=== PATIENT | female | born 1945 | race Caucasian/White ===

== ENCOUNTER 2020-06-15 13:20 | Inpatient (IN) | payer MEDICARE ==
[~2020-06-15] VITALS: Ht 170.2 cm; Wt 89.5 kg
[2020-06-15 16:15] VITALS: BP 122/72
[2020-06-15] MEDS ORDERED: TRAZ-120 PO (17:20)
[2020-06-15] MEDS ORDERED: MELA5TAB20 PO (17:20)
[2020-06-15] MEDS ORDERED: ACET325T21 PO (17:20)
[2020-06-15] MEDS ORDERED: AMLO-187 PO (17:20)
[2020-06-15] MEDS ORDERED: TRAZ-125 PO (17:20)
[2020-06-15] MEDS ORDERED: ASPI-630 PO (17:20)
[2020-06-15] MEDS ORDERED: ATOR40TA59 PO (17:20)
[2020-06-15] MEDS ORDERED: POLY17PO5 PO (17:20)
[2020-06-15] MEDS ORDERED: MULT-246 PO (17:20)
--- NOTE | 2020-06-15 17:23 | NUR ---
NSG NOTE; ADMISSION DIRECT ADMIT TO ROOM 125 AT 1600 FROM [facility] VIA CART ACCOMP BY EMS PERSONNEL PT ADMITTED FOR COVID 19 SCREEN BEFORE ADMISSION TO [facility]
--- NOTE | 2020-06-15 19:15 | HP ---
ADMIT DATE: 06/15/2020 HISTORY OF PRESENT ILLNESS: The patient is a 74-year-old -E[place] female patient who apparently was admitted to [facility] with hallucination that a man who was her , has been for more than 20 years per daughter, was standing in her yard. She had fear that the man was there to hurt her. She called the crisis intervention line and EMT and the police came to the scene where she ____ believe that one of the retail maintenance technician was her . She has had the few other illusions similar to this since last week, each time this happens, she reports feeling a sensation of fullness and pain in her abdomen that radiates to her midline spine. The patient was basically seen in the Emergency Room and all her workup was unremarkable and therefore the patient made a statement that she would go jump off a bridge because if she is not alive, then there is no point being here. It is unclear if this was an actual suicidal threat, as she denies any suicidal or homicidal ideation when asked about whether she specifically meant she could jump off of a bridge. Therefore, the patient was transferred to 48-hour unit of [facility] prior to her admission to [facility]. When I spoke with her this afternoon, she initially denied any hallucination, but apparently she still have this belief and she continues to know exactly what has happened. PAST MEDICAL HISTORY: Significant for allergy, arthritis, cataracts, history of viral hepatitis type A, and hypertension. She is a Jehovah Witness. FAMILY HISTORY: Positive for heart disease in her mother. SOCIAL HISTORY: She is . She never smoked and drinks alcohol 2-3 times a year. She never used smokeless tobacco. Never used any drugs. ALLERGIES: SHE IS ALLERGIC TO SULFA DRUGS WELL SHELLFISH CONTAINING PRODUCTS. MEDICATIONS: She is currently on following medications: She is on atorvastatin calcium 40 mg at bedtime, amlodipine besylate 10 mg daily, aspirin 81 mg once a day, acetaminophen 650 mg every 8 hours, trazodone 100 mg at bedtime and trazodone 12.5 mg twice a day, polyethylene glycol 17 g daily, multivitamin 1 tablet once a day, melatonin 5 mg at bedtime. REVIEW OF SYSTEMS: As per history of present illness. PHYSICAL EXAMINATION: GENERAL: On examining her, she was sitting on the edge of the bed comfortably, in no apparent distress. No pallor, jaundice, cyanosis or thyromegaly. No jugular venous distention. No lower limb edema. VITAL SIGNS: Her heart rate was 59, blood pressure was 122/72, temperature was 98.5, respiratory rate was 18 and oxygen saturation was 96% on room air. HEAD, EYES, EARS, NOSE AND THROAT: Showed normocephalic and atraumatic. NECK: Supple. HEART: Showed normal first and second sounds. No gallop or murmur. CHEST: Clear to auscultation. No crepitation or rhonchi. ABDOMEN: Distended, soft, nontender. NEUROLOGIC: She is awake, alert, responding appropriately. All cranial nerves intact. EXTREMITIES: She moves extremities without difficulty. She ambulates without assistance or assistive devices. She apparently has right hip replacement. LABORATORY DATA: Her lab work is still pending at the time of this dictation. ASSESSMENT AND PLAN: In summary, this is a 74-year-old -E[place]ian female patient who was admitted to [facility] with altered mental status with significant delusions. She has had a CT scan, chest x-ray, TSH, CBC, CMP, and UA are all unremarkable. She also has B12, syphilis. CT abdomen showed abdominal pain that radiates to the back and she is known to have hyperlipidemia, hypertension, and vitamin D deficiency. I will review all her labs tomorrow. We will consult Dr. Collins to see her and eventually she will be transferred to [facility] for inpatient psychiatric stabilization. ALAN KEN MD DR: RAIN/jenni JOB#: [id number] / [id number]
[2020-06-15] MEDS ORDERED: ACETAMINOPHEN 325 MG TABLET PO PRN (19:30)
[2020-06-15] MEDS: diphenhydrAMINE HCL 25 MG CAPSULE PO PRN (20:04)
[2020-06-15] MEDS: traZODone 50 MG TABLET. PO SCH (20:04)
[2020-06-15 20:45] VITALS: BP 119/69
[2020-06-15] MEDS ORDERED: MELATONIN 3 MG TABLET PO SCH (21:00)
--- NOTE | 2020-06-15 22:03 | PDOC ---
Exam Note: Carlos A Note: Please also refer to the separate dictated note~for this date of service dictated separately. Discussed the patient with Nursing staff reviewed the chart.~Reviewed interim history and current functioning. Reviewed vital signs,~Labs/ Radiology~and current medications noted below. Continue current treatment with the changes noted in the dictated addendum note Assessment: Vital Signs/I&O: Vital Signs Date Time Temp Pulse Resp B/P (MAP) Pulse Ox O2 Delivery O2 Flow Rate FiO2 06/15/20 20:45 98.7 76 20 119/69 (86) 95 Room Air Current Medications: Meds: Current Medications Medications (Trade) Dose Ordered Sig/Tory Route PRN Reason Start Time Stop Time Status Last Admin Dose Admin Diphenhydramine HCl (Benadryl) 25 mg PRN Q6HRS PRN PO ITCHING 06/15/20 19:30 06/15/20 20:04 Trazodone HCl (Desyrel) 12.5 mg BIDBFRMEAL PO 06/15/20 20:00 06/15/20 20:04 Melatonin (Melatonin) 3 mg QHS PO 06/15/20 21:00 06/15/20 20:04 I have reviewed the current psychotropics carefully including drug interactions. Risk benefit ratio favors no change other than as noted in my dictated progress note. Diagnosis: Problems: (1) Person under investigation for COVID-19 DYANA DEVINE MD Jun 15, 2020 22:03
[2020-06-15 23:26] VITALS: BP 163/51
[2020-06-16] MEDS: diphenhydrAMINE HCL 25 MG CAPSULE PO PRN (01:44)
[2020-06-16 06:12] VITALS: BP 119/69
[2020-06-16] MEDS: traZODone 50 MG TABLET. PO SCH ×2 (08:24→16:33)
[2020-06-16] MEDS: POLYETHYLENE GLYCOL 3350 17 GM PACKET. PO SCH ×2 (08:25→08:28)
[2020-06-16] MEDS ORDERED: MULTIVITAMIN with MINERAL TABLET. PO SCH (09:00)
[2020-06-16] MEDS ORDERED: ASPIRIN CHEWABLE 81 MG TABLET. PO SCH (09:00)
[2020-06-16] MEDS ORDERED: ATORVASTATIN CALCIUM 20 MG TABLET PO SCH (09:00)
[2020-06-16] MEDS ORDERED: amLODIPine BESYLATE 10 MG TABLET PO SCH (09:00)
[2020-06-16 10:12] VITALS: BP 123/69
--- NOTE | 2020-06-16 15:08 | DS ---
DATE OF DISCHARGE: HOSPITAL COURSE: The patient is a 74-year-old -Prydein[place] female patient who was admitted to 48 hours Unit in [address] [place] [address] for COVID-19 testing. Her coronavirus by PCR was not detected and therefore, a decision was made to discharge her to [facility]. PHYSICAL EXAMINATION: GENERAL: When I examined her this afternoon, she looked well and was clearly in no apparent respiratory distress. No pallor, jaundice, cyanosis, or thyromegaly. No jugular venous distention or limb edema. VITAL SIGNS: Her heart rate was 74, blood pressure was 123/69, temperature was 98.2, respiratory rate was 18 and oxygen saturation was 98% on room air. HEAD, EYES, EARS, NOSE AND THROAT: Showed normocephalic, atraumatic. NECK: Supple. HEART: Showed normal first and second heart sounds. No gallop, rub or murmur. CHEST: Clear to auscultation. No crepitation or rhonchi. ABDOMEN: Distended, soft, nontender. No guarding or rigidity. No organomegaly. All hernial orifices intact. Bowel sounds normal. NEUROLOGIC: She was awake, alert, responding appropriately. All cranial nerves intact. EXTREMITIES: She moves extremities without difficulty. She ambulates without assistance or assistive devices. Her lab works done at [facility] were stable. DISCHARGE MEDICATIONS: She was transferred to [facility] to continue on acetaminophen 650 mg every 8 hours as needed, amlodipine 10 mg once a day, aspirin 81 mg once a day, atorvastatin 40 mg at bedtime, melatonin 5 mg at bedtime, multivitamin 1 tablet once a day, polyethylene glycol 17 grams daily p.r.n. for constipation, trazodone 100 mg at bedtime and trazodone 12.5 mg twice a day. FINAL DISCHARGE DIAGNOSES: Significant hallucination with paranoid delusion, admitted to [facility] for inpatient psychiatric stabilization. OTHER MEDICAL PROBLEMS: Include: A. Hypertension. B. Hyperlipidemia. C. Vitamin D deficiency. ALAN KEN MD DR: RAIN/jenni JOB#: [id number] / [id number]
[2020-06-16 15:27] VITALS: BP 158/100
--- NOTE | 2020-06-16 17:58 | NUR ---
NSG NOTE; DISCHARGE TO [facility] COVID 19 TEST NEGATIVE REPORT CALLED TO CONNIE MACARIO AT 1755 DISCHARGED FOR ADMISSION TO [facility] ALL PERSONAL BELONGINGS SENT WITH PT
== END 2020-06-16 18:00 | DRG 92 ==
LOC: 1 SOUTH 13:20
PROVIDERS: ADMIT Internal Medicine; ATTEND Internal Medicine
DX: G92 Toxic encephalopathy (principal); F03.91 Unspecified dementia, unspecified severity, with behavioral disturbance; F22 Delusional disorders; A53.9 Syphilis, unspecified; E55.9 Vitamin D deficiency, unspecified; E78.5 Hyperlipidemia, unspecified; I10 Essential (primary) hypertension; M19.90 Unspecified osteoarthritis, unspecified site; Z20.828 Contact with and (suspected) exposure to other viral communicable diseases; Z82.49 Family history of ischemic heart disease and other diseases of the circulatory system; Z88.2 Allergy status to sulfonamides; Z88.8 Allergy status to other drugs, medicaments and biological substances; Z91.013 Allergy to seafood; F28 Other psychotic disorder not due to a substance or known physiological condition
CPT/HCPCS: Q0163; U0003

== ENCOUNTER 2020-06-16 18:24 | Inpatient (IN) | payer MEDICARE ==
[~2020-06-16] VITALS: Ht 170.2 cm; Wt 96.0 kg
[2020-06-16 18:05] VITALS: BP 134/80
[~2020-06-16 18:24] MED LIST: ACET325T21 PO; AMLO-187 PO; ASPI-630 PO; ATOR40TA59 PO; MELA5TAB20 PO; MULT-246 PO; POLY17PO5 PO; TRAZ-120 PO; TRAZ-125 PO
[2020-06-16] MEDS ORDERED: diphenhydrAMINE HCL 25 MG CAPSULE PO PRN (20:00)
[2020-06-16] MEDS ORDERED: ACETAMINOPHEN 325 MG TABLET PO PRN (20:00)
[2020-06-16] MEDS: ATORVASTATIN CALCIUM 10 MG TABLET. PO SCH (21:06)
[2020-06-16] MEDS: MELATONIN 3 MG TABLET PO SCH (21:06)
--- NOTE | 2020-06-16 22:07 | PDOC ---
Exam Note: Carlos A Note: Please also refer to the separate dictated note~for this date of service dictated separately.~Patient seen individually. Discussed the patient with Nursing staff reviewed the chart.~Reviewed interim history and current functioning. Reviewed vital signs,~Labs/ Radiology~and current medications noted below. Continue current treatment with the changes noted in the dictated addendum note Assessment: Vital Signs/I&O: Vital Signs Date Time Temp Pulse Resp B/P (MAP) Pulse Ox O2 Delivery O2 Flow Rate FiO2 06/16/20 18:05 98.4 80 20 134/80 (98) 97 Room Air Current Medications: Meds: Current Medications Medications (Trade) Dose Ordered Sig/Tory Route PRN Reason Start Time Stop Time Status Last Admin Dose Admin Atorvastatin Calcium (Lipitor) 40 mg QHS PO 06/16/20 21:00 06/16/20 21:06 Melatonin (Melatonin) 3 mg QHS PO 06/16/20 21:00 06/16/20 21:06 I have reviewed the current psychotropics carefully including drug interactions. Risk benefit ratio favors no change other than as noted in my dictated progress note. Diagnosis: Problems: (1) Hallucination (2) Paranoid delusion DYANA DEVINE MD Jun 16, 2020 22:07
--- NOTE | 2020-06-16 23:15 | HP ---
ADMIT DATE: 06/16/2020 PSYCHIATRIC ADMISSION HISTORY AND EVALUATION This note covers elements not covered in my initial note of 06/16/2020. IDENTIFYING DATA: The patient is a 74-year-old female who is transferred to us from [facility] after she was deemed to be COVID negative. She was initially referred to us from [facility] where she was admitted from home on account of marked hallucinations, disorganization, agitation, worsening at night. Reportedly, the patient had been standing in the front yard fearful that her "man would hurt her." She called 911. She was transferred to the [facility] medically stabilized, behaviors persisted including progressive memory deficits and she was referred to us for inpatient psychiatric stabilization. The patient is a 74-year-old female who is and lives at home alone in [place], [place]. CHIEF COMPLAINT: "I was seeing people standing outside my window. ___ going to hurt my family and I called 911". HISTORY OF PRESENT ILLNESS: The patient has a history of worsening hallucinations psychotic symptoms, agitation with some short-term memory deficits. She was taken to [facility] for medical stabilization since she lives alone at home by herself. She has had some sleep and appetite changes. No clear suicidal or homicidal ideation. No clear history of bipolar disorder. PAST PSYCHIATRIC HISTORY: As above. MEDICAL HISTORY: Positive for metabolic encephalopathy, status post right hip replacement, hypertension, hyperlipidemia. DIET: Heart healthy. CODE STATUS: Full code. ALLERGIES: SULFA, SHELLFISH, IODINE. Ambulates up ad yoshi. CURRENT PSYCHOTROPICS: Melatonin 3 mg at bedtime, Benadryl 25 mg q. 6 hours p.r.n., trazodone 12.5 mg b.i.d. after meals. FAMILY HISTORY: Noncontributory. SOCIAL HISTORY: No history of alcohol, drug abuse, physical, sexual or elder abuse. She is not known to be a perpetrator. She is and lives by herself and her daughters live in the area. No alcohol or drug abuse history. REVIEW OF SYSTEMS: No CV, , pulmonary, eye, ENT system symptoms on review. MENTAL STATUS EXAMINATION: The patient is reasonably oriented. Speech is coherent, has some latency. Abstraction fair, computation impaired, language function intact. Mood and affect somewhat withdrawn. She is less paranoid, suspicious. LABORATORY DATA: Reviewed. IMPRESSION: Psychotic disorder, unspecified versus major depressive disorder with psychotic features, mild cognitive impairment versus major neurocognitive disorder, early Alzheimer, vascular with delusion, depression; anxiety disorder, unspecified; impulse control disorder, unspecified. Rest as above. PLAN: Admit to Geropsychiatry Unit at [facility]. I will see the patient daily individually from a psychiatric standpoint. Medical followup per Dr. Monteiro/Dr. Ron. Continue current psychotropics. Obtain results of CT head done at [facility]. Observe baseline. Make further adjustments as clinically indicated. Estimated length of stay 10-12 days. DISPOSITION PLANS: Possibly back home with outpatient psychiatric followup. MAN Flor DEVINE MD DR: SUJATHA/jenni JOB#: [id number] / [id number]
[2020-06-17] MEDS ORDERED: MAGNESIUM HYDROXIDE 2,400 MG/30 ML ORAL.SUSP. PO PRN (01:15)
[2020-06-17] MEDS ORDERED: METHYL SALICYLATE/MENTHOL TOPICAL OINTMENT 57GM TUBE. TP PRN (01:15)
[2020-06-17] MEDS ORDERED: MAG HYDROX/AL HYDROX/SIMETH 30 ML ORAL.SUSP PO PRN (01:15)
[2020-06-17 02:55] LABS: BACTERIA,URINE FEW /HPF (0-FEW); BILIRUBIN,URINE NEG (NEG); CLARITY,URINE CLEAR; COLOR,URINE YELLOW; GLUCOSE,URINE NEG (NEG); NITRITE,URINE NEG (NEG); RBC,URINE 0 /HPF (0-2); SQUAMOUS EPITHELIAL CELL,UR FEW /LPF; UROBILINOGEN,URINE 0.2 mg/dL (0.2 mg/dL)
[2020-06-17 06:00] VITALS: BP 145/83
[2020-06-17 08:53] LABS: BASO % 0 % (0-3); EOS # 0.2 x10^3/uL (0.0-0.7); EOS % 5 % (0-3); HEMATOCRIT 37.8 % (36.0-47.0); HEMOGLOBIN 12.5 g/dL (12.0-15.5); LYMPH # 1.6 x10^3/uL (1.0-4.8); LYMPH % 37 % (24-48); MEAN CORPUSCULAR HEMOGLOBIN 31 pg (25-35); MEAN CORPUSCULAR HGB CONC 33 g/dL (31-37); MEAN CORPUSCULAR VOLUME 95 fL (79-100); MONO # 0.4 x10^3/uL (0.0-1.1); MONO % 9 % (0-9); NEUT # 2.1 x10^3uL (1.8-7.7); NEUT % 49 % (31-73); PLATELET COUNT 284 x10^3/uL (140-400); RED CELL DISTRIBUTION WIDTH 14.4 % (11.5-14.5); WHITE BLOOD COUNT 4.3 x10^3/uL (4.0-11.0)
[2020-06-17] MEDS ORDERED: amLODIPine BESYLATE 10 MG TABLET PO SCH (09:00)
[2020-06-17 09:07] LABS: ALBUMIN 3.3 g/dL (3.4-5.0); ALBUMIN/GLOBULIN RATIO 0.8 (1.0-1.7); CALCIUM 9.2 mg/dL (8.5-10.1); CREATININE 0.7 mg/dL (0.6-1.0); GFR 81.4; MAGNESIUM 2.2 mg/dL (1.8-2.4); POTASSIUM 3.4 mmol/L (3.5-5.1); TOTAL BILIRUBIN 0.4 mg/dL (0.2-1.0); TOTAL PROTEIN 7.5 g/dL (6.4-8.2)
[2020-06-17] MEDS: traZODone 50 MG TABLET. PO SCH ×2 (09:33→17:21)
[2020-06-17] MEDS: MULTIVITAMIN with MINERAL TABLET. PO SCH (09:33)
[2020-06-17] MEDS: POLYETHYLENE GLYCOL 3350 17 GM PACKET. PO SCH (09:33)
[2020-06-17] MEDS: ASPIRIN CHEWABLE 81 MG TABLET. PO SCH (09:33)
[2020-06-17 14:02] LABS: THYROID STIM HORMONE (TSH) 2.094 uIU/mL (0.358-3.740)
[2020-06-17 15:51] VITALS: BP 120/66
[2020-06-17] MEDS: SERTRALINE 25 MG TABLET. PO SCH (18:30)
--- NOTE | 2020-06-17 20:36 | CONS ---
DATE OF CONSULTATION: 06/17/2020 REASON FOR CONSULTATION: Medical management. HISTORY OF PRESENT ILLNESS: The patient is a 74-year-old -Iranian female patient who was referred from [facility]. She was initially in [facility] surgical floor until she was deemed COVID negative and she was admitted to this facility on account of marked hallucination, disorganization, and agitation worsening at night. Reportedly, the patient has been standing from the yard fearful that a man would hurt her. She called 911. She was transferred to the [facility]. Medically stabilized; however, her behavior persisted including progressive memory deficit and therefore she was admitted for inpatient psychiatric stabilization. PAST MEDICAL HISTORY: Significant for hypertension, hyperlipidemia, did have metabolic encephalopathy. PAST SURGICAL HISTORY: Significant for right hip replacement. ALLERGIES: SHE IS ALLERGIC TO SULFA, SHELLFISH AND IODINE. FAMILY HISTORY: Noncontributory. SOCIAL HISTORY: She lives alone. She does not smoke, drink alcohol or use any recreational drugs. MEDICATIONS: She is currently on metoprolol. She apparently was on amlodipine; however, AMLODIPINE was listed as one of her allergies. We will switch her to metoprolol 25 mg twice a day, MiraLax 17 g daily, multivitamin 1 tablet once a day, aspirin 81 mg once a day, trazodone 12.5 mg twice a day, magnesium hydroxide for milk of magnesia 30 mL p.o. daily p.r.n. for constipation, melatonin 3 mg at bedtime, atorvastatin calcium 40 mg at bedtime, diphenhydramine 25 mg every 6 hours, and acetaminophen 650 mg every 4 hours. PHYSICAL EXAMINATION: GENERAL: On examining her, she looked well and was clearly in no apparent respiratory distress. No pallor, jaundice, cyanosis or thyromegaly. No jugular venous distention. No limb edema. VITAL SIGNS: Her heart rate was 72, blood pressure 120/66, temperature was 98.2, respiratory rate 20, and oxygen saturation was 98%. The rest of the clinical exam is stable. She is ambulatory without any assistance or assistive devices. LABORATORY DATA: Showed hemoglobin of 12.5, hematocrit 37 with normal white cell count and platelets. Her chemistry showed a BUN of 10, creatinine 0.7. Her serum potassium is 3.4. Her serum iron, TIBC and iron saturation are normal. Her TSH was 2.099 and her lipid profile is also within therapeutic range. The patient is overall medically stable. I will obviously follow all her labs that are still pending at the time of this dictation, but otherwise I did change her amlodipine to metoprolol given that AMLODIPINE was listed on her list of allergies. Thank you, Dr. Collins for allowing me to participate in the care of this patient. ALAN KEN MD DR: RAIN/jenni JOB#: [id number] / [id number]
[2020-06-17] MEDS: METOPROLOL TART IMMED RELEASE 25 MG TABLET. PO SCH (20:39)
[2020-06-17] MEDS: MELATONIN 3 MG TABLET PO SCH (20:39)
[2020-06-17] MEDS: ATORVASTATIN CALCIUM 10 MG TABLET. PO SCH (20:39)
--- NOTE | 2020-06-17 21:46 | PDOC ---
Exam Note: Carlos A Note: Please also refer to the separate dictated note~for this date of service dictated separately.~Patient seen individually. Discussed the patient with Nursing staff reviewed the chart.~Reviewed interim history and current functioning. Reviewed vital signs,~Labs/ Radiology~and current medications noted below. Continue current treatment with the changes noted in the dictated addendum note Assessment: Vital Signs/I&O: Vital Signs Date Time Temp Pulse Resp B/P (MAP) Pulse Ox O2 Delivery O2 Flow Rate FiO2 06/17/20 20:39 72 120/66 06/17/20 15:51 98.2 20 98 Room Air I & O 06/16/20 06/16/20 06/17/20 15:00 23:00 07:00 Intake Total 120 ml Balance 120 ml Labs: Laboratory Tests Test 06/17/20 02:30 06/17/20 08:10 Urine Collection Type Unknown Urine Color Yellow Urine Clarity Clear Urine pH 7.0 Urine Specific [place] 1.025 Urine Protein Neg (NEG-TRACE) Urine Glucose (UA) Neg mg/dL (NEG) Urine Ketones (Stick) Neg mg/dL (NEG) Urine Blood Neg (NEG) Urine Nitrite Neg (NEG) Urine Bilirubin Neg (NEG) Urine Urobilinogen Dipstick 0.2 mg/dL (0.2 mg/dL) Urine Leukocyte Esterase Small (NEG) Urine RBC 0 /HPF (0-2) Urine WBC 5-10 /HPF (0-4) Urine Squamous Epithelial Cells Few /LPF Urine Bacteria Few /HPF (0-FEW) White Blood Count 4.3 x10^3/uL (4.0-11.0) Red Blood Count 4.00 x10^6/uL (3.50-5.40) Hemoglobin 12.5 g/dL (12.0-15.5) Hematocrit 37.8 % (36.0-47.0) Mean Corpuscular Volume 95 fL (79-100) Mean Corpuscular Hemoglobin 31 pg (25-35) Mean Corpuscular Hemoglobin Concent 33 g/dL (31-37) Red Cell Distribution Width 14.4 % (11.5-14.5) Platelet Count 284 x10^3/uL (140-400) Neutrophils (%) (Auto) 49 % (31-73) Lymphocytes (%) (Auto) 37 % (24-48) Monocytes (%) (Auto) 9 % (0-9) Eosinophils (%) (Auto) 5 % (0-3) H Basophils (%) (Auto) 0 % (0-3) Neutrophils # (Auto) 2.1 x10^3uL (1.8-7.7) Lymphocytes # (Auto) 1.6 x10^3/uL (1.0-4.8) Monocytes # (Auto) 0.4 x10^3/uL (0.0-1.1) Eosinophils # (Auto) 0.2 x10^3/uL (0.0-0.7) Basophils # (Auto) 0.0 x10^3/uL (0.0-0.2) D-Dimer (Iris) 0.45 mg/L (0.00-0.50) Sodium Level 142 mmol/L (136-145) Potassium Level 3.4 mmol/L (3.5-5.1) L Chloride Level 106 mmol/L (98-107) Carbon Dioxide Level 28 mmol/L (21-32) Anion Gap 8 (6-14) Blood Urea Nitrogen 10 mg/dL (7-20) Creatinine 0.7 mg/dL (0.6-1.0) Estimated GFR (Cockcroft-Gault) 81.4 BUN/Creatinine Ratio 14 (6-20) Glucose Level 98 mg/dL (70-99) Calcium Level 9.2 mg/dL (8.5-10.1) Magnesium Level 2.2 mg/dL (1.8-2.4) Iron Level 83 ug/dL (50-170) Total Iron Binding Capacity 247 ug/dL (250-450) L Iron Saturation 34 % (15-34) Total Bilirubin 0.4 mg/dL (0.2-1.0) Aspartate Amino Transferase (AST) 22 U/L (15-37) Alanine Aminotransferase (ALT) 35 U/L (14-59) Alkaline Phosphatase 81 U/L (46-116) Total Protein 7.5 g/dL (6.4-8.2) Albumin 3.3 g/dL (3.4-5.0) L Albumin/Globulin Ratio 0.8 (1.0-1.7) L Triglycerides Level 47 mg/dL (0-150) Cholesterol Level 129 mg/dL (0-200) LDL Cholesterol, Calculated 59 mg/dL (0-100) VLDL Cholesterol, Calculated 9 mg/dL (0-40) Non-HDL Cholesterol Calculated 68 mg/dL (0-129) HDL Cholesterol 61 mg/dL (40-60) H Cholesterol/HDL Ratio 2.0 Thyroid Stimulating Hormone (TSH) 2.094 uIU/mL (0.358-3.740) Current Medications: Meds: Current Medications Medications (Trade) Dose Ordered Sig/Tory Route PRN Reason Start Time Stop Time Status Last Admin Dose Admin Aspirin (Aspirin Chewable) 81 mg DAILY PO 06/17/20 09:00 06/17/20 09:33 Multivitamins/ Calcium (Thera-M Plus) 1 tab DAILY PO 06/17/20 09:00 06/17/20 09:33 Trazodone HCl (Desyrel) 12.5 mg BIDBFRMEAL PO 06/17/20 07:30 06/17/20 17:21 Metoprolol Tartrate (Lopressor) 25 mg BID PO 06/17/20 21:00 06/17/20 20:39 Sertraline HCl (Zoloft) 25 mg DAILYWSUP PO 06/17/20 18:30 06/17/20 18:30 I have reviewed the current psychotropics carefully including drug interactions. Risk benefit ratio favors no change other than as noted in my dictated progress note. 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
[2020-06-18 06:19] VITALS: BP 131/79
[2020-06-18] MEDS: traZODone 50 MG TABLET. PO SCH ×2 (09:49→17:37)
[2020-06-18] MEDS: METOPROLOL TART IMMED RELEASE 25 MG TABLET. PO SCH ×2 (09:49→21:03)
[2020-06-18] MEDS: ASPIRIN CHEWABLE 81 MG TABLET. PO SCH (09:49)
[2020-06-18] MEDS: POLYETHYLENE GLYCOL 3350 17 GM PACKET. PO SCH (09:50)
[2020-06-18] MEDS: MULTIVITAMIN with MINERAL TABLET. PO SCH (09:50)
[2020-06-18] MEDS: SERTRALINE 25 MG TABLET. PO SCH (17:37)
[2020-06-18] MEDS: AMOXICILLIN 250 MG CAPSULE PO SCH ×2 (17:37→17:38)
[2020-06-18] MEDS: MELATONIN 3 MG TABLET PO SCH (21:02)
[2020-06-18] MEDS: LACTOBACILLUS RHAMNOSUS GG 1 CAPSULE. PO SCH (21:02)
[2020-06-18] MEDS: ATORVASTATIN CALCIUM 10 MG TABLET. PO SCH (21:03)
--- NOTE | 2020-06-18 22:11 | PDOC ---
Exam Note: Carlos A Note: Please also refer to the separate dictated note~for this date of service dictated separately.~Patient seen individually. Discussed the patient with Nursing staff reviewed the chart.~Reviewed interim history and current functioning. Reviewed vital signs,~Labs/ Radiology~and current medications noted below. Continue current treatment with the changes noted in the dictated addendum note Assessment: Vital Signs/I&O: Vital Signs Date Time Temp Pulse Resp B/P (MAP) Pulse Ox O2 Delivery O2 Flow Rate FiO2 06/18/20 21:03 62 131/79 06/18/20 06:19 98.1 16 97 06/17/20 15:51 Room Air I & O 06/17/20 06/17/20 06/18/20 15:00 23:00 07:00 Intake Total 600 ml 860 ml Balance 600 ml 860 ml Current Medications: Meds: Current Medications Medications (Trade) Dose Ordered Sig/Tory Route PRN Reason Start Time Stop Time Status Last Admin Dose Admin Amoxicillin (Amoxil) 250 mg [id number] PO 06/18/20 17:30 06/24/20 17:29 06/18/20 17:37 Lactobacillus Rhamnosus (Culturelle) 1 cap BID PO 06/18/20 21:00 06/18/20 21:02 I have reviewed the current psychotropics carefully including drug interactions. Risk benefit ratio favors no change other than as noted in my dictated progress note. 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
[2020-06-19 06:00] VITALS: BP 115/62
--- NOTE | 2020-06-19 06:45 | PDOC ---
Exam Note: Carlos A Note: This note is a late entry for 06/17/2020 covers elements not covered in my initial note. Subjective: The patient was seen face to face in the evening of 06/17/2020 with Raul MACARIO. Discussed with nursing staff, reviewed the chart. The patient slept 4-3/4 hours previous night. Overall the patient has done reasonably well per nursing report initially but later nursing staff informed me that nursing aids had observed her talking to herself after supper. The patient denied active hallucinations. We are obtaining CT head results that was done at [facility] We reviewed her history and hallucinations at home. She states she was drinking 2 or 3 cups of coffee and 2 or 3 Coca-Jer[employer]o, her other caffeinated drinks but never the energy booster drinks. She was also using some excessive amount of cough medications at the time and wonders if some of this could have contributed to the hallucinations which prompted her admission to [facility]. Review of Systems: Ambulation impaired. No CV, , pulmonary, ENT system symptoms on review though vision is poor. Reliability poor. Mental Status Exam: Reasonably oriented. I met with her at length in her room. Speech coherent. Abstraction is fair. Computation is somewhat impaired. Language function is intact. Attention span is fair. Mood and affect remains somewhat anxious, but otherwise appropriate. No suicidal or homicidal ideation. Laboratory Data: Reviewed. Impression: Major depressive disorder with psychotic features. Psychotic disorder unspecified. Mild cognitive impairment. Plan: We will repeat CT head but obtain the last one done at [facility]. We will go ahead and start Zoloft 25 mg a day for mood and anxiety symptoms. We may add an atypical antipsychotic later as clinically indicated. Assessment: Vital Signs/I&O: Vital Signs Date Time Temp Pulse Resp B/P (MAP) Pulse Ox O2 Delivery O2 Flow Rate FiO2 06/19/20 06:00 97.8 53 18 115/62 (79) 95 Room Air I & O 06/18/20 06/18/20 06/19/20 15:00 23:00 07:00 Intake Total 600 ml 300 ml Balance 600 ml 300 ml Current Medications: Meds: Current Medications Medications (Trade) Dose Ordered Sig/Tory Route PRN Reason Start Time Stop Time Status Last Admin Dose Admin Amoxicillin (Amoxil) 250 mg [id number] PO 06/18/20 17:30 06/24/20 17:29 06/18/20 17:37 Lactobacillus Rhamnosus (Culturelle) 1 cap BID PO 06/18/20 21:00 06/18/20 21:02 I have reviewed the current psychotropics carefully including drug interactions. Risk benefit ratio favors no change other than as noted in my dictated progress note. 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
[2020-06-19] MEDS: traZODone 50 MG TABLET. PO SCH ×2 (08:01→16:25)
[2020-06-19] MEDS: LACTOBACILLUS RHAMNOSUS GG 1 CAPSULE. PO SCH ×2 (08:02→20:21)
[2020-06-19] MEDS: MULTIVITAMIN with MINERAL TABLET. PO SCH (08:02)
[2020-06-19] MEDS: AMOXICILLIN 250 MG CAPSULE PO SCH ×3 (08:03→20:21)
[2020-06-19] MEDS: ASPIRIN CHEWABLE 81 MG TABLET. PO SCH (08:04)
[2020-06-19] MEDS: METOPROLOL TART IMMED RELEASE 25 MG TABLET. PO SCH ×2 (08:04→20:22)
[2020-06-19] MEDS: POLYETHYLENE GLYCOL 3350 17 GM PACKET. PO SCH (08:05)
[2020-06-19 16:07] VITALS: BP 148/80
[2020-06-19] MEDS: SERTRALINE 25 MG TABLET. PO SCH (16:25)
[2020-06-19] MEDS: MELATONIN 3 MG TABLET PO SCH (20:19)
[2020-06-19] MEDS: ATORVASTATIN CALCIUM 10 MG TABLET. PO SCH (20:19)
--- NOTE | 2020-06-19 22:12 | PDOC ---
Exam Note: Carlos A Note: Please also refer to the separate dictated note~for this date of service dictated separately.~Patient seen individually. Discussed the patient with Nursing staff reviewed the chart.~Reviewed interim history and current functioning. Reviewed vital signs,~Labs/ Radiology~and current medications noted below. Continue current treatment with the changes noted in the dictated addendum note Assessment: Vital Signs/I&O: Vital Signs Date Time Temp Pulse Resp B/P (MAP) Pulse Ox O2 Delivery O2 Flow Rate FiO2 06/19/20 20:22 59 148/80 06/19/20 16:07 98.0 20 99 06/19/20 06:00 Room Air I & O 06/18/20 06/18/20 06/19/20 15:00 23:00 07:00 Intake Total 600 ml 300 ml Balance 600 ml 300 ml Current Medications: I have reviewed the current psychotropics carefully including drug interactions. Risk benefit ratio favors no change other than as noted in my dictated progress note. 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
[2020-06-20 06:10] VITALS: BP 130/78
--- NOTE | 2020-06-20 06:48 | PDOC ---
Exam Note: Carlos A Note: This note is a late entry for 06/18/2020 covers elements not covered in my initial note. Subjective: The patient was seen face to face in the evening of 06/18/2020 with Heather MACARIO. Discussed with nursing staff, reviewed the chart. The patient slept 4-3/4 hours previous night. The patient has been telling nursing staff that at night the windows open and someone was lying in bed with her and then coming through the window. Her UA is reflex to culture. She started on Amoxil 250 mg t.i.d. She was able to remember 2 or 3 objects at the end of 3 minutes per assessment per nursing staff on the clock drawing she made the 6.50 as 6.55 but otherwise was accurate. Review of Systems: Ambulation impaired. No CV, , pulmonary, ENT system symptoms on review. Mental Status Exam: Reasonably oriented. The patient denies any overt psychotic symptoms, suicidal or homicidal ideation. Speech coherent. Abstraction is fair. Computation is somewhat impaired. Language function is intact. Attention span is fair. Mood and affect remains somewhat anxious, but otherwise appropriate. No suicidal or homicidal ideation. Laboratory Data: Reviewed. Impression: Major depressive disorder with psychotic features. Psychotic disorder unspecified. Mild cognitive impairment. Plan: No change from initial note. Assessment: Vital Signs/I&O: Vital Signs Date Time Temp Pulse Resp B/P (MAP) Pulse Ox O2 Delivery O2 Flow Rate FiO2 06/20/20 06:10 98.2 51 18 130/78 (95) 97 06/19/20 06:00 Room Air I & O 06/19/20 06/19/20 06/20/20 15:00 23:00 07:00 Intake Total 840 ml 240 ml 60 ml Balance 840 ml 240 ml 60 ml Current Medications: I have reviewed the current psychotropics carefully including drug interactions. Risk benefit ratio favors no change other than as noted in my dictated progress note. Diagnosis: Problems: (1) Dementia in Alzheimer's disease with depression (2) Mild cognitive impairment (3) Psychotic disorder (4) Dementia, vascular, with depression (5) Dementia, vascular, with delusions (6) Dementia in Alzheimer's disease with delusions (7) Major neurocognitive disorder (8) Dementia in Alzheimer's disease with early onset with behavioral disturbance (9) Major depressive disorder with psychotic features DYANA DEVINE MD Jun 20, 2020 06:48
[2020-06-20 07:00] LABS: ALBUMIN 3.1 g/dL (3.4-5.0); ALBUMIN/GLOBULIN RATIO 0.8 (1.0-1.7); CALCIUM 8.7 mg/dL (8.5-10.1); CREATININE 0.8 mg/dL (0.6-1.0); GFR 69.7; POTASSIUM 3.8 mmol/L (3.5-5.1); TOTAL BILIRUBIN 0.4 mg/dL (0.2-1.0); TOTAL PROTEIN 7.1 g/dL (6.4-8.2)
--- NOTE | 2020-06-20 07:17 | PDOC ---
Exam Note: Carlos A Note: This note is a late entry for 06/19/2020 covers elements not covered in my initial note. Subjective: The patient was seen face to face in the morning of 06/19/2020 for a treatment team meeting with Constanza Morrissey Nikki (psychosocial rehabilitation counselor), and Nuvia MACARIO. Discussed with nursing staff, reviewed the chart. The patient slept 7-1/4 hours previous night. She was seen individually in the evening. No overt hallucinations noted. I met with her at length in her room. Review of Systems: Ambulation impaired. No CV, , pulmonary, system symptoms on review. Mental Status Exam: Reasonably oriented. She was very pleasant, verbal, interactive, smiling as I met with her. Speech coherent. Abstraction is fair. Computation is somewhat impaired. Language function is intact. Attention span is fair. Mood and affect remains somewhat anxious, but otherwise appropriate. No suicidal or homicidal ideation. Laboratory Data: Reviewed. Impression: Major depressive disorder with psychotic features. Psychotic disorder unspecified. Mild cognitive impairment. Plan: No change from initial note. Assessment: Vital Signs/I&O: Vital Signs Date Time Temp Pulse Resp B/P (MAP) Pulse Ox O2 Delivery O2 Flow Rate FiO2 06/20/20 06:10 98.2 51 18 130/78 (95) 97 06/19/20 06:00 Room Air I & O 06/19/20 06/19/20 06/20/20 15:00 23:00 07:00 Intake Total 840 ml 240 ml 60 ml Balance 840 ml 240 ml 60 ml Labs: Laboratory Tests Test 06/20/20 06:16 Sodium Level 141 mmol/L (136-145) Potassium Level 3.8 mmol/L (3.5-5.1) Chloride Level 105 mmol/L (98-107) Carbon Dioxide Level 28 mmol/L (21-32) Anion Gap 8 (6-14) Blood Urea Nitrogen 14 mg/dL (7-20) Creatinine 0.8 mg/dL (0.6-1.0) Estimated GFR (Cockcroft-Gault) 69.7 BUN/Creatinine Ratio 18 (6-20) Glucose Level 100 mg/dL (70-99) H Calcium Level 8.7 mg/dL (8.5-10.1) Total Bilirubin 0.4 mg/dL (0.2-1.0) Aspartate Amino Transferase (AST) 14 U/L (15-37) L Alanine Aminotransferase (ALT) 23 U/L (14-59) Alkaline Phosphatase 78 U/L (46-116) Total Protein 7.1 g/dL (6.4-8.2) Albumin 3.1 g/dL (3.4-5.0) L Albumin/Globulin Ratio 0.8 (1.0-1.7) L Current Medications: I have reviewed the current psychotropics carefully including drug interactions. Risk benefit ratio favors no change other than as noted in my dictated progress note. Diagnosis: Problems: (1) Mild cognitive impairment (2) Psychotic disorder (3) Dementia, vascular, with delusions (4) Dementia in Alzheimer's disease with delusions (5) Major neurocognitive disorder (6) Dementia in Alzheimer's disease with early onset with behavioral disturbance (7) Major depressive disorder with psychotic features (8) Dementia, vascular, with depression (9) Dementia in Alzheimer's disease with depression DYANA DEVINE MD Jun 20, 2020 07:17
[2020-06-20] MEDS: POLYETHYLENE GLYCOL 3350 17 GM PACKET. PO SCH (08:54)
[2020-06-20] MEDS: AMOXICILLIN 250 MG CAPSULE PO SCH ×3 (08:54→19:35)
[2020-06-20] MEDS: traZODone 50 MG TABLET. PO SCH ×2 (08:54→16:35)
[2020-06-20] MEDS: ASPIRIN CHEWABLE 81 MG TABLET. PO SCH (08:54)
[2020-06-20] MEDS: LACTOBACILLUS RHAMNOSUS GG 1 CAPSULE. PO SCH ×2 (08:55→19:35)
[2020-06-20] MEDS: MULTIVITAMIN with MINERAL TABLET. PO SCH (08:55)
[2020-06-20] MEDS: METOPROLOL TART IMMED RELEASE 25 MG TABLET. PO SCH ×2 (08:55→19:36)
--- NOTE | 2020-06-20 13:55 | EKG ---
[address] [address] Test Date: 2020-06-17 Test Time: 22:18:55 Pat Name: BESSY WALLACE Department: Room: [address] [place] [address] Gender: F [employer]: : 1945 Requested By: DYANA DEVINE Order Number: [id number] Reading MD: Raheem Churchill Measurements Intervals [place] Rate: 57 P: LA: QRS: -12 QRSD: 102 T: 41 QT: 450 QTc: 441 Interpretive Statements SINUS BRADYCARDIA LEFTWARD AXIS Electronically Signed On 06-27-2020 12:33:47 [employer] by Raheem Churchill
[2020-06-20 16:13] VITALS: BP 130/62
[2020-06-20] MEDS: SERTRALINE 25 MG TABLET. PO SCH (16:34)
[2020-06-20] MEDS: MELATONIN 3 MG TABLET PO SCH (19:35)
[2020-06-20] MEDS: ATORVASTATIN CALCIUM 10 MG TABLET. PO SCH (19:36)
--- NOTE | 2020-06-20 22:01 | PDOC ---
Exam Note: Carlos A Note: Please also refer to the separate dictated note~for this date of service dictated separately.~Patient seen individually. Discussed the patient with Nursing staff reviewed the chart.~Reviewed interim history and current functioning. Reviewed vital signs,~Labs/ Radiology~and current medications noted below. Continue current treatment with the changes noted in the dictated addendum note Assessment: Vital Signs/I&O: Vital Signs Date Time Temp Pulse Resp B/P (MAP) Pulse Ox O2 Delivery O2 Flow Rate FiO2 06/20/20 19:36 53 130/62 06/20/20 16:13 97.3 18 97 Room Air I & O 06/19/20 06/19/20 06/20/20 15:00 23:00 07:00 Intake Total 840 ml 240 ml 60 ml Balance 840 ml 240 ml 60 ml Labs: Laboratory Tests Test 06/20/20 06:16 Sodium Level 141 mmol/L (136-145) Potassium Level 3.8 mmol/L (3.5-5.1) Chloride Level 105 mmol/L (98-107) Carbon Dioxide Level 28 mmol/L (21-32) Anion Gap 8 (6-14) Blood Urea Nitrogen 14 mg/dL (7-20) Creatinine 0.8 mg/dL (0.6-1.0) Estimated GFR (Cockcroft-Gault) 69.7 BUN/Creatinine Ratio 18 (6-20) Glucose Level 100 mg/dL (70-99) H Calcium Level 8.7 mg/dL (8.5-10.1) Total Bilirubin 0.4 mg/dL (0.2-1.0) Aspartate Amino Transferase (AST) 14 U/L (15-37) L Alanine Aminotransferase (ALT) 23 U/L (14-59) Alkaline Phosphatase 78 U/L (46-116) Total Protein 7.1 g/dL (6.4-8.2) Albumin 3.1 g/dL (3.4-5.0) L Albumin/Globulin Ratio 0.8 (1.0-1.7) L Current Medications: I have reviewed the current psychotropics carefully including drug interactions. Risk benefit ratio favors no change other than as noted in my dictated progress note. Diagnosis: Problems: (1) Psychotic disorder (2) Mild cognitive impairment (3) Dementia, vascular, with depression (4) Dementia, vascular, with delusions (5) Dementia in Alzheimer's disease with delusions (6) Dementia in Alzheimer's disease with depression (7) Major depressive disorder with psychotic features (8) Dementia in Alzheimer's disease with early onset with behavioral disturbance (9) Major neurocognitive disorder DYANA DEVINE MD Jun 20, 2020 22:01
[2020-06-21 05:35] VITALS: BP 137/88
[2020-06-21] MEDS: POLYETHYLENE GLYCOL 3350 17 GM PACKET. PO SCH (08:10)
[2020-06-21] MEDS: METOPROLOL TART IMMED RELEASE 25 MG TABLET. PO SCH ×2 (08:11→20:17)
[2020-06-21] MEDS: AMOXICILLIN 250 MG CAPSULE PO SCH ×3 (08:11→20:16)
[2020-06-21] MEDS: ASPIRIN CHEWABLE 81 MG TABLET. PO SCH (08:11)
[2020-06-21] MEDS: traZODone 50 MG TABLET. PO SCH ×2 (08:11→16:49)
[2020-06-21] MEDS: MULTIVITAMIN with MINERAL TABLET. PO SCH (08:11)
[2020-06-21] MEDS: LACTOBACILLUS RHAMNOSUS GG 1 CAPSULE. PO SCH ×2 (08:11→20:16)
[2020-06-21 16:26] VITALS: BP 148/76
[2020-06-21] MEDS: SERTRALINE 25 MG TABLET. PO SCH (17:19)
[2020-06-21] MEDS: MELATONIN 3 MG TABLET PO SCH (20:16)
[2020-06-21] MEDS: ATORVASTATIN CALCIUM 10 MG TABLET. PO SCH (20:17)
--- NOTE | 2020-06-21 22:13 | PDOC ---
Exam Note: Carlos A Note: Please also refer to the separate dictated note~for this date of service dictated separately.~Patient seen individually. Discussed the patient with Nursing staff reviewed the chart.~Reviewed interim history and current functioning. Reviewed vital signs,~Labs/ Radiology~and current medications noted below. Continue current treatment with the changes noted in the dictated addendum note Assessment: Vital Signs/I&O: Vital Signs Date Time Temp Pulse Resp B/P (MAP) Pulse Ox O2 Delivery O2 Flow Rate FiO2 06/21/20 20:17 64 148/76 06/21/20 16:26 97.6 19 95 06/20/20 16:13 Room Air I & O 06/20/20 06/20/20 06/21/20 15:00 23:00 07:00 Intake Total 720 ml 480 ml Balance 720 ml 480 ml Current Medications: I have reviewed the current psychotropics carefully including drug interactions. Risk benefit ratio favors no change other than as noted in my dictated progress note. Diagnosis: Problems: (1) Mild cognitive impairment (2) Dementia, vascular, with depression (3) Dementia, vascular, with delusions (4) Dementia in Alzheimer's disease with delusions (5) Major depressive disorder with psychotic features (6) Dementia in Alzheimer's disease with early onset with behavioral disturbance (7) Major neurocognitive disorder (8) Dementia in Alzheimer's disease with depression DYANA DEVINE MD Jun 21, 2020 22:13
[2020-06-22 05:35] VITALS: BP 161/71
--- NOTE | 2020-06-22 06:26 | PDOC ---
Exam Note: Carlos A Note: This note is a late entry for 06/20/2020 covers elements not covered in my initial note. Subjective: The patient was seen face to face in the evening of 06/20/2020 with Sera MACARIO. Discussed with nursing staff, reviewed the chart. The patient slept 6 hours previous night. She does have UTI started on Amoxil. Potassium is back to normal at 3.8. I met with her in her room. Review of Systems: Ambulation impaired. No CV, , pulmonary, system symptoms on review. Mental Status Exam: Reasonably oriented. Speech is coherent. Abstraction is fair. Computation is somewhat impaired. Language function is intact. Attention span is fair. Mood and affect is improved. Laboratory Data: Reviewed. Impression: Major depressive disorder with psychotic features. Psychotic disorder unspecified. Mild cognitive impairment. Plan: No change from initial note. Treat the UTI. Currently on Amoxil. Continue rest of the psychotropics. Make further adjustments as clinically indicated. Assessment: Vital Signs/I&O: Vital Signs Date Time Temp Pulse Resp B/P (MAP) Pulse Ox O2 Delivery O2 Flow Rate FiO2 06/22/20 05:35 98.0 65 18 161/71 (101) 98 Room Air I & O 06/21/20 06/21/20 06/22/20 15:00 23:00 07:00 Intake Total 720 ml 360 ml Balance 720 ml 360 ml Current Medications: I have reviewed the current psychotropics carefully including drug interactions. Risk benefit ratio favors no change other than as noted in my dictated progress note. Diagnosis: Problems: (1) Psychotic disorder (2) Mild cognitive impairment (3) Dementia, vascular, with depression (4) Dementia, vascular, with delusions (5) Dementia in Alzheimer's disease with depression (6) Dementia in Alzheimer's disease with delusions (7) Major neurocognitive disorder (8) Dementia in Alzheimer's disease with early onset with behavioral disturbance (9) Major depressive disorder with psychotic features DYANA DEVINE MD Jun 22, 2020 06:26
--- NOTE | 2020-06-22 06:54 | PDOC ---
Exam Note: Carlos A Note: This note is a late entry for 06/21/2020 covers elements not covered in my initial note. Subjective: The patient was seen face to face in the evening of 06/21/2020 with Kamila MACARIO. Discussed with nursing staff, reviewed the chart. The patient slept 6-3/4 hours previous night. The patient has done reasonably well. Review of Systems: Ambulation impaired. No CV, , pulmonary, system symptoms on review. Mental Status Exam: Reasonably oriented to herself and situation. I met with her in her room. Speech is coherent. Abstraction is fair. Computation is impaired. Language function is intact. Attention span is short. Mood and affect remains is improved. She is quite verbal, interactive as I met with her. Laboratory Data: Reviewed. Impression: Major depressive disorder with psychotic features. Psychotic disorder unspecified. Mild cognitive impairment. Plan: No change from initial note. Assessment: Vital Signs/I&O: Vital Signs Date Time Temp Pulse Resp B/P (MAP) Pulse Ox O2 Delivery O2 Flow Rate FiO2 06/22/20 05:35 98.0 65 18 161/71 (101) 98 Room Air I & O 06/21/20 06/21/20 06/22/20 15:00 23:00 07:00 Intake Total 720 ml 360 ml Balance 720 ml 360 ml Current Medications: I have reviewed the current psychotropics carefully including drug interactions. Risk benefit ratio favors no change other than as noted in my dictated progress note. Diagnosis: Problems: (1) Dementia, vascular, with depression (2) Mild cognitive impairment (3) Dementia, vascular, with delusions (4) Dementia in Alzheimer's disease with depression (5) Major neurocognitive disorder (6) Dementia in Alzheimer's disease with early onset with behavioral disturbance (7) Major depressive disorder with psychotic features (8) Dementia in Alzheimer's disease with delusions DYANA DEVINE MD Jun 22, 2020 06:54
[2020-06-22] MEDS: POLYETHYLENE GLYCOL 3350 17 GM PACKET. PO SCH (08:58)
[2020-06-22] MEDS: traZODone 50 MG TABLET. PO SCH ×2 (08:59→17:50)
[2020-06-22] MEDS: ASPIRIN CHEWABLE 81 MG TABLET. PO SCH (08:59)
[2020-06-22] MEDS: METOPROLOL TART IMMED RELEASE 25 MG TABLET. PO SCH ×2 (09:00→20:38)
[2020-06-22] MEDS: LACTOBACILLUS RHAMNOSUS GG 1 CAPSULE. PO SCH ×2 (09:00→20:38)
[2020-06-22] MEDS: MULTIVITAMIN with MINERAL TABLET. PO SCH (09:00)
[2020-06-22] MEDS: AMOXICILLIN 250 MG CAPSULE PO SCH ×3 (09:00→20:38)
[2020-06-22 15:58] VITALS: BP 167/89
[2020-06-22] MEDS: SERTRALINE 25 MG TABLET. PO SCH (17:50)
[2020-06-22] MEDS: ATORVASTATIN CALCIUM 10 MG TABLET. PO SCH (20:38)
[2020-06-22] MEDS: MELATONIN 3 MG TABLET PO SCH (20:38)
--- NOTE | 2020-06-22 21:59 | PDOC ---
Exam Note: Carlos A Note: Please also refer to the separate dictated note~for this date of service dictated separately.~Patient seen individually. Discussed the patient with Nursing staff reviewed the chart.~Reviewed interim history and current functioning. Reviewed vital signs,~Labs/ Radiology~and current medications noted below. Continue current treatment with the changes noted in the dictated addendum note Assessment: Vital Signs/I&O: Vital Signs Date Time Temp Pulse Resp B/P (MAP) Pulse Ox O2 Delivery O2 Flow Rate FiO2 06/22/20 20:38 71 167/89 06/22/20 15:58 97.9 16 97 06/22/20 05:35 Room Air I & O 06/21/20 06/21/20 06/22/20 15:00 23:00 07:00 Intake Total 720 ml 360 ml Balance 720 ml 360 ml Current Medications: I have reviewed the current psychotropics carefully including drug interactions. Risk benefit ratio favors no change other than as noted in my dictated progress note. Diagnosis: Problems: (1) Mild cognitive impairment (2) Dementia, vascular, with depression (3) Dementia, vascular, with delusions (4) Dementia in Alzheimer's disease with depression (5) Dementia in Alzheimer's disease with delusions (6) Major neurocognitive disorder (7) Dementia in Alzheimer's disease with early onset with behavioral disturbance (8) Major depressive disorder with psychotic features (9) Psychotic disorder DYANA DEVINE MD Jun 22, 2020 21:59
[2020-06-23 06:39] VITALS: BP 130/70
[2020-06-23] MEDS: MULTIVITAMIN with MINERAL TABLET. PO SCH (08:14)
[2020-06-23] MEDS: ASPIRIN CHEWABLE 81 MG TABLET. PO SCH (08:14)
[2020-06-23] MEDS: AMOXICILLIN 250 MG CAPSULE PO SCH ×3 (08:14→20:38)
[2020-06-23] MEDS: LACTOBACILLUS RHAMNOSUS GG 1 CAPSULE. PO SCH ×2 (08:14→20:38)
[2020-06-23] MEDS: traZODone 50 MG TABLET. PO SCH ×2 (08:14→16:51)
[2020-06-23] MEDS: POLYETHYLENE GLYCOL 3350 17 GM PACKET. PO SCH (08:15)
[2020-06-23] MEDS: METOPROLOL TART IMMED RELEASE 25 MG TABLET. PO SCH ×2 (08:15→20:38)
[2020-06-23 15:24] VITALS: BP 119/65
[2020-06-23] MEDS: SERTRALINE 25 MG TABLET. PO SCH (16:50)
[2020-06-23 20:15] VITALS: BP 148/71
[2020-06-23] MEDS: ATORVASTATIN CALCIUM 10 MG TABLET. PO SCH (20:38)
[2020-06-23] MEDS: MELATONIN 3 MG TABLET PO SCH (20:38)
--- NOTE | 2020-06-23 22:04 | PDOC ---
Exam Note: Carlos A Note: Please also refer to the separate dictated note~for this date of service dictated separately.~Patient seen individually. Discussed the patient with Nursing staff reviewed the chart.~Reviewed interim history and current functioning. Reviewed vital signs,~Labs/ Radiology~and current medications noted below. Continue current treatment with the changes noted in the dictated addendum note Assessment: Vital Signs/I&O: Vital Signs Date Time Temp Pulse Resp B/P (MAP) Pulse Ox O2 Delivery O2 Flow Rate FiO2 06/23/20 20:38 63 148/71 06/23/20 20:15 95 Room Air 06/23/20 15:24 98.4 20 I & O 06/22/20 06/22/20 06/23/20 15:00 23:00 07:00 Intake Total 565 ml 885 ml Balance 565 ml 885 ml Current Medications: I have reviewed the current psychotropics carefully including drug interactions. Risk benefit ratio favors no change other than as noted in my dictated progress note. Diagnosis: Problems: (1) Dementia, vascular, with delusions (2) Dementia, vascular, with depression (3) Mild cognitive impairment (4) Dementia in Alzheimer's disease with depression (5) Dementia in Alzheimer's disease with delusions (6) Major neurocognitive disorder (7) Major depressive disorder with psychotic features (8) Dementia in Alzheimer's disease with early onset with behavioral disturbance (9) Psychotic disorder DYANA DEVINE MD Jun 23, 2020 22:04
[2020-06-24 06:32] VITALS: BP 114/53
[2020-06-24] MEDS: ASPIRIN CHEWABLE 81 MG TABLET. PO SCH (09:01)
[2020-06-24] MEDS: AMOXICILLIN 250 MG CAPSULE PO SCH ×2 (09:01→12:26)
[2020-06-24] MEDS: POLYETHYLENE GLYCOL 3350 17 GM PACKET. PO SCH (09:01)
[2020-06-24] MEDS: MULTIVITAMIN with MINERAL TABLET. PO SCH (09:01)
[2020-06-24] MEDS: traZODone 50 MG TABLET. PO SCH ×2 (09:01→17:06)
[2020-06-24] MEDS: LACTOBACILLUS RHAMNOSUS GG 1 CAPSULE. PO SCH ×2 (09:01→20:47)
[2020-06-24] MEDS: METOPROLOL TART IMMED RELEASE 25 MG TABLET. PO SCH ×2 (09:01→20:47)
[2020-06-24 16:01] VITALS: BP 148/67
[2020-06-24] MEDS: SERTRALINE 25 MG TABLET. PO SCH (17:06)
[2020-06-24] MEDS: MELATONIN 3 MG TABLET PO SCH (20:47)
[2020-06-24] MEDS: ATORVASTATIN CALCIUM 10 MG TABLET. PO SCH (20:48)
--- NOTE | 2020-06-24 21:54 | PDOC ---
Exam Note: Carlos A Note: Please also refer to the separate dictated note~for this date of service dictated separately.~Patient seen individually. Discussed the patient with Nursing staff reviewed the chart.~Reviewed interim history and current functioning. Reviewed vital signs,~Labs/ Radiology~and current medications noted below. Continue current treatment with the changes noted in the dictated addendum note Assessment: Vital Signs/I&O: Vital Signs Date Time Temp Pulse Resp B/P (MAP) Pulse Ox O2 Delivery O2 Flow Rate FiO2 06/24/20 20:47 58 148/67 06/24/20 16:01 97.7 18 98 Room Air I & O 06/23/20 06/23/20 06/24/20 15:00 23:00 07:00 Intake Total 550 ml 445 ml Balance 550 ml 445 ml Current Medications: I have reviewed the current psychotropics carefully including drug interactions. Risk benefit ratio favors no change other than as noted in my dictated progress note. Diagnosis: Problems: (1) Dementia, vascular, with depression (2) Dementia in Alzheimer's disease with depression (3) Dementia in Alzheimer's disease with delusions (4) Major neurocognitive disorder (5) Major depressive disorder with psychotic features (6) Dementia in Alzheimer's disease with early onset with behavioral disturbance (7) Dementia, vascular, with delusions (8) Mild cognitive impairment DYANA DEVINE MD Jun 24, 2020 21:54
[2020-06-25 06:01] VITALS: BP 154/88
--- NOTE | 2020-06-25 07:23 | PDOC ---
Exam Note: Carlos A Note: This note is a late entry for 06/22/2020 covers elements not covered in my initial note. Subjective: The patient was seen face to face in the evening of 06/22/2020 with Sera MACARIO. Discussed with nursing staff, reviewed the chart. The patient slept 8-3/4 hours previous night. Reportedly the patient denies any active hallucinations but apparently her family has called the nursing staff to state that the patient tells them she still has some intermittent auditory hallucinations. I addressed this with the patient in the evening and she denies having it. Review of Systems: Ambulation impaired. No CV, , pulmonary, system symptoms on review. Mental Status Exam: Reasonably oriented to herself and situation. She was pleasant, verbal, interactive. Denied overt hallucinations as I met with her in the room. Speech is coherent. Abstraction is fair. Computation is impaired. Language function is intact. Attention span is short. Mood and affect remains is improved. Laboratory Data: Reviewed. Impression: Major depressive disorder with psychotic features. Psychotic disorder unspecified. Mild cognitive impairment. Plan: No change from initial note. Assessment: Vital Signs/I&O: Vital Signs Date Time Temp Pulse Resp B/P (MAP) Pulse Ox O2 Delivery O2 Flow Rate FiO2 06/25/20 06:01 98.6 68 20 154/88 (110) 95 06/24/20 16:01 Room Air I & O 06/24/20 06/24/20 06/25/20 15:00 23:00 07:00 Intake Total 480 ml 360 ml 0 ml Balance 480 ml 360 ml 0 ml Current Medications: I have reviewed the current psychotropics carefully including drug interactions. Risk benefit ratio favors no change other than as noted in my dictated progress note. Diagnosis: Problems: (1) Mild cognitive impairment (2) Dementia, vascular, with depression (3) Dementia, vascular, with delusions (4) Dementia in Alzheimer's disease with delusions (5) Major neurocognitive disorder (6) Dementia in Alzheimer's disease with early onset with behavioral disturbance (7) Major depressive disorder with psychotic features DYANA DEVINE MD Jun 25, 2020 07:23
--- NOTE | 2020-06-25 07:46 | PDOC ---
Exam Note: Carlos A Note: This note is a late entry for 06/23/2020 covers elements not covered in my initial note. Subjective: The patient was seen face to face in the evening of 06/23/2020 with Kamila MACARIO. Discussed with nursing staff, reviewed the chart. The patient slept 8-3/4 hours previous night. She is somewhat isolative, met with her in her room. Review of Systems: Ambulation impaired. No CV, , pulmonary, system symptoms on review. Mental Status Exam: Reasonably oriented to herself and situation. She was pleasant, verbal, interactive. Speech is coherent. Abstraction is fair. Computation is impaired. Language function is intact. Attention span is short. Mood and affect remains is improved. Laboratory Data: Reviewed. Impression: Major depressive disorder with psychotic features. Psychotic disorder unspecified. Mild cognitive impairment. Plan: No change from initial note. Assessment: Vital Signs/I&O: Vital Signs Date Time Temp Pulse Resp B/P (MAP) Pulse Ox O2 Delivery O2 Flow Rate FiO2 06/25/20 06:01 98.6 68 20 154/88 (110) 95 06/24/20 16:01 Room Air I & O 06/24/20 06/24/20 06/25/20 15:00 23:00 07:00 Intake Total 480 ml 360 ml 0 ml Balance 480 ml 360 ml 0 ml Current Medications: I have reviewed the current psychotropics carefully including drug interactions. Risk benefit ratio favors no change other than as noted in my dictated progress note. Diagnosis: Problems: (1) Mild cognitive impairment (2) Dementia, vascular, with depression (3) Dementia, vascular, with delusions (4) Dementia in Alzheimer's disease with delusions (5) Major neurocognitive disorder (6) Dementia in Alzheimer's disease with early onset with behavioral disturbance (7) Major depressive disorder with psychotic features DYANA DEVINE MD Jun 25, 2020 07:46
--- NOTE | 2020-06-25 08:05 | PDOC ---
Exam Note: Carlos A Note: This note is a late entry for 06/24/2020 covers elements not covered in my initial note. Subjective: The patient was seen face to face in the evening of 06/24/2020 with Raul MACARIO. Discussed with nursing staff, reviewed the chart. The patient slept 7-1/4 hours previous night. No delusions noted. Review of Systems: Ambulation impaired. No CV, , pulmonary, system symptoms on review. Mental Status Exam: Reasonably oriented to herself and situation. She was pleasant, verbal, interactive. Speech is coherent. Abstraction is fair. Computation is impaired. Language function is intact. Attention span is short. Mood and affect remains is improved. Laboratory Data: Reviewed. Impression: Major depressive disorder with psychotic features. Psychotic disorder unspecified. Mild cognitive impairment. Plan: No change from initial note. Assessment: Vital Signs/I&O: Vital Signs Date Time Temp Pulse Resp B/P (MAP) Pulse Ox O2 Delivery O2 Flow Rate FiO2 06/25/20 06:01 98.6 68 20 154/88 (110) 95 06/24/20 16:01 Room Air I & O 06/24/20 06/24/20 06/25/20 15:00 23:00 07:00 Intake Total 480 ml 360 ml 0 ml Balance 480 ml 360 ml 0 ml Current Medications: I have reviewed the current psychotropics carefully including drug interactions. Risk benefit ratio favors no change other than as noted in my dictated progress note. Diagnosis: Problems: (1) Mild cognitive impairment (2) Dementia, vascular, with depression (3) Dementia, vascular, with delusions (4) Dementia in Alzheimer's disease with depression (5) Major neurocognitive disorder (6) Dementia in Alzheimer's disease with early onset with behavioral disturbance (7) Major depressive disorder with psychotic features DYANA DEVINE MD Jun 25, 2020 08:05
[2020-06-25] MEDS: LACTOBACILLUS RHAMNOSUS GG 1 CAPSULE. PO SCH ×2 (08:26→20:24)
[2020-06-25] MEDS: ASPIRIN CHEWABLE 81 MG TABLET. PO SCH (08:26)
[2020-06-25] MEDS: METOPROLOL TART IMMED RELEASE 25 MG TABLET. PO SCH ×2 (08:27→20:25)
[2020-06-25] MEDS: MULTIVITAMIN with MINERAL TABLET. PO SCH (08:27)
[2020-06-25] MEDS: traZODone 50 MG TABLET. PO SCH ×2 (08:27→16:33)
[2020-06-25] MEDS: POLYETHYLENE GLYCOL 3350 17 GM PACKET. PO SCH (08:27)
[2020-06-25 16:07] VITALS: BP 135/73
[2020-06-25] MEDS: SERTRALINE 25 MG TABLET. PO SCH (16:33)
[2020-06-25] MEDS: MELATONIN 3 MG TABLET PO SCH (20:24)
[2020-06-25] MEDS: ATORVASTATIN CALCIUM 10 MG TABLET. PO SCH (20:25)
--- NOTE | 2020-06-25 20:56 | PDOC ---
Exam Note: Carlos A Note: Please also refer to the separate dictated note~for this date of service dictated separately.~Patient seen individually. Discussed the patient with Nursing staff reviewed the chart.~Reviewed interim history and current functioning. Reviewed vital signs,~Labs/ Radiology~and current medications noted below. Continue current treatment with the changes noted in the dictated addendum note Assessment: Vital Signs/I&O: Vital Signs Date Time Temp Pulse Resp B/P (MAP) Pulse Ox O2 Delivery O2 Flow Rate FiO2 06/25/20 20:25 56 135/73 06/25/20 16:07 98.6 20 97 Room Air I & O 06/24/20 06/24/20 06/25/20 15:00 23:00 07:00 Intake Total 480 ml 360 ml 0 ml Balance 480 ml 360 ml 0 ml Current Medications: I have reviewed the current psychotropics carefully including drug interactions. Risk benefit ratio favors no change other than as noted in my dictated progress note. Diagnosis: Problems: (1) Dementia, vascular, with depression (2) Mild cognitive impairment (3) Dementia, vascular, with delusions (4) Dementia in Alzheimer's disease with depression (5) Dementia in Alzheimer's disease with delusions (6) Major neurocognitive disorder (7) Dementia in Alzheimer's disease with early onset with behavioral disturbance (8) Major depressive disorder with psychotic features DYANA DEVINE MD Jun 25, 2020 20:56
[2020-06-26 06:10] VITALS: BP 134/61
[2020-06-26 07:38] LABS: BASO % 0 % (0-3); EOS # 0.3 x10^3/uL (0.0-0.7); EOS % 4 % (0-3); HEMATOCRIT 34.6 % (36.0-47.0); HEMOGLOBIN 11.5 g/dL (12.0-15.5); LYMPH # 1.7 x10^3/uL (1.0-4.8); LYMPH % 29 % (24-48); MEAN CORPUSCULAR HEMOGLOBIN 31 pg (25-35); MEAN CORPUSCULAR HGB CONC 33 g/dL (31-37); MEAN CORPUSCULAR VOLUME 95 fL (79-100); MONO # 0.5 x10^3/uL (0.0-1.1); MONO % 10 % (0-9); NEUT # 3.3 x10^3uL (1.8-7.7); NEUT % 57 % (31-73); PLATELET COUNT 299 x10^3/uL (140-400); RED BLOOD COUNT 3.66 x10^6/uL (3.50-5.40); RED CELL DISTRIBUTION WIDTH 14.6 % (11.5-14.5); WHITE BLOOD COUNT 5.8 x10^3/uL (4.0-11.0)
[2020-06-26 07:51] LABS: ALBUMIN 2.7 g/dL (3.4-5.0); ALBUMIN/GLOBULIN RATIO 0.7 (1.0-1.7); CALCIUM 8.6 mg/dL (8.5-10.1); CREATININE 0.7 mg/dL (0.6-1.0); GFR 81.4; POTASSIUM 3.6 mmol/L (3.5-5.1); TOTAL BILIRUBIN 0.3 mg/dL (0.2-1.0); TOTAL PROTEIN 6.6 g/dL (6.4-8.2)
[2020-06-26] MEDS: MULTIVITAMIN with MINERAL TABLET. PO SCH (08:04)
[2020-06-26] MEDS: traZODone 50 MG TABLET. PO SCH ×2 (08:05→16:56)
[2020-06-26] MEDS: METOPROLOL TART IMMED RELEASE 25 MG TABLET. PO SCH ×2 (08:05→20:35)
[2020-06-26] MEDS: POLYETHYLENE GLYCOL 3350 17 GM PACKET. PO SCH (08:05)
[2020-06-26] MEDS: LACTOBACILLUS RHAMNOSUS GG 1 CAPSULE. PO SCH ×2 (08:05→20:35)
[2020-06-26] MEDS: ASPIRIN CHEWABLE 81 MG TABLET. PO SCH (09:00)
--- NOTE | 2020-06-26 14:24 | RAD ---
EXAM: Head CT without contrast. HISTORY: Alzheimer's disease. Delusions. TECHNIQUE: Computed tomographic images of the head were obtained without contrast. *One or more of the following individualized dose reduction techniques were utilized for this examination: 1. Automated exposure control. 2. Adjustment of the mA and/or kV according to patient size. 3. Use of iterative reconstruction technique. COMPARISON: None. FINDINGS: There is no acute or subacute extra-axial or intraparenchymal hemorrhage. There is no mass effect or midline shift. There is no hydrocephalus. There are areas of decreased attenuation within the cerebral white matter, nonspecific and likely related to chronic small vessel disease. There is age-appropriate cerebral volume loss. The visualized portions of the orbits, paranasal sinuses and mastoid air cells are unremarkable. No suspicious calvarial lesion is seen. IMPRESSION: 1. Bilateral cerebral white matter changes, likely due to chronic small vessel disease. 2. Mild age-appropriate cerebral volume loss. 3. Not is made that MRI is more sensitive for acute infarction. Electronically signed by: Margret Ashley MD (06/26/2020 2:21 PM) [id number]
[2020-06-26 16:04] VITALS: BP 137/78
[2020-06-26] MEDS: SERTRALINE 25 MG TABLET. PO SCH (16:56)
--- NOTE | 2020-06-26 17:16 | TX PLAN ---
Interdisciplinary Tx Plan Admission Information Jun 16, 2020 at 18:24 Legal Status (on Admission): Voluntary DPOA/Guardian Name: Patito Sunshine Contact Other Contact Name: Priyanka Worthy Other Contact Verified Code Status: Full Code Allergies: Coded Allergies: amlodipine (Verified Allergy, Severe, Itching, 06/17/20) Patient is alert and oriented. Patient reported allergy. Sulfa (Sulfonamide Antibiotics) (Verified Allergy, Intermediate, 06/15/20) iodine (Verified Allergy, Intermediate, 06/15/20) shellfish derived (Verified Allergy, Intermediate, 06/15/20) Diagnoses Primary Diagnosis: Major Neurocognitive D/O, Vascular Alzheimers Reasons for Admission: Hallucinations, Suspicious/paranoid Problem in Patient's Words: N/A Additional Admission Comments: According to the intake, pt was saw a man on her lawn and called 911, paranoid behaviors Problems Active Problems: Withdrawn Confusion Inactive Problems: Medication compliance Pt Strengths/Limitations Ability for [place]: Fair Cognitive Functioning/Ability: Fair Communication Skills/Ability: Fair Financial Resources: Fair Insight/Judgement: Fair Intellectual Ability: Fair Physical Health: Fair Social Skills: Fair Stability in Family: Excellent Stability in School/Work: Fair Verbal Skills: Fair Discharge Criteria Discharge Criteria: Able meet basic life need, Able to meet health needs, Adequate arrangements @DC, Improved behavior, Improved mood/thought Preliminary Discharge Plan Preliminary DC Plan: Home Other Arrangements: Living with children for a few weeks for observation purposes Special Precautions Fall Risk: Low Initial D/C Plan Pt will discharge home with family Identified Discharge Needs: Psychiatric services Neuropsych appt Currently Utilized Resources Currently Utilized Resources/P: Primary Care physician Referrals Community Resources: Neuropsychologist Identified Problems/Hx/Goals Objectives/Short-Term Goals Short Term Goals: Dec. Hallucination/Delus, Promote Coping Skill Interventions/Frequency Staff Interventions/Frequency&: Psychiatrist to assess pt at least 3x per week for medication management. Social Work to assess pt at least 2x per wek for discharge planning and assessment of barriers. Nursing to assess medication effects, behavior management and complete 15 minute checks daily. Encourage participation in group activites (if applicable) or 1:1 engagement based off activity dept assessment Community Follow-up Primary Care Physician Treatment Plan Explained Patient/Lead Nitrate Processor had this treatment plan explained to him/her as indicated by the signature below and has been given the opportunity to ask questions and make suggestions: Date: Patient/Lead Nitrate Processor Signature: Patient/Lead Nitrate Processor Decline: No Status Update Update Pt is eating 100% of meals and sleeping on average 9 nights a night. Pt is A/O X4 and is able to report that she is "imagining things" and has does not feel that she has hallucinations currently like when she came in. Pt is mainly withdrawn to her room; however, staff was able to get pt to come out of her room from groups 2x this week. Pt did not have a CT completed prior and will receive one today. Pt family is requesting to have pt live with them and the team agrees that will be in pt best interest for the first few weeks. SW will help the family get services set up and look into other options to ensure that pt is doing okay in the home. GLADIS GUERRA Jun 26, 2020 17:16
[2020-06-26] MEDS: ATORVASTATIN CALCIUM 10 MG TABLET. PO SCH (20:34)
[2020-06-26] MEDS: MELATONIN 3 MG TABLET PO SCH (20:35)
--- NOTE | 2020-06-26 21:16 | PDOC ---
Exam Note: Carlos A Note: Please also refer to the separate dictated note~for this date of service dictated separately.~Patient seen individually. Discussed the patient with Nursing staff reviewed the chart.~Reviewed interim history and current functioning. Reviewed vital signs,~Labs/ Radiology~and current medications noted below. Continue current treatment with the changes noted in the dictated addendum note Assessment: Vital Signs/I&O: Vital Signs Date Time Temp Pulse Resp B/P (MAP) Pulse Ox O2 Delivery O2 Flow Rate FiO2 06/26/20 20:35 54 137/78 06/26/20 16:04 98.6 18 97 06/25/20 16:07 Room Air I & O 06/25/20 06/25/20 06/26/20 14:59 22:59 06:59 Intake Total 600 ml 360 ml Balance 600 ml 360 ml Labs: Laboratory Tests Test 06/26/20 06:54 White Blood Count 5.8 x10^3/uL (4.0-11.0) Red Blood Count 3.66 x10^6/uL (3.50-5.40) Hemoglobin 11.5 g/dL (12.0-15.5) L Hematocrit 34.6 % (36.0-47.0) L Mean Corpuscular Volume 95 fL (79-100) Mean Corpuscular Hemoglobin 31 pg (25-35) Mean Corpuscular Hemoglobin Concent 33 g/dL (31-37) Red Cell Distribution Width 14.6 % (11.5-14.5) H Platelet Count 299 x10^3/uL (140-400) Neutrophils (%) (Auto) 57 % (31-73) Lymphocytes (%) (Auto) 29 % (24-48) Monocytes (%) (Auto) 10 % (0-9) H Eosinophils (%) (Auto) 4 % (0-3) H Basophils (%) (Auto) 0 % (0-3) Neutrophils # (Auto) 3.3 x10^3uL (1.8-7.7) Lymphocytes # (Auto) 1.7 x10^3/uL (1.0-4.8) Monocytes # (Auto) 0.5 x10^3/uL (0.0-1.1) Eosinophils # (Auto) 0.3 x10^3/uL (0.0-0.7) Basophils # (Auto) 0.0 x10^3/uL (0.0-0.2) Sodium Level 141 mmol/L (136-145) Potassium Level 3.6 mmol/L (3.5-5.1) Chloride Level 106 mmol/L (98-107) Carbon Dioxide Level 28 mmol/L (21-32) Anion Gap 7 (6-14) Blood Urea Nitrogen 12 mg/dL (7-20) Creatinine 0.7 mg/dL (0.6-1.0) Estimated GFR (Cockcroft-Gault) 81.4 BUN/Creatinine Ratio 17 (6-20) Glucose Level 93 mg/dL (70-99) Calcium Level 8.6 mg/dL (8.5-10.1) Total Bilirubin 0.3 mg/dL (0.2-1.0) Aspartate Amino Transferase (AST) 14 U/L (15-37) L Alanine Aminotransferase (ALT) 18 U/L (14-59) Alkaline Phosphatase 79 U/L (46-116) Total Protein 6.6 g/dL (6.4-8.2) Albumin 2.7 g/dL (3.4-5.0) L Albumin/Globulin Ratio 0.7 (1.0-1.7) L Current Medications: I have reviewed the current psychotropics carefully including drug interactions. Risk benefit ratio favors no change other than as noted in my dictated progress note. Diagnosis: Problems: (1) Dementia, vascular, with depression (2) Mild cognitive impairment (3) Dementia, vascular, with delusions (4) Dementia in Alzheimer's disease with depression (5) Major neurocognitive disorder (6) Dementia in Alzheimer's disease with early onset with behavioral disturbance (7) Major depressive disorder with psychotic features (8) Dementia in Alzheimer's disease with delusions DYANA DEVINE MD Jun 26, 2020 21:16
[2020-06-27 03:10] LABS: HEMOGLOBIN A1C 5.7 % (4.8-5.6)
[2020-06-27 05:57] VITALS: BP 161/89
--- NOTE | 2020-06-27 08:03 | PDOC ---
Exam Note: Carlos A Note: This note is a late entry for 06/25/2020 covers elements not covered in my initial note. Subjective: The patient was reviewed on telehealth rounds in the evening of 06/25/2020 with Raul MACARIO. Discussed with nursing staff, reviewed the chart. The patient slept 7-1/4 hours previous night. The patient has been pleasant, cooperative. Denies any psychotic symptoms. Review of Systems: Ambulation impaired. No CV, , pulmonary, system symptoms on review. Mental Status Exam: Reasonably oriented to herself and situation. She was pleasant, cooperative. Speech is coherent. Abstraction is fair. Computation is impaired. Language function is intact. Attention span is short. Mood and affe ct remains is improved. Laboratory Data: Reviewed. Impression: Major depressive disorder with psychotic features. Psychotic disorder unspecified. Mild cognitive impairment. Plan: No change from initial note. Assessment: Vital Signs/I&O: Vital Signs Date Time Temp Pulse Resp B/P (MAP) Pulse Ox O2 Delivery O2 Flow Rate FiO2 06/27/20 05:57 97.9 55 16 161/89 (113) 95 06/25/20 16:07 Room Air I & O 06/26/20 06/26/20 06/27/20 14:59 22:59 06:59 Intake Total 720 ml 360 ml Balance 720 ml 360 ml Current Medications: I have reviewed the current psychotropics carefully including drug interactions. Risk benefit ratio favors no change other than as noted in my dictated progress note. Diagnosis: Problems: (1) Mild cognitive impairment (2) Dementia, vascular, with delusions (3) Dementia, vascular, with depression (4) Dementia in Alzheimer's disease with depression (5) Dementia in Alzheimer's disease with delusions (6) Major neurocognitive disorder (7) Major depressive disorder with psychotic features (8) Dementia in Alzheimer's disease with early onset with behavioral disturbance DYANA DEVINE MD Jun 27, 2020 08:03
--- NOTE | 2020-06-27 08:19 | PDOC ---
Exam Note: Carlos A Note: This note is a late entry for 06/26/2020 covers elements not covered in my initial note. Subjective: The patient was seen face to face in the morning of 06/26/2020 for treatment team meeting with Constanza Morrissey, and Diann (social service staff), Morelia (activity therapy), and Kamila MACARIO. She is sometimes talking to herself but denies hallucinations. Appetite is fair. COVID screen will be repeated in 2 days. She frequently declines to attend groups. Review of Systems: Ambulation impaired. No CV, , pulmonary, system symptoms on review. Mental Status Exam: Reasonably oriented to herself and situation. I met with her in her room. Speech is coherent. Abstraction is fair. Computation is impaired. Language function is intact. Attention span is short. Mood and affect remains is improved. Laboratory Data: Reviewed. Impression: Major depressive disorder with psychotic features. Psychotic disorder unspecified. Mild cognitive impairment. Plan: She is on trazodone 12.5 mg twice a day. We will go ahead and stop this. Maintain Zoloft and if we do not observe any overt hallucinations we will avoid atypical antipsychotics. Rest unchanged for now. Assessment: Vital Signs/I&O: Vital Signs Date Time Temp Pulse Resp B/P (MAP) Pulse Ox O2 Delivery O2 Flow Rate FiO2 06/27/20 05:57 97.9 55 16 161/89 (113) 95 06/25/20 16:07 Room Air I & O 06/26/20 06/26/20 06/27/20 15:00 23:00 07:00 Intake Total 720 ml 360 ml Balance 720 ml 360 ml Current Medications: I have reviewed the current psychotropics carefully including drug interactions. Risk benefit ratio favors no change other than as noted in my dictated progress note. Diagnosis: Problems: (1) Dementia, vascular, with delusions (2) Dementia in Alzheimer's disease with depression (3) Major depressive disorder with psychotic features (4) Dementia in Alzheimer's disease with early onset with behavioral disturbance (5) Dementia in Alzheimer's disease with delusions (6) Dementia, vascular, with depression (7) Mild cognitive impairment (8) Major neurocognitive disorder DYANA DEVINE MD Jun 27, 2020 08:19
[2020-06-27] MEDS: METOPROLOL TART IMMED RELEASE 25 MG TABLET. PO SCH ×2 (09:00→21:27)
[2020-06-27] MEDS: POLYETHYLENE GLYCOL 3350 17 GM PACKET. PO SCH (09:00)
[2020-06-27] MEDS: LACTOBACILLUS RHAMNOSUS GG 1 CAPSULE. PO SCH ×2 (09:19→21:27)
[2020-06-27] MEDS: ASPIRIN CHEWABLE 81 MG TABLET. PO SCH (09:19)
[2020-06-27] MEDS: MULTIVITAMIN with MINERAL TABLET. PO SCH (09:19)
[2020-06-27 16:07] VITALS: BP 164/81
[2020-06-27] MEDS: SERTRALINE 25 MG TABLET. PO SCH (17:26)
--- NOTE | 2020-06-27 20:44 | PDOC ---
Exam Note: Carlos A Note: Please also refer to the separate dictated note~for this date of service dictated separately.~Patient seen individually. Discussed the patient with Nursing staff reviewed the chart.~Reviewed interim history and current functioning. Reviewed vital signs,~Labs/ Radiology~and current medications noted below. Continue current treatment with the changes noted in the dictated addendum note Assessment: Vital Signs/I&O: Vital Signs Date Time Temp Pulse Resp B/P (MAP) Pulse Ox O2 Delivery O2 Flow Rate FiO2 06/27/20 16:07 98.3 53 18 164/81 (108) 96 06/25/20 16:07 Room Air I & O 06/26/20 06/26/20 06/27/20 15:00 23:00 07:00 Intake Total 720 ml 360 ml Balance 720 ml 360 ml Current Medications: I have reviewed the current psychotropics carefully including drug interactions. Risk benefit ratio favors no change other than as noted in my dictated progress note. Diagnosis: Problems: (1) Dementia, vascular, with depression (2) Mild cognitive impairment (3) Dementia, vascular, with delusions (4) Dementia in Alzheimer's disease with depression (5) Dementia in Alzheimer's disease with delusions (6) Major neurocognitive disorder (7) Dementia in Alzheimer's disease with early onset with behavioral disturbance (8) Major depressive disorder with psychotic features DYANA DEVINE MD Jun 27, 2020 20:44
--- NOTE | 2020-06-27 20:45 | PDOC ---
Exam Note: Carlos A Note: Please also refer to the separate dictated note~for this date of service dictated separately.~Patient seen individually. Discussed the patient with Nursing staff reviewed the chart.~Reviewed interim history and current functioning. Reviewed vital signs,~Labs/ Radiology~and current medications noted below. Continue current treatment with the changes noted in the dictated addendum note Assessment: Vital Signs/I&O: Vital Signs Date Time Temp Pulse Resp B/P (MAP) Pulse Ox O2 Delivery O2 Flow Rate FiO2 06/27/20 16:07 98.3 53 18 164/81 (108) 96 06/25/20 16:07 Room Air I & O 06/26/20 06/26/20 06/27/20 15:00 23:00 07:00 Intake Total 720 ml 360 ml Balance 720 ml 360 ml Current Medications: I have reviewed the current psychotropics carefully including drug interactions. Risk benefit ratio favors no change other than as noted in my dictated progress note. Diagnosis: Problems: (1) Mild cognitive impairment (2) Dementia, vascular, with depression (3) Dementia in Alzheimer's disease with depression (4) Dementia in Alzheimer's disease with delusions (5) Dementia in Alzheimer's disease with early onset with behavioral disturbance (6) Major depressive disorder with psychotic features (7) Major neurocognitive disorder (8) Dementia, vascular, with delusions DYANA DEVINE MD Jun 27, 2020 20:45
[2020-06-27] MEDS: ATORVASTATIN CALCIUM 10 MG TABLET. PO SCH (21:27)
[2020-06-27] MEDS: MELATONIN 3 MG TABLET PO SCH (21:27)
[2020-06-28 05:41] VITALS: BP 148/73
[2020-06-28] MEDS: LACTOBACILLUS RHAMNOSUS GG 1 CAPSULE. PO SCH ×3 (08:04→19:41)
[2020-06-28] MEDS: ASPIRIN CHEWABLE 81 MG TABLET. PO SCH (08:04)
[2020-06-28] MEDS: MULTIVITAMIN with MINERAL TABLET. PO SCH (08:04)
[2020-06-28] MEDS: METOPROLOL TART IMMED RELEASE 25 MG TABLET. PO SCH ×2 (08:04→20:07)
[2020-06-28] MEDS: POLYETHYLENE GLYCOL 3350 17 GM PACKET. PO SCH (09:00)
[2020-06-28 16:33] VITALS: BP 169/92
[2020-06-28] MEDS: SERTRALINE 25 MG TABLET. PO SCH (17:06)
[2020-06-28] MEDS: ATORVASTATIN CALCIUM 10 MG TABLET. PO SCH (19:39)
[2020-06-28] MEDS: MELATONIN 3 MG TABLET PO SCH (19:40)
[2020-06-28 19:57] VITALS: BP 160/77
--- NOTE | 2020-06-28 20:41 | PDOC ---
Exam Note: Carlos A Note: Please also refer to the separate dictated note~for this date of service dictated separately.~Patient seen individually. Discussed the patient with Nursing staff reviewed the chart.~Reviewed interim history and current functioning. Reviewed vital signs,~Labs/ Radiology~and current medications noted below. Continue current treatment with the changes noted in the dictated addendum note Assessment: Vital Signs/I&O: Vital Signs Date Time Temp Pulse Resp B/P (MAP) Pulse Ox O2 Delivery O2 Flow Rate FiO2 06/28/20 20:07 77 160/77 06/28/20 19:57 98.2 18 Room Air 06/28/20 16:33 98 I & O 06/27/20 06/27/20 06/28/20 15:00 23:00 07:00 Intake Total 840 ml 120 ml Balance 840 ml 120 ml Current Medications: I have reviewed the current psychotropics carefully including drug interactions. Risk benefit ratio favors no change other than as noted in my dictated progress note. Diagnosis: Problems: (1) Dementia, vascular, with depression (2) Mild cognitive impairment (3) Dementia, vascular, with delusions (4) Dementia in Alzheimer's disease with depression (5) Dementia in Alzheimer's disease with delusions (6) Major neurocognitive disorder (7) Dementia in Alzheimer's disease with early onset with behavioral disturbance (8) Major depressive disorder with psychotic features DYANA DEVINE MD Jun 28, 2020 20:41
[2020-06-29 06:36] VITALS: BP 144/72
--- NOTE | 2020-06-29 06:58 | PDOC ---
Exam Note: Carlos A Note: This note is a late entry for 06/27/2020 covers elements not covered in my initial note. Subjective: The patient was seen face to face in the evening of 06/27/2020 with Heather MACARIO. Discussed with nursing staff, reviewed the chart. The patient slept 7-3/4 hours previous night. She has been sweet, pleasant, cooperative per nursing report. We had discussion that we would recommend she go home with her daughter rather than living by herself. CT head shows chronic microvascular changes. No acute changes. She denies any overt hallucinations. Review of Systems: Ambulation impaired. No CV, , pulmonary, system symptoms on review. Mental Status Exam: Reasonably oriented to herself and situation. She is very pleasant, interactive as I met with her in the evening in her room. She talked about discharge plans. Abstraction is fair. Computation is impaired. Language function is intact. Attention span is short. Mood and affect remains is improved. Laboratory Data: Reviewed. Impression: Major depressive disorder with psychotic features. Psychotic disorder unspecified. Mild cognitive impairment. Plan: No change from initial note. Assessment: Vital Signs/I&O: Vital Signs Date Time Temp Pulse Resp B/P (MAP) Pulse Ox O2 Delivery O2 Flow Rate FiO2 06/29/20 06:36 98.5 59 18 144/72 (96) 98 Room Air I & O 06/28/20 06/28/20 06/29/20 15:00 23:00 07:00 Intake Total 720 ml 600 ml Balance 720 ml 600 ml Current Medications: I have reviewed the current psychotropics carefully including drug interactions. Risk benefit ratio favors no change other than as noted in my dictated progress note. Diagnosis: Problems: (1) Psychotic disorder (2) Mild cognitive impairment (3) Dementia, vascular, with depression (4) Dementia, vascular, with delusions (5) Dementia in Alzheimer's disease with depression (6) Dementia in Alzheimer's disease with delusions (7) Major neurocognitive disorder (8) Dementia in Alzheimer's disease with early onset with behavioral disturbance (9) Major depressive disorder with psychotic features DYANA DEVINE MD Jun 29, 2020 06:58
--- NOTE | 2020-06-29 07:30 | PDOC ---
Exam Note: Carlos A Note: This note is a late entry for 06/28/2020 covers elements not covered in my initial note. Subjective: The patient was seen face to face in the evening of 06/28/2020 with Kamila MACARIO. Discussed with nursing staff, reviewed the chart. He slept 7-1/2 hours previous night. No hallucinations noted. She has been attending groups, less sedated as we have stopped the trazodone. Review of Systems: Ambulation impaired. No CV, , pulmonary, system symptoms on review. Mental Status Exam: Reasonably oriented to herself and situation. I met with her in her room. Speech is coherent. Abstraction is fair. Computation is impaired. Language function is intact. Attention span is short. Mood and af fect remains improved. No hallucinations noted. Laboratory Data: Reviewed. Impression: Major depressive disorder with psychotic features. Psychotic disorder unspecified. Mild cognitive impairment. Plan: No change from initial note. Assessment: Vital Signs/I&O: Vital Signs Date Time Temp Pulse Resp B/P (MAP) Pulse Ox O2 Delivery O2 Flow Rate FiO2 06/29/20 06:36 98.5 59 18 144/72 (96) 98 Room Air I & O 06/28/20 06/28/20 06/29/20 15:00 23:00 07:00 Intake Total 720 ml 600 ml Balance 720 ml 600 ml Current Medications: I have reviewed the current psychotropics carefully including drug interactions. Risk benefit ratio favors no change other than as noted in my dictated progress note. Diagnosis: Problems: (1) Mild cognitive impairment (2) Psychotic disorder (3) Dementia, vascular, with depression (4) Dementia in Alzheimer's disease with delusions (5) Major neurocognitive disorder (6) Dementia in Alzheimer's disease with early onset with behavioral disturbance (7) Major depressive disorder with psychotic features (8) Dementia in Alzheimer's disease with depression (9) Dementia, vascular, with delusions DYANA DEVINE MD Jun 29, 2020 07:30
[2020-06-29] MEDS: METOPROLOL TART IMMED RELEASE 25 MG TABLET. PO SCH ×2 (09:00→20:20)
[2020-06-29] MEDS: ASPIRIN CHEWABLE 81 MG TABLET. PO SCH (09:18)
[2020-06-29] MEDS: MULTIVITAMIN with MINERAL TABLET. PO SCH (09:18)
[2020-06-29] MEDS: POLYETHYLENE GLYCOL 3350 17 GM PACKET. PO SCH (09:18)
[2020-06-29] MEDS: SERTRALINE 25 MG TABLET. PO SCH (09:18)
[2020-06-29] MEDS: LACTOBACILLUS RHAMNOSUS GG 1 CAPSULE. PO SCH ×2 (09:18→19:57)
[2020-06-29 16:19] VITALS: BP 139/69
[2020-06-29] MEDS: ATORVASTATIN CALCIUM 10 MG TABLET. PO SCH (19:52)
[2020-06-29] MEDS: MELATONIN 3 MG TABLET PO SCH (19:55)
--- NOTE | 2020-06-29 20:56 | PDOC ---
Exam Note: Carlos A Note: Please also refer to the separate dictated note~for this date of service dictated separately.~Patient seen individually. Discussed the patient with Nursing staff reviewed the chart.~Reviewed interim history and current functioning. Reviewed vital signs,~Labs/ Radiology~and current medications noted below. Continue current treatment with the changes noted in the dictated addendum note Assessment: Vital Signs/I&O: Vital Signs Date Time Temp Pulse Resp B/P (MAP) Pulse Ox O2 Delivery O2 Flow Rate FiO2 06/29/20 20:20 58 139/69 06/29/20 16:19 98.2 18 96 06/29/20 06:36 Room Air I & O 06/28/20 06/28/20 06/29/20 15:00 23:00 07:00 Intake Total 720 ml 600 ml Balance 720 ml 600 ml Current Medications: I have reviewed the current psychotropics carefully including drug interactions. Risk benefit ratio favors no change other than as noted in my dictated progress note. Diagnosis: Problems: (1) Dementia, vascular, with depression (2) Dementia, vascular, with delusions (3) Dementia in Alzheimer's disease with depression (4) Dementia in Alzheimer's disease with delusions (5) Major neurocognitive disorder (6) Dementia in Alzheimer's disease with early onset with behavioral disturbance (7) Major depressive disorder with psychotic features (8) Mild cognitive impairment DYANA DEVINE MD Jun 29, 2020 20:56
[2020-06-30] MEDS ORDERED: SERT25TA PO (02:18)
[2020-06-30] MEDS ORDERED: METO25TA4 PO (02:54)
[2020-06-30] MEDS ORDERED: DIPH25TA26 PO (02:55)
[2020-06-30] MEDS ORDERED: LACT1CAP19 PO (02:57)
[2020-06-30] MEDS ORDERED: MAG-95 PO (02:58)
[2020-06-30] MEDS ORDERED: METH57CR17 TP (02:58)
[2020-06-30] MEDS ORDERED: MAGN24003 PO (02:58)
[2020-06-30 06:29] VITALS: BP 160/76
[2020-06-30] MEDS: ASPIRIN CHEWABLE 81 MG TABLET. PO SCH (07:58)
[2020-06-30] MEDS: MULTIVITAMIN with MINERAL TABLET. PO SCH (07:58)
[2020-06-30 07:59] VITALS: BP 160/76
[2020-06-30] MEDS: POLYETHYLENE GLYCOL 3350 17 GM PACKET. PO SCH (07:59)
[2020-06-30] MEDS: METOPROLOL TART IMMED RELEASE 25 MG TABLET. PO SCH (07:59)
--- NOTE | 2020-06-30 21:05 | PDOC ---
Exam Note: Carlos A Note: Please also refer to the separate dictated note~for this date of service dictated separately.~Patient seen individually. Discussed the patient with Nursing staff reviewed the chart.~Reviewed interim history and current functioning. Reviewed vital signs,~Labs/ Radiology~and current medications noted below. Continue current treatment with the changes noted in the dictated addendum note Assessment: Vital Signs/I&O: Vital Signs Date Time Temp Pulse Resp B/P (MAP) Pulse Ox O2 Delivery O2 Flow Rate FiO2 06/30/20 07:59 58 160/76 06/30/20 06:29 98.1 16 95 Room Air I & O 06/29/20 06/29/20 06/30/20 14:59 22:59 06:59 Intake Total 660 ml 120 ml 0 ml Balance 660 ml 120 ml 0 ml Current Medications: I have reviewed the current psychotropics carefully including drug interactions. Risk benefit ratio favors no change other than as noted in my dictated progress note. Diagnosis: Problems: (1) Psychotic disorder (2) Mild cognitive impairment (3) Dementia, vascular, with depression (4) Dementia, vascular, with delusions (5) Dementia in Alzheimer's disease with depression (6) Dementia in Alzheimer's disease with delusions (7) Major neurocognitive disorder (8) Dementia in Alzheimer's disease with early onset with behavioral disturbance (9) Major depressive disorder with psychotic features DYANA DEVINE MD Jun 30, 2020 21:05
--- NOTE | 2020-07-01 16:07 | DS ---
DATE OF DISCHARGE: 06/30/2020 DISCHARGE SUMMARY/PSYCHIATRIC PROGRESS NOTE Admitted on 06/16 and discharged on 06/[address] Devine. This is late entry, date of service, 06/30, covers elements not covered in my initial note. REASON FOR ADMISSION: Please refer to the admission history for details. Briefly, the patient is a 74-year-old -Vietnamese female referred to us from the [facility] where she was hospitalized from home on account of active hallucinations, psychotic symptoms, agitation, disruptive behaviors that were unmanageable. She was normally living by herself at home, but even while at while being medically stabilized, she was agitated, disruptive, aggressive, remained psychotic and was referred for inpatient psychiatric stabilization. She had been seeing a man on her lawn and calling 911. She had been paranoid. SIGNIFICANT FINDINGS AND CLINICAL COURSE: Following admission, the patient was seen daily individually by myself from a psychiatric standpoint, medical followup per Dr. Monteiro/Dr. Ron. CT head did show some chronic microvascular changes. She denied any overt hallucinations, was a little anxious and started on Zoloft 25 mg a day. She also remained on melatonin 3 mg at bedtime. REVIEW OF SYSTEMS: Prior to discharge on 06/30/2020, no CV, , pulmonary, eye, ENT system symptoms on review. MENTAL STATUS EXAM: Reasonably oriented. Speech coherent. Has some latency. Abstraction fair, computation impaired, language function intact. Mood and affect was improved. LABORATORY DATA: Reviewed. No suicidal or homicidal ideation at discharge. No psychotic symptoms. FINAL DIAGNOSES: Major depressive disorder with psychotic features, in partial remission; psychotic disorder, unspecified. Rest unchanged from admission. DISCHARGE MEDICATIONS: Please refer to the MRAD. The patient was discharged to be with her daughter at all times in her home. DISCHARGE INSTRUCTIONS: Outpatient psychiatric and medical followup as arranged. Time for discharge day management greater than 30 minutes. DYANA DEVINE MD DR: SUJATHA/jenni JOB#: [id number] / [id number]
--- NOTE | 2020-07-02 07:22 | PDOC ---
Exam Note: Carlos A Note: This note is a late entry for 06/29/2020 covers elements not covered in my initial note. Subjective: The patient was seen face to face in the evening of 06/29/2020 with Heather MACARIO. Discussed with nursing staff, reviewed the chart. She slept 6-3/4 hours previous night. I met with the patient at some length in her room. She denies any overt hallucinations. Review of Systems: Ambulation impaired. No CV, , pulmonary, eye system sym ptoms on review. Mental Status Exam: Reasonably oriented to herself and situation. I met with her in her room. Speech is coherent. Abstraction is fair. Computation is impaired. Language function is intact. Attention span is short. Mood and affect remains improved. She denies any hallucinations. Laboratory Data: Reviewed. Impression: Major depressive disorder with psychotic features. Psychotic disorder unspecified. Mild cognitive impairment. Plan: Discharge her home with daughter on 06/30. Assessment: Vital Signs/I&O: Vital Signs Date Time Temp Pulse Resp B/P (MAP) Pulse Ox O2 Delivery O2 Flow Rate FiO2 06/30/20 07:59 58 160/76 06/30/20 06:29 98.1 16 95 Room Air Current Medications: I have reviewed the current psychotropics carefully including drug interactions. Risk benefit ratio favors no change other than as noted in my dictated progress note. Diagnosis: Problems: (1) Psychotic disorder (2) Mild cognitive impairment (3) Dementia, vascular, with depression (4) Dementia, vascular, with delusions (5) Dementia in Alzheimer's disease with depression (6) Dementia in Alzheimer's disease with delusions (7) Major neurocognitive disorder (8) Dementia in Alzheimer's disease with early onset with behavioral disturbance (9) Major depressive disorder with psychotic features DYANA DEVINE MD Jul 02, 2020 07:21
== END 2020-06-30 13:45 | disposition home health service (06) | DRG 885 ==
LOC: GEROPSY 18:24
PROVIDERS: ADMIT Psychiatry & Neurology Psychiatry; ATTEND Psychiatry & Neurology Psychiatry
DX: F32.3 Major depressive disorder, single episode, severe with psychotic features (principal); F01.51 Vascular dementia, unspecified severity, with behavioral disturbance; F02.81 Dementia in other diseases classified elsewhere, unspecified severity, with behavioral disturbance; E78.5 Hyperlipidemia, unspecified; F41.9 Anxiety disorder, unspecified; G30.9 Alzheimer's disease, unspecified; F63.9 Impulse disorder, unspecified; I10 Essential (primary) hypertension; Z20.828 Contact with and (suspected) exposure to other viral communicable diseases; Z96.641 Presence of right artificial hip joint; Z88.2 Allergy status to sulfonamides; Z88.8 Allergy status to other drugs, medicaments and biological substances
CPT/HCPCS: 36415; 70450; 80053; 80061; 81001; 82306; 82607; 83036; 83540; 83550; 83735; 84436; 84443; 84480; 85025; 85379; 86592; 87077; 87086; 93005; U0003

== ENCOUNTER 2020-09-24 17:26 | Inpatient (IN) | payer MEDICARE ==
[~2020-09-24] VITALS: Ht 170.2 cm; Wt 91.8 kg
[~2020-09-24 17:26] MED LIST changes: +DIPH25TA26 PO; +LACT1CAP19 PO; +MAG-124 PO; +MAGN24003 PO; +METH57CR17 TP; +METO25TA4 PO; +SERT25TA PO
[2020-09-24 19:59] VITALS: BP 102/58
[2020-09-24] MEDS ORDERED: QUET100T4 PO (22:00)
[2020-09-24] MEDS ORDERED: ACETAMINOPHEN 325 MG TABLET PO PRN (22:00)
[2020-09-24] MEDS ORDERED: AMLO-187 PO (22:00)
[2020-09-24] MEDS ORDERED: MELA3CAP2 PO (22:00)
[2020-09-24] MEDS ORDERED: QUET50TA5 PO (22:00)
[2020-09-24] MEDS ORDERED: CALC250T PO (22:00)
[2020-09-24] MEDS ORDERED: TRAZ-120 PO ×2 (22:00)
[2020-09-24] MEDS ORDERED: CHOL500021 PO (22:00)
[2020-09-24] MEDS ORDERED: LIDO1ADH63 TP (22:00)
[2020-09-24 22:38] VITALS: BP 115/54
[2020-09-24] MEDS ORDERED: QUEtiapine 100 MG TABLET. PO SCH (23:00)
[2020-09-24] MEDS ORDERED: MELATONIN 3 MG TABLET PO SCH (23:00)
[2020-09-24] MEDS ORDERED: ATORVASTATIN CALCIUM 20 MG TABLET PO SCH (23:00)
[2020-09-24] MEDS ORDERED: traZODone 50 MG TABLET. PO SCH (23:00)
--- NOTE | 2020-09-25 05:18 | EKG ---
[address] [address] Test Date: 2020-09-25 Test Time: 05:09:22 Pat Name: BESSY WALLACE Department: Room: 125 A Gender: F Health Science Specialist: : 1945 Requested By: ALAN KEN Order Number: [id number] Reading MD: Measurements Intervals [place] Rate: 82 P: 38 [place]: 176 QRS: -1 QRSD: 100 T: 53 QT: 396 QTc: 466 Interpretive Statements SINUS RHYTHM VENTRICULAR PREMATURE COMPLEX(ES) ATRIAL PREMATURE COMPLEX(ES) LEFTWARD AXIS ABNORMAL ECG RI6.01 Compared to ECG 06/17/2020 22:18:55 Sinus bradycardia no longer present
[2020-09-25 05:33] VITALS: BP 116/69
[2020-09-25 06:36] LABS: HEMOGLOBIN 11.2 g/dL (12.0-15.5); RED BLOOD COUNT 3.64 x10^6/uL (3.50-5.40); RED CELL DISTRIBUTION WIDTH 14.2 % (11.5-14.5); WHITE BLOOD COUNT 4.7 x10^3/uL (4.0-11.0)
[2020-09-25 06:42] LABS: ALBUMIN 2.9 g/dL (3.4-5.0); ALBUMIN/GLOBULIN RATIO 0.7 (1.0-1.7); CALCIUM 8.3 mg/dL (8.5-10.1); CREATININE 0.8 mg/dL (0.6-1.0); GFR 69.7; POTASSIUM 3.8 mmol/L (3.5-5.1); TOTAL BILIRUBIN 0.2 mg/dL (0.2-1.0); TOTAL PROTEIN 7.1 g/dL (6.4-8.2)
[2020-09-25 06:43] LABS: BACTERIA,URINE FEW /HPF (0-FEW); BILIRUBIN,URINE NEG (NEG); CLARITY,URINE CLEAR; COLOR,URINE YELLOW; GLUCOSE,URINE NEG (NEG); NITRITE,URINE NEG (NEG); RBC,URINE OCC /HPF (0-2); SQUAMOUS EPITHELIAL CELL,UR OCC /LPF; UROBILINOGEN,URINE 0.2 mg/dL (0.2 mg/dL)
[2020-09-25] MEDS ORDERED: CALCIUM CARBONATE 500 MG TABLET PO SCH (09:00)
[2020-09-25] MEDS ORDERED: POLYETHYLENE GLYCOL 3350 17 GM PACKET. PO SCH (09:00)
[2020-09-25] MEDS ORDERED: amLODIPine BESYLATE 10 MG TABLET PO SCH (09:00)
[2020-09-25] MEDS ORDERED: ASPIRIN CHEWABLE 81 MG TABLET. PO SCH (09:00)
[2020-09-25] MEDS ORDERED: LIDOCAINE (700MG/PATCH) PATCH. TP SCH (09:00)
[2020-09-25] MEDS: QUEtiapine 50 MG TABLET. PO SCH ×3 (09:27→17:14)
[2020-09-25] MEDS: traZODone 50 MG TABLET. PO SCH ×2 (09:28→12:47)
[2020-09-25 11:24] VITALS: BP 123/78
[2020-09-25 14:36] VITALS: BP 138/74
--- NOTE | 2020-09-25 15:22 | HP ---
ADMIT DATE: 09/25/2020 HISTORY OF PRESENT ILLNESS: The patient is a 74-year-old -[place]oc[place] female patient who was admitted to [facility]. She apparently called 911, told to finishing tunnel operator that she is and in labor and she was 20 years old. The patient was initially friendly in the Emergency Department; however, she became agitated, aggressive towards staff and has to be given Haldol and Versed for agitation. The patient's daughter reported that she was admitted to in 05/2020 and since previous admission, the patient said she has been forgetful and hallucinating. She was transferred to [facility] at [facility] in [place] where she was found to have major depression, started on Zoloft. She has had home health to help with activities in her house since that time. The daughter stated that has lasted only for a short period of time. Her mother now is not eating, becomes easily distracted, unable to do activities of daily living. She is more confused and apparently she has been unable to take care of herself and her daughter would like her to be apparently admitted to [facility] for inpatient psychiatric stabilization and subsequently to consider long-term care facility because of severe self-care deficit. PAST MEDICAL HISTORY: Significant for allergies, generalized osteoarthritis, history of viral hepatitis type A, hypertension. The patient is a Jehovah Witness. PAST SURGICAL HISTORY: Significant for appendectomy, tubal ligation, right total hip arthroplasty. FAMILY HISTORY: Positive for heart disease in her mother. SOCIAL HISTORY: She is , lives alone. She never smoked, does not drink alcohol or use any drugs. She apparently lives alone and according to her daughter is unable to take care of herself. ALLERGIES: SHE IS ALLERGIC TO SULFA AND SHELLFISH CONTAINING PRODUCTS. MEDICATIONS: She is currently on following medications: She is on atorvastatin calcium 40 mg at bedtime, amlodipine 10 mg once a day, aspirin 81 mg once a day, acetaminophen 650 mg every 6 hours, trazodone 25 mg twice a day, trazodone 50 mg at bedtime, quetiapine fumarate 100 mg at bedtime, quetiapine fumarate 50 mg 3 times a day, calcium citrate 950 mg daily, polyethylene glycol 17 g daily, Lidoderm patch applied topically on for 12 hours and off for 12 hours, vitamin D 50,000 units once a week, and melatonin 3 mg at bedtime. REVIEW OF SYSTEMS: As per history of present illness. PHYSICAL EXAMINATION: GENERAL: On arrival to [facility], the patient looked well and was clearly in no apparent respiratory distress. She was somewhat pale, but no jaundice or cyanosis. No lymphadenopathy, no thyromegaly. No jugular venous distention. No lower limb edema. VITAL SIGNS: Her heart rate was 63, blood pressure was 102/58, temperature was 98.1, respiratory rate 20, and oxygen saturation was 96%. HEAD, EYES, EARS, NOSE AND THROAT: She is normocephalic and atraumatic. NECK: Supple. HEART: Showed normal first and second heart sounds. No gallop, rub or murmur. CHEST: Showed central trachea, equal bilateral chest expansion, air entry, vesicular sounds. No crepitation or rhonchi. ABDOMEN: Distended, soft, nontender. NEUROLOGIC: She was awake, alert, obviously very delusional. All her cranial nerves intact. EXTREMITIES: She moves extremities without difficulty. She ambulates with a walker. LABORATORY DATA: Her lab work on admission showed a white cell count of 4700, hemoglobin 11, hematocrit 34, MCV 94 and platelet count 255,000. Her D-dimer was 0.33. Her serum sodium was 140, potassium 3.8, chloride 106, bicarbonate 29, anion gap of 5, BUN 18, creatinine 0.8, estimated GFR was 69 mL per minute. Her glucose was 98, calcium was 8.3, magnesium 2. Total bilirubin, AST, ALT, alkaline phosphatase were normal. Total protein 7.1, albumin was 2.9. Her urinalysis showed the urine was yellow, clear with a pH of 6, specific gravity of 1.015. The urine was negative for protein, glucose, ketones, trace of blood, negative for nitrite and bilirubin, small amount of leukocyte esterase, occasional rbc's, 11-20 wbc's, and very few bacteria. She was swabbed for coronavirus. Once it is obviously negative, she will be transferred to [facility] for inpatient psychiatric stabilization. ASSESSMENT AND PLAN: In summary, this is a 74-year-old -Moroc[place] female patient who was admitted claiming that she is and she was only 20 years old and she is in labor and her daughter stated that she has been very more confused. She has very poor appetite and that she is now unable to take care of herself. The patient was seen and admitted to [facility] and transferred to [facility]; however, she was admitted initially to [facility] to screen her for the coronavirus by PCR. Once it was negative, she will be transferred for inpatient psychiatric stabilization. ALAN KEN MD DR: RAIN/jenni JOB#: [id number] / [id number]
--- NOTE | 2020-09-25 15:59 | DS ---
DATE OF DISCHARGE: 09/25/2020 DISCHARGE/TRANSFER SUMMARY HOSPITAL COURSE: The patient is a 74-year-old -Tongan female patient who was admitted from [facility] to Med/Surg Unit to be screened for coronavirus by PCR. Her coronavirus was not detectable and therefore, she will be discharged to [facility] unit where she was admitted on account of being delusional. 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 She also has given to a baby sheep and for now, she continued to be and despite attempting to convince her otherwise she is still convinced that she is . Apparently, she also has according to her daughter, poor appetite and has severe self-care deficit and her daughter want her to be admitted to [facility] for inpatient psychiatric stabilization after which she is planning to consider long-term care as the patient is unable to take care of herself anymore. PHYSICAL EXAMINATION: GENERAL: When I saw her today this afternoon, she was sitting on the edge of the bed comfortably in no apparent distress, slightly pale, but no jaundice, cyanosis or thyromegaly. No jugular venous distention or limb edema. VITAL SIGNS: Her heart rate was 90, blood pressure was 138/74, temperature was 98, respiratory rate was 20, and oxygen saturation was 98%. The rest of the clinical exam is stable. LABORATORY DATA: Showed a hemoglobin 11, hematocrit 34 with normal white cell count and platelets. D-dimer was only 0.33. Her chemistry was also unremarkable. Her coronavirus by PCR was not detectable. DISCHARGE MEDICATIONS: She was transferred to [facility] Unit to continue on acetaminophen 650 mg every 6 hours, amlodipine 10 mg once a day, aspirin 81 mg once a day, atorvastatin calcium 40 mg at bedtime, calcium citrate 250 mg daily, cholecalciferol (vitamin D3) 50,000 units once a week, Lidoderm patch applied topically once a day, melatonin 3 mg at bedtime, polyethylene glycol 17 g daily, quetiapine fumarate 100 mg at bedtime, quetiapine fumarate 50 mg 3 times a day, trazodone 25 mg twice a day and trazodone 50 mg at bedtime. FINAL DISCHARGE DIAGNOSES: 1. Dementia, vascular with delusion. 2. Major neurocognitive disorder. 3. Hypertension. 4. Hyperlipidemia. 5. Osteoarthritis. 6. Osteoporosis. ALAN KEN MD DR: RAIN/jenni JOB#: [id number] / [id number]
[2020-09-25 19:40] LABS: THYROID STIM HORMONE (TSH) 3.403 uIU/mL (0.358-3.740)
[2020-09-25] MEDS ORDERED: PATCH REMOVAL. MC SCH (21:00)
[2020-09-26 00:09] LABS: HEMOGLOBIN A1C 6.1 % (4.8-5.6)
[2020-10-01] MEDS ORDERED: CHOLECALCIFEROL (VITAMIN D3) 50,000 UNIT CAPSULE PO SCH (09:00)
== END 2020-09-25 17:25 | DRG 884 ==
LOC: 1 SOUTH 19:38
PROVIDERS: ADMIT Internal Medicine; ATTEND Internal Medicine
DX: F01.51 Vascular dementia, unspecified severity, with behavioral disturbance (principal); E44.0 Moderate protein-calorie malnutrition; F32.9 Major depressive disorder, single episode, unspecified; E78.5 Hyperlipidemia, unspecified; I10 Essential (primary) hypertension; M15.9 Polyosteoarthritis, unspecified; M81.0 Age-related osteoporosis without current pathological fracture; Z82.49 Family history of ischemic heart disease and other diseases of the circulatory system; Z96.641 Presence of right artificial hip joint; Z20.822 Contact with and (suspected) exposure to COVID-19; Z88.2 Allergy status to sulfonamides; Z88.8 Allergy status to other drugs, medicaments and biological substances; Z91.013 Allergy to seafood; Z98.51 Tubal ligation status; Z90.49 Acquired absence of other specified parts of digestive tract; Z60.2 Problems related to living alone; Z68.31 Body mass index [BMI] 31.0-31.9, adult
CPT/HCPCS: 36415; 80053; 80061; 81001; 82306; 82607; 83036; 83735; 84443; 85027; 85379; 86592; 87077; 87086; 87186; 93005; U0003

== ENCOUNTER 2020-09-25 17:30 | Inpatient (IN) | payer MEDICAID, MEDICARE ==
[~2020-09-25] VITALS: Ht 170.2 cm; Wt 95.7 kg
[~2020-09-25 17:30] MED LIST changes: +CALC250T PO; +CHOL500021 PO; +LIDO1ADH63 TP; +MELA3CAP2 PO; +QUET100T4 PO; +QUET50TA5 PO
--- NOTE | 2020-09-25 17:30 | NUR ---
Admission Note with Justification for Admission to [facility] Patient admitted to [facility] for protective oversight for emergency stabilization of acute psychiatric crisis. Pt admitted from: [facility] Mode of arrival: W/C [employer] employee Accompanied By: Jennifer Precipitating behaviors that initiated intake and admission: Delusional Called EMS that she was in labor and stated that she was and having a baby, then proceeded to tell them when they arrived that someone took the baby and planted it into someone else. Description of failure of out patient attempts at stabilization in previous setting list behavior and medication trials: none came from home Behaviors and assessment findings upon admission: Patient continues to be delusional but is no harm to self or others Plan: Admit for protective oversight for adjustment and stabilization of medications, behaviors and mood. Intense treatment regimen including groups, medication adjustments, therapy, consistent regimen for ADL's, self care, and sleep hygiene. Daily monitoring by Inpatient staff, Psychiatry, and Medical Physician.
[2020-09-25] MEDS ORDERED: METHYL SALICYLATE/MENTHOL TOPICAL OINTMENT 57GM TUBE. TP PRN (18:15)
[2020-09-25] MEDS ORDERED: MAG HYDROX/AL HYDROX/SIMETH 30 ML ORAL.SUSP PO PRN (18:15)
[2020-09-25] MEDS ORDERED: ACETAMINOPHEN 325 MG TABLET PO PRN ×2 (18:15→18:45)
[2020-09-25] MEDS: PATCH REMOVAL. MC SCH (21:00)
[2020-09-25] MEDS: ATORVASTATIN CALCIUM 20 MG TABLET PO SCH (21:01)
[2020-09-25] MEDS: MELATONIN 3 MG TABLET PO SCH (21:01)
[2020-09-25] MEDS: traZODone 50 MG TABLET. PO SCH ×2 (21:02)
[2020-09-25] MEDS: QUEtiapine 50 MG TABLET. PO SCH (21:02)
[2020-09-25] MEDS: QUEtiapine 100 MG TABLET. PO SCH (21:03)
--- NOTE | 2020-09-25 21:07 | PDOC ---
Exam Note: Carlos A Note: Please also refer to the separate dictated note~for this date of service dictated separately.~Patient seen individually. Discussed the patient with Nursing staff reviewed the chart.~Reviewed interim history and current functioning. Reviewed vital signs,~Labs/ Radiology~and current medications noted below. Continue current treatment with the changes noted in the dictated addendum note Current Medications: Meds: Current Medications Medications (Trade) Dose Ordered Sig/Tory Route PRN Reason Start Time Stop Time Status Last Admin Dose Admin Acetaminophen (Tylenol) 650 mg PRN Q6HRS PRN PO MILD PAIN / TEMP > 100.3'F 09/25/20 18:15 09/25/20 21:02 Atorvastatin Calcium (Lipitor) 40 mg QHS PO 09/25/20 21:00 09/25/20 21:01 Quetiapine Fumarate (SEROquel) 50 mg TID PO 09/25/20 21:00 09/25/20 21:02 Quetiapine Fumarate (SEROquel) 100 mg QHS PO 09/25/20 21:00 09/25/20 21:03 Trazodone HCl (Desyrel) 25 mg BID PO 09/25/20 21:00 09/25/20 21:02 Trazodone HCl (Desyrel) 50 mg QHS PO 09/25/20 21:00 09/25/20 21:02 Melatonin (Melatonin) 3 mg QHS PO 09/25/20 21:00 09/25/20 21:01 Miscellaneous (Lidoderm Patch Removal) 1 ea QHS MC 09/25/20 21:00 09/25/20 21:00 I have reviewed the current psychotropics carefully including drug interactions. Risk benefit ratio favors no change other than as noted in my dictated progress note. 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
--- NOTE | 2020-09-26 03:27 | NUR ---
Nursing Note The patient was located in her room for her assessment and medication pass. The patient took her medication whole. The patient requested PRN Tylenol with her HS medication R/T Left hand/wrist pain. The patient was able to answer all assessment questions appropriately and was pleasant during interactions with this nurse.
--- NOTE | 2020-09-26 04:49 | EKG ---
[address] [address] Test Date: 2020-09-25 Test Time: 21:46:50 Pat Name: BESSY WALLACE Department: Room: [address] [place] [address] Gender: F Data Engineer: : 1945 Requested By: DYANA DEVINE Order Number: [id number] Reading MD: Raheem Churchill Measurements Intervals [place] Rate: 91 P: 49 [place]: 158 QRS: 2 QRSD: 106 T: 48 QT: 386 QTc: 477 Interpretive Statements SINUS RHYTHM VENTRICULAR PREMATURE COMPLEX(ES), BIGEMINY PROLONGED QT ABNORMAL ECG Electronically Signed On 10-03-2020 10:26:18 SKEINER by Raheem Churchill
[2020-09-26 06:45] VITALS: BP 127/70
[2020-09-26] MEDS: QUEtiapine 50 MG TABLET. PO SCH ×3 (08:10→21:00)
[2020-09-26] MEDS: amLODIPine BESYLATE 10 MG TABLET PO SCH (08:10)
[2020-09-26] MEDS: ASPIRIN CHEWABLE 81 MG TABLET. PO SCH (08:10)
[2020-09-26] MEDS: POLYETHYLENE GLYCOL 3350 17 GM PACKET. PO SCH (08:10)
[2020-09-26] MEDS: CALCIUM CARBONATE 500 MG TABLET PO SCH (08:10)
[2020-09-26] MEDS: traZODone 50 MG TABLET. PO SCH ×3 (08:11→21:01)
[2020-09-26] MEDS: LIDOCAINE (700MG/PATCH) PATCH. TP SCH (08:11)
--- NOTE | 2020-09-26 09:47 | HP ---
ADMIT DATE: 09/25/2020 PSYCHIATRIC ADMISSION HISTORY/EVALUATION This is a late entry for date of service 09/25/2020. IDENTIFYING DATA: The patient is a 74-year-old female who was referred back to us from [facility] where she presented from home on account of recurrence of her major depressive disorder with psychotic features, marked agitation, aggression. She was initially admitted to 1 [facility] Medical/Surgical floor for a COVID negative screen and was noted to be aggressive, biting, spitting. At , she had to be in 4-point restraints because she was unmanageable, paranoid, delusional, aggressive. She had failed outpatient psychiatric interventions. Lives alone at home, referred for inpatient psychiatric stabilization. CHIEF COMPLAINT: "Nothing happened. They're just trying to get all the assets of all of us who are Jehovah's Witnesses. They can't get away with this. There is no reason they should be doing this. Jehovah witnesses just serve people." HISTORY OF PRESENT ILLNESS: The patient has a history of major depressive disorder with psychotic features and some short-term memory deficits. She has been hospitalized with us in the past under similar circumstances, appeared to stabilize, returned home. Recently, she has had increased agitation, paranoia at home, unmanageable behaviors, disruptive, aggressive, resulting in the referral to . She was there for a few days, medically stabilized, had to be in 4-point restraints at one point and then referred to us. She has also had some ongoing insomnia. She does have a history of mood swings, but no clear past, established diagnosis of bipolar disorder. PAST PSYCHIATRIC HISTORY: As above. MEDICAL HISTORY: Hypertension, hyperlipidemia, chronic constipation, arthritis, status post cataracts. ALLERGIES: SULFA AND SHELLFISH. CODE STATUS: Full code. DIET: Regular. ACCU-CHEKS: None. Ambulates ad yoshi. CURRENT PSYCHOTROPICS: Seroquel 50 mg t.i.d. and 00 mg at bedtime, melatonin 3 mg at bedtime, trazodone 25 mg b.i.d. and 50 mg at bedtime. FAMILY HISTORY: Noncontributory. SOCIAL HISTORY: No history of alcohol, drug abuse, physical, sexual or elder abuse. She is not known to be a perpetrator. REACTION TO HOSPITALIZATION: The patient reluctantly accepting of it. ASSETS: Supportive family, reasonably cognitively intact. REVIEW OF SYSTEMS: No CV, , pulmonary, eye, ENT system symptoms on review. MENTAL STATUS EXAMINATION: The patient was seen individually on the evening of 09/25. She is oriented to herself, situation, seemed to recognize me. Speech is coherent. She is quite obsessive, anxious, paranoid, talking at length about Jehovah Witnesses and how people were trying to take advantage of them stealing from them. Insight limited, judgment marginal, language function intact, attention span short. Mood and affect remains anxious, labile, quite paranoid, delusional. No active suicidal or homicidal ideation. LABORATORY DATA: Reviewed. IMPRESSION: Major depressive disorder with psychotic features, rule out bipolar 1 disorder, unspecified; mild cognitive impairment; anxiety disorder, unspecified; rule out obsessive compulsive disorder. Rest unchanged from above. PLAN: Admit to Geropsychiatry Unit at [facility]. I will see the patient daily individually from a psychiatric standpoint. Medical followup with Dr. Monteiro/Dr. Ron. Continue the patient on her current psychotropics. Observe baseline, adjust further as clinically indicated. Given the extent of her psychotic symptoms, may consider changing Seroquel to Risperdal and starting her on an SSRI for her mood, anxiety, obsessive compulsive symptoms. ESTIMATED LENGTH OF STAY: 10-12 days. DISPOSITION PLANS: Possibly home or a higher level of care, we will have to be determined when she is psychiatrically stable. DYANA DEVINE MD DR: SUJATHA/jenni JOB#: [id number] / [id number]
[2020-09-26 15:26] VITALS: BP 122/76
[2020-09-26] MEDS: PATCH REMOVAL. MC SCH (15:27)
--- NOTE | 2020-09-26 15:28 | NUR ---
Patient is calm but irritable. 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 She has not said anything today about and she states that she does not care why she is here but they brought her here against her will. She cooperates with her mediations and takes them whole with no problems. Patient spoke to daughter and did fine with phone call but needs to be supervised with phone because she called a man that she thinks is her a couple of times and he let the family know she is calling him. She can use the phone but needs to be watched. No further concerns at this time.
[2020-09-26] MEDS: MELATONIN 3 MG TABLET PO SCH (21:00)
[2020-09-26] MEDS: QUEtiapine 100 MG TABLET. PO SCH (21:00)
[2020-09-26] MEDS: ATORVASTATIN CALCIUM 20 MG TABLET PO SCH (21:00)
--- NOTE | 2020-09-26 21:04 | PDOC ---
Exam Note: Carlos A Note: Please also refer to the separate dictated note~for this date of service dictated separately.~Patient seen individually. Discussed the patient with Nursing staff reviewed the chart.~Reviewed interim history and current functioning. Reviewed vital signs,~Labs/ Radiology~and current medications noted below. Continue current treatment with the changes noted in the dictated addendum note Assessment: Vital Signs/I&O: Vital Signs Date Time Temp Pulse Resp B/P (MAP) Pulse Ox O2 Delivery O2 Flow Rate FiO2 09/26/20 15:26 96.9 91 17 122/76 (91) 96 09/26/20 06:45 Room Air I & O 09/25/20 09/25/20 09/26/20 14:59 22:59 06:59 Intake Total 100 ml Balance 100 ml Current Medications: Meds: Current Medications Medications (Trade) Dose Ordered Sig/Tory Route PRN Reason Start Time Stop Time Status Last Admin Dose Admin Amlodipine Besylate (Norvasc) 10 mg DAILY PO 09/26/20 09:00 09/26/20 08:10 Aspirin (Aspirin Chewable) 81 mg DAILY PO 09/26/20 09:00 09/26/20 08:10 Polyethylene Glycol (miraLAX) 17 gm DAILY PO 09/26/20 09:00 09/26/20 08:10 Calcium Carbonate/ Glycine (Oscal) 500 mg DAILY PO 09/26/20 09:00 09/26/20 08:10 I have reviewed the current psychotropics carefully including drug interactions. Risk benefit ratio favors no change other than as noted in my dictated progress note. Diagnosis: Problems: (1) Anxiety disorder, unspecified (2) Major depressive disorder with psychotic features (3) Mild cognitive impairment DYANA DEVINE MD Sep 26, 2020 21:04
--- NOTE | 2020-09-26 23:14 | CONS ---
DATE OF CONSULTATION: 09/26/2020 REASON FOR CONSULTATION: Medical management. HISTORY OF PRESENT ILLNESS: The patient is a 74-year-old -[place]ian female patient who was admitted initially to 1 [facility] Medical/Surgical for a COVID screen that turned out to be negative. She was seen at [facility] and had been in 4-point restraints because she was unmanageable, paranoid, delusional, aggressive and that she has failed outpatient psychiatric intervention. She was referred for inpatient psychiatric stabilization. Her daughter is considering admitting her to a long-term care facility as she is unable to take care herself anymore. Apparently, the patient is known to have major depressive disorder with psychotic features with some short-term memory deficit. She was admitted here before for similar circumstances. PAST MEDICAL HISTORY: Significant for hypertension, hyperlipidemia, chronic constipation, and generalized osteoarthritis. PAST SURGICAL HISTORY: Unremarkable. ALLERGIES: SHE IS ALLERGIC TO SULFA AND SHELLFISH. MEDICATIONS: She is currently on following medications: She is on atorvastatin calcium 40 mg at bedtime, amlodipine besylate 10 mg daily. She is on aspirin 81 mg once a day, acetaminophen 650 mg every 4 hours, trazodone 25 mg twice a day, trazodone 50 mg at bedtime. She is on Seroquel 100 mg at bedtime, Seroquel 50 mg 3 times a day, calcium citrate 500 mg daily. She is on polyethylene glycol 17 grams daily, Lidoderm patch applied topically on for 12 hours and off for 12 hours, ergocalciferol vitamin D3 50,000 units once a week, melatonin 3 mg at bedtime. PAST SURGICAL HISTORY: Significant for appendectomy, tubal ligation, right total hip arthroplasty. FAMILY HISTORY: Positive for heart disease in her mother. SOCIAL HISTORY: She is and lives alone. She never smoked, does not drink alcohol or use any recreational drugs. She apparently is no longer able to take care of herself. REVIEW OF SYSTEMS: As per history of present illness. PHYSICAL EXAMINATION: GENERAL: On examining her, she looked well and was clearly in no apparent respiratory distress, slightly pale, but no jaundice, cyanosis or thyromegaly. No jugular venous distention. No limb edema. VITAL SIGNS: Her heart rate was 91, blood pressure was 122/76, temperature 96.9, respiratory rate was 17 and oxygen saturation was 96%. HEAD, EYES, EARS, NOSE AND THROAT: Normocephalic, atraumatic. NECK: Supple. HEART: Normal first and second heart sounds. No gallop, rub or murmur. CHEST: Clear to auscultation. No crepitation or rhonchi. ABDOMEN: Distended, soft, nontender. NEUROLOGIC: She is very demented, but without any obvious lateralizing sign. LABORATORY DATA: Showed a white cell count 4700, hemoglobin 11, hematocrit 34, MCV 94 and platelet count 255,000 with normal manual differential. Her chemistry showed a serum sodium 140, potassium 3.8, chloride 106, bicarbonate 29, anion gap of 5, BUN 18, creatinine 0.8, estimated GFR was 69 mL per minute. Her glucose was 98, calcium was 8.3, magnesium 2. Total serum iron, TIBC and iron saturation are all normal. Total bilirubin, AST, ALT, alkaline phosphatase were normal. Total protein 7.1, albumin was 2.9. Her serum triglycerides were 59, total cholesterol 122, LDL was 56, VLDL was 11, HDL 55 and the ratio was 2. Her serum vitamin B12 was 624, 25-hydroxy vitamin D was 33. TSH 3.403, total T4 and total T3 are all normal. Her hemoglobin A1c was 6.1%. IMPRESSION: All in all, this lady is stable medically. Her vital signs and her lab works are all within acceptable range. She has mild normochromic normocytic anemia. She does have also mild protein-calorie malnutrition. Otherwise, she is stable. Thank you, Dr. Collins for allowing me to participate in the care of this patient. ALAN KEN MD DR: RAIN/jenni JOB#: [id number] / [id number]
--- NOTE | 2020-09-27 03:01 | NUR ---
Nursing Note The patient was located in the hallway for interactions with this nurse. The patient has been irritable, argumentative and delusional this shift. The patient declined to take her medications this shift. The patient refused to answer assessment questions during her assessment. The patient spent most of the shift in the quiet vaz by her own choice.
[2020-09-27 06:26] VITALS: BP 159/95
[2020-09-27] MEDS: POLYETHYLENE GLYCOL 3350 17 GM PACKET. PO SCH (07:49)
[2020-09-27] MEDS: amLODIPine BESYLATE 10 MG TABLET PO SCH (07:49)
[2020-09-27] MEDS: QUEtiapine 50 MG TABLET. PO SCH ×4 (07:49→21:19)
[2020-09-27] MEDS: LIDOCAINE (700MG/PATCH) PATCH. TP SCH (07:49)
[2020-09-27] MEDS: CALCIUM CARBONATE 500 MG TABLET PO SCH (07:49)
[2020-09-27] MEDS: ASPIRIN CHEWABLE 81 MG TABLET. PO SCH (07:49)
[2020-09-27] MEDS: traZODone 50 MG TABLET. PO SCH ×3 (07:49→21:20)
--- NOTE | 2020-09-27 09:10 | NUR ---
PT IS IRRITABLE AND SUSPICIOUS UPON ASSESSMENT AND MEDICATION ADMINISTRATION. PT'S MEDICATIONS HIDDEN IN ORANGE JUICE THIS AM. PT REFUSED TO EAT AND DRINK THIS AM. OJ AT BEDSIDE. PT SITTING IN ROOM READING MAGAZINES AT THIS TIME. WILL CONTINUE TO MONITOR.
--- NOTE | 2020-09-27 09:20 | PDOC ---
Exam Note: Carlos A Note: This note is a late entry for 09/26/2020 covers elements not covered in my initial note. Subjective: The patient was seen face to face in the evening of 09/26/2020 with Kamila MACARIO. Discussed with nursing staff, reviewed the chart. The patient slept 7 hours previous night. The patient was somewhat anxious, agitated in the morning, was fixated that she was at a business establishment and she felt the staff are not running the way it should be run. She seemed confused. During the day she has done little better but delusional, forgetful. Late in the evening as I met with her she was extremely agitated, running up, walking fast up and down the hallway, looking for exit, confused. Review of Systems: No CV, , pulmonary, eye, ENT system symptoms on review. Mental Status Exam: The patient is oriented to herself. Insight, judgment, recent memory is impaired, remote is better. Language function is intact. No suicidal or homicidal ideation. As I met with her she was still delusional, fixated that people were trying to go against anyone who was Jehovahs witness. Laboratory Data: Reviewed. Impression: Major depressive disorder with psychotic features. Mild cognitive impairment. Anxiety disorder unspecified. Rule out OCD. Plan: Continue her current psychotropics. Given her level of psychosis, we may need to change Seroquel to Risperdal but per nursing staff she did a little better today after she received an extra dosage of Seroquel. For now we will monitor. We may also add an SSRI agent for her mood, anxiety, and obsessive thinking. Assessment: Vital Signs/I&O: Vital Signs Date Time Temp Pulse Resp B/P (MAP) Pulse Ox O2 Delivery O2 Flow Rate FiO2 09/27/20 07:49 73 159/95 09/27/20 06:26 97.2 16 96 Room Air I & O 09/26/20 09/26/20 09/27/20 15:00 23:00 07:00 Intake Total 720 ml 320 ml 0 ml Balance 720 ml 320 ml 0 ml Current Medications: Meds: Current Medications Medications (Trade) Dose Ordered Sig/Tory Route PRN Reason Start Time Stop Time Status Last Admin Dose Admin Acetaminophen (Tylenol) 650 mg PRN Q6HRS PRN PO MILD PAIN / TEMP > 100.3'F 09/25/20 18:15 09/25/20 21:02 Multi-Ingredient Ointment (Analgesic [place]) 1 mariya PRN QID PRN TP MUSCLE PAIN 09/25/20 18:15 Al Hydroxide/Mg Hydroxide (Mylanta Plus Xs) 15 ml PRN AFTMEALHC PRN PO DYSPEPSIA 09/25/20 18:15 Magnesium Hydroxide (Milk Of Magnesia) 2,400 mg PRN QHS PRN PO CONSTIPATION 09/25/20 18:15 Acetaminophen (Tylenol) 650 mg Q6HRS PRN PO pain or fever 09/25/20 18:45 UNV Amlodipine Besylate (Norvasc) 10 mg DAILY PO 09/26/20 09:00 09/27/20 07:49 Aspirin (Aspirin Chewable) 81 mg DAILY PO 09/26/20 09:00 09/27/20 07:49 Vitamin D (Vitamin D3) 50,000 unit WEEKLY PO 10/01/20 09:00 Lidocaine (Lidoderm) 1 patch DAILY TP 09/26/20 09:00 Polyethylene Glycol (miraLAX) 17 gm DAILY PO 09/26/20 09:00 09/27/20 07:49 Atorvastatin Calcium (Lipitor) 40 mg QHS PO 09/25/20 21:00 09/26/20 21:00 Calcium Carbonate/ Glycine (Oscal) 500 mg DAILY PO 09/26/20 09:00 09/27/20 07:49 Quetiapine Fumarate (SEROquel) 50 mg TID PO 09/25/20 21:00 09/27/20 07:49 Quetiapine Fumarate (SEROquel) 100 mg QHS PO 09/25/20 21:00 09/26/20 21:00 Trazodone HCl (Desyrel) 25 mg BID PO 09/25/20 21:00 09/27/20 07:49 Trazodone HCl (Desyrel) 50 mg QHS PO 09/25/20 21:00 09/26/20 21:01 Melatonin (Melatonin) 3 mg QHS PO 09/25/20 21:00 09/26/20 21:00 Miscellaneous (Lidoderm Patch Removal) 1 ea QHS MC 09/25/20 21:00 09/25/20 21:00 I have reviewed the current psychotropics carefully including drug interactions. Risk benefit ratio favors no change other than as noted in my dictated progress note. Diagnosis: Problems: (1) Major depressive disorder with psychotic features (2) Anxiety disorder, unspecified (3) Mild cognitive impairment (4) Psychotic disorder DYANA DEVINE MD Sep 27, 2020 09:20
--- NOTE | 2020-09-27 10:00 | NUR ---
ACTIVITY THERAPY ASSESSMENT completed based on notes, observation and interview. AT walked into pt's room where pt had sat down her book to assist another pt in her room. The other pt was laying in her bed which pt was very calm and polite about. AT helped the other pt out to the hallway with assistance from STABBER. Pt was compliant when asked to answer questions for the assessment. Pt was calm and pleasant during time of the assessment. AT asked pt what leisure activities she likes to do. Pt listed off very quickly gardening, decorating, music, and reading. AT asked pt if she would like to attend any of our groups. Pt said that she would possibly come to some of them. AT explained what kinds of groups we had. Pt became irritable when AT explained that we have an exercise group. AT explained that she is not required to do exercise. Pt became less irritable at this time. Pt said that she is and has two children. Pt said that she able to stay in contact with them. Pt was asked orientation questions and was able to identify the hospital and the year. AT asked pt what activities she likes to do with her family. Pt explained that her family is very close and they do everything together (spiritually and socially). Pt said that she also does everything with her friends (spiritually and socially). Pt said that she is Episcopal and before COVID they met very frequently and now they meet over zoom. When asked her reason for admission pt explained to AT that she should not be here and was tricked into coming here. Pt said that she was taking a couple to the airport for their honeymoon. Pt said that she was picked up by EMS who took her to and then she ended up here. Pt said that her family did not know she was coming here. Pt said that it was unfair and unloyal. Pt recalls being on [facility] previously. Pt started to explain that she is trying to lose weight so she is drinking a lot of water. Pt said that she is just trying to flush out her kidneys. Pt requested to speak with her daughter and also requested paper towels for her bathroom. AT said that she would take care of it and also brought pt a couple of magazines. Initial goal aimed to increase stress management and socialization skills. Pt will participate in at least three individual or group Activity Therapy sessions per week.
[2020-09-27] MEDS: levoFLOXacin 250 MG TABLET PO SCH (13:25)
--- NOTE | 2020-09-27 15:55 | NUR ---
PSYCHOSOCIAL ASSESSMENT ADMISSION DATE: 09/25/20 CONTACT INFORMATION: DPOA/Guardian Contact Name: Patito Sunshine Contact Address: [place], [place] Contact Phone #: ETHNIC ORIGIN: REASONS FOR ADMISSION: ADDITIONAL ADMISSION COMMENTS: According to the intake pt is agitated, aggressive, biting, spitting REASON FOR ADMISSION IN PATIENT/FAMILY'S OWN WORDS: She did fine for a while but then started having an increase in agitation with behaviors PATIENT/FAMILY EXPECTATIONS FOR ADMISSION: Medication and Behavioral Mgmt LIVING SITUATION: Patient lives with: Alone Other living arrangements: Pt lives in her own home in [place], [place] Contact Name: Priyanka Worthy Contact Address: Contact Phone #: Contact Fax #: FAMILY RELATIONS: Marital Status: # of Marriages: 2 # of Children: 2 [facility] Family Support: Concerned Cooperative Involved in [place] Planning Additional Comments r/t Family: Pt has been and 2x now. Pt's longest marriage was to her first in which they had 2 daughters, Primitivo and Priyanka. SIGNIFICANT PSYCHIATRIC/MEDICAL HISTORY: Psychiatric/Treatment History: This is pt [facility]nd admission to [facility] and one prior admission to [facility]. Pt has previous hx of MDD with psychosis, Dementia Pertinent Family History: None noted HISTORICAL DATA: Childhood Environment: Other-see below Childhood Environment Additional Comments: Pt lived most of her life in [facility]. Pt is 1 of 4 and with 2 siblings still living. 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 service: N Islam background: Pt is a Sikhism and very involved within her community. Sexual orientation: Heterosexual Educational Level: Pt was able to graduate high school (12th) grade Past/Present Interests/Hobbies: Gardening, Sewing and an avid reader Financial support/resources: Social Security Monthly income: Person handling finances: Pt family handles all finances Do you have a history of legal problems: N Cultural considerations: Jehovah Witness -- no blood transfusions SOCIAL RELATIONSHIPS-CURRENT/PAST: Psychiatrist: None PCP: None Counselor/Therapist: None Veterans[employer] [facility]: None Support Group: None Endoscopy Support Specialist/Dance Professor: None Other relationships: None STRENGTHS & WEAKNESSES: Patient's strengths: Good family support Good verbal skills Ambulatory Approachable Other patient strengths: Patient's weaknesses: Impulsive Physically Aggressive Verbally Aggressive Other patient weaknesses: PRELIMINARY PLAN OF TREATMENT: Preliminary plan: Promote Coping Skill Medication Stabilization Dec. Outbursts Dec. Aggression Other preliminary treatment comments: DISCHARGE PLANNING: Discharge planning/disposition: Placement Needed Additional discharge needs identified: Potential referrals sent to placement for pt. ADDITIONAL INFORMATION: Other Pertinent Data: PSA information transferred from previous admit.
[2020-09-27 16:18] VITALS: BP 141/82
[2020-09-27] MEDS: PATCH REMOVAL. MC SCH (21:00)
[2020-09-27] MEDS: LACTOBACILLUS RHAMNOSUS GG 1 CAPSULE. PO SCH (21:00)
--- NOTE | 2020-09-27 21:03 | PDOC ---
Exam Note: Carlos A Note: Please also refer to the separate dictated note~for this date of service dictated separately.~Patient seen individually. Discussed the patient with Nursing staff reviewed the chart.~Reviewed interim history and current functioning. Reviewed vital signs,~Labs/ Radiology~and current medications noted below. Continue current treatment with the changes noted in the dictated addendum note Assessment: Vital Signs/I&O: Vital Signs Date Time Temp Pulse Resp B/P (MAP) Pulse Ox O2 Delivery O2 Flow Rate FiO2 09/27/20 16:18 98.3 92 18 141/82 (101) 97 09/27/20 06:26 Room Air I & O 09/26/20 09/26/20 09/27/20 15:00 23:00 07:00 Intake Total 720 ml 320 ml 0 ml Balance 720 ml 320 ml 0 ml Current Medications: Meds: Current Medications Medications (Trade) Dose Ordered Sig/Tory Route PRN Reason Start Time Stop Time Status Last Admin Dose Admin Acetaminophen (Tylenol) 650 mg PRN Q6HRS PRN PO MILD PAIN / TEMP > 100.3'F 09/25/20 18:15 09/25/20 21:02 Multi-Ingredient Ointment (Analgesic [place]) 1 mariya PRN QID PRN TP MUSCLE PAIN 09/25/20 18:15 Al Hydroxide/Mg Hydroxide (Mylanta Plus Xs) 15 ml PRN AFTMEALHC PRN PO DYSPEPSIA 09/25/20 18:15 Magnesium Hydroxide (Milk Of Magnesia) 2,400 mg PRN QHS PRN PO CONSTIPATION 09/25/20 18:15 Acetaminophen (Tylenol) 650 mg Q6HRS PRN PO pain or fever 09/25/20 18:45 UNV Amlodipine Besylate (Norvasc) 10 mg DAILY PO 09/26/20 09:00 09/27/20 07:49 Aspirin (Aspirin Chewable) 81 mg DAILY PO 09/26/20 09:00 09/27/20 07:49 Vitamin D (Vitamin D3) 50,000 unit WEEKLY PO 10/01/20 09:00 Lidocaine (Lidoderm) 1 patch DAILY TP 09/26/20 09:00 Polyethylene Glycol (miraLAX) 17 gm DAILY PO 09/26/20 09:00 09/27/20 07:49 Atorvastatin Calcium (Lipitor) 40 mg QHS PO 09/25/20 21:00 2/2/21 21:00 Calcium Carbonate/ Glycine (Oscal) 500 mg DAILY PO 09/26/20 09:00 09/27/20 07:49 Quetiapine Fumarate (SEROquel) 50 mg TID PO 09/25/20 21:00 09/27/20 07:49 Quetiapine Fumarate (SEROquel) 100 mg QHS PO 09/25/20 21:00 09/26/20 21:00 Trazodone HCl (Desyrel) 25 mg BID PO 09/25/20 21:00 09/27/20 07:49 Trazodone HCl (Desyrel) 50 mg QHS PO 09/25/20 21:00 09/26/20 21:01 Melatonin (Melatonin) 3 mg QHS PO 09/25/20 21:00 09/26/20 21:00 Miscellaneous (Lidoderm Patch Removal) 1 ea QHS MC 09/25/20 21:00 09/25/20 21:00 Levofloxacin (Levaquin) 250 mg DAILY PO 09/27/20 13:00 10/02/20 21:00 09/27/20 13:25 Lactobacillus Rhamnosus (Culturelle) 1 cap BID PO 09/27/20 21:00 Current Medications Medications (Trade) Dose Ordered Sig/Tory Route PRN Reason Start Time Stop Time Status Last Admin Dose Admin Levofloxacin (Levaquin) 250 mg DAILY PO 09/27/20 13:00 10/02/20 21:00 09/27/20 13:25 I have reviewed the current psychotropics carefully including drug interactions. Risk benefit ratio favors no change other than as noted in my dictated progress note. Diagnosis: Problems: (1) Mild cognitive impairment (2) Major depressive disorder with psychotic features (3) Anxiety disorder, unspecified DYANA DEVINE MD Sep 27, 2020 21:03
[2020-09-27] MEDS: QUEtiapine 100 MG TABLET. PO SCH (21:18)
[2020-09-27] MEDS: MELATONIN 3 MG TABLET PO SCH (21:18)
[2020-09-27] MEDS: ATORVASTATIN CALCIUM 20 MG TABLET PO SCH (21:18)
[2020-09-27] MEDS ORDERED: traZODone 50 MG TABLET. PO PRN (21:30)
--- NOTE | 2020-09-27 22:56 | PN ---
DATE: 09/27/2020 PSYCHIATRIC PROGRESS NOTE This note covers elements not covered in my initial note 09/27/2020. SUBJECTIVE: I met with the patient evening of 09/27/2020 at some length in her room. The patient slept 7 hours previous night. Discussed with AMIRAH Sheridan. She has been suspicious, confused, urinating on the floor previous night, refused her bedtime medications. She believes she owns this building and said people were not working right. She does have a UTI, started on Levaquin and the UTI could be contributing to her confusion. She refused her psychotropics this evening and I addressed this with her at length in her room. She is more agreeable to taking it at the end of our visit. REVIEW OF SYSTEMS: Ambulation impaired. No CV, , pulmonary, eye, ENT system symptoms on review. MENTAL STATUS EXAM: Oriented to herself and situation. Speech coherent, has some latency. Abstraction fair, computation impaired, language function intact. Mood and affect remains labile, depressed, anxious, paranoid. LABORATORY DATA: Reviewed. IMPRESSION: Major depressive disorder with psychotic features, mild cognitive impairment, urinary tract infection. Rest unchanged. PLAN: Treat the UTI on Levaquin. Maintain rest of the psychotropics for now, but we may need to increase Seroquel or change to Risperdal if psychotic symptoms persist and start Zoloft as an antidepressant in a day or so as the UTI is treated. DYANA DEVINE MD DR: SUJATHA/jenni JOB#: [id number] / [id number]
--- NOTE | 2020-09-28 00:14 | NUR ---
Nursing Note Pt in her room, asleep in the chair, in a slightly slouching position. Awakens later and goes to bed. Awakens for assessment and meds, is compliant with, takes meds willingly, no argument no questions at all. After, rolls over in bed and states "Thanks and good night." Has been sleeping comfortably.
[2020-09-28 06:04] VITALS: BP 115/67
[2020-09-28] MEDS: CALCIUM CARBONATE 500 MG TABLET PO SCH (08:25)
[2020-09-28] MEDS: levoFLOXacin 250 MG TABLET PO SCH (08:25)
[2020-09-28] MEDS: LACTOBACILLUS RHAMNOSUS GG 1 CAPSULE. PO SCH ×2 (08:26→19:48)
[2020-09-28] MEDS: QUEtiapine 50 MG TABLET. PO SCH ×3 (08:26→19:48)
[2020-09-28] MEDS: amLODIPine BESYLATE 10 MG TABLET PO SCH (08:26)
[2020-09-28] MEDS: ASPIRIN CHEWABLE 81 MG TABLET. PO SCH (08:26)
[2020-09-28] MEDS: POLYETHYLENE GLYCOL 3350 17 GM PACKET. PO SCH (09:00)
[2020-09-28] MEDS: LIDOCAINE (700MG/PATCH) PATCH. TP SCH (09:00)
--- NOTE | 2020-09-28 11:04 | NUR ---
WEEKLY ACTIVITY THERAPY NOTE Date of Admission: 09/25/20 Date of AT Assessment:09/27/20 Precipitating behaviors that initiated intake and admission: Delusional Called EMS that she was in labor and stated that she was and having a baby, then proceeded to tell them when they arrived that someone took the baby and planted it into someone else. Goal aimed:increase stress management and socialization skills Initial Goal: Pt will participate in at least three individual or group Activity Therapy sessions per week. Weekly progress towards goal: goal evaluation begins next week Group participation level: zero Weekly highlights: arrived on unit Behaviors observed: delusional, not feeling well yesterday afternoon, withdrawn to room- reading often Plan: no hall to goal Beneficial adaptations:
[2020-09-28 16:02] VITALS: BP 116/74
--- NOTE | 2020-09-28 17:24 | NUR ---
Patient is calm and cooperative takes medications whole with no problems. Patient thinks she is here because of a UTI and states she is not confused at all. We are confused. She knows she is in hospital and states she doesn't care why. She is alert and oriented X2. She has no complaints. No further concerns at this time.
[2020-09-28] MEDS: QUEtiapine 100 MG TABLET. PO SCH (19:48)
[2020-09-28] MEDS: traZODone 50 MG TABLET. PO SCH (19:48)
[2020-09-28] MEDS: MELATONIN 3 MG TABLET PO SCH (19:48)
[2020-09-28] MEDS: PATCH REMOVAL. MC SCH (19:49)
[2020-09-28] MEDS: ATORVASTATIN CALCIUM 20 MG TABLET PO SCH (19:49)
--- NOTE | 2020-09-28 21:10 | PDOC ---
Exam Note: Carlos A Note: Please also refer to the separate dictated note~for this date of service dictated separately.~Patient seen individually. Discussed the patient with Nursing staff reviewed the chart.~Reviewed interim history and current functioning. Reviewed vital signs,~Labs/ Radiology~and current medications noted below. Continue current treatment with the changes noted in the dictated addendum note Assessment: Vital Signs/I&O: Vital Signs Date Time Temp Pulse Resp B/P (MAP) Pulse Ox O2 Delivery O2 Flow Rate FiO2 09/28/20 16:02 98.0 88 16 116/74 (88) 97 09/27/20 06:26 Room Air I & O 09/27/20 09/27/20 09/28/20 15:00 23:00 07:00 Intake Total 240 ml 240 ml Balance 240 ml 240 ml Current Medications: Meds: Current Medications Medications (Trade) Dose Ordered Sig/Tory Route PRN Reason Start Time Stop Time Status Last Admin Dose Admin Acetaminophen (Tylenol) 650 mg PRN Q6HRS PRN PO MILD PAIN / TEMP > 100.3'F 09/25/20 18:15 09/25/20 21:02 Multi-Ingredient Ointment (Analgesic [place]) 1 mariya PRN QID PRN TP MUSCLE PAIN 09/25/20 18:15 Al Hydroxide/Mg Hydroxide (Mylanta Plus Xs) 15 ml PRN AFTMEALHC PRN PO DYSPEPSIA 09/25/20 18:15 Magnesium Hydroxide (Milk Of Magnesia) 2,400 mg PRN QHS PRN PO CONSTIPATION 09/25/20 18:15 Acetaminophen (Tylenol) 650 mg Q6HRS PRN PO pain or fever 09/25/20 18:45 UNV Amlodipine Besylate (Norvasc) 10 mg DAILY PO 09/26/20 09:00 09/28/20 08:26 Aspirin (Aspirin Chewable) 81 mg DAILY PO 09/26/20 09:00 09/28/20 08:26 Vitamin D (Vitamin D3) 50,000 unit WEEKLY PO 10/01/20 09:00 Lidocaine (Lidoderm) 1 patch DAILY TP 09/26/20 09:00 Polyethylene Glycol (miraLAX) 17 gm DAILY PO 09/26/20 09:00 09/28/20 09:00 Atorvastatin Calcium (Lipitor) 40 mg QHS PO 09/25/20 21:00 09/28/20 19:49 Calcium Carbonate/ Glycine (Oscal) 500 mg DAILY PO 09/26/20 09:00 09/28/20 08:25 Quetiapine Fumarate (SEROquel) 50 mg TID PO 09/25/20 21:00 09/28/20 19:48 Quetiapine Fumarate (SEROquel) 100 mg QHS PO 09/25/20 21:00 09/28/20 19:48 Trazodone HCl (Desyrel) 25 mg BID PO 09/25/20 21:00 09/27/20 21:30 DC 09/27/20 21:18 Trazodone HCl (Desyrel) 50 mg QHS PO 09/25/20 21:00 09/28/20 19:48 Melatonin (Melatonin) 3 mg QHS PO 09/25/20 21:00 09/28/20 19:48 Miscellaneous (Lidoderm Patch Removal) 1 ea QHS MC 09/25/20 21:00 09/28/20 19:49 Levofloxacin (Levaquin) 250 mg DAILY PO 09/27/20 13:00 10/02/20 21:00 09/28/20 08:25 Lactobacillus Rhamnosus (Culturelle) 1 cap BID PO 09/27/20 21:00 09/28/20 19:48 Trazodone HCl (Desyrel) 50 mg PRN QHS PRN PO INSOMNIA 09/27/20 21:30 I have reviewed the current psychotropics carefully including drug interactions. Risk benefit ratio favors no change other than as noted in my dictated progress note. Diagnosis: Problems: (1) Major depressive disorder with psychotic features (2) Anxiety disorder, unspecified (3) Mild cognitive impairment (4) Psychotic disorder DYANA DEVINE MD Sep 28, 2020 21:10
[2020-09-29] MEDS: amLODIPine BESYLATE 10 MG TABLET PO SCH (06:00)
[2020-09-29] MEDS: levoFLOXacin 250 MG TABLET PO SCH (06:00)
[2020-09-29] MEDS: CALCIUM CARBONATE 500 MG TABLET PO SCH (06:00)
[2020-09-29] MEDS: QUEtiapine 50 MG TABLET. PO SCH ×2 (06:00→13:43)
[2020-09-29] MEDS: LACTOBACILLUS RHAMNOSUS GG 1 CAPSULE. PO SCH ×2 (06:00→21:11)
[2020-09-29] MEDS: ASPIRIN CHEWABLE 81 MG TABLET. PO SCH (06:00)
[2020-09-29] MEDS: POLYETHYLENE GLYCOL 3350 17 GM PACKET. PO SCH (06:01)
[2020-09-29] MEDS: LIDOCAINE (700MG/PATCH) PATCH. TP SCH (06:01)
[2020-09-29 06:26] VITALS: BP 116/68
[2020-09-29 16:01] VITALS: BP 121/76
--- NOTE | 2020-09-29 17:31 | NUR ---
Pt up adl in room. Pt very delusional. Thinks an imposter signed for her to come here as she stated her dtr and son-in-law flew some people to [place] to a no call area on the day she was signed in. Stated her son and son-in-law are pilots and trying to get her to learn how to fly. When asked about what brought her her pt denied any behaviors of agitation and aggression. Also states Dr Collins is related to her neighbors across the street way back in their genealogy. Dr Collins also supposedly told her she doesn't need to be here as her memory is fine.
--- NOTE | 2020-09-29 20:57 | PDOC ---
Exam Note: Carlos A Note: Please also refer to the separate dictated note~for this date of service dictated separately.~Patient seen individually. Discussed the patient with Nursing staff reviewed the chart.~Reviewed interim history and current functioning. Reviewed vital signs,~Labs/ Radiology~and current medications noted below. Continue current treatment with the changes noted in the dictated addendum note Assessment: Vital Signs/I&O: Vital Signs Date Time Temp Pulse Resp B/P (MAP) Pulse Ox O2 Delivery O2 Flow Rate FiO2 09/29/20 16:01 97.5 85 16 121/76 (91) 95 09/27/20 06:26 Room Air I & O 09/28/20 09/28/20 09/29/20 15:00 23:00 07:00 Intake Total 600 ml 360 ml Balance 600 ml 360 ml Current Medications: Meds: Current Medications Medications (Trade) Dose Ordered Sig/Tory Route PRN Reason Start Time Stop Time Status Last Admin Dose Admin Acetaminophen (Tylenol) 650 mg PRN Q6HRS PRN PO MILD PAIN / TEMP > 100.3'F 09/25/20 18:15 09/25/20 21:02 Multi-Ingredient Ointment (Analgesic [place]) 1 mariya PRN QID PRN TP MUSCLE PAIN 09/25/20 18:15 Al Hydroxide/Mg Hydroxide (Mylanta Plus Xs) 15 ml PRN AFTMEALHC PRN PO DYSPEPSIA 09/25/20 18:15 Magnesium Hydroxide (Milk Of Magnesia) 2,400 mg PRN QHS PRN PO CONSTIPATION 09/25/20 18:15 Acetaminophen (Tylenol) 650 mg Q6HRS PRN PO pain or fever 09/25/20 18:45 UNV Amlodipine Besylate (Norvasc) 10 mg DAILY PO 09/26/20 09:00 09/29/20 06:00 Aspirin (Aspirin Chewable) 81 mg DAILY PO 09/26/20 09:00 09/29/20 06:00 Vitamin D (Vitamin D3) 50,000 unit WEEKLY PO 10/01/20 09:00 Lidocaine (Lidoderm) 1 patch DAILY TP 09/26/20 09:00 09/29/20 06:01 Polyethylene Glycol (miraLAX) 17 gm DAILY PO 09/26/20 09:00 09/29/20 06:01 Atorvastatin Calcium (Lipitor) 40 mg QHS PO 09/25/20 21:00 09/28/20 19:49 Calcium Carbonate/ Glycine (Oscal) 500 mg DAILY PO 09/26/20 09:00 09/29/20 06:00 Quetiapine Fumarate (SEROquel) 50 mg TID PO 09/25/20 21:00 09/29/20 13:43 Quetiapine Fumarate (SEROquel) 100 mg QHS PO 09/25/20 21:00 09/28/20 19:48 Trazodone HCl (Desyrel) 25 mg BID PO 09/25/20 21:00 09/27/20 21:30 DC 09/27/20 21:18 Trazodone HCl (Desyrel) 50 mg QHS PO 09/25/20 21:00 09/28/20 19:48 Melatonin (Melatonin) 3 mg QHS PO 09/25/20 21:00 09/28/20 19:48 Miscellaneous (Lidoderm Patch Removal) 1 ea QHS MC 09/25/20 21:00 09/28/20 19:49 Levofloxacin (Levaquin) 250 mg DAILY PO 09/27/20 13:00 10/02/20 21:00 09/29/20 06:00 Lactobacillus Rhamnosus (Culturelle) 1 cap BID PO 09/27/20 21:00 09/29/20 06:00 Trazodone HCl (Desyrel) 50 mg PRN QHS PRN PO INSOMNIA 09/27/20 21:30 I have reviewed the current psychotropics carefully including drug interactions. Risk benefit ratio favors no change other than as noted in my dictated progress note. Diagnosis: Problems: (1) Major depressive disorder with psychotic features (2) Anxiety disorder, unspecified (3) Mild cognitive impairment (4) Psychotic disorder DYANA DEVINE MD Sep 29, 2020 20:56
[2020-09-29] MEDS: PATCH REMOVAL. MC SCH (21:00)
[2020-09-29] MEDS: MELATONIN 3 MG TABLET PO SCH (21:11)
[2020-09-29] MEDS: traZODone 50 MG TABLET. PO SCH (21:12)
[2020-09-29] MEDS: ATORVASTATIN CALCIUM 20 MG TABLET PO SCH (21:12)
[2020-09-29] MEDS: risperiDONE 1 MG TABLET. PO SCH (21:18)
--- NOTE | 2020-09-30 01:27 | NUR ---
Nursing Note Pt med compliant cooperative with care pleasant. No paranoia noted. Pt did not question meds.
[2020-09-30] MEDS: amLODIPine BESYLATE 10 MG TABLET PO SCH (04:51)
[2020-09-30] MEDS: LACTOBACILLUS RHAMNOSUS GG 1 CAPSULE. PO SCH ×2 (04:52→20:24)
[2020-09-30] MEDS: ASPIRIN CHEWABLE 81 MG TABLET. PO SCH (04:52)
[2020-09-30] MEDS: levoFLOXacin 250 MG TABLET PO SCH (04:52)
[2020-09-30] MEDS: CALCIUM CARBONATE 500 MG TABLET PO SCH (04:52)
[2020-09-30] MEDS: POLYETHYLENE GLYCOL 3350 17 GM PACKET. PO SCH (04:53)
[2020-09-30] MEDS: LIDOCAINE (700MG/PATCH) PATCH. TP SCH (04:53)
[2020-09-30 06:30] VITALS: BP 133/81
--- NOTE | 2020-09-30 07:25 | PDOC ---
Exam Note: Carlos A Note: This note is a late entry for 09/28/2020 covers elements not covered in my initial note. Subjective: The patient was seen face to face in the morning of 09/28/2020 for a treatment team meeting with Constanza Quinones, Yuni Tim and Diann (social services coordinator), Morelia Garcia, activity therapy and Kamila MACARIO, reviewed the chart. The patient slept 8-1/4 hours previous night. We reviewed the patients history at length. She was residing at home, became psychotic and was taken to [facility]. She remained quite psychotic, agitated and had to be on four-point restraints at one point before she was sent to us. She was adamant that there was nothing wrong with her. This is an elaborate scheme to defraud the Medicare for the money. I had a lengthy discussion with her but nothing I could say, undoes this. She does have UTI. Often refuses psyche medications. Review of Systems: No CV, , pulmonary, eye, ENT system symptoms on review. Mental Status Exam: The patient is reasonably oriented. Speech is coherent. Abstraction is fair. Computation is impaired. Language function is intact. Attention span is short. She was talking at length about her neighbours being related to me and she has read it in a book and will show it to me on 09/29. Laboratory Data: Reviewed. Impression: Major depressive disorder with psychotic features. Mild cognitive impairment. Anxiety disorder unspecified. UTI. Plan: Continue her current psychotropics. We may need to change the Seroquel to Risperdal if psychotic symptoms persist and treat the UTI. Assessment: Vital Signs/I&O: Vital Signs Date Time Temp Pulse Resp B/P (MAP) Pulse Ox O2 Delivery O2 Flow Rate FiO2 09/30/20 06:30 98.1 86 18 133/81 (98) 95 09/27/20 06:26 Room Air I & O 09/29/20 09/29/20 09/30/20 15:00 23:00 07:00 Intake Total 600 ml 240 ml Balance 600 ml 240 ml Current Medications: Meds: Current Medications Medications (Trade) Dose Ordered Sig/Tory Route PRN Reason Start Time Stop Time Status Last Admin Dose Admin Acetaminophen (Tylenol) 650 mg PRN Q6HRS PRN PO MILD PAIN / TEMP > 100.3'F 2/1/21 18:15 09/25/20 21:02 Multi-Ingredient Ointment (Analgesic [place]) 1 mariya PRN QID PRN TP MUSCLE PAIN 09/25/20 18:15 Al Hydroxide/Mg Hydroxide (Mylanta Plus Xs) 15 ml PRN AFTMEALHC PRN PO DYSPEPSIA 09/25/20 18:15 Magnesium Hydroxide (Milk Of Magnesia) 2,400 mg PRN QHS PRN PO CONSTIPATION 09/25/20 18:15 Acetaminophen (Tylenol) 650 mg Q6HRS PRN PO pain or fever 09/25/20 18:45 UNV Amlodipine Besylate (Norvasc) 10 mg DAILY PO 09/26/20 09:00 09/30/20 04:51 Aspirin (Aspirin Chewable) 81 mg DAILY PO 09/26/20 09:00 09/30/20 04:52 Vitamin D (Vitamin D3) 50,000 unit WEEKLY PO 10/01/20 09:00 Lidocaine (Lidoderm) 1 patch DAILY TP 09/26/20 09:00 09/30/20 04:53 Polyethylene Glycol (miraLAX) 17 gm DAILY PO 09/26/20 09:00 09/30/20 04:53 Atorvastatin Calcium (Lipitor) 40 mg QHS PO 09/25/20 21:00 09/29/20 21:12 Calcium Carbonate/ Glycine (Oscal) 500 mg DAILY PO 09/26/20 09:00 09/30/20 04:52 Quetiapine Fumarate (SEROquel) 50 mg TID PO 09/25/20 21:00 09/29/20 21:02 DC 09/29/20 13:43 Quetiapine Fumarate (SEROquel) 100 mg QHS PO 09/25/20 21:00 09/29/20 21:02 DC 09/28/20 19:48 Trazodone HCl (Desyrel) 25 mg BID PO 09/25/20 21:00 09/27/20 21:30 DC 09/27/20 21:18 Trazodone HCl (Desyrel) 50 mg QHS PO 09/25/20 21:00 09/29/20 21:12 Melatonin (Melatonin) 3 mg QHS PO 09/25/20 21:00 09/29/20 21:11 Miscellaneous (Lidoderm Patch Removal) 1 ea QHS MC 09/25/20 21:00 09/29/20 21:00 Levofloxacin (Levaquin) 250 mg DAILY PO 09/27/20 13:00 10/02/20 21:00 09/30/20 04:52 Lactobacillus Rhamnosus (Culturelle) 1 cap BID PO 09/27/20 21:00 09/30/20 04:52 Trazodone HCl (Desyrel) 50 mg PRN QHS PRN PO INSOMNIA 09/27/20 21:30 Risperidone (RisperDAL) 1 mg HS PO 09/30/20 21:00 09/29/20 21:04 DC Risperidone (RisperDAL) 1 mg HS PO 09/29/20 21:15 09/29/20 21:18 Current Medications Medications (Trade) Dose Ordered Sig/Tory Route PRN Reason Start Time Stop Time Status Last Admin Dose Admin Risperidone (RisperDAL) 1 mg HS PO 09/29/20 21:15 09/29/20 21:18 I have reviewed the current psychotropics carefully including drug interactions. Risk benefit ratio favors no change other than as noted in my dictated progress note. Diagnosis: Problems: (1) UTI (urinary tract infection) (2) Mild cognitive impairment (3) Psychotic disorder (4) Major neurocognitive disorder (5) Major depressive disorder with psychotic features (6) Anxiety disorder, unspecified DYANA DEVINE MD Sep 30, 2020 07:25
--- NOTE | 2020-09-30 07:55 | PDOC ---
Exam Note: Carlos A Note: This note is a late entry for 09/29/2020 covers elements not covered in my initial note. Subjective: The patient was seen face to face in the evening of 09/29/2020 with Tara MACARIO. Discussed with nursing staff, reviewed the chart. The patient slept 9 hours previous night. The patient was somewhat delusional at times, talking about people trying to get her to lean flying. She was compliant with her medications, remains on antibiotics for UTI. Again as I met with her individually, she showed me a large [employer] book and wanted me to read page [phone] last two paragraphs which she said convinced her that the neighbour she has around her house on both sides are related to me from 8th generation. This is somewhat bizarre. She is again convinced that there is nothing wrong that she did or behaviourally that needed her to go to and she was upset that I brought up the four-point restraints while she was at again stating that the people are plotting against her including staff and defrauding Medicare. Review of Systems: No CV, , pulmonary, eye, ENT system symptoms on review. Mental Status Exam: The patient is reasonably oriented. Speech is coherent. Abstraction is fair. Computation impaired. Language function is intact. The patient is quite delusional, psychotic. Later discussed with Lorraine MACARIO as well. No suicidal or homicidal ideation. Laboratory Data: Reviewed. Impression: Major depressive disorder with psychotic features. Mild cognitive impairment. Anxiety disorder unspecified. UTI. Plan: Change the patients Seroquel to Risperdal 1 mg h.s. and starting tonight may add daytime dosages while later continue rest of the psychotropics unchanged. Assessment: Vital Signs/I&O: Vital Signs Date Time Temp Pulse Resp B/P (MAP) Pulse Ox O2 Delivery O2 Flow Rate FiO2 09/30/20 06:30 98.1 86 18 133/81 (98) 95 09/27/20 06:26 Room Air I & O 09/29/20 09/29/20 09/30/20 15:00 23:00 07:00 Intake Total 600 ml 240 ml Balance 600 ml 240 ml Current Medications: Meds: Current Medications Medications (Trade) Dose Ordered Sig/[place] Route PRN Reason Start Time Stop Time Status Last Admin Dose Admin Acetaminophen (Tylenol) 650 mg PRN Q6HRS PRN PO MILD PAIN / TEMP > 100.3'F 09/25/20 18:15 09/25/20 21:02 Multi-Ingredient Ointment (Analgesic [place]) 1 mariya PRN QID PRN TP MUSCLE PAIN 09/25/20 18:15 Al Hydroxide/Mg Hydroxide (Mylanta Plus Xs) 15 ml PRN AFTMEALHC PRN PO DYSPEPSIA 09/25/20 18:15 Magnesium Hydroxide (Milk Of Magnesia) 2,400 mg PRN QHS PRN PO CONSTIPATION 09/25/20 18:15 Acetaminophen (Tylenol) 650 mg Q6HRS PRN PO pain or fever 09/25/20 18:45 UNV Amlodipine Besylate (Norvasc) 10 mg DAILY PO 09/26/20 09:00 09/30/20 04:51 Aspirin (Aspirin Chewable) 81 mg DAILY PO 09/26/20 09:00 09/30/20 04:52 Vitamin D (Vitamin D3) 50,000 unit WEEKLY PO 10/01/20 09:00 Lidocaine (Lidoderm) 1 patch DAILY TP 09/26/20 09:00 09/30/20 04:53 Polyethylene Glycol (miraLAX) 17 gm DAILY PO 09/26/20 09:00 09/30/20 04:53 Atorvastatin Calcium (Lipitor) 40 mg QHS PO 09/25/20 21:00 09/29/20 21:12 Calcium Carbonate/ Glycine (Oscal) 500 mg DAILY PO 09/26/20 09:00 09/30/20 04:52 Quetiapine Fumarate (SEROquel) 50 mg TID PO 09/25/20 21:00 09/29/20 21:02 DC 09/29/20 13:43 Quetiapine Fumarate (SEROquel) 100 mg QHS PO 09/25/20 21:00 09/29/20 21:02 DC 09/28/20 19:48 Trazodone HCl (Desyrel) 25 mg BID PO 09/25/20 21:00 09/27/20 21:30 DC 09/27/20 21:18 Trazodone HCl (Desyrel) 50 mg QHS PO 09/25/20 21:00 09/29/20 21:12 Melatonin (Melatonin) 3 mg QHS PO 09/25/20 21:00 09/29/20 21:11 Miscellaneous (Lidoderm Patch Removal) 1 ea QHS MC 09/25/20 21:00 09/29/20 21:00 Levofloxacin (Levaquin) 250 mg DAILY PO 09/27/20 13:00 10/02/20 21:00 09/30/20 04:52 Lactobacillus Rhamnosus (Culturelle) 1 cap BID PO 09/27/20 21:00 09/30/20 04:52 Trazodone HCl (Desyrel) 50 mg PRN QHS PRN PO INSOMNIA 09/27/20 21:30 Risperidone (RisperDAL) 1 mg HS PO 09/30/20 21:00 09/29/20 21:04 DC Risperidone (RisperDAL) 1 mg HS PO 09/29/20 21:15 09/29/20 21:18 Current Medications Medications (Trade) Dose Ordered Sig/Tory Route PRN Reason Start Time Stop Time Status Last Admin Dose Admin Risperidone (RisperDAL) 1 mg HS PO 09/29/20 21:15 09/29/20 21:18 I have reviewed the current psychotropics carefully including drug interactions. Risk benefit ratio favors no change other than as noted in my dictated progress note. Diagnosis: Problems: (1) UTI (urinary tract infection) (2) Major depressive disorder with psychotic features (3) Anxiety disorder, unspecified (4) Mild cognitive impairment DYANA DEVINE MD Sep 30, 2020 07:55
--- NOTE | 2020-09-30 15:51 | NUR ---
Pt up adl in room. Has been irritable at times. Wants to go home. Family brought pt in her bible and some clothing. Has been compliant thus far.
[2020-09-30 15:57] VITALS: BP 133/77
[2020-09-30] MEDS: risperiDONE 1 MG TABLET. PO SCH (20:24)
[2020-09-30] MEDS: traZODone 50 MG TABLET. PO SCH (20:24)
[2020-09-30] MEDS: MELATONIN 3 MG TABLET PO SCH (20:24)
[2020-09-30] MEDS: PATCH REMOVAL. MC SCH (20:24)
[2020-09-30] MEDS: ATORVASTATIN CALCIUM 20 MG TABLET PO SCH (20:24)
[2020-09-30] MEDS ORDERED: risperiDONE 1 MG TABLET. PO SCH (21:00)
--- NOTE | 2020-09-30 21:06 | PDOC ---
Exam Note: Carlos A Note: Please also refer to the separate dictated note~for this date of service dictated separately.~Patient seen individually. Discussed the patient with Nursing staff reviewed the chart.~Reviewed interim history and current functioning. Reviewed vital signs,~Labs/ Radiology~and current medications noted below. Continue current treatment with the changes noted in the dictated addendum note Assessment: Vital Signs/I&O: Vital Signs Date Time Temp Pulse Resp B/P (MAP) Pulse Ox O2 Delivery O2 Flow Rate FiO2 09/30/20 15:57 97.9 70 18 133/77 (95) 95 09/27/20 06:26 Room Air I & O 09/29/20 09/29/20 09/30/20 15:00 23:00 07:00 Intake Total 600 ml 240 ml Balance 600 ml 240 ml Current Medications: Meds: Current Medications Medications (Trade) Dose Ordered Sig/Tory Route PRN Reason Start Time Stop Time Status Last Admin Dose Admin Acetaminophen (Tylenol) 650 mg PRN Q6HRS PRN PO MILD PAIN / TEMP > 100.3'F 09/25/20 18:15 09/25/20 21:02 Multi-Ingredient Ointment (Analgesic [place]) 1 mariya PRN QID PRN TP MUSCLE PAIN 09/25/20 18:15 Al Hydroxide/Mg Hydroxide (Mylanta Plus Xs) 15 ml PRN AFTMEALHC PRN PO DYSPEPSIA 09/25/20 18:15 Magnesium Hydroxide (Milk Of Magnesia) 2,400 mg PRN QHS PRN PO CONSTIPATION 09/25/20 18:15 Acetaminophen (Tylenol) 650 mg Q6HRS PRN PO pain or fever 09/25/20 18:45 UNV Amlodipine Besylate (Norvasc) 10 mg DAILY PO 09/26/20 09:00 09/30/20 04:51 Aspirin (Aspirin Chewable) 81 mg DAILY PO 09/26/20 09:00 09/30/20 04:52 Vitamin D (Vitamin D3) 50,000 unit WEEKLY PO 10/01/20 09:00 Lidocaine (Lidoderm) 1 patch DAILY TP 09/26/20 09:00 09/30/20 04:53 Polyethylene Glycol (miraLAX) 17 gm DAILY PO 09/26/20 09:00 09/30/20 04:53 Atorvastatin Calcium (Lipitor) 40 mg QHS PO 09/25/20 21:00 09/30/20 20:24 Calcium Carbonate/ Glycine (Oscal) 500 mg DAILY PO 09/26/20 09:00 09/30/20 04:52 Quetiapine Fumarate (SEROquel) 50 mg TID PO 09/25/20 21:00 09/29/20 21:02 DC 09/29/20 13:43 Quetiapine Fumarate (SEROquel) 100 mg QHS PO 09/25/20 21:00 09/29/20 21:02 DC 09/28/20 19:48 Trazodone HCl (Desyrel) 25 mg BID PO 09/25/20 21:00 09/27/20 21:30 DC 09/27/20 21:18 Trazodone HCl (Desyrel) 50 mg QHS PO 09/25/20 21:00 09/30/20 20:24 Melatonin (Melatonin) 3 mg QHS PO 09/25/20 21:00 09/30/20 20:24 Miscellaneous (Lidoderm Patch Removal) 1 ea QHS MC 09/25/20 21:00 09/30/20 20:24 Levofloxacin (Levaquin) 250 mg DAILY PO 09/27/20 13:00 10/02/20 21:00 09/30/20 04:52 Lactobacillus Rhamnosus (Culturelle) 1 cap BID PO 09/27/20 21:00 09/30/20 20:24 Trazodone HCl (Desyrel) 50 mg PRN QHS PRN PO INSOMNIA 09/27/20 21:30 Risperidone (RisperDAL) 1 mg HS PO 09/30/20 21:00 09/29/20 21:04 DC Risperidone (RisperDAL) 1 mg HS PO 09/29/20 21:15 09/30/20 20:24 Current Medications Medications (Trade) Dose Ordered Sig/Tory Route PRN Reason Start Time Stop Time Status Last Admin Dose Admin Risperidone (RisperDAL) 1 mg HS PO 09/29/20 21:15 09/30/20 20:24 I have reviewed the current psychotropics carefully including drug interactions. Risk benefit ratio favors no change other than as noted in my dictated progress note. Diagnosis: Problems: (1) Major depressive disorder with psychotic features (2) Mild cognitive impairment (3) Anxiety disorder, unspecified NILSON,MAN M MD Sep 30, 2020 21:06
--- NOTE | 2020-09-30 22:22 | NUR ---
Pt is in room pleasant and reading her Bible. Pt compliant with medications and assessment. Pt denies needs or wants at this time. Pt isolating in her room.
[2020-10-01 06:06] VITALS: BP 136/62
[2020-10-01] MEDS: POLYETHYLENE GLYCOL 3350 17 GM PACKET. PO SCH (08:23)
[2020-10-01] MEDS: LACTOBACILLUS RHAMNOSUS GG 1 CAPSULE. PO SCH ×2 (08:24→20:30)
[2020-10-01] MEDS: levoFLOXacin 250 MG TABLET PO SCH (08:24)
[2020-10-01] MEDS: CALCIUM CARBONATE 500 MG TABLET PO SCH (08:24)
[2020-10-01] MEDS: ASPIRIN CHEWABLE 81 MG TABLET. PO SCH (08:24)
[2020-10-01] MEDS: amLODIPine BESYLATE 10 MG TABLET PO SCH (08:24)
[2020-10-01] MEDS: LIDOCAINE (700MG/PATCH) PATCH. TP SCH (08:25)
[2020-10-01] MEDS: CHOLECALCIFEROL (VITAMIN D3) 50,000 UNIT CAPSULE PO SCH (08:26)
--- NOTE | 2020-10-01 08:29 | PDOC ---
Exam Note: Carlos A Note: This note is a late entry for 09/30/2020 covers elements not covered in my initial note. Subjective: The patient was seen on telehealth rounds in the evening of 09/30/2020 with Tara MACARIO, discussed and reviewed the chart. The patient slept 8 hours previous night. Overall the patient has been much less paranoid, agitated. She states her daughter brought her some clothes and she was pleased to get this. She has been less fixated on her neighbours and the paranoia surrounding their relationship with me. Review of Systems: No CV, , pulmonary, eye, ENT system symptoms on review. Mental Status Exam: The patient is reasonably oriented. Speech is coherent. Abstraction is fair. Computation impaired. Language function is intact. Mood and affect less anxious, labile, less paranoid. Laboratory Data: Reviewed. Impression: Major depressive disorder with psychotic features. Mild cognitive impairment. Anxiety disorder unspecified. Plan: Continue psychotropics from initial note. Risperdal 1 mg h.s., trazodone 50 mg h.s. plus p.r.n. melatonin 3 mg h.s. We will consider starting an SSRI in due course. Assessment: Vital Signs/I&O: Vital Signs Date Time Temp Pulse Resp B/P (MAP) Pulse Ox O2 Delivery O2 Flow Rate FiO2 10/01/20 08:24 83 136/62 10/01/20 06:06 97.9 18 96 09/27/20 06:26 Room Air I & O 09/30/20 09/30/20 10/01/20 15:00 23:00 07:00 Intake Total 600 ml 480 ml Balance 600 ml 480 ml Current Medications: Meds: Current Medications Medications (Trade) Dose Ordered Sig/Tory Route PRN Reason Start Time Stop Time Status Last Admin Dose Admin Acetaminophen (Tylenol) 650 mg PRN Q6HRS PRN PO MILD PAIN / TEMP > 100.3'F 09/25/20 18:15 09/25/20 21:02 Multi-Ingredient Ointment (Analgesic [place]) 1 mariya PRN QID PRN TP MUSCLE PAIN 09/25/20 18:15 Al Hydroxide/Mg Hydroxide (Mylanta Plus Xs) 15 ml PRN AFTMEALHC PRN PO DYSPEPSIA 09/25/20 18:15 Magnesium Hydroxide (Milk Of Magnesia) 2,400 mg PRN QHS PRN PO CONSTIPATION 09/25/20 18:15 Acetaminophen (Tylenol) 650 mg Q6HRS PRN PO pain or fever 09/25/20 18:45 UNV Amlodipine Besylate (Norvasc) 10 mg DAILY PO 09/26/20 09:00 10/01/20 08:24 Aspirin (Aspirin Chewable) 81 mg DAILY PO 09/26/20 09:00 10/01/20 08:24 Vitamin D (Vitamin D3) 50,000 unit WEEKLY PO 10/01/20 09:00 10/01/20 08:26 Lidocaine (Lidoderm) 1 patch DAILY TP 09/26/20 09:00 10/01/20 08:25 Polyethylene Glycol (miraLAX) 17 gm DAILY PO 09/26/20 09:00 10/01/20 08:23 Atorvastatin Calcium (Lipitor) 40 mg QHS PO 09/25/20 21:00 09/30/20 20:24 Calcium Carbonate/ Glycine (Oscal) 500 mg DAILY PO 09/26/20 09:00 10/01/20 08:24 Quetiapine Fumarate (SEROquel) 50 mg TID PO 09/25/20 21:00 09/29/20 21:02 DC 09/29/20 13:43 Quetiapine Fumarate (SEROquel) 100 mg QHS PO 09/25/20 21:00 09/29/20 21:02 DC 09/28/20 19:48 Trazodone HCl (Desyrel) 25 mg BID PO 09/25/20 21:00 09/27/20 21:30 DC 09/27/20 21:18 Trazodone HCl (Desyrel) 50 mg QHS PO 09/25/20 21:00 09/30/20 20:24 Melatonin (Melatonin) 3 mg QHS PO 09/25/20 21:00 09/30/20 20:24 Miscellaneous (Lidoderm Patch Removal) 1 ea QHS MC 09/25/20 21:00 09/30/20 20:24 Levofloxacin (Levaquin) 250 mg DAILY PO 09/27/20 13:00 10/02/20 21:00 10/01/20 08:24 Lactobacillus Rhamnosus (Culturelle) 1 cap BID PO 09/27/20 21:00 10/01/20 08:24 Trazodone HCl (Desyrel) 50 mg PRN QHS PRN PO INSOMNIA 09/27/20 21:30 Risperidone (RisperDAL) 1 mg HS PO 09/30/20 21:00 09/29/20 21:04 DC Risperidone (RisperDAL) 1 mg HS PO 09/29/20 21:15 09/30/20 20:24 Current Medications Medications (Trade) Dose Ordered Sig/Tory Route PRN Reason Start Time Stop Time Status Last Admin Dose Admin Vitamin D (Vitamin D3) 50,000 unit WEEKLY PO 10/01/20 09:00 10/01/20 08:26 I have reviewed the current psychotropics carefully including drug interactions. Risk benefit ratio favors no change other than as noted in my dictated progress note. Diagnosis: Problems: (1) Major depressive disorder with psychotic features (2) Anxiety disorder, unspecified (3) Psychotic disorder (4) Mild cognitive impairment DYANA DEVINE MD Oct 01, 2020 08:29
[2020-10-01 16:09] VITALS: BP 115/84
--- NOTE | 2020-10-01 16:55 | NUR ---
Pt up in room for meal. Has been pleasant, quiet and withdrawn. Up in chair most of day reading. Has been compliant with meds and cares.
[2020-10-01] MEDS: MELATONIN 3 MG TABLET PO SCH (20:30)
[2020-10-01] MEDS: risperiDONE 1 MG TABLET. PO SCH (20:30)
--- NOTE | 2020-10-01 20:30 | NUR ---
Pt pt has been sitting in her room reading a book. She took her meds whole after a brief discussion about them. She has been pleasant and cooperative tonight.
[2020-10-01] MEDS: traZODone 50 MG TABLET. PO SCH (20:31)
[2020-10-01] MEDS: ATORVASTATIN CALCIUM 20 MG TABLET PO SCH (20:31)
[2020-10-01] MEDS: PATCH REMOVAL. MC SCH (20:32)
--- NOTE | 2020-10-01 21:05 | PDOC ---
Exam Note: Carlos A Note: Please also refer to the separate dictated note~for this date of service dictated separately.~Patient seen individually. Discussed the patient with Nursing staff reviewed the chart.~Reviewed interim history and current functioning. Reviewed vital signs,~Labs/ Radiology~and current medications noted below. Continue current treatment with the changes noted in the dictated addendum note Assessment: Vital Signs/I&O: Vital Signs Date Time Temp Pulse Resp B/P (MAP) Pulse Ox O2 Delivery O2 Flow Rate FiO2 10/01/20 16:09 97.8 96 18 115/84 (94) 96 Room Air I & O 09/30/20 09/30/20 10/01/20 15:00 23:00 07:00 Intake Total 600 ml 480 ml Balance 600 ml 480 ml Current Medications: Meds: Current Medications Medications (Trade) Dose Ordered Sig/Tory Route PRN Reason Start Time Stop Time Status Last Admin Dose Admin Acetaminophen (Tylenol) 650 mg PRN Q6HRS PRN PO MILD PAIN / TEMP > 100.3'F 09/25/20 18:15 09/25/20 21:02 Multi-Ingredient Ointment (Analgesic [place]) 1 mariya PRN QID PRN TP MUSCLE PAIN 09/25/20 18:15 Al Hydroxide/Mg Hydroxide (Mylanta Plus Xs) 15 ml PRN AFTMEALHC PRN PO DYSPEPSIA 09/25/20 18:15 Magnesium Hydroxide (Milk Of Magnesia) 2,400 mg PRN QHS PRN PO CONSTIPATION 09/25/20 18:15 Acetaminophen (Tylenol) 650 mg Q6HRS PRN PO pain or fever 09/25/20 18:45 UNV Amlodipine Besylate (Norvasc) 10 mg DAILY PO 09/26/20 09:00 10/01/20 08:24 Aspirin (Aspirin Chewable) 81 mg DAILY PO 09/26/20 09:00 10/01/20 08:24 Vitamin D (Vitamin D3) 50,000 unit WEEKLY PO 10/01/20 09:00 10/01/20 08:26 Lidocaine (Lidoderm) 1 patch DAILY TP 09/26/20 09:00 10/01/20 08:25 Polyethylene Glycol (miraLAX) 17 gm DAILY PO 09/26/20 09:00 10/01/20 08:23 Atorvastatin Calcium (Lipitor) 40 mg QHS PO 09/25/20 21:00 10/01/20 20:31 Calcium Carbonate/ Glycine (Oscal) 500 mg DAILY PO 09/26/20 09:00 10/01/20 08:24 Quetiapine Fumarate (SEROquel) 50 mg TID PO 09/25/20 21:00 09/29/20 21:02 DC 09/29/20 13:43 Quetiapine Fumarate (SEROquel) 100 mg QHS PO 09/25/20 21:00 09/29/20 21:02 DC 09/28/20 19:48 Trazodone HCl (Desyrel) 25 mg BID PO 09/25/20 21:00 09/27/20 21:30 DC 09/27/20 21:18 Trazodone HCl (Desyrel) 50 mg QHS PO 09/25/20 21:00 10/01/20 20:31 Melatonin (Melatonin) 3 mg QHS PO 09/25/20 21:00 10/01/20 20:30 Miscellaneous (Lidoderm Patch Removal) 1 ea QHS MC 09/25/20 21:00 10/01/20 20:32 Levofloxacin (Levaquin) 250 mg DAILY PO 09/27/20 13:00 10/02/20 21:00 10/01/20 08:24 Lactobacillus Rhamnosus (Culturelle) 1 cap BID PO 09/27/20 21:00 10/01/20 20:30 Trazodone HCl (Desyrel) 50 mg PRN QHS PRN PO INSOMNIA 09/27/20 21:30 Risperidone (RisperDAL) 1 mg HS PO 09/30/20 21:00 09/29/20 21:04 DC Risperidone (RisperDAL) 1 mg HS PO 09/29/20 21:15 10/01/20 17:44 DC 09/30/20 20:24 Risperidone (RisperDAL) 1.25 mg HS PO 10/01/20 21:00 10/01/20 20:30 Current Medications Medications (Trade) Dose Ordered Sig/Tory Route PRN Reason Start Time Stop Time Status Last Admin Dose Admin Vitamin D (Vitamin D3) 50,000 unit WEEKLY PO 10/01/20 09:00 10/01/20 08:26 Risperidone (RisperDAL) 1.25 mg HS PO 10/01/20 21:00 10/01/20 20:30 I have reviewed the current psychotropics carefully including drug interactions. Risk benefit ratio favors no change other than as noted in my dictated progress note. Diagnosis: Problems: (1) Major depressive disorder with psychotic features (2) Anxiety disorder, unspecified (3) Mild cognitive impairment DYANA DEVINE MD Oct 01, 2020 21:05
[2020-10-02 06:32] VITALS: BP 122/76
[2020-10-02] MEDS: levoFLOXacin 250 MG TABLET PO SCH (08:39)
[2020-10-02] MEDS: ASPIRIN CHEWABLE 81 MG TABLET. PO SCH (08:39)
[2020-10-02] MEDS: POLYETHYLENE GLYCOL 3350 17 GM PACKET. PO SCH (08:39)
[2020-10-02] MEDS: CALCIUM CARBONATE 500 MG TABLET PO SCH (08:39)
[2020-10-02] MEDS: LIDOCAINE (700MG/PATCH) PATCH. TP SCH ×2 (08:39→09:00)
[2020-10-02] MEDS: LACTOBACILLUS RHAMNOSUS GG 1 CAPSULE. PO SCH ×2 (08:39→20:01)
[2020-10-02] MEDS: amLODIPine BESYLATE 10 MG TABLET PO SCH (08:40)
--- NOTE | 2020-10-02 13:26 | NUR ---
PATIENT IS AWAKE UP IN A CHAIR IN HER ROOM READING UPON ASSESSMENT. PATIENT IS CALM AND COOPERATIVE, DENIED PAIN, TOOK MEDS WHOLE. PATIENT STAYS IN HER ROOM MOST OF THE TIME.
[2020-10-02 15:19] VITALS: BP 124/76
[2020-10-02] MEDS: traZODone 50 MG TABLET. PO SCH (20:01)
[2020-10-02] MEDS: MELATONIN 3 MG TABLET PO SCH (20:01)
[2020-10-02] MEDS: risperiDONE 1 MG TABLET. PO SCH (20:02)
[2020-10-02] MEDS: ATORVASTATIN CALCIUM 20 MG TABLET PO SCH (20:02)
[2020-10-02] MEDS: PATCH REMOVAL. MC SCH (20:03)
--- NOTE | 2020-10-02 21:00 | NUR ---
Pt has been sitting in a chair in her room [facility]. She took meds whole without issue. She was social with staff and said Dr Collins tells her every day that she doesn't need to be here and she can go home.
--- NOTE | 2020-10-02 21:14 | PDOC ---
Exam Note: Carlos A Note: This note is a late entry for 10/01/2020 covers elements not covered in my initial note. Subjective: The patient was seen on telehealth rounds in the evening of 10/01/2020 with Tara MACARIO, discussed and reviewed the chart. The patient slept 6-3/4 hours previous night. Overall the patient has done little better today, took her medications, less paranoid. However as I met with her on telehealth rounds, she was again suspicious of her oldest daughter who wants to remove the power of cat cracker operator from her daughter. Reportedly the younger daughter called. The patient was quite appropriate, still paranoid. Review of Systems: No CV, , pulmonary, eye, ENT system symptoms on review. Mental Status Exam: The patient is reasonably oriented. Speech is coherent. Abstraction is fair. Computation impaired. Language function is intact. Attention span is short. Mood and affect somewhat withdrawn. Laboratory Data: Reviewed. Impression: Major depressive disorder with psychotic features. Mild cognitive impairment. Anxiety disorder unspecified. Plan: Continue psychotropics from initial note. Increase Risperdal to 1.25 mg h.s. Rest unchanged for now. Assessment: Vital Signs/I&O: Vital Signs Date Time Temp Pulse Resp B/P (MAP) Pulse Ox O2 Delivery O2 Flow Rate FiO2 10/02/20 15:19 97.5 86 17 124/76 (92) 97 10/01/20 16:09 Room Air I & O 10/01/20 10/01/20 10/02/20 15:00 23:00 07:00 Intake Total 440 ml 200 ml 240 ml Balance 440 ml 200 ml 240 ml Current Medications: Meds: Current Medications Medications (Trade) Dose Ordered Sig/Tory Route PRN Reason Start Time Stop Time Status Last Admin Dose Admin Acetaminophen (Tylenol) 650 mg PRN Q6HRS PRN PO MILD PAIN / TEMP > 100.3'F 09/25/20 18:15 09/25/20 21:02 Multi-Ingredient Ointment (Analgesic [place]) 1 mariya PRN QID PRN TP MUSCLE PAIN 09/25/20 18:15 Al Hydroxide/Mg Hydroxide (Mylanta Plus Xs) 15 ml PRN AFTMEALHC PRN PO DYSPEPSIA 09/25/20 18:15 Magnesium Hydroxide (Milk Of Magnesia) 2,400 mg PRN QHS PRN PO CONSTIPATION 09/25/20 18:15 Acetaminophen (Tylenol) 650 mg Q6HRS PRN PO pain or fever 09/25/20 18:45 UNV Amlodipine Besylate (Norvasc) 10 mg DAILY PO 09/26/20 09:00 10/02/20 08:40 Aspirin (Aspirin Chewable) 81 mg DAILY PO 09/26/20 09:00 10/02/20 08:39 Vitamin D (Vitamin D3) 50,000 unit WEEKLY PO 10/01/20 09:00 10/01/20 08:26 Lidocaine (Lidoderm) 1 patch DAILY TP 09/26/20 09:00 10/01/20 08:25 Polyethylene Glycol (miraLAX) 17 gm DAILY PO 09/26/20 09:00 10/02/20 08:39 Atorvastatin Calcium (Lipitor) 40 mg QHS PO 09/25/20 21:00 10/02/20 20:02 Calcium Carbonate/ Glycine (Oscal) 500 mg DAILY PO 09/26/20 09:00 10/02/20 08:39 Quetiapine Fumarate (SEROquel) 50 mg TID PO 09/25/20 21:00 09/29/20 21:02 DC 09/29/20 13:43 Quetiapine Fumarate (SEROquel) 100 mg QHS PO 09/25/20 21:00 09/29/20 21:02 DC 09/28/20 19:48 Trazodone HCl (Desyrel) 25 mg BID PO 09/25/20 21:00 09/27/20 21:30 DC 09/27/20 21:18 Trazodone HCl (Desyrel) 50 mg QHS PO 09/25/20 21:00 10/02/20 20:01 Melatonin (Melatonin) 3 mg QHS PO 09/25/20 21:00 10/02/20 20:01 Miscellaneous (Lidoderm Patch Removal) 1 ea QHS MC 09/25/20 21:00 10/02/20 20:03 Levofloxacin (Levaquin) 250 mg DAILY PO 09/27/20 13:00 10/02/20 21:01 DC 10/02/20 08:39 Lactobacillus Rhamnosus (Culturelle) 1 cap BID PO 09/27/20 21:00 10/02/20 20:01 Trazodone HCl (Desyrel) 50 mg PRN QHS PRN PO INSOMNIA 09/27/20 21:30 Risperidone (RisperDAL) 1 mg HS PO 09/30/20 21:00 09/29/20 21:04 DC Risperidone (RisperDAL) 1 mg HS PO 09/29/20 21:15 10/01/20 17:44 DC 09/30/20 20:24 Risperidone (RisperDAL) 1.25 mg HS PO 10/01/20 21:00 10/02/20 20:02 I have reviewed the current psychotropics carefully including drug interactions. Risk benefit ratio favors no change other than as noted in my dictated progress note. Diagnosis: Problems: (1) Major depressive disorder with psychotic features (2) Anxiety disorder, unspecified (3) Mild cognitive impairment DYANA DEVINE MD Oct 02, 2020 21:14
--- NOTE | 2020-10-02 21:33 | PDOC ---
Exam Note: Carlos A Note: Please also refer to the separate dictated note~for this date of service dictated separately.~Patient seen individually. Discussed the patient with Nursing staff reviewed the chart.~Reviewed interim history and current functioning. Reviewed vital signs,~Labs/ Radiology~and current medications noted below. Continue current treatment with the changes noted in the dictated addendum note Assessment: Vital Signs/I&O: Vital Signs Date Time Temp Pulse Resp B/P (MAP) Pulse Ox O2 Delivery O2 Flow Rate FiO2 10/02/20 15:19 97.5 86 17 124/76 (92) 97 10/01/20 16:09 Room Air I & O 10/01/20 10/01/20 10/02/20 15:00 23:00 07:00 Intake Total 440 ml 200 ml 240 ml Balance 440 ml 200 ml 240 ml Current Medications: I have reviewed the current psychotropics carefully including drug interactions. Risk benefit ratio favors no change other than as noted in my dictated progress note. Diagnosis: Problems: (1) Major depressive disorder with psychotic features (2) Anxiety disorder, unspecified (3) Mild cognitive impairment (4) Major neurocognitive disorder DYANA DEVINE MD Oct 02, 2020 21:33
[2020-10-03 06:22] VITALS: BP 133/75
[2020-10-03] MEDS: POLYETHYLENE GLYCOL 3350 17 GM PACKET. PO SCH (07:55)
[2020-10-03] MEDS: LACTOBACILLUS RHAMNOSUS GG 1 CAPSULE. PO SCH ×2 (07:55→21:02)
[2020-10-03] MEDS: amLODIPine BESYLATE 10 MG TABLET PO SCH (07:55)
[2020-10-03] MEDS: ASPIRIN CHEWABLE 81 MG TABLET. PO SCH (07:55)
[2020-10-03] MEDS: CALCIUM CARBONATE 500 MG TABLET PO SCH (07:56)
[2020-10-03] MEDS: LIDOCAINE (700MG/PATCH) PATCH. TP SCH (07:57)
--- NOTE | 2020-10-03 08:46 | PDOC ---
Exam Note: Carlos A Note: This note is a late entry for 10/02/2020 covers elements not covered in my initial note. Subjective: The patient was seen face to face in the evening of 10/02/2020 with Teresa MACARIO, discussed and reviewed the chart. The patient slept 6-3/4 hours previous night. Overall the patient is pleasant, somewhat resistive to medications but has taken them today and appears less paranoid. She has been reading a book most of the day. Review of Systems: No CV, , pulmonary, eye, ENT system symptoms on review. Mental Status Exam: The patient is reasonably oriented. Speech is coherent. Abstraction is fair. Computation impaired. Language function is intact. Attention span is short. Mood and affect lability is improved. Laboratory Data: Reviewed. Impression: Major depressive disorder with psychotic features. Mild cognitive impairment. Anxiety disorder unspecified. Plan: Continue psychotropics from initial note. Assessment: Vital Signs/I&O: Vital Signs Date Time Temp Pulse Resp B/P (MAP) Pulse Ox O2 Delivery O2 Flow Rate FiO2 10/03/20 07:55 90 133/75 10/03/20 06:22 98.4 18 93 10/01/20 16:09 Room Air I & O 10/02/20 10/02/20 10/03/20 15:00 23:00 07:00 Intake Total 580 ml 720 ml Balance 580 ml 720 ml Current Medications: Meds: Current Medications Medications (Trade) Dose Ordered Sig/Tory Route PRN Reason Start Time Stop Time Status Last Admin Dose Admin Acetaminophen (Tylenol) 650 mg PRN Q6HRS PRN PO MILD PAIN / TEMP > 100.3'F 09/25/20 18:15 09/25/20 21:02 Multi-Ingredient Ointment (Analgesic [place]) 1 mariya PRN QID PRN TP MUSCLE PAIN 09/25/20 18:15 Al Hydroxide/Mg Hydroxide (Mylanta Plus Xs) 15 ml PRN AFTMEALHC PRN PO DYSPEPSIA 09/25/20 18:15 Magnesium Hydroxide (Milk Of Magnesia) 2,400 mg PRN QHS PRN PO CONSTIPATION 09/25/20 18:15 Acetaminophen (Tylenol) 650 mg Q6HRS PRN PO pain or fever 09/25/20 18:45 UNV Amlodipine Besylate (Norvasc) 10 mg DAILY PO 09/26/20 09:00 10/03/20 07:55 Aspirin (Aspirin Chewable) 81 mg DAILY PO 09/26/20 09:00 10/03/20 07:55 Vitamin D (Vitamin D3) 50,000 unit WEEKLY PO 10/01/20 09:00 10/01/20 08:26 Lidocaine (Lidoderm) 1 patch DAILY TP 09/26/20 09:00 10/01/20 08:25 Polyethylene Glycol (miraLAX) 17 gm DAILY PO 09/26/20 09:00 10/03/20 07:55 Atorvastatin Calcium (Lipitor) 40 mg QHS PO 09/25/20 21:00 10/02/20 20:02 Calcium Carbonate/ Glycine (Oscal) 500 mg DAILY PO 09/26/20 09:00 10/03/20 07:56 Quetiapine Fumarate (SEROquel) 50 mg TID PO 09/25/20 21:00 09/29/20 21:02 DC 09/29/20 13:43 Quetiapine Fumarate (SEROquel) 100 mg QHS PO 09/25/20 21:00 09/29/20 21:02 DC 09/28/20 19:48 Trazodone HCl (Desyrel) 25 mg BID PO 09/25/20 21:00 09/27/20 21:30 DC 09/27/20 21:18 Trazodone HCl (Desyrel) 50 mg QHS PO 09/25/20 21:00 10/02/20 20:01 Melatonin (Melatonin) 3 mg QHS PO 09/25/20 21:00 10/02/20 20:01 Miscellaneous (Lidoderm Patch Removal) 1 ea QHS MC 09/25/20 21:00 10/02/20 20:03 Levofloxacin (Levaquin) 250 mg DAILY PO 09/27/20 13:00 10/02/20 21:01 DC 10/02/20 08:39 Lactobacillus Rhamnosus (Culturelle) 1 cap BID PO 09/27/20 21:00 10/03/20 07:55 Trazodone HCl (Desyrel) 50 mg PRN QHS PRN PO INSOMNIA 09/27/20 21:30 Risperidone (RisperDAL) 1 mg HS PO 09/30/20 21:00 09/29/20 21:04 DC Risperidone (RisperDAL) 1 mg HS PO 09/29/20 21:15 10/01/20 17:44 DC 09/30/20 20:24 Risperidone (RisperDAL) 1.25 mg HS PO 10/01/20 21:00 10/02/20 20:02 I have reviewed the current psychotropics carefully including drug interactions. Risk benefit ratio favors no change other than as noted in my dictated progress note. Diagnosis: Problems: (1) Major depressive disorder with psychotic features (2) Anxiety disorder, unspecified (3) Mild cognitive impairment DYANA DEVINE MD Oct 03, 2020 08:46
[2020-10-03 15:52] VITALS: BP 131/82
--- NOTE | 2020-10-03 18:29 | NUR ---
Patient in room in chair eating breakfast at time of assessment. Patient takes medications whole with no problems. Patient is alert and oriented and has no complaints at this time. No further concerns at this time.
--- NOTE | 2020-10-03 20:59 | PDOC ---
Exam Note: Carlos A Note: Please also refer to the separate dictated note~for this date of service dictated separately.~Patient seen individually. Discussed the patient with Nursing staff reviewed the chart.~Reviewed interim history and current functioning. Reviewed vital signs,~Labs/ Radiology~and current medications noted below. Continue current treatment with the changes noted in the dictated addendum note Assessment: Vital Signs/I&O: Vital Signs Date Time Temp Pulse Resp B/P (MAP) Pulse Ox O2 Delivery O2 Flow Rate FiO2 10/03/20 15:52 97.5 82 16 131/82 (98) 97 10/01/20 16:09 Room Air I & O 10/02/20 10/02/20 10/03/20 15:00 23:00 07:00 Intake Total 580 ml 720 ml Balance 580 ml 720 ml Current Medications: Meds: Current Medications Medications (Trade) Dose Ordered Sig/Tory Route PRN Reason Start Time Stop Time Status Last Admin Dose Admin Acetaminophen (Tylenol) 650 mg PRN Q6HRS PRN PO MILD PAIN / TEMP > 100.3'F 09/25/20 18:15 09/25/20 21:02 Multi-Ingredient Ointment (Analgesic [place]) 1 mariya PRN QID PRN TP MUSCLE PAIN 09/25/20 18:15 Al Hydroxide/Mg Hydroxide (Mylanta Plus Xs) 15 ml PRN AFTMEALHC PRN PO DYSPEPSIA 09/25/20 18:15 Magnesium Hydroxide (Milk Of Magnesia) 2,400 mg PRN QHS PRN PO CONSTIPATION 09/25/20 18:15 Acetaminophen (Tylenol) 650 mg Q6HRS PRN PO pain or fever 09/25/20 18:45 UNV Amlodipine Besylate (Norvasc) 10 mg DAILY PO 09/26/20 09:00 10/03/20 07:55 Aspirin (Aspirin Chewable) 81 mg DAILY PO 09/26/20 09:00 10/03/20 07:55 Vitamin D (Vitamin D3) 50,000 unit WEEKLY PO 10/01/20 09:00 10/01/20 08:26 Lidocaine (Lidoderm) 1 patch DAILY TP 09/26/20 09:00 10/01/20 08:25 Polyethylene Glycol (miraLAX) 17 gm DAILY PO 09/26/20 09:00 10/03/20 07:55 Atorvastatin Calcium (Lipitor) 40 mg QHS PO 09/25/20 21:00 10/02/20 20:02 Calcium Carbonate/ Glycine (Oscal) 500 mg DAILY PO 09/26/20 09:00 10/03/20 07:56 Quetiapine Fumarate (SEROquel) 50 mg TID PO 09/25/20 21:00 09/29/20 21:02 DC 09/29/20 13:43 Quetiapine Fumarate (SEROquel) 100 mg QHS PO 09/25/20 21:00 09/29/20 21:02 DC 09/28/20 19:48 Trazodone HCl (Desyrel) 25 mg BID PO 09/25/20 21:00 09/27/20 21:30 DC 09/27/20 21:18 Trazodone HCl (Desyrel) 50 mg QHS PO 09/25/20 21:00 10/02/20 20:01 Melatonin (Melatonin) 3 mg QHS PO 09/25/20 21:00 10/02/20 20:01 Miscellaneous (Lidoderm Patch Removal) 1 ea QHS MC 09/25/20 21:00 10/02/20 20:03 Levofloxacin (Levaquin) 250 mg DAILY PO 09/27/20 13:00 10/02/20 21:01 DC 10/02/20 08:39 Lactobacillus Rhamnosus (Culturelle) 1 cap BID PO 09/27/20 21:00 10/03/20 07:55 Trazodone HCl (Desyrel) 50 mg PRN QHS PRN PO INSOMNIA 09/27/20 21:30 Risperidone (RisperDAL) 1 mg HS PO 09/30/20 21:00 09/29/20 21:04 DC Risperidone (RisperDAL) 1 mg HS PO 09/29/20 21:15 10/01/20 17:44 DC 09/30/20 20:24 Risperidone (RisperDAL) 1.25 mg HS PO 10/01/20 21:00 10/02/20 20:02 I have reviewed the current psychotropics carefully including drug interactions. Risk benefit ratio favors no change other than as noted in my dictated progress note. Diagnosis: Problems: (1) Major depressive disorder with psychotic features (2) Anxiety disorder, unspecified (3) Mild cognitive impairment DYANA DEVINE MD Oct 03, 2020 20:59
[2020-10-03] MEDS: PATCH REMOVAL. MC SCH (21:00)
[2020-10-03] MEDS: traZODone 50 MG TABLET. PO SCH (21:01)
[2020-10-03] MEDS: risperiDONE 1 MG TABLET. PO SCH (21:02)
[2020-10-03] MEDS: MELATONIN 3 MG TABLET PO SCH (21:02)
[2020-10-03] MEDS: ATORVASTATIN CALCIUM 20 MG TABLET PO SCH (21:02)
--- NOTE | 2020-10-04 03:54 | NUR ---
Last evening pt sat quietly in her room reading. She took meds whole without difficulty and was pleasant and social with staff. She denies hallucinations delusions or HI, SI
[2020-10-04 05:59] VITALS: BP 123/71
[2020-10-04] MEDS: POLYETHYLENE GLYCOL 3350 17 GM PACKET. PO SCH ×2 (08:39→09:00)
[2020-10-04] MEDS: ASPIRIN CHEWABLE 81 MG TABLET. PO SCH (08:39)
[2020-10-04] MEDS: CALCIUM CARBONATE 500 MG TABLET PO SCH (08:39)
[2020-10-04] MEDS: amLODIPine BESYLATE 10 MG TABLET PO SCH (08:39)
[2020-10-04] MEDS: LACTOBACILLUS RHAMNOSUS GG 1 CAPSULE. PO SCH ×2 (08:39→20:51)
--- NOTE | 2020-10-04 08:39 | PDOC ---
Exam Note: Carlos A Note: This note is a late entry for 10/03/2020 covers elements not covered in my initial note. Subjective: The patient was seen on telehealth rounds in the evening of 10/03/2020 with Kamila MACARIO, discussed and reviewed the chart. The patient slept 7- 1/2 hours previous night. She is pleasant, cooperative with medications. She remains on Levaquin for UTI. She is less paranoid. Review of Systems: No CV, , pulmonary, eye, ENT system symptoms on review. Mental Status Exam: The patient is reasonably oriented. Speech is coherent, has some latency. Abstraction is fair. Computation impaired. Language function is intact. Mood and affect is improved. Laboratory Data: Reviewed. Impression: Major depressive disorder with psychotic features. Mild cognitive impairment. Anxiety disorder unspecified. Plan: Continue psychotropics from initial note. Maintain Risperdal at current dosage. Assessment: Vital Signs/I&O: Vital Signs Date Time Temp Pulse Resp B/P (MAP) Pulse Ox O2 Delivery O2 Flow Rate FiO2 10/04/20 05:59 97.6 79 18 123/71 (88) 96 10/01/20 16:09 Room Air I & O 10/03/20 10/03/20 10/04/20 15:00 23:00 07:00 Intake Total 720 ml 480 ml Balance 720 ml 480 ml Current Medications: Meds: Current Medications Medications (Trade) Dose Ordered Sig/Tory Route PRN Reason Start Time Stop Time Status Last Admin Dose Admin Acetaminophen (Tylenol) 650 mg PRN Q6HRS PRN PO MILD PAIN / TEMP > 100.3'F 09/25/20 18:15 09/25/20 21:02 Multi-Ingredient Ointment (Analgesic [place]) 1 mariya PRN QID PRN TP MUSCLE PAIN 09/25/20 18:15 Al Hydroxide/Mg Hydroxide (Mylanta Plus Xs) 15 ml PRN AFTMEALHC PRN PO DYSPEPSIA 09/25/20 18:15 Magnesium Hydroxide (Milk Of Magnesia) 2,400 mg PRN QHS PRN PO CONSTIPATION 09/25/20 18:15 Acetaminophen (Tylenol) 650 mg Q6HRS PRN PO pain or fever 09/25/20 18:45 UNV Amlodipine Besylate (Norvasc) 10 mg DAILY PO 09/26/20 09:00 10/03/20 07:55 Aspirin (Aspirin Chewable) 81 mg DAILY PO 09/26/20 09:00 10/03/20 07:55 Vitamin D (Vitamin D3) 50,000 unit WEEKLY PO 10/01/20 09:00 10/01/20 08:26 Lidocaine (Lidoderm) 1 patch DAILY TP 09/26/20 09:00 10/01/20 08:25 Polyethylene Glycol (miraLAX) 17 gm DAILY PO 09/26/20 09:00 10/03/20 07:55 Atorvastatin Calcium (Lipitor) 40 mg QHS PO 09/25/20 21:00 10/03/20 21:02 Calcium Carbonate/ Glycine (Oscal) 500 mg DAILY PO 09/26/20 09:00 10/03/20 07:56 Quetiapine Fumarate (SEROquel) 50 mg TID PO 09/25/20 21:00 09/29/20 21:02 DC 09/29/20 13:43 Quetiapine Fumarate (SEROquel) 100 mg QHS PO 09/25/20 21:00 09/29/20 21:02 DC 09/28/20 19:48 Trazodone HCl (Desyrel) 25 mg BID PO 09/25/20 21:00 09/27/20 21:30 DC 09/27/20 21:18 Trazodone HCl (Desyrel) 50 mg QHS PO 09/25/20 21:00 10/03/20 21:01 Melatonin (Melatonin) 3 mg QHS PO 09/25/20 21:00 10/03/20 21:02 Miscellaneous (Lidoderm Patch Removal) 1 ea QHS MC 09/25/20 21:00 10/03/20 21:00 Levofloxacin (Levaquin) 250 mg DAILY PO 09/27/20 13:00 10/02/20 21:01 DC 10/02/20 08:39 Lactobacillus Rhamnosus (Culturelle) 1 cap BID PO 09/27/20 21:00 10/03/20 21:02 Trazodone HCl (Desyrel) 50 mg PRN QHS PRN PO INSOMNIA 09/27/20 21:30 Risperidone (RisperDAL) 1 mg HS PO 09/30/20 21:00 09/29/20 21:04 DC Risperidone (RisperDAL) 1 mg HS PO 09/29/20 21:15 10/01/20 17:44 DC 09/30/20 20:24 Risperidone (RisperDAL) 1.25 mg HS PO 10/01/20 21:00 10/03/20 21:02 I have reviewed the current psychotropics carefully including drug interactions. Risk benefit ratio favors no change other than as noted in my dictated progress note. Diagnosis: Problems: (1) Major depressive disorder with psychotic features (2) Anxiety disorder, unspecified (3) Mild cognitive impairment DYANA DEVINE MD Oct 04, 2020 08:39
[2020-10-04] MEDS: LIDOCAINE (700MG/PATCH) PATCH. TP SCH ×2 (08:41→09:00)
--- NOTE | 2020-10-04 09:55 | NUR ---
Pt is cooperative and med complaint. A&OX4. She c/o mild nausea but declined PRN medications. A 7up was offered and she accepted. She declined scheduled Lidocaine patch (stating she was not in pain) and declined scheduled Miralax (reporting a BM this morning). She denies SI/HI/VH/AH. She spends most of her morning quietly reading and appears introverted yet polite in her interactions. Will pass on to the next shift.
[2020-10-04 11:33] LABS: BASO % 1 % (0-3); EOS # 0.3 x10^3/uL (0.0-0.7); EOS % 4 % (0-3); HEMATOCRIT 37.4 % (36.0-47.0); HEMOGLOBIN 12.2 g/dL (12.0-15.5); LYMPH % 27 % (24-48); MEAN CORPUSCULAR HEMOGLOBIN 31 pg (25-35); MEAN CORPUSCULAR HGB CONC 33 g/dL (31-37); MEAN CORPUSCULAR VOLUME 93 fL (79-100); MONO # 0.7 x10^3/uL (0.0-1.1); MONO % 10 % (0-9); NEUT # 4.3 x10^3uL (1.8-7.7); NEUT % 58 % (31-73); PLATELET COUNT 331 x10^3/uL (140-400); RED BLOOD COUNT 4.01 x10^6/uL (3.50-5.40); RED CELL DISTRIBUTION WIDTH 14.2 % (11.5-14.5); WHITE BLOOD COUNT 7.4 x10^3/uL (4.0-11.0)
[2020-10-04 11:57] LABS: ALBUMIN/GLOBULIN RATIO 0.7 (1.0-1.7); CALCIUM 8.7 mg/dL (8.5-10.1); CREATININE 0.6 mg/dL (0.6-1.0); GFR 97.2; POTASSIUM 3.5 mmol/L (3.5-5.1); TOTAL BILIRUBIN 0.3 mg/dL (0.2-1.0); TOTAL PROTEIN 7.5 g/dL (6.4-8.2)
--- NOTE | 2020-10-04 14:02 | NUR ---
BI contacted pt dtr, Patito, to discuss having her participate in tx team tomorrow. Patito would also like for her sister to be called as well, considering they have questions about pt diagnosis and would like more information re: medications and concerns on if pt does need placement or if she can remain at home. BI informed Patito that tx team is between 9 and 1100 and once we get to pt case, SW will be able to contact them.
--- NOTE | 2020-10-04 14:22 | NUR ---
BI contacted Primitivo, pt dtr/DPHAYDE, to go over pt care and to discuss having them participate in treatment team to get an update on pt re: medications and diagnosis. Patito mentioned that they have not received anything from Medicaid about coverage yet. SW will ask Med Assist to again reach out to pt dtr to see where things are at. SW will also reach out to pt dtr pick for placement, [facility], to see if they would accept Medicaid pending.
[2020-10-04 16:40] VITALS: BP 169/84
[2020-10-04] MEDS: traZODone 50 MG TABLET. PO SCH (20:51)
[2020-10-04] MEDS: ATORVASTATIN CALCIUM 20 MG TABLET PO SCH (20:51)
[2020-10-04] MEDS: MELATONIN 3 MG TABLET PO SCH (20:51)
[2020-10-04] MEDS: PATCH REMOVAL. MC SCH (20:52)
[2020-10-04] MEDS: risperiDONE 1 MG TABLET. PO SCH (20:52)
--- NOTE | 2020-10-04 21:03 | PDOC ---
Exam Note: Carlos A Note: Please also refer to the separate dictated note~for this date of service dictated separately.~Patient seen individually. Discussed the patient with Nursing staff reviewed the chart.~Reviewed interim history and current functioning. Reviewed vital signs,~Labs/ Radiology~and current medications noted below. Continue current treatment with the changes noted in the dictated addendum note Assessment: Vital Signs/I&O: Vital Signs Date Time Temp Pulse Resp B/P (MAP) Pulse Ox O2 Delivery O2 Flow Rate FiO2 10/04/20 16:40 97.8 90 20 169/84 (112) 94 Room Air I & O 10/03/20 10/03/20 10/04/20 15:00 23:00 07:00 Intake Total 720 ml 480 ml Balance 720 ml 480 ml Labs: Laboratory Tests Test 10/04/20 11:23 White Blood Count 7.4 x10^3/uL (4.0-11.0) Red Blood Count 4.01 x10^6/uL (3.50-5.40) Hemoglobin 12.2 g/dL (12.0-15.5) Hematocrit 37.4 % (36.0-47.0) Mean Corpuscular Volume 93 fL (79-100) Mean Corpuscular Hemoglobin 31 pg (25-35) Mean Corpuscular Hemoglobin Concent 33 g/dL (31-37) Red Cell Distribution Width 14.2 % (11.5-14.5) Platelet Count 331 x10^3/uL (140-400) Neutrophils (%) (Auto) 58 % (31-73) Lymphocytes (%) (Auto) 27 % (24-48) Monocytes (%) (Auto) 10 % (0-9) H Eosinophils (%) (Auto) 4 % (0-3) H Basophils (%) (Auto) 1 % (0-3) Neutrophils # (Auto) 4.3 x10^3uL (1.8-7.7) Lymphocytes # (Auto) 2.0 x10^3/uL (1.0-4.8) Monocytes # (Auto) 0.7 x10^3/uL (0.0-1.1) Eosinophils # (Auto) 0.3 x10^3/uL (0.0-0.7) Basophils # (Auto) 0.0 x10^3/uL (0.0-0.2) Sodium Level 142 mmol/L (136-145) Potassium Level 3.5 mmol/L (3.5-5.1) Chloride Level 104 mmol/L (98-107) Carbon Dioxide Level 33 mmol/L (21-32) H Anion Gap 5 (6-14) L Blood Urea Nitrogen 13 mg/dL (7-20) Creatinine 0.6 mg/dL (0.6-1.0) Estimated GFR (Cockcroft-Gault) 97.2 BUN/Creatinine Ratio 22 (6-20) H Glucose Level 92 mg/dL (70-99) Calcium Level 8.7 mg/dL (8.5-10.1) Total Bilirubin 0.3 mg/dL (0.2-1.0) Aspartate Amino Transferase (AST) 17 U/L (15-37) Alanine Aminotransferase (ALT) 20 U/L (14-59) Alkaline Phosphatase 92 U/L (46-116) Total Protein 7.5 g/dL (6.4-8.2) Albumin 3.0 g/dL (3.4-5.0) L Albumin/Globulin Ratio 0.7 (1.0-1.7) L Current Medications: Meds: Laboratory Tests Test 10/04/20 11:23 White Blood Count 7.4 x10^3/uL Red Blood Count 4.01 x10^6/uL Hemoglobin 12.2 g/dL Hematocrit 37.4 % Mean Corpuscular Volume 93 fL Mean Corpuscular Hemoglobin 31 pg Mean Corpuscular Hemoglobin Concent 33 g/dL Red Cell Distribution Width 14.2 % Platelet Count 331 x10^3/uL Neutrophils (%) (Auto) 58 % Lymphocytes (%) (Auto) 27 % Monocytes (%) (Auto) 10 % Eosinophils (%) (Auto) 4 % Basophils (%) (Auto) 1 % Neutrophils # (Auto) 4.3 x10^3uL Lymphocytes # (Auto) 2.0 x10^3/uL Monocytes # (Auto) 0.7 x10^3/uL Eosinophils # (Auto) 0.3 x10^3/uL Basophils # (Auto) 0.0 x10^3/uL Sodium Level 142 mmol/L Potassium Level 3.5 mmol/L Chloride Level 104 mmol/L Carbon Dioxide Level 33 mmol/L Anion Gap 5 Blood Urea Nitrogen 13 mg/dL Creatinine 0.6 mg/dL Estimated GFR (Cockcroft-Gault) 97.2 BUN/Creatinine Ratio 22 Glucose Level 92 mg/dL Calcium Level 8.7 mg/dL Total Bilirubin 0.3 mg/dL Aspartate Amino Transf (AST/SGOT) 17 U/L Alanine Aminotransferase (ALT/SGPT) 20 U/L Alkaline Phosphatase 92 U/L Total Protein 7.5 g/dL Albumin 3.0 g/dL Albumin/Globulin Ratio 0.7 Current Medications Medications (Trade) Dose Ordered Sig/Tory Route PRN Reason Start Time Stop Time Status Last Admin Dose Admin Acetaminophen (Tylenol) 650 mg PRN Q6HRS PRN PO MILD PAIN / TEMP > 100.3'F 09/25/20 18:15 09/25/20 21:02 Multi-Ingredient Ointment (Analgesic [place]) 1 mariya PRN QID PRN TP MUSCLE PAIN 09/25/20 18:15 Al Hydroxide/Mg Hydroxide (Mylanta Plus Xs) 15 ml PRN AFTMEALHC PRN PO DYSPEPSIA 09/25/20 18:15 Magnesium Hydroxide (Milk Of Magnesia) 2,400 mg PRN QHS PRN PO CONSTIPATION 09/25/20 18:15 Acetaminophen (Tylenol) 650 mg Q6HRS PRN PO pain or fever 09/25/20 18:45 UNV Amlodipine Besylate (Norvasc) 10 mg DAILY PO 09/26/20 09:00 10/04/20 08:39 Aspirin (Aspirin Chewable) 81 mg DAILY PO 09/26/20 09:00 10/04/20 08:39 Vitamin D (Vitamin D3) 50,000 unit WEEKLY PO 10/01/20 09:00 10/01/20 08:26 Lidocaine (Lidoderm) 1 patch DAILY TP 09/26/20 09:00 10/01/20 08:25 Polyethylene Glycol (miraLAX) 17 gm DAILY PO 09/26/20 09:00 10/03/20 07:55 Atorvastatin Calcium (Lipitor) 40 mg QHS PO 09/25/20 21:00 10/04/20 20:51 Calcium Carbonate/ Glycine (Oscal) 500 mg DAILY PO 09/26/20 09:00 10/04/20 08:39 Quetiapine Fumarate (SEROquel) 50 mg TID PO 09/25/20 21:00 09/29/20 21:02 DC 09/29/20 13:43 Quetiapine Fumarate (SEROquel) 100 mg QHS PO 09/25/20 21:00 09/29/20 21:02 DC 09/28/20 19:48 Trazodone HCl (Desyrel) 25 mg BID PO 09/25/20 21:00 09/27/20 21:30 DC 09/27/20 21:18 Trazodone HCl (Desyrel) 50 mg QHS PO 09/25/20 21:00 10/04/20 20:51 Melatonin (Melatonin) 3 mg QHS PO 09/25/20 21:00 10/04/20 20:51 Miscellaneous (Lidoderm Patch Removal) 1 ea QHS MC 09/25/20 21:00 10/04/20 20:52 Levofloxacin (Levaquin) 250 mg DAILY PO 09/27/20 13:00 10/02/20 21:01 DC 10/02/20 08:39 Lactobacillus Rhamnosus (Culturelle) 1 cap BID PO 09/27/20 21:00 10/04/20 20:51 Trazodone HCl (Desyrel) 50 mg PRN QHS PRN PO INSOMNIA 09/27/20 21:30 Risperidone (RisperDAL) 1 mg HS PO 09/30/20 21:00 09/29/20 21:04 DC Risperidone (RisperDAL) 1 mg HS PO 09/29/20 21:15 10/01/20 17:44 DC 09/30/20 20:24 Risperidone (RisperDAL) 1.25 mg HS PO 10/01/20 21:00 10/04/20 20:52 I have reviewed the current psychotropics carefully including drug interactions. Risk benefit ratio favors no change other than as noted in my dictated progress note. Diagnosis: Problems: (1) Major depressive disorder with psychotic features (2) Anxiety disorder, unspecified (3) Mild cognitive impairment DYANA DEVINE MD Oct 04, 2020 21:03
--- NOTE | 2020-10-04 23:50 | NUR ---
Pt located in her room this evening sitting calmly. Pt pleasant and cooperative. Compliant with whole medications.
[2020-10-05 05:36] VITALS: BP 120/79
--- NOTE | 2020-10-05 08:08 | PDOC ---
Exam Note: Carlos A Note: This note is a late entry for 10/04/2020 covers elements not covered in my initial note. Subjective: The patient was seen face to face in the evening of 10/04/2020 with Jen MACARIO, discussed and reviewed the chart. The patient slept 6-1/2 hours previous night. She remains most of the time in her room. She has been reading books and states she is cutting out recipes from magazines so that she will try them once she gets home. She is more compliant with her medications, less paranoid. She did complain of some nausea, declined meds for this. Review of Systems: No CV, , pulmonary, eye, ENT system symptoms on review. Mental Status Exam: The patient is reasonably oriented. I specifically questioned the patient on some things to trigger her paranoia but she seemed much improved. Speech is coherent, has some latency. Abstraction is fair. Computation impaired. Language function is intact. Mood and affect is less paranoid. No suicidal or homicidal ideation. Laboratory Data: Reviewed. Impression: Major depressive disorder with psychotic features. Mild cognitive impairment. Anxiety disorder unspecified. Plan: Continue psychotropics from initial note. Assessment: Vital Signs/I&O: Vital Signs Date Time Temp Pulse Resp B/P (MAP) Pulse Ox O2 Delivery O2 Flow Rate FiO2 10/05/20 05:36 97.2 77 20 120/79 (93) 94 10/04/20 16:40 Room Air I & O 10/04/20 10/04/20 10/05/20 14:59 22:59 06:59 Intake Total 440 ml 480 ml Balance 440 ml 480 ml Labs: Laboratory Tests Test 10/04/20 11:23 White Blood Count 7.4 x10^3/uL (4.0-11.0) Red Blood Count 4.01 x10^6/uL (3.50-5.40) Hemoglobin 12.2 g/dL (12.0-15.5) Hematocrit 37.4 % (36.0-47.0) Mean Corpuscular Volume 93 fL (79-100) Mean Corpuscular Hemoglobin 31 pg (25-35) Mean Corpuscular Hemoglobin Concent 33 g/dL (31-37) Red Cell Distribution Width 14.2 % (11.5-14.5) Platelet Count 331 x10^3/uL (140-400) Neutrophils (%) (Auto) 58 % (31-73) Lymphocytes (%) (Auto) 27 % (24-48) Monocytes (%) (Auto) 10 % (0-9) H Eosinophils (%) (Auto) 4 % (0-3) H Basophils (%) (Auto) 1 % (0-3) Neutrophils # (Auto) 4.3 x10^3uL (1.8-7.7) Lymphocytes # (Auto) 2.0 x10^3/uL (1.0-4.8) Monocytes # (Auto) 0.7 x10^3/uL (0.0-1.1) Eosinophils # (Auto) 0.3 x10^3/uL (0.0-0.7) Basophils # (Auto) 0.0 x10^3/uL (0.0-0.2) Sodium Level 142 mmol/L (136-145) Potassium Level 3.5 mmol/L (3.5-5.1) Chloride Level 104 mmol/L (98-107) Carbon Dioxide Level 33 mmol/L (21-32) H Anion Gap 5 (6-14) L Blood Urea Nitrogen 13 mg/dL (7-20) Creatinine 0.6 mg/dL (0.6-1.0) Estimated GFR (Cockcroft-Gault) 97.2 BUN/Creatinine Ratio 22 (6-20) H Glucose Level 92 mg/dL (70-99) Calcium Level 8.7 mg/dL (8.5-10.1) Total Bilirubin 0.3 mg/dL (0.2-1.0) Aspartate Amino Transferase (AST) 17 U/L (15-37) Alanine Aminotransferase (ALT) 20 U/L (14-59) Alkaline Phosphatase 92 U/L (46-116) Total Protein 7.5 g/dL (6.4-8.2) Albumin 3.0 g/dL (3.4-5.0) L Albumin/Globulin Ratio 0.7 (1.0-1.7) L Current Medications: Meds: Laboratory Tests Test 10/04/20 11:23 White Blood Count 7.4 x10^3/uL Red Blood Count 4.01 x10^6/uL Hemoglobin 12.2 g/dL Hematocrit 37.4 % Mean Corpuscular Volume 93 fL Mean Corpuscular Hemoglobin 31 pg Mean Corpuscular Hemoglobin Concent 33 g/dL Red Cell Distribution Width 14.2 % Platelet Count 331 x10^3/uL Neutrophils (%) (Auto) 58 % Lymphocytes (%) (Auto) 27 % Monocytes (%) (Auto) 10 % Eosinophils (%) (Auto) 4 % Basophils (%) (Auto) 1 % Neutrophils # (Auto) 4.3 x10^3uL Lymphocytes # (Auto) 2.0 x10^3/uL Monocytes # (Auto) 0.7 x10^3/uL Eosinophils # (Auto) 0.3 x10^3/uL Basophils # (Auto) 0.0 x10^3/uL Sodium Level 142 mmol/L Potassium Level 3.5 mmol/L Chloride Level 104 mmol/L Carbon Dioxide Level 33 mmol/L Anion Gap 5 Blood Urea Nitrogen 13 mg/dL Creatinine 0.6 mg/dL Estimated GFR (Cockcroft-Gault) 97.2 BUN/Creatinine Ratio 22 Glucose Level 92 mg/dL Calcium Level 8.7 mg/dL Total Bilirubin 0.3 mg/dL Aspartate Amino Transf (AST/SGOT) 17 U/L Alanine Aminotransferase (ALT/SGPT) 20 U/L Alkaline Phosphatase 92 U/L Total Protein 7.5 g/dL Albumin 3.0 g/dL Albumin/Globulin Ratio 0.7 Current Medications Medications (Trade) Dose Ordered Sig/Tory Route PRN Reason Start Time Stop Time Status Last Admin Dose Admin Acetaminophen (Tylenol) 650 mg PRN Q6HRS PRN PO MILD PAIN / TEMP > 100.3'F 09/25/20 18:15 09/25/20 21:02 Multi-Ingredient Ointment (Analgesic [place]) 1 mariya PRN QID PRN TP MUSCLE PAIN 09/25/20 18:15 Al Hydroxide/Mg Hydroxide (Mylanta Plus Xs) 15 ml PRN AFTMEALHC PRN PO DYSPEPSIA 09/25/20 18:15 Magnesium Hydroxide (Milk Of Magnesia) 2,400 mg PRN QHS PRN PO CONSTIPATION 09/25/20 18:15 Acetaminophen (Tylenol) 650 mg Q6HRS PRN PO pain or fever 09/25/20 18:45 UNV Amlodipine Besylate (Norvasc) 10 mg DAILY PO 09/26/20 09:00 10/04/20 08:39 Aspirin (Aspirin Chewable) 81 mg DAILY PO 09/26/20 09:00 10/04/20 08:39 Vitamin D (Vitamin D3) 50,000 unit WEEKLY PO 10/01/20 09:00 10/01/20 08:26 Lidocaine (Lidoderm) 1 patch DAILY TP 09/26/20 09:00 10/01/20 08:25 Polyethylene Glycol (miraLAX) 17 gm DAILY PO 09/26/20 09:00 10/03/20 07:55 Atorvastatin Calcium (Lipitor) 40 mg QHS PO 09/25/20 21:00 10/04/20 20:51 Calcium Carbonate/ Glycine (Oscal) 500 mg DAILY PO 09/26/20 09:00 10/04/20 08:39 Quetiapine Fumarate (SEROquel) 50 mg TID PO 09/25/20 21:00 09/29/20 21:02 DC 09/29/20 13:43 Quetiapine Fumarate (SEROquel) 100 mg QHS PO 09/25/20 21:00 09/29/20 21:02 DC 09/28/20 19:48 Trazodone HCl (Desyrel) 25 mg BID PO 09/25/20 21:00 09/27/20 21:30 DC 09/27/20 21:18 Trazodone HCl (Desyrel) 50 mg QHS PO 09/25/20 21:00 10/04/20 20:51 Melatonin (Melatonin) 3 mg QHS PO 09/25/20 21:00 10/04/20 20:51 Miscellaneous (Lidoderm Patch Removal) 1 ea QHS MC 09/25/20 21:00 10/04/20 20:52 Levofloxacin (Levaquin) 250 mg DAILY PO 09/27/20 13:00 10/02/20 21:01 DC 10/02/20 08:39 Lactobacillus Rhamnosus (Culturelle) 1 cap BID PO 09/27/20 21:00 10/04/20 20:51 Trazodone HCl (Desyrel) 50 mg PRN QHS PRN PO INSOMNIA 09/27/20 21:30 Risperidone (RisperDAL) 1 mg HS PO 09/30/20 21:00 09/29/20 21:04 DC Risperidone (RisperDAL) 1 mg HS PO 09/29/20 21:15 10/01/20 17:44 DC 09/30/20 20:24 Risperidone (RisperDAL) 1.25 mg HS PO 10/01/20 21:00 10/04/20 20:52 I have reviewed the current psychotropics carefully including drug interactions. Risk benefit ratio favors no change other than as noted in my dictated progress note. Diagnosis: Problems: (1) Mild cognitive impairment (2) Anxiety disorder, unspecified (3) Major depressive disorder with psychotic features DYANA DEVINE MD Oct 05, 2020 08:08
[2020-10-05] MEDS: amLODIPine BESYLATE 10 MG TABLET PO SCH (08:16)
[2020-10-05] MEDS: LACTOBACILLUS RHAMNOSUS GG 1 CAPSULE. PO SCH ×2 (08:16→20:44)
[2020-10-05] MEDS: CALCIUM CARBONATE 500 MG TABLET PO SCH (08:16)
[2020-10-05] MEDS: ASPIRIN CHEWABLE 81 MG TABLET. PO SCH (08:16)
[2020-10-05] MEDS: POLYETHYLENE GLYCOL 3350 17 GM PACKET. PO SCH (08:35)
[2020-10-05] MEDS: LIDOCAINE (700MG/PATCH) PATCH. TP SCH (08:36)
--- NOTE | 2020-10-05 10:25 | NUR ---
WEEKLY ACTIVITY THERAPY NOTE Date of Admission: 09/25/20 Date of AT Assessment:09/27/20 Precipitating behaviors that initiated intake and admission: Delusional Called EMS that she was in labor and stated that she was and having a baby, then proceeded to tell them when they arrived that someone took the baby and planted it into someone else. Goal aimed:increase stress management and socialization skills Initial Goal: Pt will participate in at least three individual or group Activity Therapy sessions per week. Weekly progress towards goal: did not achieve 2/3 Group participation level: 1 min, 1 full Weekly highlights: fully engaged in picture puzzles and gardening chat on Friday morning Behaviors observed: engaged self in her room (reading most of the time), patient with peers, invited to groups and she asks what is planned and will decide for herself Plan: no change to goal Beneficial adaptations:
--- NOTE | 2020-10-05 13:59 | TX PLAN ---
Interdisciplinary Tx Plan Admission Information Sep 25, 2020 at 17:30 Legal Status (on Admission): Voluntary DPOA/Guardian Name: Patito Sunshine Contact Other Contact Name: Priyanka Worthy Other Contact Verified Code Status: Full Code Allergies: Coded Allergies: Sulfa (Sulfonamide Antibiotics) (Verified Allergy, Intermediate, 06/15/20) iodine (Verified Allergy, Intermediate, 06/15/20) shellfish derived (Verified Allergy, Intermediate, 06/15/20) Diagnoses Primary Diagnosis: Psychosis, unspecified Reasons for Admission: Aggressive, Poor impulse control Problem in Patient's Words: She did fine for a while but then started having an increase in agitation with behaviors Additional Admission Comments: According to the intake pt is agitated, aggressive, biting, spitting Problems Active Problems: Withdrawn to room Inactive Problems: Medication compliant Pt Strengths/Limitations Ability for Loving: Poor Cognitive Functioning/Ability: Fair Communication Skills/Ability: Fair Financial Resources: Fair Insight/Judgement: Poor Intellectual Ability: Fair Physical Health: Poor Social Skills: Fair Stability in Family: Good Stability in School/Work: Poor Verbal Skills: Fair Discharge Criteria Discharge Criteria: No need for close observ., Adequate arrangements @DC, Improved behavior, Improved mood/thought Preliminary Discharge Plan Preliminary DC Plan: Placement Needed Special Precautions Fall Risk: Low Initial D/C Plan Potential plans for referrals to placement ([facility] versus LTC) Identified Discharge Needs: Potential referrals sent to placement for pt. Currently Utilized Resources Currently Utilized Resources/P: Primary Care Physician Referrals Community Resources: [facility] versus LTC Identified Problems/Hx/Goals Objectives/Short-Term Goals Short Term Goals: Dec. Aggression, Dec. Outbursts, Medication Stabilization, Promote Coping Skill Short Term Goals in Patient's: N/A Interventions/Frequency Staff Interventions/Frequency&: Psychiatrist to assess pt at least 3x per week for medication management Social Work to assess pt at least 2x per week for identification to barriers to care and discharge planning. Nursing to assess behaviors, medication mgmt and completion of 15 minute checks daily. Encourage group participation in activities (if applicable) or 1:1 engagement based of activity dept goals. 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 Education: Pt was able to graduate high school (12th) grade Community Follow-up Need for PCP follow-up Community Provider/Family Inpu: Family feels that placement will be needed and needs aid in getting this set up along with Medicaid for payment. Treatment Plan Explained Patient/Art Installer had this treatment plan explained to him/her as indicated by the signature below and has been given the opportunity to ask questions and make suggestions: Date: Patient/Art Installer Signature: Patient/Art Installer Decline: No (Pt family is active in all care for pt.) Status Update Update Please note that pt's first treatment plan was held 09/28/20. This is an update for today (10/05/20). Pt dtrs Linsey participated in tx team via phone. Pt is eating 75% of meals and sleeping on average 6.5 hours per night. Pt is withdrawn to her room, but compliant with all staff direction and medications. Pt dtrs question pt diagnosis as pt continues to be confused on things and exhibiting weird behavior. At this time, pt has a diagnosis of Psychotic D/O unspecified. Pt is alert and oriented x 4; pt does have some confusion and a Dementia dx is questionable. If Dementia is present, early onset could be determined. Pt dtrs believe that pt need placement as she has exhibited unsafe behavior at home and needs more supervision than what the family can handle. SW will continue to work with pt dtrs and finalize discharge plans. GLADIS GUERRA Oct 05, 2020 13:59
[2020-10-05 16:07] VITALS: BP 133/61
--- NOTE | 2020-10-05 17:04 | NUR ---
Pt is cooperative and med complaint. A&OX4. She c/o mild nausea but declined PRN medications. She declined scheduled Lidocaine patch (stating she was not in pain) and declined scheduled Miralax (reporting a BM this morning). She denies SI/HI/VH/AH. She spends most of her morning quietly reading and appears introverted yet polite in her interactions. She has read nearly all the books and magazines she arrived with and states she would like some new reading material. This nurse passed the request on to CNAs to see if they can find some more books/magazines. Will pass on to the next shift.
[2020-10-05] MEDS: risperiDONE 1 MG TABLET. PO SCH (20:44)
[2020-10-05] MEDS: MELATONIN 3 MG TABLET PO SCH (20:44)
[2020-10-05] MEDS: traZODone 50 MG TABLET. PO SCH (20:44)
[2020-10-05] MEDS: PATCH REMOVAL. MC SCH (20:45)
[2020-10-05] MEDS: ATORVASTATIN CALCIUM 20 MG TABLET PO SCH (20:45)
--- NOTE | 2020-10-05 21:06 | PDOC ---
Exam Note: Carlos A Note: Please also refer to the separate dictated note~for this date of service dictated separately.~Patient seen individually. Discussed the patient with Nursing staff reviewed the chart.~Reviewed interim history and current functioning. Reviewed vital signs,~Labs/ Radiology~and current medications noted below. Continue current treatment with the changes noted in the dictated addendum note Assessment: Vital Signs/I&O: Vital Signs Date Time Temp Pulse Resp B/P (MAP) Pulse Ox O2 Delivery O2 Flow Rate FiO2 10/05/20 16:07 97.2 52 20 133/61 (85) 97 Room Air I & O 10/04/20 10/04/20 10/05/20 14:59 22:59 06:59 Intake Total 440 ml 480 ml Balance 440 ml 480 ml Current Medications: Meds: Current Medications Medications (Trade) Dose Ordered Sig/Tory Route PRN Reason Start Time Stop Time Status Last Admin Dose Admin Acetaminophen (Tylenol) 650 mg PRN Q6HRS PRN PO MILD PAIN / TEMP > 100.3'F 09/25/20 18:15 09/25/20 21:02 Multi-Ingredient Ointment (Analgesic [place]) 1 mariya PRN QID PRN TP MUSCLE PAIN 09/25/20 18:15 Al Hydroxide/Mg Hydroxide (Mylanta Plus Xs) 15 ml PRN AFTMEALHC PRN PO DYSPEPSIA 09/25/20 18:15 Magnesium Hydroxide (Milk Of Magnesia) 2,400 mg PRN QHS PRN PO CONSTIPATION 09/25/20 18:15 Acetaminophen (Tylenol) 650 mg Q6HRS PRN PO pain or fever 09/25/20 18:45 UNV Amlodipine Besylate (Norvasc) 10 mg DAILY PO 09/26/20 09:00 10/05/20 08:16 Aspirin (Aspirin Chewable) 81 mg DAILY PO 09/26/20 09:00 10/05/20 08:16 Vitamin D (Vitamin D3) 50,000 unit WEEKLY PO 10/01/20 09:00 10/01/20 08:26 Lidocaine (Lidoderm) 1 patch DAILY TP 09/26/20 09:00 10/01/20 08:25 Polyethylene Glycol (miraLAX) 17 gm DAILY PO 09/26/20 09:00 10/03/20 07:55 Atorvastatin Calcium (Lipitor) 40 mg QHS PO 09/25/20 21:00 10/05/20 20:45 Calcium Carbonate/ Glycine (Oscal) 500 mg DAILY PO 09/26/20 09:00 10/05/20 08:16 Quetiapine Fumarate (SEROquel) 50 mg TID PO 09/25/20 21:00 09/29/20 21:02 DC 09/29/20 13:43 Quetiapine Fumarate (SEROquel) 100 mg QHS PO 09/25/20 21:00 09/29/20 21:02 DC 09/28/20 19:48 Trazodone HCl (Desyrel) 25 mg BID PO 09/25/20 21:00 09/27/20 21:30 DC 09/27/20 21:18 Trazodone HCl (Desyrel) 50 mg QHS PO 09/25/20 21:00 10/05/20 20:44 Melatonin (Melatonin) 3 mg QHS PO 09/25/20 21:00 10/05/20 20:44 Miscellaneous (Lidoderm Patch Removal) 1 ea QHS MC 09/25/20 21:00 10/04/20 20:52 Levofloxacin (Levaquin) 250 mg DAILY PO 09/27/20 13:00 10/02/20 21:01 DC 10/02/20 08:39 Lactobacillus Rhamnosus (Culturelle) 1 cap BID PO 09/27/20 21:00 10/05/20 20:44 Trazodone HCl (Desyrel) 50 mg PRN QHS PRN PO INSOMNIA 09/27/20 21:30 Risperidone (RisperDAL) 1 mg HS PO 09/30/20 21:00 09/29/20 21:04 DC Risperidone (RisperDAL) 1 mg HS PO 09/29/20 21:15 10/01/20 17:44 DC 09/30/20 20:24 Risperidone (RisperDAL) 1.25 mg HS PO 10/01/20 21:00 10/05/20 20:44 I have reviewed the current psychotropics carefully including drug interactions. Risk benefit ratio favors no change other than as noted in my dictated progress note. Diagnosis: Problems: (1) Major depressive disorder with psychotic features (2) Anxiety disorder, unspecified (3) Mild cognitive impairment DYANA DEVINE MD Oct 05, 2020 21:06
--- NOTE | 2020-10-05 23:54 | NUR ---
Pt sitting quietly in her room this evening reading the Bible. Compliant with whole medications. Calm and cooperative.
[2020-10-06 05:52] VITALS: BP 10/65
[2020-10-06] MEDS: ASPIRIN CHEWABLE 81 MG TABLET. PO SCH (09:00)
[2020-10-06] MEDS: CALCIUM CARBONATE 500 MG TABLET PO SCH (09:00)
[2020-10-06] MEDS: LACTOBACILLUS RHAMNOSUS GG 1 CAPSULE. PO SCH ×2 (09:01→20:34)
[2020-10-06] MEDS: POLYETHYLENE GLYCOL 3350 17 GM PACKET. PO SCH (09:01)
[2020-10-06] MEDS: LIDOCAINE (700MG/PATCH) PATCH. TP SCH (09:01)
[2020-10-06] MEDS: amLODIPine BESYLATE 10 MG TABLET PO SCH (09:01)
[2020-10-06 16:58] VITALS: BP 157/82
--- NOTE | 2020-10-06 18:00 | NUR ---
Pt up adl in room. Has been quiet and withdrawn. Compliant with meds and cares.
[2020-10-06] MEDS: MELATONIN 3 MG TABLET PO SCH (20:34)
[2020-10-06] MEDS: risperiDONE 1 MG TABLET. PO SCH (20:35)
[2020-10-06] MEDS: ATORVASTATIN CALCIUM 20 MG TABLET PO SCH (20:35)
[2020-10-06] MEDS: PATCH REMOVAL. MC SCH (20:35)
[2020-10-06] MEDS: traZODone 50 MG TABLET. PO SCH (20:35)
--- NOTE | 2020-10-06 23:40 | NUR ---
Patient is located in her room on assumption of care, sitting in her chair and reading the bible. She is in pleasant spirits. Compliant with assessments and medications taken whole. No agitation. No delusions voiced this shift. Patient denies any pain or discomfort. She appears to be sleeping comfortably at present time. Will continue to monitor.
[2020-10-07 05:54] VITALS: BP 123/79
[2020-10-07] MEDS: ASPIRIN CHEWABLE 81 MG TABLET. PO SCH (08:34)
[2020-10-07] MEDS: LACTOBACILLUS RHAMNOSUS GG 1 CAPSULE. PO SCH ×2 (08:34→20:28)
[2020-10-07] MEDS: LIDOCAINE (700MG/PATCH) PATCH. TP SCH ×2 (08:34→08:44)
[2020-10-07] MEDS: CALCIUM CARBONATE 500 MG TABLET PO SCH (08:34)
[2020-10-07] MEDS: POLYETHYLENE GLYCOL 3350 17 GM PACKET. PO SCH ×2 (08:34→08:45)
[2020-10-07] MEDS: amLODIPine BESYLATE 10 MG TABLET PO SCH (08:35)
--- NOTE | 2020-10-07 09:32 | NUR ---
Patient is calm and cooperative in the dining room. patient has no further needs at this time.
[2020-10-07 15:50] VITALS: BP 117/70
[2020-10-07] MEDS: PATCH REMOVAL. MC SCH (19:36)
[2020-10-07] MEDS: MELATONIN 3 MG TABLET PO SCH (20:28)
[2020-10-07] MEDS: traZODone 50 MG TABLET. PO SCH (20:28)
[2020-10-07] MEDS: risperiDONE 1 MG TABLET. PO SCH (20:29)
[2020-10-07] MEDS: ATORVASTATIN CALCIUM 20 MG TABLET PO SCH (20:29)
--- NOTE | 2020-10-07 21:25 | PDOC ---
Exam Note: Carlos A Note: Late entry for 10/06/2020. Please also refer to the separate dictated note~for this date of service dictated separately.~Patient seen individually. Discussed the patient with Nursing staff reviewed the chart.~Reviewed interim history and current functioning. Reviewed vital signs,~Labs/ Radiology~and current medic ations noted below. Continue current treatment with the changes noted in the dictated addendum note Assessment: Vital Signs/I&O: Vital Signs Date Time Temp Pulse Resp B/P (MAP) Pulse Ox O2 Delivery O2 Flow Rate FiO2 10/07/20 15:50 97.8 77 16 117/70 (86) 97 10/07/20 05:54 Room Air I & O 0 10/06/20 10/06/20 10/07/20 15:00 23:00 07:00 Intake Total 600 ml 240 ml Balance 600 ml 240 ml Current Medications: I have reviewed the current psychotropics carefully including drug interactions. Risk benefit ratio favors no change other than as noted in my dictated progress note. Diagnosis: Problems: (1) Major depressive disorder with psychotic features (2) Dementia in Alzheimer's disease with early onset with behavioral disturbance (3) Major neurocognitive disorder (4) Dementia in Alzheimer's disease with delusions (5) Dementia in Alzheimer's disease with depression (6) Dementia, vascular, with delusions (7) Dementia, vascular, with depression (8) Anxiety disorder, unspecified (9) Mild cognitive impairment DYANA DEVINE MD Oct 07, 2020 21:24
--- NOTE | 2020-10-07 21:26 | PDOC ---
Exam Note: Carlos A Note: Please also refer to the separate dictated note~for this date of service dictated separately.~Patient seen individually. Discussed the patient with Nursing staff reviewed the chart.~Reviewed interim history and current functioning. Reviewed vital signs,~Labs/ Radiology~and current medications noted below. Continue current treatment with the changes noted in the dictated addendum note Assessment: Vital Signs/I&O: Vital Signs Date Time Temp Pulse Resp B/P (MAP) Pulse Ox O2 Delivery O2 Flow Rate FiO2 10/07/20 15:50 97.8 77 16 117/70 (86) 97 10/07/20 05:54 Room Air I & O 10/06/20 10/06/20 10/07/20 15:00 23:00 07:00 Intake Total 600 ml 240 ml Balance 600 ml 240 ml Current Medications: I have reviewed the current psychotropics carefully including drug interactions. Risk benefit ratio favors no change other than as noted in my dictated progress note. Diagnosis: Problems: (1) Mild cognitive impairment (2) Dementia, vascular, with depression (3) Dementia, vascular, with delusions (4) Dementia in Alzheimer's disease with depression (5) Dementia in Alzheimer's disease with delusions (6) Major neurocognitive disorder (7) Dementia in Alzheimer's disease with early onset with behavioral disturbance (8) Major depressive disorder with psychotic features (9) Anxiety disorder, unspecified DYANA DEVINE MD Oct 07, 2020 21:25
[2020-10-08 06:30] VITALS: BP 145/84
[2020-10-08] MEDS: ASPIRIN CHEWABLE 81 MG TABLET. PO SCH (08:22)
[2020-10-08] MEDS: CALCIUM CARBONATE 500 MG TABLET PO SCH (08:22)
[2020-10-08] MEDS: CHOLECALCIFEROL (VITAMIN D3) 50,000 UNIT CAPSULE PO SCH (08:22)
[2020-10-08] MEDS: amLODIPine BESYLATE 10 MG TABLET PO SCH (08:22)
[2020-10-08] MEDS: LACTOBACILLUS RHAMNOSUS GG 1 CAPSULE. PO SCH ×2 (08:22→21:08)
[2020-10-08] MEDS: POLYETHYLENE GLYCOL 3350 17 GM PACKET. PO PRN (13:56)
--- NOTE | 2020-10-08 15:19 | NUR ---
Patient calm and cooperative. Patient family called for an update and to speak with patient. Patient isolated to her room.
[2020-10-08 16:08] VITALS: BP 147/75
[2020-10-08] MEDS: PATCH REMOVAL. MC SCH (19:47)
--- NOTE | 2020-10-08 20:58 | PDOC ---
Exam Note: Carlos A Note: Please also refer to the separate dictated note~for this date of service dictated separately.~Patient seen individually. Discussed the patient with Nursing staff reviewed the chart.~Reviewed interim history and current functioning. Reviewed vital signs,~Labs/ Radiology~and current medications noted below. Continue current treatment with the changes noted in the dictated addendum note Assessment: Vital Signs/I&O: Vital Signs Date Time Temp Pulse Resp B/P (MAP) Pulse Ox O2 Delivery O2 Flow Rate FiO2 10/08/20 16:08 97.6 82 18 147/75 (99) 97 10/07/20 05:54 Room Air I & O 10/07/20 10/07/20 10/08/20 15:00 23:00 07:00 Intake Total 560 ml 360 ml Balance 560 ml 360 ml Current Medications: I have reviewed the current psychotropics carefully including drug interactions. Risk benefit ratio favors no change other than as noted in my dictated progress note. Diagnosis: Problems: (1) Major depressive disorder with psychotic features (2) Anxiety disorder, unspecified (3) Mild cognitive impairment DYANA DEVINE MD Oct 08, 2020 20:58
[2020-10-08] MEDS: traZODone 50 MG TABLET. PO SCH (21:00)
[2020-10-08] MEDS: ATORVASTATIN CALCIUM 20 MG TABLET PO SCH (21:09)
[2020-10-08] MEDS: MELATONIN 3 MG TABLET PO SCH (21:09)
[2020-10-08] MEDS: risperiDONE 1 MG TABLET. PO SCH (21:09)
[2020-10-09 06:34] VITALS: BP 127/79
--- NOTE | 2020-10-09 07:19 | PDOC ---
Exam Note: Carlos A Note: This note is a late entry for 10/05/2020 covers elements not covered in my initial note. Subjective: The patient was seen face to face in the morning of 10/05/2020 for a treatment team meeting with Constanza Quinones, Yuni Tim and Diann (social service agency director), Morelia Garcia, activity therapy and Jen MACARIO, discussed and reviewed the patients chart. The patients daughters Patito and Loyda attended the meeting. We had a lengthy discussion about the patients diagnosis, psychotic disorder unspecified versus early major neurocognitive disorder with delusions. We also discussed with the family about either the patient returning home or to a higher level of care. The daughters feel the patient would be unsafe at home given her lack of functioning the last time she returned and recurrent episodes of psychosis significantly causing impairment functionally and with respect to safety. Yuni Tim, social service agency director will be coordinating with the family for appropriate placement. Patients appetite is 80%. Sleeping average 6-1/2 hours. She slept 7-3/4 hours previous night. Overall the patient has been less psychotic recently. Review of Systems: No CV, , pulmonary, eye, ENT system symptoms on review. Mental Status Exam: The patient is awake, alert and oriented. I met with her in her room. She was reading the Bible. Speech is coherent. Thought processes are goal directed. Intellect average. Insight is good. Judgment is intact. She does appear much less psychotic and is a little more agreeable to taking the Risperdal. I do feel if she is not compliant with her Risperdal, psychotic symptoms will resurface. She minimizes her diagnosis and symptoms. No suicidal or homicidal ideation. Laboratory Data: Reviewed. Impression: Major depressive disorder with psychotic features. Mild cognitive impairment. Anxiety disorder unspecified. Plan: Continue psychotropics mentioned in my initial note. Assessment: Vital Signs/I&O: Vital Signs Date Time Temp Pulse Resp B/P (MAP) Pulse Ox O2 Delivery O2 Flow Rate FiO2 10/09/20 06:34 98.3 87 16 127/79 (95) 94 Room Air I & O 10/08/20 10/08/20 10/09/20 15:00 23:00 07:00 Intake Total 960 ml 480 ml 120 ml Balance 960 ml 480 ml 120 ml Current Medications: Meds: Current Medications Medications (Trade) Dose Ordered Sig/Tory Route PRN Reason Start Time Stop Time Status Last Admin Dose Admin Acetaminophen (Tylenol) 650 mg PRN Q6HRS PRN PO MILD PAIN / TEMP > 100.3'F 09/25/20 18:15 09/25/20 21:02 Multi-Ingredient Ointment (Analgesic [place]) 1 mariya PRN QID PRN TP MUSCLE PAIN 09/25/20 18:15 Al Hydroxide/Mg Hydroxide (Mylanta Plus Xs) 15 ml PRN AFTMEALHC PRN PO DYSPEPSIA 09/25/20 18:15 Magnesium Hydroxide (Milk Of Magnesia) 2,400 mg PRN QHS PRN PO CONSTIPATION, 2ND CHOICE 09/25/20 18:15 Acetaminophen (Tylenol) 650 mg Q6HRS PRN PO pain or fever 09/25/20 18:45 UNV Amlodipine Besylate (Norvasc) 10 mg DAILY PO 09/26/20 09:00 10/08/20 08:22 Aspirin (Aspirin Chewable) 81 mg DAILY PO 09/26/20 09:00 10/08/20 08:22 Vitamin D (Vitamin D3) 50,000 unit WEEKLY PO 10/01/20 09:00 10/08/20 08:22 Lidocaine (Lidoderm) 1 patch DAILY TP 09/26/20 09:00 10/07/20 17:00 DC 10/06/20 09:01 Polyethylene Glycol (miraLAX) 17 gm DAILY PO 09/26/20 09:00 10/07/20 17:00 DC 10/06/20 09:01 Atorvastatin Calcium (Lipitor) 40 mg QHS PO 09/25/20 21:00 10/08/20 21:09 Calcium Carbonate/ Glycine (Oscal) 500 mg DAILY PO 09/26/20 09:00 10/08/20 08:22 Quetiapine Fumarate (SEROquel) 50 mg TID PO 09/25/20 21:00 09/29/20 21:02 DC 09/29/20 13:43 Quetiapine Fumarate (SEROquel) 100 mg QHS PO 09/25/20 21:00 09/29/20 21:02 DC 09/28/20 19:48 Trazodone HCl (Desyrel) 25 mg BID PO 09/25/20 21:00 09/27/20 21:30 DC 09/27/20 21:18 Trazodone HCl (Desyrel) 50 mg QHS PO 09/25/20 21:00 10/08/20 21:00 Melatonin (Melatonin) 3 mg QHS PO 09/25/20 21:00 10/08/20 21:09 Miscellaneous (Lidoderm Patch Removal) 1 ea QHS MC 09/25/20 21:00 10/08/20 19:47 Levofloxacin (Levaquin) 250 mg DAILY PO 09/27/20 13:00 10/02/20 21:01 DC 10/02/20 08:39 Lactobacillus Rhamnosus (Culturelle) 1 cap BID PO 09/27/20 21:00 10/08/20 21:08 Trazodone HCl (Desyrel) 50 mg PRN QHS PRN PO INSOMNIA 09/27/20 21:30 Risperidone (RisperDAL) 1 mg HS PO 09/30/20 21:00 09/29/20 21:04 DC Risperidone (RisperDAL) 1 mg HS PO 09/29/20 21:15 10/01/20 17:44 DC 09/30/20 20:24 Risperidone (RisperDAL) 1.25 mg HS PO 10/01/20 21:00 10/08/20 21:09 Polyethylene Glycol (miraLAX) 17 gm PRN DAILY PRN PO CONSTIPATION, 1ST CHOICE 10/07/20 17:00 10/08/20 13:56 I have reviewed the current psychotropics carefully including drug interactions. Risk benefit ratio favors no change other than as noted in my dictated progress note. Diagnosis: Problems: (1) Major depressive disorder with psychotic features (2) Anxiety disorder, unspecified (3) Mild cognitive impairment DYANA DEVINE MD Oct 09, 2020 07:19
--- NOTE | 2020-10-09 07:53 | PDOC ---
Exam Note: Carlos A Note: This note is a late entry for 10/06/2020 covers elements not covered in my initial note. Subjective: The patient was seen face to face in the evening of 10/06/2020 with Tara MACARIO, discussed and reviewed the chart. The patient slept 7-1/4 hours previous night. Overall she is doing better, less anxious. Review of Systems: No CV, , pulmonary, eye, ENT system symptoms on review. Mental Status Exam: The patient is reasonably oriented. I met with the patient in her room. She is reading a recipe book and states she has been removing certain recipes and plans to try them out at her home. We addressed possible placement and she is not fully agreeable to this. Abstraction is fair. Co mputation impaired. Language function is intact. No suicidal or homicidal ideation. Laboratory Data: Reviewed. Impression: Major depressive disorder with psychotic features. Mild cognitive impairment. Anxiety disorder unspecified. Plan: Continue psychotropics from initial note. Assessment: Vital Signs/I&O: Vital Signs Date Time Temp Pulse Resp B/P (MAP) Pulse Ox O2 Delivery O2 Flow Rate FiO2 10/09/20 06:34 98.3 87 16 127/79 (95) 94 Room Air I & O 10/08/20 10/08/20 10/09/20 15:00 23:00 07:00 Intake Total 960 ml 480 ml 120 ml Balance 960 ml 480 ml 120 ml Current Medications: Meds: Current Medications Medications (Trade) Dose Ordered Sig/Tory Route PRN Reason Start Time Stop Time Status Last Admin Dose Admin Acetaminophen (Tylenol) 650 mg PRN Q6HRS PRN PO MILD PAIN / TEMP > 100.3'F 09/25/20 18:15 09/25/20 21:02 Multi-Ingredient Ointment (Analgesic [place]) 1 mariya PRN QID PRN TP MUSCLE PAIN 09/25/20 18:15 Al Hydroxide/Mg Hydroxide (Mylanta Plus Xs) 15 ml PRN AFTMEALHC PRN PO DYSPEPSIA 09/25/20 18:15 Magnesium Hydroxide (Milk Of Magnesia) 2,400 mg PRN QHS PRN PO CONSTIPATION, 2ND CHOICE 09/25/20 18:15 Acetaminophen (Tylenol) 650 mg Q6HRS PRN PO pain or fever 09/25/20 18:45 UNV Amlodipine Besylate (Norvasc) 10 mg DAILY PO 09/26/20 09:00 10/08/20 08:22 Aspirin (Aspirin Chewable) 81 mg DAILY PO 09/26/20 09:00 10/08/20 08:22 Vitamin D (Vitamin D3) 50,000 unit WEEKLY PO 10/01/20 09:00 10/08/20 08:22 Lidocaine (Lidoderm) 1 patch DAILY TP 09/26/20 09:00 10/07/20 17:00 DC 10/06/20 09:01 Polyethylene Glycol (miraLAX) 17 gm DAILY PO 09/26/20 09:00 10/07/20 17:00 DC 10/06/20 09:01 Atorvastatin Calcium (Lipitor) 40 mg QHS PO 09/25/20 21:00 10/08/20 21:09 Calcium Carbonate/ Glycine (Oscal) 500 mg DAILY PO 09/26/20 09:00 10/08/20 08:22 Quetiapine Fumarate (SEROquel) 50 mg TID PO 09/25/20 21:00 09/29/20 21:02 DC 09/29/20 13:43 Quetiapine Fumarate (SEROquel) 100 mg QHS PO 09/25/20 21:00 09/29/20 21:02 DC 09/28/20 19:48 Trazodone HCl (Desyrel) 25 mg BID PO 09/25/20 21:00 09/27/20 21:30 DC 09/27/20 21:18 Trazodone HCl (Desyrel) 50 mg QHS PO 09/25/20 21:00 10/08/20 21:00 Melatonin (Melatonin) 3 mg QHS PO 09/25/20 21:00 10/08/20 21:09 Miscellaneous (Lidoderm Patch Removal) 1 ea QHS MC 09/25/20 21:00 10/08/20 19:47 Levofloxacin (Levaquin) 250 mg DAILY PO 09/27/20 13:00 10/02/20 21:01 DC 10/02/20 08:39 Lactobacillus Rhamnosus (Culturelle) 1 cap BID PO 09/27/20 21:00 10/08/20 21:08 Trazodone HCl (Desyrel) 50 mg PRN QHS PRN PO INSOMNIA 09/27/20 21:30 Risperidone (RisperDAL) 1 mg HS PO 09/30/20 21:00 09/29/20 21:04 DC Risperidone (RisperDAL) 1 mg HS PO 09/29/20 21:15 10/01/20 17:44 DC 09/30/20 20:24 Risperidone (RisperDAL) 1.25 mg HS PO 10/01/20 21:00 10/08/20 21:09 Polyethylene Glycol (miraLAX) 17 gm PRN DAILY PRN PO CONSTIPATION, 1ST CHOICE 10/07/20 17:00 10/08/20 13:56 I have reviewed the current psychotropics carefully including drug interactions. Risk benefit ratio favors no change other than as noted in my dictated progress note. Diagnosis: Problems: (1) Major depressive disorder with psychotic features (2) Anxiety disorder, unspecified (3) Mild cognitive impairment DYANA DEVINE MD Oct 09, 2020 07:53
[2020-10-09] MEDS: ASPIRIN CHEWABLE 81 MG TABLET. PO SCH (08:09)
[2020-10-09] MEDS: amLODIPine BESYLATE 10 MG TABLET PO SCH (08:17)
[2020-10-09] MEDS: LACTOBACILLUS RHAMNOSUS GG 1 CAPSULE. PO SCH ×2 (08:17→20:39)
--- NOTE | 2020-10-09 08:19 | PDOC ---
Exam Note: Carlos A Note: This note is a late entry for 10/07/2020 covers elements not covered in my initial note. Subjective: The patient was seen face to face in the evening of 10/07/2020 with Umesh MACARIO, discussed and reviewed the chart. The patient slept 7 hours previous night. Overall the patient has had a good day. She has been going out to the dining room, less paranoid. I met with her in her room. She gets distressed with other demented patients walk into her room. We addressed this with the nursing staff. Review of Systems: No CV, , pulmonary, eye, ENT system symptoms on review. Mental Status Exam: The patient is reasonably oriented. Speech is coherent, has some latency. Abstraction is fair. Computation impaired. Language function is intact. Mood and affect is less paranoid. No suicidal or homicidal ideation. Laboratory Data: Reviewed. Impression: Major depressive disorder with psychotic features. Mild cognitive impairment. Anxiety disorder unspecified. Plan: Continue psychotropics from initial note. Educated the patient on her diagnosis and need for being compliant with her psychotropics and at length answered her questions. Assessment: Vital Signs/I&O: Vital Signs Date Time Temp Pulse Resp B/P (MAP) Pulse Ox O2 Delivery O2 Flow Rate FiO2 10/09/20 08:17 87 127/79 10/09/20 06:34 98.3 16 94 Room Air I & O 10/08/20 10/08/20 10/09/20 15:00 23:00 07:00 Intake Total 960 ml 480 ml 120 ml Balance 960 ml 480 ml 120 ml Current Medications: Meds: Current Medications Medications (Trade) Dose Ordered Sig/Tory Route PRN Reason Start Time Stop Time Status Last Admin Dose Admin Acetaminophen (Tylenol) 650 mg PRN Q6HRS PRN PO MILD PAIN / TEMP > 100.3'F 09/25/20 18:15 09/25/20 21:02 Multi-Ingredient Ointment (Analgesic [place]) 1 mariya PRN QID PRN TP MUSCLE PAIN 09/25/20 18:15 Al Hydroxide/Mg Hydroxide (Mylanta Plus Xs) 15 ml PRN AFTMEALHC PRN PO DYSPEPSIA 09/25/20 18:15 Magnesium Hydroxide (Milk Of Magnesia) 2,400 mg PRN QHS PRN PO CONSTIPATION, 2ND CHOICE 09/25/20 18:15 Acetaminophen (Tylenol) 650 mg Q6HRS PRN PO pain or fever 09/25/20 18:45 UNV Amlodipine Besylate (Norvasc) 10 mg DAILY PO 09/26/20 09:00 10/09/20 08:17 Aspirin (Aspirin Chewable) 81 mg DAILY PO 09/26/20 09:00 10/09/20 08:09 Vitamin D (Vitamin D3) 50,000 unit WEEKLY PO 10/01/20 09:00 10/08/20 08:22 Lidocaine (Lidoderm) 1 patch DAILY TP 09/26/20 09:00 10/07/20 17:00 DC 10/06/20 09:01 Polyethylene Glycol (miraLAX) 17 gm DAILY PO 09/26/20 09:00 10/07/20 17:00 DC 10/06/20 09:01 Atorvastatin Calcium (Lipitor) 40 mg QHS PO 09/25/20 21:00 10/08/20 21:09 Calcium Carbonate/ Glycine (Oscal) 500 mg DAILY PO 09/26/20 09:00 10/08/20 08:22 Quetiapine Fumarate (SEROquel) 50 mg TID PO 09/25/20 21:00 09/29/20 21:02 DC 09/29/20 13:43 Quetiapine Fumarate (SEROquel) 100 mg QHS PO 09/25/20 21:00 09/29/20 21:02 DC 09/28/20 19:48 Trazodone HCl (Desyrel) 25 mg BID PO 09/25/20 21:00 09/27/20 21:30 DC 09/27/20 21:18 Trazodone HCl (Desyrel) 50 mg QHS PO 09/25/20 21:00 10/08/20 21:00 Melatonin (Melatonin) 3 mg QHS PO 09/25/20 21:00 10/08/20 21:09 Miscellaneous (Lidoderm Patch Removal) 1 ea QHS MC 09/25/20 21:00 10/08/20 19:47 Levofloxacin (Levaquin) 250 mg DAILY PO 09/27/20 13:00 10/02/20 21:01 DC 10/02/20 08:39 Lactobacillus Rhamnosus (Culturelle) 1 cap BID PO 09/27/20 21:00 10/09/20 08:17 Trazodone HCl (Desyrel) 50 mg PRN QHS PRN PO INSOMNIA 09/27/20 21:30 Risperidone (RisperDAL) 1 mg HS PO 09/30/20 21:00 09/29/20 21:04 DC Risperidone (RisperDAL) 1 mg HS PO 09/29/20 21:15 10/01/20 17:44 DC 09/30/20 20:24 Risperidone (RisperDAL) 1.25 mg HS PO 10/01/20 21:00 10/08/20 21:09 Polyethylene Glycol (miraLAX) 17 gm PRN DAILY PRN PO CONSTIPATION, 1ST CHOICE 10/07/20 17:00 10/08/20 13:56 I have reviewed the current psychotropics carefully including drug interactions. Risk benefit ratio favors no change other than as noted in my dictated progress note. Diagnosis: Problems: (1) Major depressive disorder with psychotic features (2) Anxiety disorder, unspecified (3) Mild cognitive impairment DYANA DEVINE MD Oct 09, 2020 08:19
--- NOTE | 2020-10-09 08:43 | PDOC ---
Exam Note: Carlos A Note: This note is a late entry for 10/08/2020 covers elements not covered in my initial note. Subjective: The patient was seen face to face in the evening of 10/08/2020 with Umesh MACARIO, discussed and reviewed the chart. The patient slept 5-1/2 hours previous night. I met with the patient in her room. She was reading the Bible, less delusional, pleasant, verbal, interactive. Review of Systems: No CV, , pulmonary, eye system symptoms on review. Mental Status Exam: The patient is reasonably oriented. Speech is coherent. Abstraction is fair. Computation impaired. Language function is intact. Attention span is short. Mood and affect is improved. Laboratory Data: Reviewed. Impression: Major depressive disorder with psychotic features. Mild cognitive impairment. Anxiety disorder unspecified. Plan: Continue psychotropics from initial note. Assessment: Vital Signs/I&O: Vital Signs Date Time Temp Pulse Resp B/P (MAP) Pulse Ox O2 Delivery O2 Flow Rate FiO2 10/09/20 08:17 87 127/79 10/09/20 06:34 98.3 16 94 Room Air I & O 10/08/20 10/08/20 10/09/20 15:00 23:00 07:00 Intake Total 960 ml 480 ml 120 ml Balance 960 ml 480 ml 120 ml Current Medications: Meds: Current Medications Medications (Trade) Dose Ordered Sig/Tory Route PRN Reason Start Time Stop Time Status Last Admin Dose Admin Acetaminophen (Tylenol) 650 mg PRN Q6HRS PRN PO MILD PAIN / TEMP > 100.3'F 09/25/20 18:15 09/25/20 21:02 Multi-Ingredient Ointment (Analgesic [place]) 1 mariya PRN QID PRN TP MUSCLE PAIN 09/25/20 18:15 Al Hydroxide/Mg Hydroxide (Mylanta Plus Xs) 15 ml PRN AFTMEALHC PRN PO DYSPEPSIA 09/25/20 18:15 Magnesium Hydroxide (Milk Of Magnesia) 2,400 mg PRN QHS PRN PO CONSTIPATION, 2ND CHOICE 09/25/20 18:15 Acetaminophen (Tylenol) 650 mg Q6HRS PRN PO pain or fever 09/25/20 18:45 UNV Amlodipine Besylate (Norvasc) 10 mg DAILY PO 09/26/20 09:00 10/09/20 08:17 Aspirin (Aspirin Chewable) 81 mg DAILY PO 09/26/20 09:00 10/09/20 08:09 Vitamin D (Vitamin D3) 50,000 unit WEEKLY PO 10/01/20 09:00 10/08/20 08:22 Lidocaine (Lidoderm) 1 patch DAILY TP 09/26/20 09:00 10/07/20 17:00 DC 10/06/20 09:01 Polyethylene Glycol (miraLAX) 17 gm DAILY PO 09/26/20 09:00 10/07/20 17:00 DC 10/06/20 09:01 Atorvastatin Calcium (Lipitor) 40 mg QHS PO 09/25/20 21:00 10/08/20 21:09 Calcium Carbonate/ Glycine (Oscal) 500 mg DAILY PO 09/26/20 09:00 10/08/20 08:22 Quetiapine Fumarate (SEROquel) 50 mg TID PO 09/25/20 21:00 09/29/20 21:02 DC 09/29/20 13:43 Quetiapine Fumarate (SEROquel) 100 mg QHS PO 09/25/20 21:00 09/29/20 21:02 DC 09/28/20 19:48 Trazodone HCl (Desyrel) 25 mg BID PO 09/25/20 21:00 09/27/20 21:30 DC 09/27/20 21:18 Trazodone HCl (Desyrel) 50 mg QHS PO 09/25/20 21:00 10/08/20 21:00 Melatonin (Melatonin) 3 mg QHS PO 09/25/20 21:00 10/08/20 21:09 Miscellaneous (Lidoderm Patch Removal) 1 ea QHS MC 09/25/20 21:00 10/08/20 19:47 Levofloxacin (Levaquin) 250 mg DAILY PO 09/27/20 13:00 10/02/20 21:01 DC 10/02/20 08:39 Lactobacillus Rhamnosus (Culturelle) 1 cap BID PO 09/27/20 21:00 10/09/20 08:17 Trazodone HCl (Desyrel) 50 mg PRN QHS PRN PO INSOMNIA 09/27/20 21:30 Risperidone (RisperDAL) 1 mg HS PO 09/30/20 21:00 09/29/20 21:04 DC Risperidone (RisperDAL) 1 mg HS PO 09/29/20 21:15 10/01/20 17:44 DC 09/30/20 20:24 Risperidone (RisperDAL) 1.25 mg HS PO 10/01/20 21:00 10/08/20 21:09 Polyethylene Glycol (miraLAX) 17 gm PRN DAILY PRN PO CONSTIPATION, 1ST CHOICE 10/07/20 17:00 10/08/20 13:56 I have reviewed the current psychotropics carefully including drug interactions. Risk benefit ratio favors no change other than as noted in my dictated progress note. Diagnosis: Problems: (1) Major depressive disorder with psychotic features (2) Anxiety disorder, unspecified (3) Mild cognitive impairment DYANA DEVINE MD Oct 09, 2020 08:43
[2020-10-09] MEDS: CALCIUM CARBONATE 500 MG TABLET PO SCH (09:00)
--- NOTE | 2020-10-09 12:08 | NUR ---
See downtime med rec for am medication administration.
[2020-10-09 16:14] VITALS: BP 117/63
--- NOTE | 2020-10-09 16:41 | NUR ---
Pt has been in her room for the most of the day. Appropriate and med compliant. She reports constipation the previous day but reports a BM this morning. She has no complaints or concerns at this time but states she would like to talk to SW about going home. Will pass on to the next shift
[2020-10-09] MEDS: traZODone 50 MG TABLET. PO SCH (20:39)
[2020-10-09] MEDS: MELATONIN 3 MG TABLET PO SCH (20:39)
[2020-10-09] MEDS: ATORVASTATIN CALCIUM 20 MG TABLET PO SCH (20:39)
[2020-10-09] MEDS: risperiDONE 1 MG TABLET. PO SCH (20:39)
[2020-10-09] MEDS: PATCH REMOVAL. MC SCH (20:40)
--- NOTE | 2020-10-09 21:10 | PDOC ---
Exam Note: Carlos A Note: Please also refer to the separate dictated note~for this date of service dictated separately.~Patient seen individually. Discussed the patient with Nursing staff reviewed the chart.~Reviewed interim history and current functioning. Reviewed vital signs,~Labs/ Radiology~and current medications noted below. Continue current treatment with the changes noted in the dictated addendum note Assessment: Vital Signs/I&O: Vital Signs Date Time Temp Pulse Resp B/P (MAP) Pulse Ox O2 Delivery O2 Flow Rate FiO2 10/09/20 16:14 97.6 80 16 117/63 (81) 96 10/09/20 06:34 Room Air I & O 10/08/20 10/08/20 10/09/20 15:00 23:00 07:00 Intake Total 960 ml 480 ml 120 ml Balance 960 ml 480 ml 120 ml Current Medications: Meds: Current Medications Medications (Trade) Dose Ordered Sig/Tory Route PRN Reason Start Time Stop Time Status Last Admin Dose Admin Acetaminophen (Tylenol) 650 mg PRN Q6HRS PRN PO MILD PAIN / TEMP > 100.3'F 09/25/20 18:15 09/25/20 21:02 Multi-Ingredient Ointment (Analgesic [place]) 1 mariya PRN QID PRN TP MUSCLE PAIN 09/25/20 18:15 Al Hydroxide/Mg Hydroxide (Mylanta Plus Xs) 15 ml PRN AFTMEALHC PRN PO DYSPEPSIA 09/25/20 18:15 Magnesium Hydroxide (Milk Of Magnesia) 2,400 mg PRN QHS PRN PO CONSTIPATION, 2ND CHOICE 09/25/20 18:15 Acetaminophen (Tylenol) 650 mg Q6HRS PRN PO pain or fever 09/25/20 18:45 UNV Amlodipine Besylate (Norvasc) 10 mg DAILY PO 09/26/20 09:00 10/09/20 08:17 Aspirin (Aspirin Chewable) 81 mg DAILY PO 09/26/20 09:00 10/09/20 08:09 Vitamin D (Vitamin D3) 50,000 unit WEEKLY PO 10/01/20 09:00 10/08/20 08:22 Lidocaine (Lidoderm) 1 patch DAILY TP 09/26/20 09:00 10/07/20 17:00 DC 10/06/20 09:01 Polyethylene Glycol (miraLAX) 17 gm DAILY PO 09/26/20 09:00 10/07/20 17:00 DC 10/06/20 09:01 Atorvastatin Calcium (Lipitor) 40 mg QHS PO 09/25/20 21:00 10/09/20 20:39 Calcium Carbonate/ Glycine (Oscal) 500 mg DAILY PO 09/26/20 09:00 10/08/20 08:22 Quetiapine Fumarate (SEROquel) 50 mg TID PO 09/25/20 21:00 09/29/20 21:02 DC 09/29/20 13:43 Quetiapine Fumarate (SEROquel) 100 mg QHS PO 09/25/20 21:00 09/29/20 21:02 DC 09/28/20 19:48 Trazodone HCl (Desyrel) 25 mg BID PO 09/25/20 21:00 09/27/20 21:30 DC 09/27/20 21:18 Trazodone HCl (Desyrel) 50 mg QHS PO 09/25/20 21:00 10/09/20 20:39 Melatonin (Melatonin) 3 mg QHS PO 09/25/20 21:00 10/09/20 20:39 Miscellaneous (Lidoderm Patch Removal) 1 ea QHS MC 09/25/20 21:00 10/09/20 20:40 Levofloxacin (Levaquin) 250 mg DAILY PO 09/27/20 13:00 10/02/20 21:01 DC 10/02/20 08:39 Lactobacillus Rhamnosus (Culturelle) 1 cap BID PO 09/27/20 21:00 10/09/20 20:39 Trazodone HCl (Desyrel) 50 mg PRN QHS PRN PO INSOMNIA 09/27/20 21:30 Risperidone (RisperDAL) 1 mg HS PO 09/30/20 21:00 09/29/20 21:04 DC Risperidone (RisperDAL) 1 mg HS PO 09/29/20 21:15 10/01/20 17:44 DC 09/30/20 20:24 Risperidone (RisperDAL) 1.25 mg HS PO 10/01/20 21:00 10/09/20 20:39 Polyethylene Glycol (miraLAX) 17 gm PRN DAILY PRN PO CONSTIPATION, 1ST CHOICE 10/07/20 17:00 10/08/20 13:56 I have reviewed the current psychotropics carefully including drug interactions. Risk benefit ratio favors no change other than as noted in my dictated progress note. Diagnosis: Problems: (1) Major neurocognitive disorder (2) Dementia in Alzheimer's disease with delusions (3) Dementia in Alzheimer's disease with depression (4) Dementia, vascular, with delusions (5) Dementia, vascular, with depression (6) Dementia in Alzheimer's disease with early onset with behavioral disturbance (7) Anxiety disorder, unspecified (8) Major depressive disorder with psychotic features DYANA DEVINE MD Oct 09, 2020 21:10
--- NOTE | 2020-10-10 00:15 | NUR ---
patient sitting in chair in room looking at magazines. She received a call from her daughter and they are both wondering when patient will discharge. Patient would like to speak to SW tomorrow about discharge plan or have SW speak to her daughter. Message left on voice mail regarding this. Patient is pleasant and compliant with medications. No adverse behaviors noted.
[2020-10-10 06:05] VITALS: BP 121/68
[2020-10-10] MEDS: LACTOBACILLUS RHAMNOSUS GG 1 CAPSULE. PO SCH ×2 (09:00→20:14)
[2020-10-10] MEDS: amLODIPine BESYLATE 10 MG TABLET PO SCH (09:00)
[2020-10-10] MEDS: ASPIRIN CHEWABLE 81 MG TABLET. PO SCH (09:00)
[2020-10-10] MEDS: CALCIUM CARBONATE 500 MG TABLET PO SCH (09:00)
--- NOTE | 2020-10-10 15:54 | NUR ---
Pt complaint with medications and assessment. She has no questions or concerns at this time. Will pass on to the next shift.
[2020-10-10 16:24] VITALS: BP 102/60
[2020-10-10] MEDS: risperiDONE 1 MG TABLET. PO SCH (20:14)
[2020-10-10] MEDS: ATORVASTATIN CALCIUM 20 MG TABLET PO SCH (20:14)
[2020-10-10] MEDS: traZODone 50 MG TABLET. PO SCH (20:15)
[2020-10-10] MEDS: MELATONIN 3 MG TABLET PO SCH (20:15)
[2020-10-10] MEDS: PATCH REMOVAL. MC SCH (20:15)
--- NOTE | 2020-10-10 21:31 | PDOC ---
Exam Note: Carlos A Note: This note is a late entry for 10/09/2020 covers elements not covered in my initial note. Subjective: The patient was seen face to face in the evening of 10/09/2020 with Jen MACARIO, discussed and reviewed the chart. The patient slept 5-3/4 hours previous night. She is pleasant, verbal, interactive. Review of Systems: No CV, , pulmonary, eye system symptoms on review. Mental Status Exam: The patient is reasonably oriented. Speech is coherent. Abstraction is fair. Computation impaired. Language function is intact. Attention span is short. Mood and affect is improved. Laboratory Data: Reviewed. Impression: Major depressive disorder with psychotic features. Mild cognitive impairment. Anxiety disorder unspecified. Plan: Continue psychotropics from initial note. Assessment: Vital Signs/I&O: Vital Signs Date Time Temp Pulse Resp B/P (MAP) Pulse Ox O2 Delivery O2 Flow Rate FiO2 10/10/20 16:24 97.2 81 16 102/60 (74) 98 10/10/20 06:05 Room Air I & O 10/09/20 10/09/20 10/10/20 15:00 23:00 07:00 Intake Total 480 ml 360 ml 120 ml Balance 480 ml 360 ml 120 ml Current Medications: Meds: Current Medications Medications (Trade) Dose Ordered Sig/Tory Route PRN Reason Start Time Stop Time Status Last Admin Dose Admin Acetaminophen (Tylenol) 650 mg PRN Q6HRS PRN PO MILD PAIN / TEMP > 100.3'F 09/25/20 18:15 09/25/20 21:02 Multi-Ingredient Ointment (Analgesic [place]) 1 mariya PRN QID PRN TP MUSCLE PAIN 09/25/20 18:15 Al Hydroxide/Mg Hydroxide (Mylanta Plus Xs) 15 ml PRN AFTMEALHC PRN PO DYSPEPSIA 09/25/20 18:15 Magnesium Hydroxide (Milk Of Magnesia) 2,400 mg PRN QHS PRN PO CONSTIPATION, 2ND CHOICE 09/25/20 18:15 Acetaminophen (Tylenol) 650 mg Q6HRS PRN PO pain or fever 09/25/20 18:45 UNV Amlodipine Besylate (Norvasc) 10 mg DAILY PO 09/26/20 09:00 10/10/20 09:00 Aspirin (Aspirin Chewable) 81 mg DAILY PO 09/26/20 09:00 10/10/20 09:00 Vitamin D (Vitamin D3) 50,000 unit WEEKLY PO 10/01/20 09:00 10/08/20 08:22 Lidocaine (Lidoderm) 1 patch DAILY TP 09/26/20 09:00 10/07/20 17:00 DC 10/06/20 09:01 Polyethylene Glycol (miraLAX) 17 gm DAILY PO 09/26/20 09:00 10/07/20 17:00 DC 10/06/20 09:01 Atorvastatin Calcium (Lipitor) 40 mg QHS PO 09/25/20 21:00 10/10/20 20:14 Calcium Carbonate/ Glycine (Oscal) 500 mg DAILY PO 09/26/20 09:00 10/10/20 09:00 Quetiapine Fumarate (SEROquel) 50 mg TID PO 09/25/20 21:00 09/29/20 21:02 DC 09/29/20 13:43 Quetiapine Fumarate (SEROquel) 100 mg QHS PO 09/25/20 21:00 09/29/20 21:02 DC 09/28/20 19:48 Trazodone HCl (Desyrel) 25 mg BID PO 09/25/20 21:00 09/27/20 21:30 DC 09/27/20 21:18 Trazodone HCl (Desyrel) 50 mg QHS PO 09/25/20 21:00 10/10/20 20:15 Melatonin (Melatonin) 3 mg QHS PO 09/25/20 21:00 10/10/20 20:15 Miscellaneous (Lidoderm Patch Removal) 1 ea QHS MC 09/25/20 21:00 10/10/20 20:15 Levofloxacin (Levaquin) 250 mg DAILY PO 09/27/20 13:00 10/02/20 21:01 DC 10/02/20 08:39 Lactobacillus Rhamnosus (Culturelle) 1 cap BID PO 09/27/20 21:00 10/10/20 20:14 Trazodone HCl (Desyrel) 50 mg PRN QHS PRN PO INSOMNIA 09/27/20 21:30 Risperidone (RisperDAL) 1 mg HS PO 09/30/20 21:00 09/29/20 21:04 DC Risperidone (RisperDAL) 1 mg HS PO 09/29/20 21:15 10/01/20 17:44 DC 09/30/20 20:24 Risperidone (RisperDAL) 1.25 mg HS PO 10/01/20 21:00 10/10/20 20:14 Polyethylene Glycol (miraLAX) 17 gm PRN DAILY PRN PO CONSTIPATION, 1ST CHOICE 10/07/20 17:00 10/08/20 13:56 I have reviewed the current psychotropics carefully including drug interactions. Risk benefit ratio favors no change other than as noted in my dictated progress note. Diagnosis: Problems: (1) Major depressive disorder with psychotic features (2) Anxiety disorder, unspecified (3) Mild cognitive impairment DYANA DEVINE MD Oct 10, 2020 21:31
--- NOTE | 2020-10-10 21:32 | PDOC ---
Exam Note: Carlos A Note: Please also refer to the separate dictated note~for this date of service dictated separately.~Patient seen individually. Discussed the patient with Nursing staff reviewed the chart.~Reviewed interim history and current functioning. Reviewed vital signs,~Labs/ Radiology~and current medications noted below. Continue current treatment with the changes noted in the dictated addendum note Assessment: Vital Signs/I&O: Vital Signs Date Time Temp Pulse Resp B/P (MAP) Pulse Ox O2 Delivery O2 Flow Rate FiO2 10/10/20 16:24 97.2 81 16 102/60 (74) 98 10/10/20 06:05 Room Air I & O 10/09/20 10/09/20 10/10/20 15:00 23:00 07:00 Intake Total 480 ml 360 ml 120 ml Balance 480 ml 360 ml 120 ml Current Medications: Meds: Current Medications Medications (Trade) Dose Ordered Sig/Tory Route PRN Reason Start Time Stop Time Status Last Admin Dose Admin Acetaminophen (Tylenol) 650 mg PRN Q6HRS PRN PO MILD PAIN / TEMP > 100.3'F 09/25/20 18:15 09/25/20 21:02 Multi-Ingredient Ointment (Analgesic [place]) 1 mariya PRN QID PRN TP MUSCLE PAIN 09/25/20 18:15 Al Hydroxide/Mg Hydroxide (Mylanta Plus Xs) 15 ml PRN AFTMEALHC PRN PO DYSPEPSIA 09/25/20 18:15 Magnesium Hydroxide (Milk Of Magnesia) 2,400 mg PRN QHS PRN PO CONSTIPATION, 2ND CHOICE 09/25/20 18:15 Acetaminophen (Tylenol) 650 mg Q6HRS PRN PO pain or fever 09/25/20 18:45 UNV Amlodipine Besylate (Norvasc) 10 mg DAILY PO 09/26/20 09:00 10/10/20 09:00 Aspirin (Aspirin Chewable) 81 mg DAILY PO 09/26/20 09:00 10/10/20 09:00 Vitamin D (Vitamin D3) 50,000 unit WEEKLY PO 10/01/20 09:00 10/08/20 08:22 Lidocaine (Lidoderm) 1 patch DAILY TP 09/26/20 09:00 10/07/20 17:00 DC 10/06/20 09:01 Polyethylene Glycol (miraLAX) 17 gm DAILY PO 09/26/20 09:00 10/07/20 17:00 DC 10/06/20 09:01 Atorvastatin Calcium (Lipitor) 40 mg QHS PO 09/25/20 21:00 10/10/20 20:14 Calcium Carbonate/ Glycine (Oscal) 500 mg DAILY PO 09/26/20 09:00 10/10/20 09:00 Quetiapine Fumarate (SEROquel) 50 mg TID PO 09/25/20 21:00 09/29/20 21:02 DC 09/29/20 13:43 Quetiapine Fumarate (SEROquel) 100 mg QHS PO 09/25/20 21:00 09/29/20 21:02 DC 09/28/20 19:48 Trazodone HCl (Desyrel) 25 mg BID PO 09/25/20 21:00 09/27/20 21:30 DC 09/27/20 21:18 Trazodone HCl (Desyrel) 50 mg QHS PO 09/25/20 21:00 10/10/20 20:15 Melatonin (Melatonin) 3 mg QHS PO 09/25/20 21:00 10/10/20 20:15 Miscellaneous (Lidoderm Patch Removal) 1 ea QHS MC 09/25/20 21:00 10/10/20 20:15 Levofloxacin (Levaquin) 250 mg DAILY PO 09/27/20 13:00 10/02/20 21:01 DC 10/02/20 08:39 Lactobacillus Rhamnosus (Culturelle) 1 cap BID PO 09/27/20 21:00 10/10/20 20:14 Trazodone HCl (Desyrel) 50 mg PRN QHS PRN PO INSOMNIA 09/27/20 21:30 Risperidone (RisperDAL) 1 mg HS PO 09/30/20 21:00 09/29/20 21:04 DC Risperidone (RisperDAL) 1 mg HS PO 09/29/20 21:15 10/01/20 17:44 DC 09/30/20 20:24 Risperidone (RisperDAL) 1.25 mg HS PO 10/01/20 21:00 10/10/20 20:14 Polyethylene Glycol (miraLAX) 17 gm PRN DAILY PRN PO CONSTIPATION, 1ST CHOICE 10/07/20 17:00 10/08/20 13:56 I have reviewed the current psychotropics carefully including drug interactions. Risk benefit ratio favors no change other than as noted in my dictated progress note. Diagnosis: Problems: (1) Major depressive disorder with psychotic features (2) Anxiety disorder, unspecified (3) Mild cognitive impairment DYANA DEVINE MD Oct 10, 2020 21:32
--- NOTE | 2020-10-11 00:49 | NUR ---
Patient is pleasant and calm. She is alert and oriented x4. She states she wants to go home where she "balances her own check book, cooks her own meals and take her own meds". She factually stated that this could be considered "Skilled Nursing Care" and she will hotline medicare to file a complaint. She would like to discharge tomorrow, or at least have a date set.
[2020-10-11 05:52] VITALS: BP 142/75
--- NOTE | 2020-10-11 07:48 | PDOC ---
Exam Note: Carlos A Note: This note is a late entry for 10/10/2020 covers elements not covered in my initial note. Subjective: The patient was seen face to face in the evening of 10/10/2020 with eJn MACARIO, discussed and reviewed the chart. The patient slept 8-1/2 hours previous night. Overall she spends much time in her room and was reading the Bible as I met with her in the evening. She was paranoid, demanding to be discharged. We discussed how it was really late in the evening, subfreezing temperatures are outside. Social service staff is working with her daughters to implement a safe discharge and she was threatening to call Medicare and hire an consumer attorney amongst other things. I attempted to process this with her individually. Review of Systems: No CV, , pulmonary, eye system symptoms on review. Mental Status Exam: The patient is reasonably oriented. Speech is coherent, rapid at times. Abstraction is fair. Computation impaired. Language function is intact. Mood and affect remains anxious, labile. Laboratory Data: Reviewed. Impression: Major depressive disorder with psychotic features. Mild cognitive impairment. Anxiety disorder unspecified. Plan: No change from initial note. Assessment: Vital Signs/I&O: Vital Signs Date Time Temp Pulse Resp B/P (MAP) Pulse Ox O2 Delivery O2 Flow Rate FiO2 10/11/20 05:52 98.2 96 16 142/75 (97) 94 10/10/20 06:05 Room Air I & O 10/10/20 10/10/20 10/11/20 15:00 23:00 07:00 Intake Total 840 ml 480 ml Balance 840 ml 480 ml Current Medications: Meds: Current Medications Medications (Trade) Dose Ordered Sig/Tory Route PRN Reason Start Time Stop Time Status Last Admin Dose Admin Acetaminophen (Tylenol) 650 mg PRN Q6HRS PRN PO MILD PAIN / TEMP > 100.3'F 09/25/20 18:15 09/25/20 21:02 Multi-Ingredient Ointment (Analgesic [place]) 1 mariya PRN QID PRN TP MUSCLE PAIN 09/25/20 18:15 Al Hydroxide/Mg Hydroxide (Mylanta Plus Xs) 15 ml PRN AFTMEALHC PRN PO DYSPEPSIA 09/25/20 18:15 Magnesium Hydroxide (Milk Of Magnesia) 2,400 mg PRN QHS PRN PO CONSTIPATION, 2ND CHOICE 09/25/20 18:15 Acetaminophen (Tylenol) 650 mg Q6HRS PRN PO pain or fever 09/25/20 18:45 UNV Amlodipine Besylate (Norvasc) 10 mg DAILY PO 09/26/20 09:00 10/10/20 09:00 Aspirin (Aspirin Chewable) 81 mg DAILY PO 09/26/20 09:00 10/10/20 09:00 Vitamin D (Vitamin D3) 50,000 unit WEEKLY PO 10/01/20 09:00 10/08/20 08:22 Lidocaine (Lidoderm) 1 patch DAILY TP 09/26/20 09:00 10/07/20 17:00 DC 10/06/20 09:01 Polyethylene Glycol (miraLAX) 17 gm DAILY PO 09/26/20 09:00 10/07/20 17:00 DC 10/06/20 09:01 Atorvastatin Calcium (Lipitor) 40 mg QHS PO 09/25/20 21:00 10/10/20 20:14 Calcium Carbonate/ Glycine (Oscal) 500 mg DAILY PO 09/26/20 09:00 10/10/20 09:00 Quetiapine Fumarate (SEROquel) 50 mg TID PO 09/25/20 21:00 09/29/20 21:02 DC 09/29/20 13:43 Quetiapine Fumarate (SEROquel) 100 mg QHS PO 09/25/20 21:00 09/29/20 21:02 DC 09/28/20 19:48 Trazodone HCl (Desyrel) 25 mg BID PO 09/25/20 21:00 09/27/20 21:30 DC 09/27/20 21:18 Trazodone HCl (Desyrel) 50 mg QHS PO 09/25/20 21:00 10/10/20 20:15 Melatonin (Melatonin) 3 mg QHS PO 09/25/20 21:00 10/10/20 20:15 Miscellaneous (Lidoderm Patch Removal) 1 ea QHS MC 09/25/20 21:00 10/10/20 20:15 Levofloxacin (Levaquin) 250 mg DAILY PO 09/27/20 13:00 10/02/20 21:01 DC 10/02/20 08:39 Lactobacillus Rhamnosus (Culturelle) 1 cap BID PO 09/27/20 21:00 10/10/20 20:14 Trazodone HCl (Desyrel) 50 mg PRN QHS PRN PO INSOMNIA 09/27/20 21:30 Risperidone (RisperDAL) 1 mg HS PO 09/30/20 21:00 09/29/20 21:04 DC Risperidone (RisperDAL) 1 mg HS PO 09/29/20 21:15 10/01/20 17:44 DC 09/30/20 20:24 Risperidone (RisperDAL) 1.25 mg HS PO 10/01/20 21:00 10/10/20 20:14 Polyethylene Glycol (miraLAX) 17 gm PRN DAILY PRN PO CONSTIPATION, 1ST CHOICE 10/07/20 17:00 10/08/20 13:56 I have reviewed the current psychotropics carefully including drug interactions. Risk benefit ratio favors no change other than as noted in my dictated progress note. Diagnosis: Problems: (1) Major depressive disorder with psychotic features (2) Anxiety disorder, unspecified (3) Mild cognitive impairment DYANA DEVINE MD Oct 11, 2020 07:48
[2020-10-11] MEDS: LACTOBACILLUS RHAMNOSUS GG 1 CAPSULE. PO SCH ×2 (08:59→20:50)
[2020-10-11] MEDS: CALCIUM CARBONATE 500 MG TABLET PO SCH (08:59)
[2020-10-11] MEDS: ASPIRIN CHEWABLE 81 MG TABLET. PO SCH (08:59)
[2020-10-11] MEDS: amLODIPine BESYLATE 10 MG TABLET PO SCH (09:00)
--- NOTE | 2020-10-11 11:56 | NUR ---
Pt complaint with medications and assessment. She is very quiet and reserved and prefers to engage is solitary activities, but she did participate in a group activity with other patients in the late morning. She has no questions or concerns at this time aside from wanting more reading material. She is A&OX4. She denies SI/HI/VH/AH/pain. She reports a BM this morning and has no c/o of voiding difficulties. She ate almost 100% of her breakfast and her appetite appears healthy and adequate. Will pass on to the next shift
--- NOTE | 2020-10-11 16:36 | NUR ---
This nurse received a phone call from Patito, pt's daughter. She states she is concerned d/t receiving 2 phone calls from pt today requesting daughter to contact Medicaid and report [facility]/[place] for fraud d/t "holding her with no valid reason." Of note, pt has also made similar statements to production supervisor off shift the evening of 10/10/20. Pt's daughter states that she believes pt is concealing a lot of her confusion, thoughts not based in reality, and agitation from staff. Daughter states pt claimed that she has no reason to still be hospitalized, that she has seen BI Weber at [facility] in recent days (she has been gone for 3 days d/t inclement weather), and that Dr Collins told her that she was admitted for a UTI but because that's resolved she should have gone home "4 days ago." Nursing staff is aware that pt has been asking to go home and asking when she can go home, this is a topic not explored much d/t family still needing time to decide if pt will d/c home or to a facility. Daughter states she would like more insight from Dr Collins about mother's prognosis and fitness for living independently, as she feels that a more blunt and well defined professional insight would best assist her. Daughter states, "I just want to know that whatever I decide is the right choice." Encouragement and validation provided by this nurse. Daughter also reports that pt has has hx of multiple delusional/confused episodes, and each episode increases in severity and she is concerned about the next episode, should there be one. Daughter also expressed concern about pt living independently, as pt has verbalized refusal for any home health assistance. Voice message left for BI Weber concerning daughter's concerns. Will pass on to Dr Cordoba and the next shift.
[2020-10-11 16:57] VITALS: BP 124/71
[2020-10-11] MEDS: PATCH REMOVAL. MC SCH (20:48)
[2020-10-11] MEDS: risperiDONE 1 MG TABLET. PO SCH (20:49)
[2020-10-11] MEDS: MELATONIN 3 MG TABLET PO SCH (20:49)
[2020-10-11] MEDS: traZODone 50 MG TABLET. PO SCH (20:50)
[2020-10-11] MEDS: ATORVASTATIN CALCIUM 20 MG TABLET PO SCH (20:50)
--- NOTE | 2020-10-11 21:10 | PDOC ---
Exam Note: Carlos A Note: Please also refer to the separate dictated note~for this date of service dictated separately.~Patient seen individually. Discussed the patient with Nursing staff reviewed the chart.~Reviewed interim history and current functioning. Reviewed vital signs,~Labs/ Radiology~and current medications noted below. Continue current treatment with the changes noted in the dictated addendum note Assessment: Vital Signs/I&O: Vital Signs Date Time Temp Pulse Resp B/P (MAP) Pulse Ox O2 Delivery O2 Flow Rate FiO2 10/11/20 16:57 97.7 70 18 124/71 (88) 96 10/10/20 06:05 Room Air I & O 10/10/20 10/10/20 10/11/20 15:00 23:00 07:00 Intake Total 840 ml 480 ml Balance 840 ml 480 ml Current Medications: Meds: Current Medications Medications (Trade) Dose Ordered Sig/Tory Route PRN Reason Start Time Stop Time Status Last Admin Dose Admin Acetaminophen (Tylenol) 650 mg PRN Q6HRS PRN PO MILD PAIN / TEMP > 100.3'F 09/25/20 18:15 09/25/20 21:02 Multi-Ingredient Ointment (Analgesic [place]) 1 mariya PRN QID PRN TP MUSCLE PAIN 09/25/20 18:15 Al Hydroxide/Mg Hydroxide (Mylanta Plus Xs) 15 ml PRN AFTMEALHC PRN PO DYSPEPSIA 09/25/20 18:15 Magnesium Hydroxide (Milk Of Magnesia) 2,400 mg PRN QHS PRN PO CONSTIPATION, 2ND CHOICE 09/25/20 18:15 Acetaminophen (Tylenol) 650 mg Q6HRS PRN PO pain or fever 09/25/20 18:45 UNV Amlodipine Besylate (Norvasc) 10 mg DAILY PO 09/26/20 09:00 10/11/20 09:00 Aspirin (Aspirin Chewable) 81 mg DAILY PO 09/26/20 09:00 10/11/20 08:59 Vitamin D (Vitamin D3) 50,000 unit WEEKLY PO 10/01/20 09:00 10/08/20 08:22 Lidocaine (Lidoderm) 1 patch DAILY TP 09/26/20 09:00 10/07/20 17:00 DC 10/06/20 09:01 Polyethylene Glycol (miraLAX) 17 gm DAILY PO 09/26/20 09:00 10/07/20 17:00 DC 10/06/20 09:01 Atorvastatin Calcium (Lipitor) 40 mg QHS PO 09/25/20 21:00 10/11/20 20:50 Calcium Carbonate/ Glycine (Oscal) 500 mg DAILY PO 09/26/20 09:00 10/11/20 08:59 Quetiapine Fumarate (SEROquel) 50 mg TID PO 09/25/20 21:00 09/29/20 21:02 DC 09/29/20 13:43 Quetiapine Fumarate (SEROquel) 100 mg QHS PO 09/25/20 21:00 09/29/20 21:02 DC 09/28/20 19:48 Trazodone HCl (Desyrel) 25 mg BID PO 09/25/20 21:00 09/27/20 21:30 DC 09/27/20 21:18 Trazodone HCl (Desyrel) 50 mg QHS PO 09/25/20 21:00 10/11/20 20:50 Melatonin (Melatonin) 3 mg QHS PO 09/25/20 21:00 10/11/20 20:49 Miscellaneous (Lidoderm Patch Removal) 1 ea QHS MC 09/25/20 21:00 10/11/20 20:49 DC 10/10/20 20:15 Levofloxacin (Levaquin) 250 mg DAILY PO 09/27/20 13:00 10/02/20 21:01 DC 10/02/20 08:39 Lactobacillus Rhamnosus (Culturelle) 1 cap BID PO 09/27/20 21:00 10/11/20 20:50 Trazodone HCl (Desyrel) 50 mg PRN QHS PRN PO INSOMNIA 09/27/20 21:30 Risperidone (RisperDAL) 1 mg HS PO 09/30/20 21:00 09/29/20 21:04 DC Risperidone (RisperDAL) 1 mg HS PO 09/29/20 21:15 10/01/20 17:44 DC 09/30/20 20:24 Risperidone (RisperDAL) 1.25 mg HS PO 10/01/20 21:00 10/11/20 20:49 Polyethylene Glycol (miraLAX) 17 gm PRN DAILY PRN PO CONSTIPATION, 1ST CHOICE 10/07/20 17:00 10/08/20 13:56 I have reviewed the current psychotropics carefully including drug interactions. Risk benefit ratio favors no change other than as noted in my dictated progress note. Diagnosis: Problems: (1) Major depressive disorder with psychotic features (2) Anxiety disorder, unspecified (3) Mild cognitive impairment DYANA DEVINE MD Oct 11, 2020 21:10
--- NOTE | 2020-10-11 22:51 | NUR ---
Patient had staff help her select another book to read as she has already read all of the magazines and books that she brought. Patient is withdrawn to her room and does not interact with other patients on HS shift. She is medication compliant and performs her own ADLs. Patient is alert and oriented x4 at this time. She did not speak about going home during assessment tonight.
[2020-10-12 06:18] VITALS: BP 143/82
--- NOTE | 2020-10-12 08:08 | PDOC ---
Exam Note: Carlos A Note: This note is a late entry for 10/11/2020 covers elements not covered in my initial note. Subjective: The patient was seen face to face in the evening of 10/11/2020 with Jen MACARIO, discussed and reviewed the chart. The patient slept 6-1/2 hours previous night. She spends much time in her room but has been irritable, wanting to be discharged. She has had discussion with both her daughters and daughters feel the patient needs a higher level of care rather than returning home. She is adamant on returning home. We will discuss all this at treatment team meeting tomorrow morning with the family. She is threatening to report the hospital to Medicare. I processed this at great length with her individually. She showed little insight into why the [facility] referred her for inpatient psychiatric treatment but attempts to improve her insight limited. We will have neuropsychological testing done by Dr. Silveira to assess capacity to make decisions for herself. Review of Systems: No CV, , pulmonary, eye system symptoms on review. Mental Status Exam: The patient is oriented to herself and situation. Speech has some latency, coherent. Abstraction is fair. Computation impaired. Language function is intact. Attention span is short. Mood and affect withdrawn. Laboratory Data: Reviewed. Impression: Major depressive disorder with psychotic features. Mild cognitive impairment. Anxiety disorder unspecified. Plan: No change from initial note. The patient has been somewhat paranoid. We will increase Risperdal from 1.25 mg h.s. to 1.5 mg h.s. Rest unchanged. Assessment: Vital Signs/I&O: Vital Signs Date Time Temp Pulse Resp B/P (MAP) Pulse Ox O2 Delivery O2 Flow Rate FiO2 10/12/20 06:18 96.7 94 20 143/82 (102) 95 10/10/20 06:05 Room Air I & O 10/11/20 10/11/20 10/12/20 15:00 23:00 07:00 Intake Total 480 ml 480 ml Balance 480 ml 480 ml Current Medications: Meds: Current Medications Medications (Trade) Dose Ordered Sig/Tory Route PRN Reason Start Time Stop Time Status Last Admin Dose Admin Acetaminophen (Tylenol) 650 mg PRN Q6HRS PRN PO MILD PAIN / TEMP > 100.3'F 09/25/20 18:15 09/25/20 21:02 Multi-Ingredient Ointment (Analgesic [place]) 1 mariya PRN QID PRN TP MUSCLE PAIN 09/25/20 18:15 Al Hydroxide/Mg Hydroxide (Mylanta Plus Xs) 15 ml PRN AFTMEALHC PRN PO DYSPEPSIA 09/25/20 18:15 Magnesium Hydroxide (Milk Of Magnesia) 2,400 mg PRN QHS PRN PO CONSTIPATION, 2ND CHOICE 09/25/20 18:15 Acetaminophen (Tylenol) 650 mg Q6HRS PRN PO pain or fever 09/25/20 18:45 UNV Amlodipine Besylate (Norvasc) 10 mg DAILY PO 09/26/20 09:00 10/11/20 09:00 Aspirin (Aspirin Chewable) 81 mg DAILY PO 09/26/20 09:00 10/11/20 08:59 Vitamin D (Vitamin D3) 50,000 unit WEEKLY PO 10/01/20 09:00 10/08/20 08:22 Lidocaine (Lidoderm) 1 patch DAILY TP 09/26/20 09:00 10/07/20 17:00 DC 10/06/20 09:01 Polyethylene Glycol (miraLAX) 17 gm DAILY PO 09/26/20 09:00 10/07/20 17:00 DC 10/06/20 09:01 Atorvastatin Calcium (Lipitor) 40 mg QHS PO 09/25/20 21:00 10/11/20 20:50 Calcium Carbonate/ Glycine (Oscal) 500 mg DAILY PO 09/26/20 09:00 10/11/20 08:59 Quetiapine Fumarate (SEROquel) 50 mg TID PO 09/25/20 21:00 09/29/20 21:02 DC 09/29/20 13:43 Quetiapine Fumarate (SEROquel) 100 mg QHS PO 09/25/20 21:00 09/29/20 21:02 DC 09/28/20 19:48 Trazodone HCl (Desyrel) 25 mg BID PO 09/25/20 21:00 09/27/20 21:30 DC 09/27/20 21:18 Trazodone HCl (Desyrel) 50 mg QHS PO 09/25/20 21:00 10/11/20 20:50 Melatonin (Melatonin) 3 mg QHS PO 09/25/20 21:00 10/11/20 20:49 Miscellaneous (Lidoderm Patch Removal) 1 ea QHS MC 09/25/20 21:00 10/11/20 20:49 DC 10/10/20 20:15 Levofloxacin (Levaquin) 250 mg DAILY PO 09/27/20 13:00 10/02/20 21:01 DC 10/02/20 08:39 Lactobacillus Rhamnosus (Culturelle) 1 cap BID PO 09/27/20 21:00 10/11/20 20:50 Trazodone HCl (Desyrel) 50 mg PRN QHS PRN PO INSOMNIA 09/27/20 21:30 Risperidone (RisperDAL) 1 mg HS PO 09/30/20 21:00 09/29/20 21:04 DC Risperidone (RisperDAL) 1 mg HS PO 09/29/20 21:15 10/01/20 17:44 DC 09/30/20 20:24 Risperidone (RisperDAL) 1.25 mg HS PO 10/01/20 21:00 10/11/20 20:49 Polyethylene Glycol (miraLAX) 17 gm PRN DAILY PRN PO CONSTIPATION, 1ST CHOICE 10/07/20 17:00 10/08/20 13:56 I have reviewed the current psychotropics carefully including drug interactions. Risk benefit ratio favors no change other than as noted in my dictated progress note. Diagnosis: Problems: (1) Major depressive disorder with psychotic features (2) Anxiety disorder, unspecified (3) Mild cognitive impairment DYANA DEVINE MD Oct 12, 2020 08:08
[2020-10-12] MEDS: CALCIUM CARBONATE 500 MG TABLET PO SCH (08:54)
[2020-10-12] MEDS: ASPIRIN CHEWABLE 81 MG TABLET. PO SCH (08:54)
[2020-10-12] MEDS: amLODIPine BESYLATE 10 MG TABLET PO SCH (08:54)
[2020-10-12] MEDS: LACTOBACILLUS RHAMNOSUS GG 1 CAPSULE. PO SCH ×2 (08:54→20:39)
--- NOTE | 2020-10-12 10:01 | NUR ---
WEEKLY ACTIVITY THERAPY NOTE Date of Admission: 09/25/20 Date of AT Assessment:09/27/20 Precipitating behaviors that initiated intake and admission: Delusional Called EMS that she was in labor and stated that she was and having a baby, then proceeded to tell them when they arrived that someone took the baby and planted it into someone else. Goal aimed:increase stress management and socialization skills Initial Goal: Pt will participate in at least three individual or group Activity Therapy sessions per week. Weekly progress towards goal: did not achieve, 1/3 Group participation level: i full Weekly highlights: fully engaged in exercises and word game on Friday morning Behaviors observed: similar to last week- calm, withdrawn to room but engages self in reading most of the time Plan: no change to goal Beneficial adaptations: reading material available, enjoys talking about gardening
--- NOTE | 2020-10-12 13:41 | TX PLAN ---
Interdisciplinary Tx Plan Admission Information Sep 25, 2020 at 17:30 Legal Status (on Admission): Voluntary DPOA/Guardian Name: Patito Sunshine Contact Other Contact Name: Priyanka Worthy Other Contact Verified Code Status: Full Code Allergies: Coded Allergies: Sulfa (Sulfonamide Antibiotics) (Verified Allergy, Intermediate, 06/15/20) iodine (Verified Allergy, Intermediate, 06/15/20) shellfish derived (Verified Allergy, Intermediate, 06/15/20) Diagnoses Primary Diagnosis: Psychosis, unspecified Reasons for Admission: Aggressive, Poor impulse control Problem in Patient's Words: She did fine for a while but then started having an increase in agitation with behaviors Additional Admission Comments: According to the intake pt is agitated, aggressive, biting, spitting Problems Active Problems: Withdrawn to room Inactive Problems: Medication compliant Pt Strengths/Limitations Ability for [place]: Poor Cognitive Functioning/Ability: Fair Communication Skills/Ability: Fair Financial Resources: Fair Insight/Judgement: Poor Intellectual Ability: Fair Physical Health: Poor Social Skills: Fair Stability in Family: Good Stability in School/Work: Poor Verbal Skills: Fair Discharge Criteria Discharge Criteria: No need for close observ., Adequate arrangements @DC, Improved behavior, Improved mood/thought Preliminary Discharge Plan Preliminary DC Plan: Placement Needed Special Precautions Fall Risk: Low Initial D/C Plan Potential plans for referrals to placement (AL versus LTC) Identified Discharge Needs: Potential referrals sent to placement for pt. Currently Utilized Resources Currently Utilized Resources/P: Primary Care Physician Referrals Community Resources: [facility] versus LTC Identified Problems/Hx/Goals Objectives/Short-Term Goals Short Term Goals: Dec. Aggression, Dec. Outbursts, Medication Stabilization, Promote Coping Skill Short Term Goals in Patient's: N/A Interventions/Frequency Staff Interventions/Frequency&: Psychiatrist to assess pt at least 3x per week for medication management Social Work to assess pt at least 2x per week for identification to barriers to care and discharge planning. Nursing to assess behaviors, medication mgmt and completion of 15 minute checks daily. Encourage group participation in activities (if applicable) or 1:1 engagement based of activity dept goals. 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 Education: Pt was able to graduate high school (12th) grade Community Follow-up Need for PCP follow-up Community Provider/Family Inpu: Family feels that placement will be needed and needs aid in getting this set up along with Medicaid for payment. 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 Pt is mainly withdrawn to her room but compliant with medications. Pt feels as though she is being held against her will and is ready to leave; with the intention of calling Medicare and reporting the hospital. Pt dtrs Linsey participated in tx team and requested that staff talk to pt about the recommendation. They feel that if it comes from staff and the realization of not being safe at home is made, then they are able to actually go further into it with pt on why they agree and are making the decision to have pt go to placement. Pt dtrs report that pt that in talking to pt she has a lot of confusion and does not want anyone in her house with the belief that she can care for herself at home. SW and nursing will have that conversation with pt this afternoon. GLADIS GUERRA Oct 12, 2020 13:40
--- NOTE | 2020-10-12 15:51 | NUR ---
Patient sitting in room in chair at time of assessment. Patient is calm and cooperative and takes medications whole with no problems. Patient has no complaints today. She is wanting to speak to someone about going home. I will direct to social work to see what they can help her with. Patient is alert and oriented, can get irritable when asked questions and states the only reason she is here is because of her UTI and that she needs to go home now because it is no longer there. Will discuss with MD and get back to patient with concerns. In treatment team today we discussed with daughters about talking to Maggie regarding not going home but instead going to assisted living facility for her safety. Patient may get upset regarding this conversation so we will address it with her and go from there. Daughters are willing to talk to who e Addendum: 10/12/20 at 1605 by LUIS A THOMAS RN patient but wants all staff and physician to be on board so the patient understands it is medically necessary and they are not forcing her to go. They want patient to understand that it is for her safety to go to assisted living facility. Will discuss with social work and patient and go from there.
[2020-10-12 16:25] VITALS: BP 126/81
--- NOTE | 2020-10-12 16:45 | NUR ---
SW met with pt to go over discharge plans. SW explained to pt that based off of safety concerns and some ongoing confusion, pt recommendation would be to discharge to a higher level of care that allows for 24/7 nursing care versus home alone. Pt did not like this news and felt that she was just fine being at home. SW went over concerns such as pt leaving the stove on, leaving the front doors and windows open while pt was in the back of the house. Pt reports that she never leaves her door open unless she's sitting in the front of the house and that she stays in the kitchen while the stove is. Pt stated "I can read, balance my own checkbook, and I can paint my own nails. I do things that no one else has to worry about so why do I need to go some place other than my own house". SW explained that prior to the UTI, pt had periods of confusion and safety concerns that over time, the decision needs to be made that change needs to happen. SW went over the fact that pt could potentially go to AL for the increase in care and supervision with nursing. SW and pt discussed if living with her family was an option and pt said that it would be just fine; but at the same time, there's no need for me to. SW questioned pt calling the police a couple times too and pt reports that she never called the police. She believes that her neighbors called the police due to them not seeing her out of her house for a few days. SW re-questioned pt, as she has been known to call 911 for a specific police aide and pt continues to deny that it was ever her. BI encouraged pt to speak with her dtrs about going to placement versus home, as they have the same concerns. "They were concerned about me when they were 18 and left the house. I'm not surprised by anything with them". BI explained that discharge recommendations are not taken lightly and safety always needs to be first.
--- NOTE | 2020-10-12 17:15 | NUR ---
SW attempted to contact pt dtrPatito to update her on conversation; SW left a message asking her for a returned call when possible.
--- NOTE | 2020-10-12 17:45 | NUR ---
BI received call from Patito and let her know about the conversation had with pt. Patito was appreciative that "a seed about placement has been planted" and the family will plan to take it from there. BI and Patito talked about having pt look at [place] versus [facility] settings as she may be more appropriate for AL as it will allow her to have her own things and still maintain the 24/7 care. SW will come up with that list and make sure the family can look at a few options.
[2020-10-12] MEDS: traZODone 50 MG TABLET. PO SCH (20:39)
[2020-10-12] MEDS: MELATONIN 3 MG TABLET PO SCH (20:39)
[2020-10-12] MEDS: risperiDONE 1 MG TABLET. PO SCH (20:39)
[2020-10-12] MEDS: ATORVASTATIN CALCIUM 20 MG TABLET PO SCH (20:40)
--- NOTE | 2020-10-12 21:09 | PDOC ---
Exam Note: Carlos A Note: Please also refer to the separate dictated note~for this date of service dictated separately.~Patient seen individually. Discussed the patient with Nursing staff reviewed the chart.~Reviewed interim history and current functioning. Reviewed vital signs,~Labs/ Radiology~and current medications noted below. Continue current treatment with the changes noted in the dictated addendum note Assessment: Vital Signs/I&O: Vital Signs Date Time Temp Pulse Resp B/P (MAP) Pulse Ox O2 Delivery O2 Flow Rate FiO2 10/12/20 16:25 98.2 80 16 126/81 (96) 97 10/10/20 06:05 Room Air I & O 10/11/20 10/11/20 10/12/20 15:00 23:00 07:00 Intake Total 480 ml 480 ml Balance 480 ml 480 ml Current Medications: Meds: Current Medications Medications (Trade) Dose Ordered Sig/Tory Route PRN Reason Start Time Stop Time Status Last Admin Dose Admin Acetaminophen (Tylenol) 650 mg PRN Q6HRS PRN PO MILD PAIN / TEMP > 100.3'F 09/25/20 18:15 09/25/20 21:02 Multi-Ingredient Ointment (Analgesic [place]) 1 mariya PRN QID PRN TP MUSCLE PAIN 09/25/20 18:15 Al Hydroxide/Mg Hydroxide (Mylanta Plus Xs) 15 ml PRN AFTMEALHC PRN PO DYSPEPSIA 09/25/20 18:15 Magnesium Hydroxide (Milk Of Magnesia) 2,400 mg PRN QHS PRN PO CONSTIPATION, 2ND CHOICE 09/25/20 18:15 Acetaminophen (Tylenol) 650 mg Q6HRS PRN PO pain or fever 09/25/20 18:45 UNV Amlodipine Besylate (Norvasc) 10 mg DAILY PO 09/26/20 09:00 10/12/20 08:54 Aspirin (Aspirin Chewable) 81 mg DAILY PO 09/26/20 09:00 10/12/20 08:54 Vitamin D (Vitamin D3) 50,000 unit WEEKLY PO 10/01/20 09:00 10/08/20 08:22 Lidocaine (Lidoderm) 1 patch DAILY TP 09/26/20 09:00 10/07/20 17:00 DC 10/06/20 09:01 Polyethylene Glycol (miraLAX) 17 gm DAILY PO 09/26/20 09:00 10/07/20 17:00 DC 10/06/20 09:01 Atorvastatin Calcium (Lipitor) 40 mg QHS PO 09/25/20 21:00 10/12/20 20:40 Calcium Carbonate/ Glycine (Oscal) 500 mg DAILY PO 09/26/20 09:00 10/12/20 08:54 Quetiapine Fumarate (SEROquel) 50 mg TID PO 09/25/20 21:00 09/29/20 21:02 DC 09/29/20 13:43 Quetiapine Fumarate (SEROquel) 100 mg QHS PO 09/25/20 21:00 09/29/20 21:02 DC 09/28/20 19:48 Trazodone HCl (Desyrel) 25 mg BID PO 09/25/20 21:00 09/27/20 21:30 DC 09/27/20 21:18 Trazodone HCl (Desyrel) 50 mg QHS PO 09/25/20 21:00 10/12/20 20:39 Melatonin (Melatonin) 3 mg QHS PO 09/25/20 21:00 10/12/20 20:39 Miscellaneous (Lidoderm Patch Removal) 1 ea QHS MC 09/25/20 21:00 10/11/20 20:49 DC 10/10/20 20:15 Levofloxacin (Levaquin) 250 mg DAILY PO 09/27/20 13:00 10/02/20 21:01 DC 10/02/20 08:39 Lactobacillus Rhamnosus (Culturelle) 1 cap BID PO 09/27/20 21:00 10/12/20 20:39 Trazodone HCl (Desyrel) 50 mg PRN QHS PRN PO INSOMNIA 09/27/20 21:30 Risperidone (RisperDAL) 1 mg HS PO 09/30/20 21:00 09/29/20 21:04 DC Risperidone (RisperDAL) 1 mg HS PO 09/29/20 21:15 10/01/20 17:44 DC 09/30/20 20:24 Risperidone (RisperDAL) 1.25 mg HS PO 10/01/20 21:00 10/12/20 20:39 Polyethylene Glycol (miraLAX) 17 gm PRN DAILY PRN PO CONSTIPATION, 1ST CHOICE 10/07/20 17:00 10/08/20 13:56 I have reviewed the current psychotropics carefully including drug interactions. Risk benefit ratio favors no change other than as noted in my dictated progress note. Diagnosis: Problems: (1) Major depressive disorder with psychotic features (2) Anxiety disorder, unspecified (3) Mild cognitive impairment DYANA DEVINE MD Oct 12, 2020 21:09
--- NOTE | 2020-10-12 23:19 | NUR ---
This evening pt was sitting quietly in her room reading a book. Meds were taken whole without difficulty. She said her daughter thinks she may need to go to assisted living [place], pt says she is able to function well in her own home and doesn't think she needs AL at this time. She also said she has been discharged by PT here.
[2020-10-13 05:52] VITALS: BP 134/83
[2020-10-13] MEDS: amLODIPine BESYLATE 10 MG TABLET PO SCH (07:43)
[2020-10-13] MEDS: LACTOBACILLUS RHAMNOSUS GG 1 CAPSULE. PO SCH ×2 (07:44→20:03)
[2020-10-13] MEDS: CALCIUM CARBONATE 500 MG TABLET PO SCH (07:44)
[2020-10-13] MEDS: ASPIRIN CHEWABLE 81 MG TABLET. PO SCH (07:44)
--- NOTE | 2020-10-13 08:28 | PDOC ---
Exam Note: Carlos A Note: This note is a late entry for 10/12/2020 covers elements not covered in my initial note. Subjective: The patient was seen face to face in the morning of 10/12/2020 for a treatment team meeting with Constanza Quinones, Yuni Tim and Diann (group social worker), Morelia Garcia, activity therapy and Kamila MACARIO, discussed and reviewed the chart. The patients daughters Patito and Loyda attended this lengthy treatment team meeting. The patient slept 2 hours previous night. She continues to minimize and denies any problems that prompted her admission to and then transfer here. She is demanding to go home. Daughters are very concerned since this current hospitalization was prompted because of her marked psychotic symptoms and paranoia. She is repeatedly calling police to her home, extremely psychotic, non compliant with treatment and accepting assistance. The patient wants to be discharged home. Family is concerned that this would be an unsafe disposition and now pursuing nursing placement. Review of Systems: No CV, , pulmonary, eye system symptoms on review. Mental Status Exam: The patient is oriented to herself and situation. Speech has some latency, coherent. Abstraction is fair. Computation impaired. Language function is intact. Attention span is short. Mood and affect withdrawn. Laboratory Data: Reviewed. Impression: Major depressive disorder with psychotic features. Mild cognitive impairment. Anxiety disorder unspecified. Plan: No change from initial note. We met with the patient in the evening to discuss the above and she is somewhat upset about the decision by the family. We will continue current psychotropics. Adjust further as clinically indicated. Assessment: Vital Signs/I&O: Vital Signs Date Time Temp Pulse Resp B/P (MAP) Pulse Ox O2 Delivery O2 Flow Rate FiO2 10/13/20 07:43 89 134/83 10/13/20 05:52 98.4 16 95 Room Air I & O 10/12/20 10/12/20 10/13/20 15:00 23:00 07:00 Intake Total 240 ml 120 ml Balance 240 ml 120 ml Current Medications: Meds: Current Medications Medications (Trade) Dose Ordered Sig/Tory Route PRN Reason Start Time Stop Time Status Last Admin Dose Admin Acetaminophen (Tylenol) 650 mg PRN Q6HRS PRN PO MILD PAIN / TEMP > 100.3'F 09/25/20 18:15 09/25/20 21:02 Multi-Ingredient Ointment (Analgesic [place]) 1 mariya PRN QID PRN TP MUSCLE PAIN 09/25/20 18:15 Al Hydroxide/Mg Hydroxide (Mylanta Plus Xs) 15 ml PRN AFTMEALHC PRN PO DYSPEPSIA 09/25/20 18:15 Magnesium Hydroxide (Milk Of Magnesia) 2,400 mg PRN QHS PRN PO CONSTIPATION, 2ND CHOICE 09/25/20 18:15 Acetaminophen (Tylenol) 650 mg Q6HRS PRN PO pain or fever 09/25/20 18:45 UNV Amlodipine Besylate (Norvasc) 10 mg DAILY PO 09/26/20 09:00 10/13/20 07:43 Aspirin (Aspirin Chewable) 81 mg DAILY PO 09/26/20 09:00 10/13/20 07:44 Vitamin D (Vitamin D3) 50,000 unit WEEKLY PO 10/01/20 09:00 10/08/20 08:22 Lidocaine (Lidoderm) 1 patch DAILY TP 09/26/20 09:00 10/07/20 17:00 DC 10/06/20 09:01 Polyethylene Glycol (miraLAX) 17 gm DAILY PO 09/26/20 09:00 10/07/20 17:00 DC 10/06/20 09:01 Atorvastatin Calcium (Lipitor) 40 mg QHS PO 09/25/20 21:00 10/12/20 20:40 Calcium Carbonate/ Glycine (Oscal) 500 mg DAILY PO 09/26/20 09:00 10/13/20 07:44 Quetiapine Fumarate (SEROquel) 50 mg TID PO 09/25/20 21:00 09/29/20 21:02 DC 09/29/20 13:43 Quetiapine Fumarate (SEROquel) 100 mg QHS PO 09/25/20 21:00 09/29/20 21:02 DC 09/28/20 19:48 Trazodone HCl (Desyrel) 25 mg BID PO 09/25/20 21:00 09/27/20 21:30 DC 09/27/20 21:18 Trazodone HCl (Desyrel) 50 mg QHS PO 09/25/20 21:00 10/12/20 20:39 Melatonin (Melatonin) 3 mg QHS PO 09/25/20 21:00 10/12/20 20:39 Miscellaneous (Lidoderm Patch Removal) 1 ea QHS MC 09/25/20 21:00 10/11/20 20:49 DC 10/10/20 20:15 Levofloxacin (Levaquin) 250 mg DAILY PO 09/27/20 13:00 10/02/20 21:01 DC 10/02/20 08:39 Lactobacillus Rhamnosus (Culturelle) 1 cap BID PO 09/27/20 21:00 10/13/20 07:44 Trazodone HCl (Desyrel) 50 mg PRN QHS PRN PO INSOMNIA 09/27/20 21:30 Risperidone (RisperDAL) 1 mg HS PO 09/30/20 21:00 09/29/20 21:04 DC Risperidone (RisperDAL) 1 mg HS PO 09/29/20 21:15 10/01/20 17:44 DC 09/30/20 20:24 Risperidone (RisperDAL) 1.25 mg HS PO 10/01/20 21:00 10/12/20 20:39 Polyethylene Glycol (miraLAX) 17 gm PRN DAILY PRN PO CONSTIPATION, 1ST CHOICE 10/07/20 17:00 10/08/20 13:56 I have reviewed the current psychotropics carefully including drug interactions. Risk benefit ratio favors no change other than as noted in my dictated progress note. Diagnosis: Problems: (1) Mild cognitive impairment (2) Major depressive disorder with psychotic features (3) Anxiety disorder, unspecified DYANA DEVINE MD Oct 13, 2020 08:28
--- NOTE | 2020-10-13 10:28 | NUR ---
Pt appropriate and complaint this shift. Compliant with medications taken whole. She is A&OX4, denies SI/HI/VH/AH/pain. She expresses sadness and disagreement with her daughter's decision to have her reside in an assisted living facility. Pt is adamant that she is able and capable of living independently and that she poses no danger to her health or wellbeing. She appears genuine and sincere about her beliefs. When asked if she has talked to her daughters about how she feels, she states she has not, to which this nurse encouraged a conversation between her and daughters where everyone is open and honest about their feelings and fears. Pt is still adamant that the cause of her recent psychological problems is d/t a now resolved UTI. When this nurse asked if she is concerned that she could get another UTI that causes psychological disturbance, she replied "no." Pt appears very sad about the prospect of no longer living at home, stating she believes that if she goes to one she will "." She reiterated that she would not harm herself should she go to a facility, but rather she believes she will internally give up and "wither." Encouragement, support, and empathy given. Will pass on to the next shift.
[2020-10-13 12:57] LABS: BASO % 1 % (0-3); EOS # 0.3 x10^3/uL (0.0-0.7); EOS % 5 % (0-3); HEMOGLOBIN 12.4 g/dL (12.0-15.5); LYMPH # 1.6 x10^3/uL (1.0-4.8); LYMPH % 28 % (24-48); MEAN CORPUSCULAR HEMOGLOBIN 31 pg (25-35); MEAN CORPUSCULAR HGB CONC 33 g/dL (31-37); MEAN CORPUSCULAR VOLUME 94 fL (79-100); MONO # 0.5 x10^3/uL (0.0-1.1); MONO % 9 % (0-9); NEUT # 3.2 x10^3uL (1.8-7.7); NEUT % 57 % (31-73); PLATELET COUNT 340 x10^3/uL (140-400); RED BLOOD COUNT 4.05 x10^6/uL (3.50-5.40); RED CELL DISTRIBUTION WIDTH 14.1 % (11.5-14.5); WHITE BLOOD COUNT 5.6 x10^3/uL (4.0-11.0)
[2020-10-13 13:14] LABS: ALBUMIN/GLOBULIN RATIO 0.6 (1.0-1.7); CALCIUM 9.2 mg/dL (8.5-10.1); CREATININE 0.7 mg/dL (0.6-1.0); GFR 81.4; POTASSIUM 3.4 mmol/L (3.5-5.1); TOTAL BILIRUBIN 0.3 mg/dL (0.2-1.0); TOTAL PROTEIN 7.7 g/dL (6.4-8.2)
--- NOTE | 2020-10-13 14:00 | NUR ---
SW returned call to pt dtr, Linsey, to go over the conversation with pt and her acceptance of being placed at an [facility]. All parties discussed options for [facility], [facility] and [facility] (near [facility]). SW will send these referrals and get back to them. They will continue to look into other options as SW explained that it would be good to have options in the event that the 3 places discussed does not wish to accept pt for residency. BI informed them that SW has the Medicaid application. It will allow the facility to further explore payment as pt is applying for Medicaid.
[2020-10-13 15:36] VITALS: BP 155/77
[2020-10-13] MEDS: traZODone 50 MG TABLET. PO SCH (20:02)
[2020-10-13] MEDS: risperiDONE 1 MG TABLET. PO SCH (20:03)
[2020-10-13] MEDS: MELATONIN 3 MG TABLET PO SCH (20:03)
[2020-10-13] MEDS: ATORVASTATIN CALCIUM 20 MG TABLET PO SCH (20:03)
--- NOTE | 2020-10-13 20:58 | PDOC ---
Exam Note: Carlos A Note: Please also refer to the separate dictated note~for this date of service dictated separately.~Patient seen individually. Discussed the patient with Nursing staff reviewed the chart.~Reviewed interim history and current functioning. Reviewed vital signs,~Labs/ Radiology~and current medications noted below. Continue current treatment with the changes noted in the dictated addendum note Assessment: Vital Signs/I&O: Vital Signs Date Time Temp Pulse Resp B/P (MAP) Pulse Ox O2 Delivery O2 Flow Rate FiO2 10/13/20 15:36 97.9 78 16 155/77 (103) 97 10/13/20 05:52 Room Air I & O 10/12/20 10/12/20 10/13/20 14:59 22:59 06:59 Intake Total 240 ml 120 ml Balance 240 ml 120 ml Labs: Laboratory Tests Test 10/13/20 12:47 White Blood Count 5.6 x10^3/uL (4.0-11.0) Red Blood Count 4.05 x10^6/uL (3.50-5.40) Hemoglobin 12.4 g/dL (12.0-15.5) Hematocrit 38.0 % (36.0-47.0) Mean Corpuscular Volume 94 fL (79-100) Mean Corpuscular Hemoglobin 31 pg (25-35) Mean Corpuscular Hemoglobin Concent 33 g/dL (31-37) Red Cell Distribution Width 14.1 % (11.5-14.5) Platelet Count 340 x10^3/uL (140-400) Neutrophils (%) (Auto) 57 % (31-73) Lymphocytes (%) (Auto) 28 % (24-48) Monocytes (%) (Auto) 9 % (0-9) Eosinophils (%) (Auto) 5 % (0-3) H Basophils (%) (Auto) 1 % (0-3) Neutrophils # (Auto) 3.2 x10^3uL (1.8-7.7) Lymphocytes # (Auto) 1.6 x10^3/uL (1.0-4.8) Monocytes # (Auto) 0.5 x10^3/uL (0.0-1.1) Eosinophils # (Auto) 0.3 x10^3/uL (0.0-0.7) Basophils # (Auto) 0.0 x10^3/uL (0.0-0.2) Sodium Level 141 mmol/L (136-145) Potassium Level 3.4 mmol/L (3.5-5.1) L Chloride Level 103 mmol/L (98-107) Carbon Dioxide Level 33 mmol/L (21-32) H Anion Gap 5 (6-14) L Blood Urea Nitrogen 8 mg/dL (7-20) Creatinine 0.7 mg/dL (0.6-1.0) Estimated GFR (Cockcroft-Gault) 81.4 BUN/Creatinine Ratio 11 (6-20) Glucose Level 143 mg/dL (70-99) H Calcium Level 9.2 mg/dL (8.5-10.1) Total Bilirubin 0.3 mg/dL (0.2-1.0) Aspartate Amino Transferase (AST) 14 U/L (15-37) L Alanine Aminotransferase (ALT) 17 U/L (14-59) Alkaline Phosphatase 96 U/L (46-116) Total Protein 7.7 g/dL (6.4-8.2) Albumin 3.0 g/dL (3.4-5.0) L Albumin/Globulin Ratio 0.6 (1.0-1.7) L Current Medications: Meds: Laboratory Tests Test 10/13/20 12:47 White Blood Count 5.6 x10^3/uL Red Blood Count 4.05 x10^6/uL Hemoglobin 12.4 g/dL Hematocrit 38.0 % Mean Corpuscular Volume 94 fL Mean Corpuscular Hemoglobin 31 pg Mean Corpuscular Hemoglobin Concent 33 g/dL Red Cell Distribution Width 14.1 % Platelet Count 340 x10^3/uL Neutrophils (%) (Auto) 57 % Lymphocytes (%) (Auto) 28 % Monocytes (%) (Auto) 9 % Eosinophils (%) (Auto) 5 % Basophils (%) (Auto) 1 % Neutrophils # (Auto) 3.2 x10^3uL Lymphocytes # (Auto) 1.6 x10^3/uL Monocytes # (Auto) 0.5 x10^3/uL Eosinophils # (Auto) 0.3 x10^3/uL Basophils # (Auto) 0.0 x10^3/uL Sodium Level 141 mmol/L Potassium Level 3.4 mmol/L Chloride Level 103 mmol/L Carbon Dioxide Level 33 mmol/L Anion Gap 5 Blood Urea Nitrogen 8 mg/dL Creatinine 0.7 mg/dL Estimated GFR (Cockcroft-Gault) 81.4 BUN/Creatinine Ratio 11 Glucose Level 143 mg/dL Calcium Level 9.2 mg/dL Total Bilirubin 0.3 mg/dL Aspartate Amino Transf (AST/SGOT) 14 U/L Alanine Aminotransferase (ALT/SGPT) 17 U/L Alkaline Phosphatase 96 U/L Total Protein 7.7 g/dL Albumin 3.0 g/dL Albumin/Globulin Ratio 0.6 Current Medications Medications (Trade) Dose Ordered Sig/Tory Route PRN Reason Start Time Stop Time Status Last Admin Dose Admin Acetaminophen (Tylenol) 650 mg PRN Q6HRS PRN PO MILD PAIN / TEMP > 100.3'F 09/25/20 18:15 09/25/20 21:02 Multi-Ingredient Ointment (Analgesic [place]) 1 mariya PRN QID PRN TP MUSCLE PAIN 09/25/20 18:15 Al Hydroxide/Mg Hydroxide (Mylanta Plus Xs) 15 ml PRN AFTMEALHC PRN PO DYSPEPSIA 09/25/20 18:15 Magnesium Hydroxide (Milk Of Magnesia) 2,400 mg PRN QHS PRN PO CONSTIPATION, 2ND CHOICE 09/25/20 18:15 Acetaminophen (Tylenol) 650 mg Q6HRS PRN PO pain or fever 09/25/20 18:45 UNV Amlodipine Besylate (Norvasc) 10 mg DAILY PO 09/26/20 09:00 10/13/20 07:43 Aspirin (Aspirin Chewable) 81 mg DAILY PO 09/26/20 09:00 10/13/20 07:44 Vitamin D (Vitamin D3) 50,000 unit WEEKLY PO 10/01/20 09:00 10/08/20 08:22 Lidocaine (Lidoderm) 1 patch DAILY TP 09/26/20 09:00 10/07/20 17:00 DC 10/06/20 09:01 Polyethylene Glycol (miraLAX) 17 gm DAILY PO 09/26/20 09:00 10/07/20 17:00 DC 10/06/20 09:01 Atorvastatin Calcium (Lipitor) 40 mg QHS PO 09/25/20 21:00 10/13/20 20:03 Calcium Carbonate/ Glycine (Oscal) 500 mg DAILY PO 09/26/20 09:00 10/13/20 07:44 Quetiapine Fumarate (SEROquel) 50 mg TID PO 09/25/20 21:00 09/29/20 21:02 DC 09/29/20 13:43 Quetiapine Fumarate (SEROquel) 100 mg QHS PO 09/25/20 21:00 09/29/20 21:02 DC 09/28/20 19:48 Trazodone HCl (Desyrel) 25 mg BID PO 09/25/20 21:00 09/27/20 21:30 DC 09/27/20 21:18 Trazodone HCl (Desyrel) 50 mg QHS PO 09/25/20 21:00 10/13/20 20:02 Melatonin (Melatonin) 3 mg QHS PO 09/25/20 21:00 10/13/20 20:03 Miscellaneous (Lidoderm Patch Removal) 1 ea QHS MC 09/25/20 21:00 10/11/20 20:49 DC 10/10/20 20:15 Levofloxacin (Levaquin) 250 mg DAILY PO 09/27/20 13:00 10/02/20 21:01 DC 10/02/20 08:39 Lactobacillus Rhamnosus (Culturelle) 1 cap BID PO 09/27/20 21:00 10/13/20 20:03 Trazodone HCl (Desyrel) 50 mg PRN QHS PRN PO INSOMNIA 09/27/20 21:30 Risperidone (RisperDAL) 1 mg HS PO 09/30/20 21:00 09/29/20 21:04 DC Risperidone (RisperDAL) 1 mg HS PO 09/29/20 21:15 10/01/20 17:44 DC 09/30/20 20:24 Risperidone (RisperDAL) 1.25 mg HS PO 10/01/20 21:00 10/13/20 20:03 Polyethylene Glycol (miraLAX) 17 gm PRN DAILY PRN PO CONSTIPATION, 1ST CHOICE 10/07/20 17:00 10/08/20 13:56 I have reviewed the current psychotropics carefully including drug interactions. Risk benefit ratio favors no change other than as noted in my dictated progress note. Diagnosis: Problems: (1) Major depressive disorder with psychotic features (2) Anxiety disorder, unspecified (3) Mild cognitive impairment NILSON,MAN M MD Oct 13, 2020 20:57
[2020-10-14 06:19] VITALS: BP 125/81
--- NOTE | 2020-10-14 07:52 | PDOC ---
Exam Note: Carlos A Note: This note is a late entry for 10/13/2020 covers elements not covered in my initial note. Subjective: The patient was seen face to face in the evening of 10/13/2020 with Jen MACARIO, discussed and reviewed the chart. The patient slept 6-1/2 hours previous night. She remains somewhat withdrawn. She has been upset that the family is pursuing nursing facility/assisted living. I processed this with her. Review of Systems: No CV, , pulmonary, eye system symptoms on review. She was in her room reading the Bible. Mental Status Exam: The patient is oriented to herself and situation. Speech has some latency, coherent. Abstraction is fair. Computation impaired. Language function is intact. Mood and affect somewhat withdrawn. Laboratory Data: Reviewed. Impression: Major depressive disorder with psychotic features. Mild cognitive impairment. Anxiety disorder unspecified. Plan: No change from initial note. Assessment: Vital Signs/I&O: Vital Signs Date Time Temp Pulse Resp B/P (MAP) Pulse Ox O2 Delivery O2 Flow Rate FiO2 10/14/20 06:19 97.6 65 16 125/81 (96) 94 10/13/20 05:52 Room Air I & O 0 10/13/20 10/13/20 10/14/20 14:59 22:59 06:59 Intake Total 780 ml 480 ml Balance 780 ml 480 ml Labs: Laboratory Tests Test 10/13/20 12:47 White Blood Count 5.6 x10^3/uL (4.0-11.0) Red Blood Count 4.05 x10^6/uL (3.50-5.40) Hemoglobin 12.4 g/dL (12.0-15.5) Hematocrit 38.0 % (36.0-47.0) Mean Corpuscular Volume 94 fL (79-100) Mean Corpuscular Hemoglobin 31 pg (25-35) Mean Corpuscular Hemoglobin Concent 33 g/dL (31-37) Red Cell Distribution Width 14.1 % (11.5-14.5) Platelet Count 340 x10^3/uL (140-400) Neutrophils (%) (Auto) 57 % (31-73) Lymphocytes (%) (Auto) 28 % (24-48) Monocytes (%) (Auto) 9 % (0-9) Eosinophils (%) (Auto) 5 % (0-3) H Basophils (%) (Auto) 1 % (0-3) Neutrophils # (Auto) 3.2 x10^3uL (1.8-7.7) Lymphocytes # (Auto) 1.6 x10^3/uL (1.0-4.8) Monocytes # (Auto) 0.5 x10^3/uL (0.0-1.1) Eosinophils # (Auto) 0.3 x10^3/uL (0.0-0.7) Basophils # (Auto) 0.0 x10^3/uL (0.0-0.2) Sodium Level 141 mmol/L (136-145) Potassium Level 3.4 mmol/L (3.5-5.1) L Chloride Level 103 mmol/L (98-107) Carbon Dioxide Level 33 mmol/L (21-32) H Anion Gap 5 (6-14) L Blood Urea Nitrogen 8 mg/dL (7-20) Creatinine 0.7 mg/dL (0.6-1.0) Estimated GFR (Cockcroft-Gault) 81.4 BUN/Creatinine Ratio 11 (6-20) Glucose Level 143 mg/dL (70-99) H Calcium Level 9.2 mg/dL (8.5-10.1) Total Bilirubin 0.3 mg/dL (0.2-1.0) Aspartate Amino Transferase (AST) 14 U/L (15-37) L Alanine Aminotransferase (ALT) 17 U/L (14-59) Alkaline Phosphatase 96 U/L (46-116) Total Protein 7.7 g/dL (6.4-8.2) Albumin 3.0 g/dL (3.4-5.0) L Albumin/Globulin Ratio 0.6 (1.0-1.7) L Current Medications: Meds: Laboratory Tests Test 10/13/20 12:47 White Blood Count 5.6 x10^3/uL Red Blood Count 4.05 x10^6/uL Hemoglobin 12.4 g/dL Hematocrit 38.0 % Mean Corpuscular Volume 94 fL Mean Corpuscular Hemoglobin 31 pg Mean Corpuscular Hemoglobin Concent 33 g/dL Red Cell Distribution Width 14.1 % Platelet Count 340 x10^3/uL Neutrophils (%) (Auto) 57 % Lymphocytes (%) (Auto) 28 % Monocytes (%) (Auto) 9 % Eosinophils (%) (Auto) 5 % Basophils (%) (Auto) 1 % Neutrophils # (Auto) 3.2 x10^3uL Lymphocytes # (Auto) 1.6 x10^3/uL Monocytes # (Auto) 0.5 x10^3/uL Eosinophils # (Auto) 0.3 x10^3/uL Basophils # (Auto) 0.0 x10^3/uL Sodium Level 141 mmol/L Potassium Level 3.4 mmol/L Chloride Level 103 mmol/L Carbon Dioxide Level 33 mmol/L Anion Gap 5 Blood Urea Nitrogen 8 mg/dL Creatinine 0.7 mg/dL Estimated GFR (Cockcroft-Gault) 81.4 BUN/Creatinine Ratio 11 Glucose Level 143 mg/dL Calcium Level 9.2 mg/dL Total Bilirubin 0.3 mg/dL Aspartate Amino Transf (AST/SGOT) 14 U/L Alanine Aminotransferase (ALT/SGPT) 17 U/L Alkaline Phosphatase 96 U/L Total Protein 7.7 g/dL Albumin 3.0 g/dL Albumin/Globulin Ratio 0.6 Current Medications Medications (Trade) Dose Ordered Sig/Tory Route PRN Reason Start Time Stop Time Status Last Admin Dose Admin Acetaminophen (Tylenol) 650 mg PRN Q6HRS PRN PO MILD PAIN / TEMP > 100.3'F 09/25/20 18:15 09/25/20 21:02 Multi-Ingredient Ointment (Analgesic [place]) 1 mariya PRN QID PRN TP MUSCLE PAIN 09/25/20 18:15 Al Hydroxide/Mg Hydroxide (Mylanta Plus Xs) 15 ml PRN AFTMEALHC PRN PO DYSPEPSIA 09/25/20 18:15 Magnesium Hydroxide (Milk Of Magnesia) 2,400 mg PRN QHS PRN PO CONSTIPATION, 2ND CHOICE 09/25/20 18:15 Acetaminophen (Tylenol) 650 mg Q6HRS PRN PO pain or fever 09/25/20 18:45 UNV Amlodipine Besylate (Norvasc) 10 mg DAILY PO 09/26/20 09:00 10/13/20 07:43 Aspirin (Aspirin Chewable) 81 mg DAILY PO 09/26/20 09:00 10/13/20 07:44 Vitamin D (Vitamin D3) 50,000 unit WEEKLY PO 10/01/20 09:00 10/08/20 08:22 Lidocaine (Lidoderm) 1 patch DAILY TP 09/26/20 09:00 10/07/20 17:00 DC 10/06/20 09:01 Polyethylene Glycol (miraLAX) 17 gm DAILY PO 09/26/20 09:00 10/07/20 17:00 DC 10/06/20 09:01 Atorvastatin Calcium (Lipitor) 40 mg QHS PO 09/25/20 21:00 10/13/20 20:03 Calcium Carbonate/ Glycine (Oscal) 500 mg DAILY PO 09/26/20 09:00 10/13/20 07:44 Quetiapine Fumarate (SEROquel) 50 mg TID PO 09/25/20 21:00 09/29/20 21:02 DC 09/29/20 13:43 Quetiapine Fumarate (SEROquel) 100 mg QHS PO 09/25/20 21:00 09/29/20 21:02 DC 09/28/20 19:48 Trazodone HCl (Desyrel) 25 mg BID PO 09/25/20 21:00 09/27/20 21:30 DC 09/27/20 21:18 Trazodone HCl (Desyrel) 50 mg QHS PO 09/25/20 21:00 10/13/20 20:02 Melatonin (Melatonin) 3 mg QHS PO 09/25/20 21:00 10/13/20 20:03 Miscellaneous (Lidoderm Patch Removal) 1 ea QHS MC 09/25/20 21:00 10/11/20 20:49 DC 10/10/20 20:15 Levofloxacin (Levaquin) 250 mg DAILY PO 09/27/20 13:00 10/02/20 21:01 DC 10/02/20 08:39 Lactobacillus Rhamnosus (Culturelle) 1 cap BID PO 09/27/20 21:00 10/13/20 20:03 Trazodone HCl (Desyrel) 50 mg PRN QHS PRN PO INSOMNIA 09/27/20 21:30 Risperidone (RisperDAL) 1 mg HS PO 09/30/20 21:00 09/29/20 21:04 DC Risperidone (RisperDAL) 1 mg HS PO 09/29/20 21:15 10/01/20 17:44 DC 09/30/20 20:24 Risperidone (RisperDAL) 1.25 mg HS PO 10/01/20 21:00 10/13/20 20:03 Polyethylene Glycol (miraLAX) 17 gm PRN DAILY PRN PO CONSTIPATION, 1ST CHOICE 10/07/20 17:00 10/08/20 13:56 I have reviewed the current psychotropics carefully including drug interactions. Risk benefit ratio favors no change other than as noted in my dictated progress note. Diagnosis: Problems: (1) Major depressive disorder with psychotic features (2) Anxiety disorder, unspecified (3) Mild cognitive impairment DYANA DEVINE MD Oct 14, 2020 07:52
[2020-10-14] MEDS: ASPIRIN CHEWABLE 81 MG TABLET. PO SCH (07:55)
[2020-10-14] MEDS: amLODIPine BESYLATE 10 MG TABLET PO SCH (07:55)
[2020-10-14] MEDS: CALCIUM CARBONATE 500 MG TABLET PO SCH (07:55)
[2020-10-14] MEDS: LACTOBACILLUS RHAMNOSUS GG 1 CAPSULE. PO SCH ×2 (07:55→20:15)
--- NOTE | 2020-10-14 15:31 | NUR ---
Patient in room at time of assessment. Patient is calm and cooperative and takes medications whole with no problems. Patient is alert and oriented and is talking about going to assisted living. She is not upset and thinks it will be good for her so that she doesn't keep having to come back here to our facility. She has no further complaints and there are no concerns at this time.
[2020-10-14 15:48] VITALS: BP 128/80
[2020-10-14] MEDS: ATORVASTATIN CALCIUM 20 MG TABLET PO SCH (20:15)
[2020-10-14] MEDS: traZODone 50 MG TABLET. PO SCH (20:15)
[2020-10-14] MEDS: risperiDONE 1 MG TABLET. PO SCH (20:15)
[2020-10-14] MEDS: MELATONIN 3 MG TABLET PO SCH (20:15)
--- NOTE | 2020-10-14 21:03 | PDOC ---
Exam Note: Carlos A Note: Please also refer to the separate dictated note~for this date of service dictated separately.~Patient seen individually. Discussed the patient with Nursing staff reviewed the chart.~Reviewed interim history and current functioning. Reviewed vital signs,~Labs/ Radiology~and current medications noted below. Continue current treatment with the changes noted in the dictated addendum note Assessment: Vital Signs/I&O: Vital Signs Date Time Temp Pulse Resp B/P (MAP) Pulse Ox O2 Delivery O2 Flow Rate FiO2 10/14/20 15:48 97.2 81 18 128/80 (96) 97 Room Air I & O 10/13/20 10/13/20 10/14/20 15:00 23:00 07:00 Intake Total 780 ml 480 ml Balance 780 ml 480 ml Current Medications: Meds: Current Medications Medications (Trade) Dose Ordered Sig/Tory Route PRN Reason Start Time Stop Time Status Last Admin Dose Admin Acetaminophen (Tylenol) 650 mg PRN Q6HRS PRN PO MILD PAIN / TEMP > 100.3'F 09/25/20 18:15 09/25/20 21:02 Multi-Ingredient Ointment (Analgesic [place]) 1 mariya PRN QID PRN TP MUSCLE PAIN 09/25/20 18:15 Al Hydroxide/Mg Hydroxide (Mylanta Plus Xs) 15 ml PRN AFTMEALHC PRN PO DYSPEPSIA 09/25/20 18:15 Magnesium Hydroxide (Milk Of Magnesia) 2,400 mg PRN QHS PRN PO CONSTIPATION, 2ND CHOICE 09/25/20 18:15 Acetaminophen (Tylenol) 650 mg Q6HRS PRN PO pain or fever 09/25/20 18:45 UNV Amlodipine Besylate (Norvasc) 10 mg DAILY PO 09/26/20 09:00 10/14/20 07:55 Aspirin (Aspirin Chewable) 81 mg DAILY PO 09/26/20 09:00 10/14/20 07:55 Vitamin D (Vitamin D3) 50,000 unit WEEKLY PO 10/01/20 09:00 10/08/20 08:22 Lidocaine (Lidoderm) 1 patch DAILY TP 09/26/20 09:00 10/07/20 17:00 DC 10/06/20 09:01 Polyethylene Glycol (miraLAX) 17 gm DAILY PO 09/26/20 09:00 10/07/20 17:00 DC 10/06/20 09:01 Atorvastatin Calcium (Lipitor) 40 mg QHS PO 09/25/20 21:00 10/14/20 20:15 Calcium Carbonate/ Glycine (Oscal) 500 mg DAILY PO 09/26/20 09:00 10/14/20 07:55 Quetiapine Fumarate (SEROquel) 50 mg TID PO 09/25/20 21:00 09/29/20 21:02 DC 09/29/20 13:43 Quetiapine Fumarate (SEROquel) 100 mg QHS PO 09/25/20 21:00 09/29/20 21:02 DC 09/28/20 19:48 Trazodone HCl (Desyrel) 25 mg BID PO 09/25/20 21:00 09/27/20 21:30 DC 09/27/20 21:18 Trazodone HCl (Desyrel) 50 mg QHS PO 09/25/20 21:00 10/14/20 20:15 Melatonin (Melatonin) 3 mg QHS PO 09/25/20 21:00 10/14/20 20:15 Miscellaneous (Lidoderm Patch Removal) 1 ea QHS MC 09/25/20 21:00 10/11/20 20:49 DC 10/10/20 20:15 Levofloxacin (Levaquin) 250 mg DAILY PO 09/27/20 13:00 10/02/20 21:01 DC 10/02/20 08:39 Lactobacillus Rhamnosus (Culturelle) 1 cap BID PO 09/27/20 21:00 10/14/20 20:15 Trazodone HCl (Desyrel) 50 mg PRN QHS PRN PO INSOMNIA 09/27/20 21:30 Risperidone (RisperDAL) 1 mg HS PO 09/30/20 21:00 09/29/20 21:04 DC Risperidone (RisperDAL) 1 mg HS PO 09/29/20 21:15 10/01/20 17:44 DC 09/30/20 20:24 Risperidone (RisperDAL) 1.25 mg HS PO 10/01/20 21:00 10/14/20 20:15 Polyethylene Glycol (miraLAX) 17 gm PRN DAILY PRN PO CONSTIPATION, 1ST CHOICE 10/07/20 17:00 2/14/21 13:56 I have reviewed the current psychotropics carefully including drug interactions. Risk benefit ratio favors no change other than as noted in my dictated progress note. Diagnosis: Problems: (1) Major depressive disorder with psychotic features (2) Anxiety disorder, unspecified (3) Mild cognitive impairment DYANA DEVINE MD Oct 14, 2020 21:03
[2020-10-15 05:38] VITALS: BP 138/72
[2020-10-15] MEDS: ASPIRIN CHEWABLE 81 MG TABLET. PO SCH (08:17)
[2020-10-15] MEDS: LACTOBACILLUS RHAMNOSUS GG 1 CAPSULE. PO SCH ×2 (08:18→20:23)
[2020-10-15] MEDS: amLODIPine BESYLATE 10 MG TABLET PO SCH (08:18)
[2020-10-15] MEDS: CALCIUM CARBONATE 500 MG TABLET PO SCH (08:18)
[2020-10-15] MEDS: CHOLECALCIFEROL (VITAMIN D3) 50,000 UNIT CAPSULE PO SCH (08:23)
--- NOTE | 2020-10-15 10:21 | NUR ---
Pt is calm, cooperative, and compliant. No agitation, no aggression, no hallucinations or delusions noted. She is compliant with her medication and assessment.
[2020-10-15 16:24] VITALS: BP 133/61
[2020-10-15] MEDS: risperiDONE 1 MG TABLET. PO SCH (20:23)
[2020-10-15] MEDS: ATORVASTATIN CALCIUM 20 MG TABLET PO SCH (20:23)
[2020-10-15] MEDS: MELATONIN 3 MG TABLET PO SCH (20:24)
[2020-10-15] MEDS: traZODone 50 MG TABLET. PO SCH (20:24)
--- NOTE | 2020-10-15 21:33 | PDOC ---
Exam Note: Carlos A Note: Please also refer to the separate dictated note~for this date of service dictated separately.~Patient seen individually. Discussed the patient with Nursing staff reviewed the chart.~Reviewed interim history and current functioning. Reviewed vital signs,~Labs/ Radiology~and current medications noted below. Continue current treatment with the changes noted in the dictated addendum note Assessment: Vital Signs/I&O: Vital Signs Date Time Temp Pulse Resp B/P (MAP) Pulse Ox O2 Delivery O2 Flow Rate FiO2 10/15/20 16:24 97.6 66 20 133/61 (85) 97 Room Air I & O 10/14/20 10/14/20 10/15/20 14:59 22:59 06:59 Intake Total 480 ml 480 ml Balance 480 ml 480 ml Current Medications: I have reviewed the current psychotropics carefully including drug interactions. Risk benefit ratio favors no change other than as noted in my dictated progress note. Diagnosis: Problems: (1) Person under investigation for COVID-19 (2) Paranoid delusion (3) Psychotic disorder (4) Mild cognitive impairment (5) Dementia, vascular, with depression (6) Dementia, vascular, with delusions (7) Dementia in Alzheimer's disease with depression (8) Dementia in Alzheimer's disease with delusions (9) Major neurocognitive disorder (10) Dementia in Alzheimer's disease with early onset with behavioral disturbance (11) Major depressive disorder with psychotic features (12) Anxiety disorder, unspecified DYANA DEVINE MD Oct 15, 2020 21:33
--- NOTE | 2020-10-15 23:00 | NUR ---
Patient was speaking to her daughter on the phone when nurse entered the room. Patient placed the phone on her lap and took her medications. Patient resumed talking on the phone when finished. She was calm, cooperative and compliant, no adverse behaviors noted this shift. When nurse checked back in on patient, she had gotten into bed.
[2020-10-16 06:01] VITALS: BP 138/93
--- NOTE | 2020-10-16 06:58 | PN ---
DATE: 10/15/2020 PSYCHIATRIC PROGRESS NOTE This late entry date of service 10/15/2020 covers elements not covered in my initial note. SUBJECTIVE: I met with the patient individually in her room, evening of 10/15. The patient slept 7-3/4 hours previous night. Per Maeve RN, the patient did well previous night and during the day on 10/15. She is isolative, spends much time in her room and was reading the Bible again this evening as I visited her. She seems to have accepted her transition to assisted living and is no longer repetitively obsessively questioning me on this and talking about hiring an attorney lawyer or other aspects to not go to a placement. REVIEW OF SYSTEMS: No CV, , pulmonary, eye, ENT system symptoms on review. MENTAL STATUS EXAMINATION: The patient is reasonably oriented. Speech has some latency, coherent. Abstraction fair, computation impaired, language function intact. Mood and affect somewhat withdrawn, but less dysphoric. Delusions appear much improved. No suicidal or homicidal ideation. LABORATORY DATA: Reviewed. IMPRESSION: Major depressive disorder with psychotic features, mild cognitive impairment. Rest unchanged. PLAN: Continue current psychotropics mentioned in my initial note. We may consider reducing the Risperdal in due course, currently 1.25 mg at bedtime. DYANA DEVINE MD DR: SUJATHA/jenni JOB#: [id number] / [id number]
[2020-10-16] MEDS: CALCIUM CARBONATE 500 MG TABLET PO SCH (08:23)
[2020-10-16] MEDS: ASPIRIN CHEWABLE 81 MG TABLET. PO SCH (08:23)
[2020-10-16] MEDS: LACTOBACILLUS RHAMNOSUS GG 1 CAPSULE. PO SCH ×2 (08:23→21:10)
[2020-10-16] MEDS: amLODIPine BESYLATE 10 MG TABLET PO SCH (08:24)
[2020-10-16 15:36] VITALS: BP 136/69
--- NOTE | 2020-10-16 17:36 | NUR ---
Patient in room at time of assessment. Patient just finished eating breakfast in dining vaz prior. Patient takes medications whole with no problems. Patient is alert and oriented with no complaints. Patient is awaiting placement and continues to keep to herself in her room with little to no behaviors. She does come out for activities and to watch TV at times. No further concerns at this time.
[2020-10-16] MEDS: MELATONIN 3 MG TABLET PO SCH (21:11)
[2020-10-16] MEDS: risperiDONE 1 MG TABLET. PO SCH (21:11)
[2020-10-16] MEDS: ATORVASTATIN CALCIUM 20 MG TABLET PO SCH (21:12)
[2020-10-16] MEDS: traZODone 50 MG TABLET. PO SCH (21:12)
--- NOTE | 2020-10-16 21:59 | PDOC ---
Exam Note: Carlos A Note: Please also refer to the separate dictated note~for this date of service dictated separately.~Patient seen individually. Discussed the patient with Nursing staff reviewed the chart.~Reviewed interim history and current functioning. Reviewed vital signs,~Labs/ Radiology~and current medications noted below. Continue current treatment with the changes noted in the dictated addendum note Assessment: Vital Signs/I&O: Vital Signs Date Time Temp Pulse Resp B/P (MAP) Pulse Ox O2 Delivery O2 Flow Rate FiO2 10/16/20 15:36 97.6 69 20 136/69 (91) 97 Room Air I & O 10/15/20 10/15/20 10/16/20 15:00 23:00 07:00 Intake Total 600 ml 480 ml Balance 600 ml 480 ml Current Medications: I have reviewed the current psychotropics carefully including drug interactions. Risk benefit ratio favors no change other than as noted in my dictated progress note. Diagnosis: Problems: (1) Hallucination (2) Psychotic disorder (3) Mild cognitive impairment (4) Dementia, vascular, with depression (5) Dementia, vascular, with delusions (6) Dementia in Alzheimer's disease with depression (7) Dementia in Alzheimer's disease with delusions (8) Major neurocognitive disorder (9) Dementia in Alzheimer's disease with early onset with behavioral disturbance (10) Major depressive disorder with psychotic features (11) Anxiety disorder, unspecified (12) Paranoid delusion (13) Person under investigation for COVID-19 DYANA DEVINE MD Oct 16, 2020 21:59
--- NOTE | 2020-10-17 00:14 | NUR ---
Patient went to bed early, she was in bed when nurse came in to give HS meds. Patient sat up, took the meds and then laid back down. Patient is pleasant, calm and appropriate. No adverse behaviors noted at this time.
[2020-10-17 05:49] VITALS: BP 123/77
[2020-10-17] MEDS: CALCIUM CARBONATE 500 MG TABLET PO SCH (08:07)
[2020-10-17] MEDS: ASPIRIN CHEWABLE 81 MG TABLET. PO SCH (08:07)
[2020-10-17] MEDS: LACTOBACILLUS RHAMNOSUS GG 1 CAPSULE. PO SCH ×2 (08:08→21:10)
[2020-10-17] MEDS: amLODIPine BESYLATE 10 MG TABLET PO SCH (08:09)
--- NOTE | 2020-10-17 08:19 | PDOC ---
Exam Note: Carlos A Note: This note is a late entry for 10/14/2020 covers elements not covered in my initial note. Subjective: The patient was seen face to face in the evening of 10/14/2020 with Kamila MACARIO, discussed and reviewed the chart. The patient slept 6-3/4 hours previous night. Per nursing report the patient has been more accepting of going to an assisted living. I processed this with her in her room. She was sitting, reading a Bible. Review of Systems: No CV, , pulmonary, eye system symptoms on review. Mental Status Exam: The patient is oriented to herself and situation. Speech has some latency, coherent. Abstraction is fair. Computation impaired. Language function is intact. Mood and affect somewhat withdrawn. Laboratory Data: Reviewed. Impression: Major depressive disorder with psychotic features. Mild cognitive impairment. Anxiety disorder unspecified. Plan: No change from initial note. Assessment: Vital Signs/I&O: Vital Signs Date Time Temp Pulse Resp B/P (MAP) Pulse Ox O2 Delivery O2 Flow Rate FiO2 10/17/20 08:09 77 123/77 10/17/20 05:49 97.6 18 95 10/16/20 15:36 Room Air I & O 10/16/20 10/16/20 10/17/20 14:59 22:59 06:59 Intake Total 840 ml 600 ml Balance 840 ml 600 ml Current Medications: Meds: Current Medications Medications (Trade) Dose Ordered Sig/Tory Route PRN Reason Start Time Stop Time Status Last Admin Dose Admin Acetaminophen (Tylenol) 650 mg PRN Q6HRS PRN PO MILD PAIN / TEMP > 100.3'F 09/25/20 18:15 09/25/20 21:02 Multi-Ingredient Ointment (Analgesic [place]) 1 mariya PRN QID PRN TP MUSCLE PAIN 09/25/20 18:15 Al Hydroxide/Mg Hydroxide (Mylanta Plus Xs) 15 ml PRN AFTMEALHC PRN PO DYSPEPSIA 09/25/20 18:15 Magnesium Hydroxide (Milk Of Magnesia) 2,400 mg PRN QHS PRN PO CONSTIPATION, 2ND CHOICE 09/25/20 18:15 Acetaminophen (Tylenol) 650 mg Q6HRS PRN PO pain or fever 09/25/20 18:45 UNV Amlodipine Besylate (Norvasc) 10 mg DAILY PO 09/26/20 09:00 10/17/20 08:09 Aspirin (Aspirin Chewable) 81 mg DAILY PO 09/26/20 09:00 10/17/20 08:07 Vitamin D (Vitamin D3) 50,000 unit WEEKLY PO 10/01/20 09:00 10/15/20 08:23 Lidocaine (Lidoderm) 1 patch DAILY TP 09/26/20 09:00 10/07/20 17:00 DC 10/06/20 09:01 Polyethylene Glycol (miraLAX) 17 gm DAILY PO 09/26/20 09:00 10/07/20 17:00 DC 10/06/20 09:01 Atorvastatin Calcium (Lipitor) 40 mg QHS PO 09/25/20 21:00 10/16/20 21:12 Calcium Carbonate/ Glycine (Oscal) 500 mg DAILY PO 09/26/20 09:00 10/17/20 08:07 Quetiapine Fumarate (SEROquel) 50 mg TID PO 09/25/20 21:00 09/29/20 21:02 DC 09/29/20 13:43 Quetiapine Fumarate (SEROquel) 100 mg QHS PO 09/25/20 21:00 09/29/20 21:02 DC 09/28/20 19:48 Trazodone HCl (Desyrel) 25 mg BID PO 09/25/20 21:00 09/27/20 21:30 DC 09/27/20 21:18 Trazodone HCl (Desyrel) 50 mg QHS PO 09/25/20 21:00 10/16/20 21:12 Melatonin (Melatonin) 3 mg QHS PO 09/25/20 21:00 10/16/20 21:11 Miscellaneous (Lidoderm Patch Removal) 1 ea QHS MC 09/25/20 21:00 10/11/20 20:49 DC 10/10/20 20:15 Levofloxacin (Levaquin) 250 mg DAILY PO 09/27/20 13:00 10/02/20 21:01 DC 10/02/20 08:39 Lactobacillus Rhamnosus (Culturelle) 1 cap BID PO 09/27/20 21:00 10/17/20 08:08 Trazodone HCl (Desyrel) 50 mg PRN QHS PRN PO INSOMNIA 09/27/20 21:30 Risperidone (RisperDAL) 1 mg HS PO 09/30/20 21:00 09/29/20 21:04 DC Risperidone (RisperDAL) 1 mg HS PO 09/29/20 21:15 10/01/20 17:44 DC 09/30/20 20:24 Risperidone (RisperDAL) 1.25 mg HS PO 10/01/20 21:00 10/16/20 21:11 Polyethylene Glycol (miraLAX) 17 gm PRN DAILY PRN PO CONSTIPATION, 1ST CHOICE 10/07/20 17:00 10/08/20 13:56 Current Medications Medications (Trade) Dose Ordered Sig/Tory Route PRN Reason Start Time Stop Time Status Last Admin Dose Admin Acetaminophen (Tylenol) 650 mg PRN Q6HRS PRN PO MILD PAIN / TEMP > 100.3'F 09/25/20 18:15 09/25/20 21:02 Multi-Ingredient Ointment (Analgesic [place]) 1 mariya PRN QID PRN TP MUSCLE PAIN 09/25/20 18:15 Al Hydroxide/Mg Hydroxide (Mylanta Plus Xs) 15 ml PRN AFTMEALHC PRN PO DYSPEPSIA 09/25/20 18:15 Magnesium Hydroxide (Milk Of Magnesia) 2,400 mg PRN QHS PRN PO CONSTIPATION, 2ND CHOICE 09/25/20 18:15 Acetaminophen (Tylenol) 650 mg Q6HRS PRN PO pain or fever 09/25/20 18:45 UNV Amlodipine Besylate (Norvasc) 10 mg DAILY PO 09/26/20 09:00 10/17/20 08:09 Aspirin (Aspirin Chewable) 81 mg DAILY PO 09/26/20 09:00 10/17/20 08:07 Vitamin D (Vitamin D3) 50,000 unit WEEKLY PO 10/01/20 09:00 10/15/20 08:23 Lidocaine (Lidoderm) 1 patch DAILY TP 09/26/20 09:00 10/07/20 17:00 DC 10/06/20 09:01 Polyethylene Glycol (miraLAX) 17 gm DAILY PO 09/26/20 09:00 10/07/20 17:00 DC 10/06/20 09:01 Atorvastatin Calcium (Lipitor) 40 mg QHS PO 09/25/20 21:00 10/16/20 21:12 Calcium Carbonate/ Glycine (Oscal) 500 mg DAILY PO 09/26/20 09:00 10/17/20 08:07 Quetiapine Fumarate (SEROquel) 50 mg TID PO 09/25/20 21:00 09/29/20 21:02 DC 09/29/20 13:43 Quetiapine Fumarate (SEROquel) 100 mg QHS PO 09/25/20 21:00 09/29/20 21:02 DC 09/28/20 19:48 Trazodone HCl (Desyrel) 25 mg BID PO 09/25/20 21:00 09/27/20 21:30 DC 09/27/20 21:18 Trazodone HCl (Desyrel) 50 mg QHS PO 09/25/20 21:00 10/16/20 21:12 Melatonin (Melatonin) 3 mg QHS PO 09/25/20 21:00 10/16/20 21:11 Miscellaneous (Lidoderm Patch Removal) 1 ea QHS MC 09/25/20 21:00 10/11/20 20:49 DC 10/10/20 20:15 Levofloxacin (Levaquin) 250 mg DAILY PO 09/27/20 13:00 10/02/20 21:01 DC 10/02/20 08:39 Lactobacillus Rhamnosus (Culturelle) 1 cap BID PO 09/27/20 21:00 10/17/20 08:08 Trazodone HCl (Desyrel) 50 mg PRN QHS PRN PO INSOMNIA 09/27/20 21:30 Risperidone (RisperDAL) 1 mg HS PO 09/30/20 21:00 09/29/20 21:04 DC Risperidone (RisperDAL) 1 mg HS PO 09/29/20 21:15 10/01/20 17:44 DC 09/30/20 20:24 Risperidone (RisperDAL) 1.25 mg HS PO 10/01/20 21:00 10/16/20 21:11 Polyethylene Glycol (miraLAX) 17 gm PRN DAILY PRN PO CONSTIPATION, 1ST CHOICE 10/07/20 17:00 10/08/20 13:56 I have reviewed the current psychotropics carefully including drug interactions. Risk benefit ratio favors no change other than as noted in my dictated progress note. Diagnosis: Problems: (1) Major depressive disorder with psychotic features (2) Anxiety disorder, unspecified (3) Mild cognitive impairment DYANA DEVINE MD Oct 17, 2020 08:19
--- NOTE | 2020-10-17 11:29 | NUR ---
Pt complaint with medications and assessment. She is very quiet and reserved and prefers to engage in solitary activities such as reading in her room which is what she has spent most of the morning doing. She has no questions or concerns at this time. She is A&OX4. She denies SI/HI/VH/AH/pain. She reports no BM this morning but states she had one yesterday (10/16/20) Will pass on to the next shift
[2020-10-17 15:48] VITALS: BP 153/90
[2020-10-17] MEDS: MELATONIN 3 MG TABLET PO SCH (21:10)
[2020-10-17] MEDS: risperiDONE 1 MG TABLET. PO SCH (21:10)
[2020-10-17] MEDS: traZODone 50 MG TABLET. PO SCH (21:10)
[2020-10-17] MEDS: ATORVASTATIN CALCIUM 20 MG TABLET PO SCH (21:10)
--- NOTE | 2020-10-17 21:22 | PDOC ---
Exam Note: Carlos A Note: Please also refer to the separate dictated note~for this date of service dictated separately.~Patient seen individually. Discussed the patient with Nursing staff reviewed the chart.~Reviewed interim history and current functioning. Reviewed vital signs,~Labs/ Radiology~and current medications noted below. Continue current treatment with the changes noted in the dictated addendum note Assessment: Vital Signs/I&O: Vital Signs Date Time Temp Pulse Resp B/P (MAP) Pulse Ox O2 Delivery O2 Flow Rate FiO2 10/17/20 15:48 97.8 83 16 153/90 (111) 98 10/16/20 15:36 Room Air I & O 10/16/20 10/16/20 10/17/20 15:00 23:00 07:00 Intake Total 840 ml 600 ml Balance 840 ml 600 ml Current Medications: Meds: Current Medications Medications (Trade) Dose Ordered Sig/Tory Route PRN Reason Start Time Stop Time Status Last Admin Dose Admin Acetaminophen (Tylenol) 650 mg PRN Q6HRS PRN PO MILD PAIN / TEMP > 100.3'F 09/25/20 18:15 09/25/20 21:02 Multi-Ingredient Ointment (Analgesic [place]) 1 mariya PRN QID PRN TP MUSCLE PAIN 09/25/20 18:15 Al Hydroxide/Mg Hydroxide (Mylanta Plus Xs) 15 ml PRN AFTMEALHC PRN PO DYSPEPSIA 09/25/20 18:15 Magnesium Hydroxide (Milk Of Magnesia) 2,400 mg PRN QHS PRN PO CONSTIPATION, 2ND CHOICE 09/25/20 18:15 Acetaminophen (Tylenol) 650 mg Q6HRS PRN PO pain or fever 09/25/20 18:45 UNV Amlodipine Besylate (Norvasc) 10 mg DAILY PO 09/26/20 09:00 10/17/20 08:09 Aspirin (Aspirin Chewable) 81 mg DAILY PO 09/26/20 09:00 10/17/20 08:07 Vitamin D (Vitamin D3) 50,000 unit WEEKLY PO 10/01/20 09:00 10/15/20 08:23 Lidocaine (Lidoderm) 1 patch DAILY TP 09/26/20 09:00 10/07/20 17:00 DC 10/06/20 09:01 Polyethylene Glycol (miraLAX) 17 gm DAILY PO 09/26/20 09:00 10/07/20 17:00 DC 10/06/20 09:01 Atorvastatin Calcium (Lipitor) 40 mg QHS PO 09/25/20 21:00 10/17/20 21:10 Calcium Carbonate/ Glycine (Oscal) 500 mg DAILY PO 09/26/20 09:00 10/17/20 08:07 Quetiapine Fumarate (SEROquel) 50 mg TID PO 09/25/20 21:00 09/29/20 21:02 DC 09/29/20 13:43 Quetiapine Fumarate (SEROquel) 100 mg QHS PO 09/25/20 21:00 09/29/20 21:02 DC 09/28/20 19:48 Trazodone HCl (Desyrel) 25 mg BID PO 09/25/20 21:00 09/27/20 21:30 DC 09/27/20 21:18 Trazodone HCl (Desyrel) 50 mg QHS PO 09/25/20 21:00 10/17/20 21:10 Melatonin (Melatonin) 3 mg QHS PO 09/25/20 21:00 10/17/20 21:10 Miscellaneous (Lidoderm Patch Removal) 1 ea QHS MC 09/25/20 21:00 10/11/20 20:49 DC 10/10/20 20:15 Levofloxacin (Levaquin) 250 mg DAILY PO 09/27/20 13:00 10/02/20 21:01 DC 10/02/20 08:39 Lactobacillus Rhamnosus (Culturelle) 1 cap BID PO 09/27/20 21:00 10/17/20 21:10 Trazodone HCl (Desyrel) 50 mg PRN QHS PRN PO INSOMNIA 09/27/20 21:30 Risperidone (RisperDAL) 1 mg HS PO 09/30/20 21:00 09/29/20 21:04 DC Risperidone (RisperDAL) 1 mg HS PO 09/29/20 21:15 10/01/20 17:44 DC 09/30/20 20:24 Risperidone (RisperDAL) 1.25 mg HS PO 10/01/20 21:00 10/17/20 21:10 Polyethylene Glycol (miraLAX) 17 gm PRN DAILY PRN PO CONSTIPATION, 1ST CHOICE 10/07/20 17:00 10/08/20 13:56 I have reviewed the current psychotropics carefully including drug interactions. Risk benefit ratio favors no change other than as noted in my dictated progress note. Diagnosis: Problems: (1) Major depressive disorder with psychotic features (2) Anxiety disorder, unspecified (3) Mild cognitive impairment DYANA DEVINE MD Oct 17, 2020 21:22
--- NOTE | 2020-10-18 01:07 | NUR ---
Patient was in bed when nurse brought HS medications to her. She was cooperative with assessment and took medications without complaints. Nurse filled the patients cups with ice water per the patients request and patient went back to sleep. Patient performs her own ADLs and spends most of her time in her room reading the bible or books. She is calm and pleasant.
[2020-10-18 06:15] VITALS: BP 145/63
--- NOTE | 2020-10-18 08:31 | PDOC ---
Exam Note: Carlos A Note: This note is a late entry for 10/16/2020 covers elements not covered in my initial note. Subjective: The patient was seen face to face in the evening of 10/16/2020 with Kamila MACARIO, discussed and reviewed the chart. The patient slept 6-3/4 hours previous night. She stays withdrawn in her room. Review of Systems: No CV, , pulmonary, eye system symptoms on review. Mental Status Exam: The patient is oriented to herself and situation. Speech has some latency, coherent. Abstraction is fair. Computation impaired. Language function is intact. Mood and affect somewhat withdrawn. Laboratory Data: Reviewed. Impression: Major depressive disorder with psychotic features. Mild cognitive impairment. Anxiety disorder unspecified. Plan: No change from initial note Assessment: Vital Signs/I&O: Vital Signs Date Time Temp Pulse Resp B/P (MAP) Pulse Ox O2 Delivery O2 Flow Rate FiO2 10/18/20 06:15 97.7 90 20 145/63 (90) 95 10/16/20 15:36 Room Air I & O 10/17/20 10/17/20 10/18/20 15:00 23:00 07:00 Intake Total 960 ml 600 ml Balance 960 ml 600 ml Current Medications: Meds: Current Medications Medications (Trade) Dose Ordered Sig/Tory Route PRN Reason Start Time Stop Time Status Last Admin Dose Admin Acetaminophen (Tylenol) 650 mg PRN Q6HRS PRN PO MILD PAIN / TEMP > 100.3'F 09/25/20 18:15 09/25/20 21:02 Multi-Ingredient Ointment (Analgesic [place]) 1 mariya PRN QID PRN TP MUSCLE PAIN 09/25/20 18:15 Al Hydroxide/Mg Hydroxide (Mylanta Plus Xs) 15 ml PRN AFTMEALHC PRN PO DYSPEPSIA 09/25/20 18:15 Magnesium Hydroxide (Milk Of Magnesia) 2,400 mg PRN QHS PRN PO CONSTIPATION, 2ND CHOICE 09/25/20 18:15 Acetaminophen (Tylenol) 650 mg Q6HRS PRN PO pain or fever 09/25/20 18:45 UNV Amlodipine Besylate (Norvasc) 10 mg DAILY PO 09/26/20 09:00 10/17/20 08:09 Aspirin (Aspirin Chewable) 81 mg DAILY PO 09/26/20 09:00 10/17/20 08:07 Vitamin D (Vitamin D3) 50,000 unit WEEKLY PO 10/01/20 09:00 10/15/20 08:23 Lidocaine (Lidoderm) 1 patch DAILY TP 09/26/20 09:00 10/07/20 17:00 DC 10/06/20 09:01 Polyethylene Glycol (miraLAX) 17 gm DAILY PO 09/26/20 09:00 10/07/20 17:00 DC 10/06/20 09:01 Atorvastatin Calcium (Lipitor) 40 mg QHS PO 09/25/20 21:00 10/17/20 21:10 Calcium Carbonate/ Glycine (Oscal) 500 mg DAILY PO 09/26/20 09:00 10/17/20 08:07 Quetiapine Fumarate (SEROquel) 50 mg TID PO 09/25/20 21:00 09/29/20 21:02 DC 09/29/20 13:43 Quetiapine Fumarate (SEROquel) 100 mg QHS PO 09/25/20 21:00 09/29/20 21:02 DC 09/28/20 19:48 Trazodone HCl (Desyrel) 25 mg BID PO 09/25/20 21:00 09/27/20 21:30 DC 09/27/20 21:18 Trazodone HCl (Desyrel) 50 mg QHS PO 09/25/20 21:00 10/17/20 21:10 Melatonin (Melatonin) 3 mg QHS PO 09/25/20 21:00 10/17/20 21:10 Miscellaneous (Lidoderm Patch Removal) 1 ea QHS MC 09/25/20 21:00 10/11/20 20:49 DC 10/10/20 20:15 Levofloxacin (Levaquin) 250 mg DAILY PO 09/27/20 13:00 10/02/20 21:01 DC 10/02/20 08:39 Lactobacillus Rhamnosus (Culturelle) 1 cap BID PO 09/27/20 21:00 10/17/20 21:10 Trazodone HCl (Desyrel) 50 mg PRN QHS PRN PO INSOMNIA 09/27/20 21:30 Risperidone (RisperDAL) 1 mg HS PO 09/30/20 21:00 09/29/20 21:04 DC Risperidone (RisperDAL) 1 mg HS PO 09/29/20 21:15 10/01/20 17:44 DC 09/30/20 20:24 Risperidone (RisperDAL) 1.25 mg HS PO 10/01/20 21:00 10/17/20 21:10 Polyethylene Glycol (miraLAX) 17 gm PRN DAILY PRN PO CONSTIPATION, 1ST CHOICE 10/07/20 17:00 10/08/20 13:56 I have reviewed the current psychotropics carefully including drug interactions. Risk benefit ratio favors no change other than as noted in my dictated progress note. Diagnosis: Problems: (1) Anxiety disorder, unspecified (2) Dementia in Alzheimer's disease with early onset with behavioral disturbance (3) Major neurocognitive disorder (4) Dementia in Alzheimer's disease with delusions (5) Dementia in Alzheimer's disease with depression (6) Dementia, vascular, with depression (7) Mild cognitive impairment DYANA DEVINE MD Oct 18, 2020 08:31
[2020-10-18] MEDS: ASPIRIN CHEWABLE 81 MG TABLET. PO SCH (08:45)
[2020-10-18] MEDS: LACTOBACILLUS RHAMNOSUS GG 1 CAPSULE. PO SCH ×2 (08:46→20:27)
[2020-10-18] MEDS: amLODIPine BESYLATE 10 MG TABLET PO SCH (08:46)
[2020-10-18] MEDS: CALCIUM CARBONATE 500 MG TABLET PO SCH (08:46)
--- NOTE | 2020-10-18 08:59 | PDOC ---
Exam Note: Carlos A Note: This note is a late entry for 10/17/2020 covers elements not covered in my initial note. Subjective: The patient was seen face to face in the evening of 10/17/2020 with Jen MACARIO, discussed and reviewed the chart. The patient slept 7 hours previous night. She is fairly pleasant, withdrawn, spends much time in her room, reading a book which is where I met with her. Review of Systems: No CV, , pulmonary, eye system symptoms on review. Mental Status Exam: The patient is oriented to herself and situation. Speech has some latency, coherent. Abstraction is fair. Computation impaired. Language function is intact. Mood and affect somewhat withdrawn. Laboratory Data: Reviewed. Impression: Major depressive disorder with psychotic features. Mild cognitive impairment. Anxiety disorder unspecified. Plan: No change from initial note. Assessment: Vital Signs/I&O: Vital Signs Date Time Temp Pulse Resp B/P (MAP) Pulse Ox O2 Delivery O2 Flow Rate FiO2 10/18/20 08:46 90 145/63 10/18/20 06:15 97.7 20 95 10/16/20 15:36 Room Air I & O 10/17/20 10/17/20 10/18/20 15:00 23:00 07:00 Intake Total 960 ml 600 ml Balance 960 ml 600 ml Current Medications: Meds: Current Medications Medications (Trade) Dose Ordered Sig/Tory Route PRN Reason Start Time Stop Time Status Last Admin Dose Admin Acetaminophen (Tylenol) 650 mg PRN Q6HRS PRN PO MILD PAIN / TEMP > 100.3'F 09/25/20 18:15 09/25/20 21:02 Multi-Ingredient Ointment (Analgesic [place]) 1 mariya PRN QID PRN TP MUSCLE PAIN 09/25/20 18:15 Al Hydroxide/Mg Hydroxide (Mylanta Plus Xs) 15 ml PRN AFTMEALHC PRN PO DYSPEPSIA 09/25/20 18:15 Magnesium Hydroxide (Milk Of Magnesia) 2,400 mg PRN QHS PRN PO CONSTIPATION, 2ND CHOICE 09/25/20 18:15 Acetaminophen (Tylenol) 650 mg Q6HRS PRN PO pain or fever 09/25/20 18:45 UNV Amlodipine Besylate (Norvasc) 10 mg DAILY PO 09/26/20 09:00 10/18/20 08:46 Aspirin (Aspirin Chewable) 81 mg DAILY PO 09/26/20 09:00 10/18/20 08:45 Vitamin D (Vitamin D3) 50,000 unit WEEKLY PO 10/01/20 09:00 10/15/20 08:23 Lidocaine (Lidoderm) 1 patch DAILY TP 09/26/20 09:00 10/07/20 17:00 DC 10/06/20 09:01 Polyethylene Glycol (miraLAX) 17 gm DAILY PO 09/26/20 09:00 10/07/20 17:00 DC 10/06/20 09:01 Atorvastatin Calcium (Lipitor) 40 mg QHS PO 09/25/20 21:00 10/17/20 21:10 Calcium Carbonate/ Glycine (Oscal) 500 mg DAILY PO 09/26/20 09:00 10/18/20 08:46 Quetiapine Fumarate (SEROquel) 50 mg TID PO 09/25/20 21:00 09/29/20 21:02 DC 09/29/20 13:43 Quetiapine Fumarate (SEROquel) 100 mg QHS PO 09/25/20 21:00 09/29/20 21:02 DC 09/28/20 19:48 Trazodone HCl (Desyrel) 25 mg BID PO 09/25/20 21:00 09/27/20 21:30 DC 09/27/20 21:18 Trazodone HCl (Desyrel) 50 mg QHS PO 09/25/20 21:00 10/17/20 21:10 Melatonin (Melatonin) 3 mg QHS PO 09/25/20 21:00 10/17/20 21:10 Miscellaneous (Lidoderm Patch Removal) 1 ea QHS MC 09/25/20 21:00 10/11/20 20:49 DC 10/10/20 20:15 Levofloxacin (Levaquin) 250 mg DAILY PO 09/27/20 13:00 10/02/20 21:01 DC 10/02/20 08:39 Lactobacillus Rhamnosus (Culturelle) 1 cap BID PO 09/27/20 21:00 10/18/20 08:46 Trazodone HCl (Desyrel) 50 mg PRN QHS PRN PO INSOMNIA 09/27/20 21:30 Risperidone (RisperDAL) 1 mg HS PO 09/30/20 21:00 09/29/20 21:04 DC Risperidone (RisperDAL) 1 mg HS PO 09/29/20 21:15 10/01/20 17:44 DC 09/30/20 20:24 Risperidone (RisperDAL) 1.25 mg HS PO 10/01/20 21:00 10/17/20 21:10 Polyethylene Glycol (miraLAX) 17 gm PRN DAILY PRN PO CONSTIPATION, 1ST CHOICE 10/07/20 17:00 10/08/20 13:56 I have reviewed the current psychotropics carefully including drug interactions. Risk benefit ratio favors no change other than as noted in my dictated progress note. Diagnosis: Problems: (1) Major depressive disorder with psychotic features (2) Anxiety disorder, unspecified (3) Mild cognitive impairment DYANA DEVINE MD Oct 18, 2020 08:59
--- NOTE | 2020-10-18 15:35 | NUR ---
BI returned call to Patito to let her know that most places that said Medicaid for SENIOR LIVING was incorrect. They are actually private pay; however, the ones that do accept Medicaid for SENIOR LIVING gave SW the financial responsibility for pt in the event she chose to go there. Pt dtr questioned that if pt has to still pay a percentage, then what does the Medicaid care for. BI was not able to answer that question. Pt dtr will talk to her sister to see what she thinks and can get back to BI. Pt dtr questioned if the [facility] would come with 2 bedrooms and BI explained that most of them are either studios or 1 bedroom.
[2020-10-18 16:07] VITALS: BP 134/83
--- NOTE | 2020-10-18 18:30 | NUR ---
Patient has been calm, compliant with medications, and withdrawn to her room throughout this shift. She asked why she was on a diabetic diet, informed patient that her HbA1C was 6.1 and provided patient with a handout about prediabetes. Will continue to monitor.
[2020-10-18] MEDS: traZODone 50 MG TABLET. PO SCH (20:27)
[2020-10-18] MEDS: ATORVASTATIN CALCIUM 20 MG TABLET PO SCH (20:27)
[2020-10-18] MEDS: MELATONIN 3 MG TABLET PO SCH (20:27)
[2020-10-18] MEDS: risperiDONE 1 MG TABLET. PO SCH (20:28)
--- NOTE | 2020-10-18 21:14 | PDOC ---
Exam Note: Carlos A Note: Please also refer to the separate dictated note~for this date of service dictated separately.~Patient seen individually. Discussed the patient with Nursing staff reviewed the chart.~Reviewed interim history and current functioning. Reviewed vital signs,~Labs/ Radiology~and current medications noted below. Continue current treatment with the changes noted in the dictated addendum note Assessment: Vital Signs/I&O: Vital Signs Date Time Temp Pulse Resp B/P (MAP) Pulse Ox O2 Delivery O2 Flow Rate FiO2 10/18/20 16:07 97.9 79 20 134/83 (100) 99 10/16/20 15:36 Room Air I & O 10/17/20 10/17/20 10/18/20 15:00 23:00 07:00 Intake Total 960 ml 600 ml Balance 960 ml 600 ml Current Medications: Meds: Current Medications Medications (Trade) Dose Ordered Sig/Tory Route PRN Reason Start Time Stop Time Status Last Admin Dose Admin Acetaminophen (Tylenol) 650 mg PRN Q6HRS PRN PO MILD PAIN / TEMP > 100.3'F 09/25/20 18:15 09/25/20 21:02 Multi-Ingredient Ointment (Analgesic [place]) 1 mariya PRN QID PRN TP MUSCLE PAIN 09/25/20 18:15 Al Hydroxide/Mg Hydroxide (Mylanta Plus Xs) 15 ml PRN AFTMEALHC PRN PO DYSPEPSIA 09/25/20 18:15 Magnesium Hydroxide (Milk Of Magnesia) 2,400 mg PRN QHS PRN PO CONSTIPATION, 2ND CHOICE 09/25/20 18:15 Acetaminophen (Tylenol) 650 mg Q6HRS PRN PO pain or fever 09/25/20 18:45 UNV Amlodipine Besylate (Norvasc) 10 mg DAILY PO 09/26/20 09:00 10/18/20 08:46 Aspirin (Aspirin Chewable) 81 mg DAILY PO 09/26/20 09:00 10/18/20 08:45 Vitamin D (Vitamin D3) 50,000 unit WEEKLY PO 10/01/20 09:00 10/15/20 08:23 Lidocaine (Lidoderm) 1 patch DAILY TP 09/26/20 09:00 10/07/20 17:00 DC 10/06/20 09:01 Polyethylene Glycol (miraLAX) 17 gm DAILY PO 09/26/20 09:00 10/07/20 17:00 DC 10/06/20 09:01 Atorvastatin Calcium (Lipitor) 40 mg QHS PO 09/25/20 21:00 10/18/20 20:27 Calcium Carbonate/ Glycine (Oscal) 500 mg DAILY PO 09/26/20 09:00 10/18/20 08:46 Quetiapine Fumarate (SEROquel) 50 mg TID PO 09/25/20 21:00 09/29/20 21:02 DC 09/29/20 13:43 Quetiapine Fumarate (SEROquel) 100 mg QHS PO 09/25/20 21:00 09/29/20 21:02 DC 09/28/20 19:48 Trazodone HCl (Desyrel) 25 mg BID PO 09/25/20 21:00 09/27/20 21:30 DC 09/27/20 21:18 Trazodone HCl (Desyrel) 50 mg QHS PO 09/25/20 21:00 10/18/20 20:27 Melatonin (Melatonin) 3 mg QHS PO 09/25/20 21:00 10/18/20 20:27 Miscellaneous (Lidoderm Patch Removal) 1 ea QHS MC 09/25/20 21:00 10/11/20 20:49 DC 10/10/20 20:15 Levofloxacin (Levaquin) 250 mg DAILY PO 09/27/20 13:00 10/02/20 21:01 DC 10/02/20 08:39 Lactobacillus Rhamnosus (Culturelle) 1 cap BID PO 09/27/20 21:00 10/18/20 20:27 Trazodone HCl (Desyrel) 50 mg PRN QHS PRN PO INSOMNIA 09/27/20 21:30 Risperidone (RisperDAL) 1 mg HS PO 09/30/20 21:00 09/29/20 21:04 DC Risperidone (RisperDAL) 1 mg HS PO 09/29/20 21:15 10/01/20 17:44 DC 09/30/20 20:24 Risperidone (RisperDAL) 1.25 mg HS PO 10/01/20 21:00 10/18/20 20:28 Polyethylene Glycol (miraLAX) 17 gm PRN DAILY PRN PO CONSTIPATION, 1ST CHOICE 10/07/20 17:00 10/08/20 13:56 I have reviewed the current psychotropics carefully including drug interactions. Risk benefit ratio favors no change other than as noted in my dictated progress note. Diagnosis: Problems: (1) Dementia, vascular, with depression (2) Mild cognitive impairment (3) Dementia, vascular, with delusions (4) Dementia in Alzheimer's disease with depression (5) Dementia in Alzheimer's disease with delusions (6) Major neurocognitive disorder (7) Dementia in Alzheimer's disease with early onset with behavioral disturbance (8) Anxiety disorder, unspecified DYANA DEVINE MD Oct 18, 2020 21:14
--- NOTE | 2020-10-18 22:36 | NUR ---
Patient is calm, cooperative and pleasant. She is compliant with medications. Patient was sitting in the chair in her room reading the Bible when nurse entered room with meds. Medications taken whole with water. Nurse got patient 2 cups of ice water and placed them in the chair at the foot of the bed per patient request. Nurse also provided a new bottle of hand lotion also per patient request. Patient denied pain when asked. She is not displaying any delusional behaviors and is no longer aggressive or agitated as she was when she arrived at [facility].
[2020-10-19 05:45] VITALS: BP 135/84
[2020-10-19] MEDS: CALCIUM CARBONATE 500 MG TABLET PO SCH (08:12)
[2020-10-19] MEDS: amLODIPine BESYLATE 10 MG TABLET PO SCH (08:12)
[2020-10-19] MEDS: ASPIRIN CHEWABLE 81 MG TABLET. PO SCH (08:12)
[2020-10-19] MEDS: LACTOBACILLUS RHAMNOSUS GG 1 CAPSULE. PO SCH ×2 (08:12→20:30)
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
--- NOTE | 2020-10-19 10:26 | NUR ---
Patient eating breakfast in dining vaz at time of assessment. Patient taken to room for physical assessment. Patient is alert and oriented with no complaints. Patient is cooperative and takes medications whole with no problems. No further concerns at this time.
[2020-10-19 15:26] VITALS: BP 154/80
--- NOTE | 2020-10-19 16:36 | TX PLAN ---
Interdisciplinary Tx Plan Admission Information Sep 25, 2020 at 17:30 Legal Status (on Admission): Voluntary DPOA/Guardian Name: Patito Sunshine Contact Other Contact Name: Priyanka Worthy Other Contact Verified Code Status: Full Code Allergies: Coded Allergies: Sulfa (Sulfonamide Antibiotics) (Verified Allergy, Intermediate, 06/15/20) iodine (Verified Allergy, Intermediate, 06/15/20) shellfish derived (Verified Allergy, Intermediate, 06/15/20) Diagnoses Primary Diagnosis: Psychosis, unspecified Reasons for Admission: Aggressive, Poor impulse control Problem in Patient's Words: She did fine for a while but then started having an increase in agitation with behaviors Additional Admission Comments: According to the intake pt is agitated, aggressive, biting, spitting Problems Active Problems: Withdrawn to room Inactive Problems: Medication compliant Pt Strengths/Limitations Ability for [place]: Poor Cognitive Functioning/Ability: Fair Communication Skills/Ability: Fair Financial Resources: Fair Insight/Judgement: Poor Intellectual Ability: Fair Physical Health: Poor Social Skills: Fair Stability in Family: Good Stability in School/Work: Poor Verbal Skills: Fair Discharge Criteria Discharge Criteria: No need for close observ., Adequate arrangements @DC, Improved behavior, Improved mood/thought Preliminary Discharge Plan Preliminary DC Plan: Placement Needed Special Precautions Fall Risk: Low Initial D/C Plan Potential plans for referrals to placement (AL versus LTC) Identified Discharge Needs: Potential referrals sent to placement for pt. Currently Utilized Resources Currently Utilized Resources/P: Primary Care Physician Referrals Community Resources: [facility] versus LTC Identified Problems/Hx/Goals Objectives/Short-Term Goals Short Term Goals: Dec. Aggression, Dec. Outbursts, Medication Stabilization, Promote Coping Skill Short Term Goals in Patient's: N/A Interventions/Frequency Staff Interventions/Frequency&: Psychiatrist to assess pt at least 3x per week for medication management Social Work to assess pt at least 2x per week for identification to barriers to care and discharge planning. Nursing to assess behaviors, medication mgmt and completion of 15 minute checks daily. Encourage group participation in activities (if applicable) or 1:1 engagement based of activity dept goals. 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 Education: Pt was able to graduate high school (12th) grade Community Follow-up Need for PCP follow-up Community Provider/Family Inpu: Family feels that placement will be needed and needs aid in getting this set up along with Medicaid for payment. Treatment Plan Explained Patient/Booking Supervisor had this treatment plan explained to him/her as indicated by the signature below and has been given the opportunity to ask questions and make suggestions: Date: Patient/Booking Supervisor Signature: Status Update Update Pt is eating roughly 50-75% of meals and sleeping on average 7 hours per night. Pt is calm, pleasant and compliant with all cares, medications and staff direction. Pt continues to be withdrawn to her room and reading books. At this time, the family is continuing to look at [facility] that is able to accept pt Medicaid. SW will continue to work with pt family on getting pt transferred to an appropriate placement within the beginning of the week if possible. GLADIS GUERRA Oct 19, 2020 16:36
[2020-10-19] MEDS: risperiDONE 1 MG TABLET. PO SCH (20:30)
[2020-10-19] MEDS: traZODone 50 MG TABLET. PO SCH (20:31)
[2020-10-19] MEDS: ATORVASTATIN CALCIUM 20 MG TABLET PO SCH (20:31)
[2020-10-19] MEDS: MELATONIN 3 MG TABLET PO SCH (20:31)
--- NOTE | 2020-10-19 21:11 | PDOC ---
Exam Note: Carlos A Note: Please also refer to the separate dictated note~for this date of service dictated separately.~Patient seen individually. Discussed the patient with Nursing staff reviewed the chart.~Reviewed interim history and current functioning. Reviewed vital signs,~Labs/ Radiology~and current medications noted below. Continue current treatment with the changes noted in the dictated addendum note Assessment: Vital Signs/I&O: Vital Signs Date Time Temp Pulse Resp B/P (MAP) Pulse Ox O2 Delivery O2 Flow Rate FiO2 10/19/20 15:26 97.3 82 18 154/80 (104) 96 Room Air I & O 10/18/20 10/18/20 10/19/20 14:59 22:59 06:59 Intake Total 960 ml 600 ml Balance 960 ml 600 ml Current Medications: Meds: Current Medications Medications (Trade) Dose Ordered Sig/Tory Route PRN Reason Start Time Stop Time Status Last Admin Dose Admin Acetaminophen (Tylenol) 650 mg PRN Q6HRS PRN PO MILD PAIN / TEMP > 100.3'F 09/25/20 18:15 09/25/20 21:02 Multi-Ingredient Ointment (Analgesic [place]) 1 mariya PRN QID PRN TP MUSCLE PAIN 09/25/20 18:15 Al Hydroxide/Mg Hydroxide (Mylanta Plus Xs) 15 ml PRN AFTMEALHC PRN PO DYSPEPSIA 09/25/20 18:15 Magnesium Hydroxide (Milk Of Magnesia) 2,400 mg PRN QHS PRN PO CONSTIPATION, 2ND CHOICE 09/25/20 18:15 Acetaminophen (Tylenol) 650 mg Q6HRS PRN PO pain or fever 09/25/20 18:45 UNV Amlodipine Besylate (Norvasc) 10 mg DAILY PO 09/26/20 09:00 10/19/20 08:12 Aspirin (Aspirin Chewable) 81 mg DAILY PO 09/26/20 09:00 10/19/20 08:12 Vitamin D (Vitamin D3) 50,000 unit WEEKLY PO 10/01/20 09:00 10/15/20 08:23 Lidocaine (Lidoderm) 1 patch DAILY TP 09/26/20 09:00 10/07/20 17:00 DC 10/06/20 09:01 Polyethylene Glycol (miraLAX) 17 gm DAILY PO 09/26/20 09:00 10/07/20 17:00 DC 10/06/20 09:01 Atorvastatin Calcium (Lipitor) 40 mg QHS PO 09/25/20 21:00 10/19/20 20:31 Calcium Carbonate/ Glycine (Oscal) 500 mg DAILY PO 09/26/20 09:00 10/19/20 08:12 Quetiapine Fumarate (SEROquel) 50 mg TID PO 09/25/20 21:00 09/29/20 21:02 DC 09/29/20 13:43 Quetiapine Fumarate (SEROquel) 100 mg QHS PO 09/25/20 21:00 09/29/20 21:02 DC 09/28/20 19:48 Trazodone HCl (Desyrel) 25 mg BID PO 09/25/20 21:00 09/27/20 21:30 DC 09/27/20 21:18 Trazodone HCl (Desyrel) 50 mg QHS PO 09/25/20 21:00 10/19/20 20:31 Melatonin (Melatonin) 3 mg QHS PO 09/25/20 21:00 10/19/20 20:31 Miscellaneous (Lidoderm Patch Removal) 1 ea QHS MC 09/25/20 21:00 10/11/20 20:49 DC 10/10/20 20:15 Levofloxacin (Levaquin) 250 mg DAILY PO 09/27/20 13:00 10/02/20 21:01 DC 10/02/20 08:39 Lactobacillus Rhamnosus (Culturelle) 1 cap BID PO 09/27/20 21:00 10/19/20 20:30 Trazodone HCl (Desyrel) 50 mg PRN QHS PRN PO INSOMNIA 09/27/20 21:30 Risperidone (RisperDAL) 1 mg HS PO 09/30/20 21:00 09/29/20 21:04 DC Risperidone (RisperDAL) 1 mg HS PO 09/29/20 21:15 10/01/20 17:44 DC 09/30/20 20:24 Risperidone (RisperDAL) 1.25 mg HS PO 10/01/20 21:00 10/19/20 20:30 Polyethylene Glycol (miraLAX) 17 gm PRN DAILY PRN PO CONSTIPATION, 1ST CHOICE 10/07/20 17:00 10/08/20 13:56 I have reviewed the current psychotropics carefully including drug interactions. Risk benefit ratio favors no change other than as noted in my dictated progress note. Diagnosis: Problems: (1) Major depressive disorder with psychotic features (2) Dementia in Alzheimer's disease with early onset with behavioral disturbance (3) Dementia in Alzheimer's disease with depression (4) Dementia, vascular, with delusions (5) Dementia in Alzheimer's disease with delusions (6) Major neurocognitive disorder (7) Dementia, vascular, with depression (8) Mild cognitive impairment DYANA DEVINE MD Oct 19, 2020 21:11
--- NOTE | 2020-10-20 03:10 | NUR ---
Last evening pt sat in her room reading a book. She was pleasant social and pleasant. Meds were taken whole without difficulty. She was in good spirits and sounded optimistic about going to assisted living upon discharge.
[2020-10-20 06:10] VITALS: BP 137/71
[2020-10-20] MEDS: ASPIRIN CHEWABLE 81 MG TABLET. PO SCH (08:29)
[2020-10-20] MEDS: CALCIUM CARBONATE 500 MG TABLET PO SCH (08:29)
[2020-10-20] MEDS: LACTOBACILLUS RHAMNOSUS GG 1 CAPSULE. PO SCH ×2 (08:29→20:20)
[2020-10-20] MEDS: amLODIPine BESYLATE 10 MG TABLET PO SCH (08:29)
--- NOTE | 2020-10-20 13:33 | NUR ---
Per request of Maggie Calderon's assigned SW, contacted Liz at [facility] ([facility]) at [phone] to discuss sending a referral for assisted living placement. Faxed referral to [phone] for review. Requested admission decision be communicated to Sharri Tim.
[2020-10-20 15:47] VITALS: BP 121/69
[2020-10-20] MEDS: traZODone 50 MG TABLET. PO SCH (20:20)
[2020-10-20] MEDS: ATORVASTATIN CALCIUM 20 MG TABLET PO SCH (20:20)
[2020-10-20] MEDS: MELATONIN 3 MG TABLET PO SCH (20:20)
[2020-10-20] MEDS: risperiDONE 1 MG TABLET. PO SCH (20:20)
--- NOTE | 2020-10-20 20:58 | PDOC ---
Exam Note: Carlos A Note: Please also refer to the separate dictated note~for this date of service dictated separately.~Patient seen individually. Discussed the patient with Nursing staff reviewed the chart.~Reviewed interim history and current functioning. Reviewed vital signs,~Labs/ Radiology~and current medications noted below. Continue current treatment with the changes noted in the dictated addendum note Assessment: Vital Signs/I&O: Vital Signs Date Time Temp Pulse Resp B/P (MAP) Pulse Ox O2 Delivery O2 Flow Rate FiO2 10/20/20 15:47 97.7 80 18 121/69 (86) 98 Room Air I & O 10/19/20 10/19/20 10/20/20 15:00 23:00 07:00 Intake Total 600 ml 360 ml Balance 600 ml 360 ml Current Medications: Meds: Current Medications Medications (Trade) Dose Ordered Sig/Tory Route PRN Reason Start Time Stop Time Status Last Admin Dose Admin Acetaminophen (Tylenol) 650 mg PRN Q6HRS PRN PO MILD PAIN / TEMP > 100.3'F 09/25/20 18:15 09/25/20 21:02 Multi-Ingredient Ointment (Analgesic [place]) 1 mariya PRN QID PRN TP MUSCLE PAIN 09/25/20 18:15 Al Hydroxide/Mg Hydroxide (Mylanta Plus Xs) 15 ml PRN AFTMEALHC PRN PO DYSPEPSIA 09/25/20 18:15 Magnesium Hydroxide (Milk Of Magnesia) 2,400 mg PRN QHS PRN PO CONSTIPATION, 2ND CHOICE 09/25/20 18:15 Acetaminophen (Tylenol) 650 mg Q6HRS PRN PO pain or fever 09/25/20 18:45 UNV Amlodipine Besylate (Norvasc) 10 mg DAILY PO 09/26/20 09:00 10/20/20 08:29 Aspirin (Aspirin Chewable) 81 mg DAILY PO 09/26/20 09:00 10/20/20 08:29 Vitamin D (Vitamin D3) 50,000 unit WEEKLY PO 10/01/20 09:00 10/15/20 08:23 Lidocaine (Lidoderm) 1 patch DAILY TP 09/26/20 09:00 10/07/20 17:00 DC 10/06/20 09:01 Polyethylene Glycol (miraLAX) 17 gm DAILY PO 09/26/20 09:00 10/07/20 17:00 DC 10/06/20 09:01 Atorvastatin Calcium (Lipitor) 40 mg QHS PO 09/25/20 21:00 10/20/20 20:20 Calcium Carbonate/ Glycine (Oscal) 500 mg DAILY PO 09/26/20 09:00 10/20/20 08:29 Quetiapine Fumarate (SEROquel) 50 mg TID PO 09/25/20 21:00 09/29/20 21:02 DC 09/29/20 13:43 Quetiapine Fumarate (SEROquel) 100 mg QHS PO 09/25/20 21:00 09/29/20 21:02 DC 09/28/20 19:48 Trazodone HCl (Desyrel) 25 mg BID PO 09/25/20 21:00 09/27/20 21:30 DC 09/27/20 21:18 Trazodone HCl (Desyrel) 50 mg QHS PO 09/25/20 21:00 10/20/20 20:20 Melatonin (Melatonin) 3 mg QHS PO 09/25/20 21:00 10/20/20 20:20 Miscellaneous (Lidoderm Patch Removal) 1 ea QHS MC 09/25/20 21:00 10/11/20 20:49 DC 10/10/20 20:15 Levofloxacin (Levaquin) 250 mg DAILY PO 09/27/20 13:00 10/02/20 21:01 DC 10/02/20 08:39 Lactobacillus Rhamnosus (Culturelle) 1 cap BID PO 09/27/20 21:00 10/20/20 20:20 Trazodone HCl (Desyrel) 50 mg PRN QHS PRN PO INSOMNIA 09/27/20 21:30 Risperidone (RisperDAL) 1 mg HS PO 09/30/20 21:00 09/29/20 21:04 DC Risperidone (RisperDAL) 1 mg HS PO 09/29/20 21:15 10/01/20 17:44 DC 09/30/20 20:24 Risperidone (RisperDAL) 1.25 mg HS PO 10/01/20 21:00 10/20/20 20:20 Polyethylene Glycol (miraLAX) 17 gm PRN DAILY PRN PO CONSTIPATION, 1ST CHOICE 10/07/20 17:00 2/14/21 13:56 I have reviewed the current psychotropics carefully including drug interactions. Risk benefit ratio favors no change other than as noted in my dictated progress note. Diagnosis: Problems: (1) Anxiety disorder, unspecified (2) Major depressive disorder with psychotic features (3) Mild cognitive impairment DYANA DEVINE MD Oct 20, 2020 20:58
--- NOTE | 2020-10-20 22:45 | NUR ---
Pt was in her room for med pass an assessment. Pt takes meds whole with water. Pt is A&OX4. Pt did talk on the phone tonight. Pt has been compliant tonight. Currently sleeping in bed.
[2020-10-21 05:43] VITALS: BP 127/80
[2020-10-21] MEDS: LACTOBACILLUS RHAMNOSUS GG 1 CAPSULE. PO SCH ×2 (08:38→19:57)
[2020-10-21] MEDS: ASPIRIN CHEWABLE 81 MG TABLET. PO SCH (08:38)
[2020-10-21] MEDS: CALCIUM CARBONATE 500 MG TABLET PO SCH (08:38)
[2020-10-21] MEDS: amLODIPine BESYLATE 10 MG TABLET PO SCH (08:38)
--- NOTE | 2020-10-21 12:00 | NUR ---
Pt is calm, cooperative, and compliant. No agitation, no aggression, no hallucinations or delusions noted. She is compliant with her medication and assessment.
[2020-10-21 16:28] VITALS: BP 128/74
[2020-10-21] MEDS: ATORVASTATIN CALCIUM 20 MG TABLET PO SCH (19:57)
[2020-10-21] MEDS: traZODone 50 MG TABLET. PO SCH (19:57)
[2020-10-21] MEDS: MELATONIN 3 MG TABLET PO SCH (19:57)
[2020-10-21] MEDS: risperiDONE 1 MG TABLET. PO SCH (19:58)
--- NOTE | 2020-10-21 22:04 | PDOC ---
Exam Note: Carlos A Note: Please also refer to the separate dictated note~for this date of service dictated separately.~Patient seen individually. Discussed the patient with Nursing staff reviewed the chart.~Reviewed interim history and current functioning. Reviewed vital signs,~Labs/ Radiology~and current medications noted below. Continue current treatment with the changes noted in the dictated addendum note Assessment: Vital Signs/I&O: Vital Signs Date Time Temp Pulse Resp B/P (MAP) Pulse Ox O2 Delivery O2 Flow Rate FiO2 10/21/20 16:28 97.1 71 16 128/74 (92) 97 Room Air I & O 10/20/20 10/20/20 10/21/20 14:59 22:59 06:59 Intake Total 720 ml 360 ml Balance 720 ml 360 ml Current Medications: Meds: Current Medications Medications (Trade) Dose Ordered Sig/Tory Route PRN Reason Start Time Stop Time Status Last Admin Dose Admin Acetaminophen (Tylenol) 650 mg PRN Q6HRS PRN PO MILD PAIN / TEMP > 100.3'F 09/25/20 18:15 09/25/20 21:02 Multi-Ingredient Ointment (Analgesic Blue) 1 mariya PRN QID PRN TP MUSCLE PAIN 09/25/20 18:15 Al Hydroxide/Mg Hydroxide (Mylanta Plus Xs) 15 ml PRN AFTMEALHC PRN PO DYSPEPSIA 09/25/20 18:15 Magnesium Hydroxide (Milk Of Magnesia) 2,400 mg PRN QHS PRN PO CONSTIPATION, 2ND CHOICE 09/25/20 18:15 Acetaminophen (Tylenol) 650 mg Q6HRS PRN PO pain or fever 09/25/20 18:45 UNV Amlodipine Besylate (Norvasc) 10 mg DAILY PO 09/26/20 09:00 10/21/20 08:38 Aspirin (Aspirin Chewable) 81 mg DAILY PO 09/26/20 09:00 10/21/20 08:38 Vitamin D (Vitamin D3) 50,000 unit WEEKLY PO 10/01/20 09:00 10/15/20 08:23 Lidocaine (Lidoderm) 1 patch DAILY TP 09/26/20 09:00 10/07/20 17:00 DC 10/06/20 09:01 Polyethylene Glycol (miraLAX) 17 gm DAILY PO 09/26/20 09:00 10/07/20 17:00 DC 10/06/20 09:01 Atorvastatin Calcium (Lipitor) 40 mg QHS PO 09/25/20 21:00 10/21/20 19:57 Calcium Carbonate/ Glycine (Oscal) 500 mg DAILY PO 09/26/20 09:00 10/21/20 08:38 Quetiapine Fumarate (SEROquel) 50 mg TID PO 09/25/20 21:00 09/29/20 21:02 DC 09/29/20 13:43 Quetiapine Fumarate (SEROquel) 100 mg QHS PO 09/25/20 21:00 09/29/20 21:02 DC 09/28/20 19:48 Trazodone HCl (Desyrel) 25 mg BID PO 09/25/20 21:00 09/27/20 21:30 DC 09/27/20 21:18 Trazodone HCl (Desyrel) 50 mg QHS PO 09/25/20 21:00 10/21/20 19:57 Melatonin (Melatonin) 3 mg QHS PO 09/25/20 21:00 10/21/20 19:57 Miscellaneous (Lidoderm Patch Removal) 1 ea QHS MC 09/25/20 21:00 10/11/20 20:49 DC 10/10/20 20:15 Levofloxacin (Levaquin) 250 mg DAILY PO 09/27/20 13:00 10/02/20 21:01 DC 10/02/20 08:39 Lactobacillus Rhamnosus (Culturelle) 1 cap BID PO 09/27/20 21:00 10/21/20 19:57 Trazodone HCl (Desyrel) 50 mg PRN QHS PRN PO INSOMNIA 09/27/20 21:30 Risperidone (RisperDAL) 1 mg HS PO 09/30/20 21:00 09/29/20 21:04 DC Risperidone (RisperDAL) 1 mg HS PO 09/29/20 21:15 10/01/20 17:44 DC 09/30/20 20:24 Risperidone (RisperDAL) 1.25 mg HS PO 10/01/20 21:00 10/21/20 19:58 Polyethylene Glycol (miraLAX) 17 gm PRN DAILY PRN PO CONSTIPATION, 1ST CHOICE 10/07/20 17:00 2/14/21 13:56 I have reviewed the current psychotropics carefully including drug interactions. Risk benefit ratio favors no change other than as noted in my dictated progress note. Diagnosis: Problems: (1) Major depressive disorder with psychotic features (2) Anxiety disorder, unspecified (3) Mild cognitive impairment DYANA DEVINE MD Oct 21, 2020 22:04
--- NOTE | 2020-10-21 23:21 | NUR ---
Pt alert, reading in her room. Pt pleasant and social. Meds taken whole.
[2020-10-22 05:57] VITALS: BP 137/82
[2020-10-22] MEDS: LACTOBACILLUS RHAMNOSUS GG 1 CAPSULE. PO SCH ×2 (08:48→20:40)
[2020-10-22] MEDS: ASPIRIN CHEWABLE 81 MG TABLET. PO SCH (08:48)
[2020-10-22] MEDS: CALCIUM CARBONATE 500 MG TABLET PO SCH (08:49)
[2020-10-22] MEDS: amLODIPine BESYLATE 10 MG TABLET PO SCH (08:49)
[2020-10-22] MEDS: CHOLECALCIFEROL (VITAMIN D3) 50,000 UNIT CAPSULE PO SCH (08:49)
[2020-10-22 09:38] LABS: BASO % 0 % (0-3); EOS # 0.3 x10^3/uL (0.0-0.7); EOS % 5 % (0-3); HEMATOCRIT 38.3 % (36.0-47.0); HEMOGLOBIN 12.6 g/dL (12.0-15.5); LYMPH # 1.9 x10^3/uL (1.0-4.8); LYMPH % 33 % (24-48); MEAN CORPUSCULAR HEMOGLOBIN 31 pg (25-35); MEAN CORPUSCULAR HGB CONC 33 g/dL (31-37); MEAN CORPUSCULAR VOLUME 94 fL (79-100); MONO # 0.5 x10^3/uL (0.0-1.1); MONO % 9 % (0-9); NEUT % 53 % (31-73); PLATELET COUNT 285 x10^3/uL (140-400); RED CELL DISTRIBUTION WIDTH 14.2 % (11.5-14.5); WHITE BLOOD COUNT 5.6 x10^3/uL (4.0-11.0)
[2020-10-22 09:52] LABS: ALBUMIN/GLOBULIN RATIO 0.7 (1.0-1.7); CALCIUM 8.7 mg/dL (8.5-10.1); CREATININE 0.7 mg/dL (0.6-1.0); GFR 81.4; POTASSIUM 3.5 mmol/L (3.5-5.1); TOTAL BILIRUBIN 0.5 mg/dL (0.2-1.0); TOTAL PROTEIN 7.4 g/dL (6.4-8.2)
--- NOTE | 2020-10-22 10:37 | NUR ---
She is compliant with her medication and assessment. Pt is calm, cooperative, and compliant. No agitation, no aggression, no hallucinations or delusions noted.
[2020-10-22 16:00] VITALS: BP 135/82
[2020-10-22] MEDS: traZODone 50 MG TABLET. PO SCH (20:40)
[2020-10-22] MEDS: risperiDONE 1 MG TABLET. PO SCH (20:40)
[2020-10-22] MEDS: ATORVASTATIN CALCIUM 20 MG TABLET PO SCH (20:40)
[2020-10-22] MEDS: MELATONIN 3 MG TABLET PO SCH (20:40)
[2020-10-22] MEDS: POLYETHYLENE GLYCOL 3350 17 GM PACKET. PO PRN (20:57)
--- NOTE | 2020-10-22 21:06 | PDOC ---
Exam Note: Carlos A Note: This note is a late entry for 10/19/2020 covers elements not covered in my initial note. Subjective: The patient was seen face to face in the morning of 10/19/2020 for a treatment team meeting with Constanza Quinones, Yuni Tim and Diann (social services technician), Morelia Garcia, activity therapy and Kamila MACARIO, discussed and reviewed the chart. The patient slept 8 hours previous night. Overall the patient has been cooperative. She spends much time in her room, accepting to go to assisted living. I met with her also in the evening. Review of Systems: No CV, , pulmonary, eye, ENT system symptoms on review. Mental Status Exam: The patient is oriented to herself and situation. She was reading another book about the [facility] and a family who lived there and their life story. She was able to relate this back to me. Speech is coherent. Abstraction is fair. Computation impaired. Language function is intact. Mood and affect somewhat withdrawn. No suicidal or homicidal ideation. Laboratory Data: Reviewed. Impression: Major depressive disorder with psychotic features. Mild cognitive impairment. Anxiety disorder unspecified. Plan: No change from initial note. Assessment: Vital Signs/I&O: Vital Signs Date Time Temp Pulse Resp B/P (MAP) Pulse Ox O2 Delivery O2 Flow Rate FiO2 10/22/20 16:00 97.8 70 18 135/82 (99) 96 Room Air I & O 10/21/20 10/21/20 10/22/20 15:00 23:00 07:00 Intake Total 480 ml 720 ml Balance 480 ml 720 ml Labs: Laboratory Tests Test 10/22/20 08:50 White Blood Count 5.6 x10^3/uL (4.0-11.0) Red Blood Count 4.10 x10^6/uL (3.50-5.40) Hemoglobin 12.6 g/dL (12.0-15.5) Hematocrit 38.3 % (36.0-47.0) Mean Corpuscular Volume 94 fL (79-100) Mean Corpuscular Hemoglobin 31 pg (25-35) Mean Corpuscular Hemoglobin Concent 33 g/dL (31-37) Red Cell Distribution Width 14.2 % (11.5-14.5) Platelet Count 285 x10^3/uL (140-400) Neutrophils (%) (Auto) 53 % (31-73) Lymphocytes (%) (Auto) 33 % (24-48) Monocytes (%) (Auto) 9 % (0-9) Eosinophils (%) (Auto) 5 % (0-3) H Basophils (%) (Auto) 0 % (0-3) Neutrophils # (Auto) 3.0 x10^3uL (1.8-7.7) Lymphocytes # (Auto) 1.9 x10^3/uL (1.0-4.8) Monocytes # (Auto) 0.5 x10^3/uL (0.0-1.1) Eosinophils # (Auto) 0.3 x10^3/uL (0.0-0.7) Basophils # (Auto) 0.0 x10^3/uL (0.0-0.2) Sodium Level 143 mmol/L (136-145) Potassium Level 3.5 mmol/L (3.5-5.1) Chloride Level 104 mmol/L (98-107) Carbon Dioxide Level 29 mmol/L (21-32) Anion Gap 10 (6-14) Blood Urea Nitrogen 13 mg/dL (7-20) Creatinine 0.7 mg/dL (0.6-1.0) Estimated GFR (Cockcroft-Gault) 81.4 BUN/Creatinine Ratio 19 (6-20) Glucose Level 142 mg/dL (70-99) H Calcium Level 8.7 mg/dL (8.5-10.1) Total Bilirubin 0.5 mg/dL (0.2-1.0) Aspartate Amino Transferase (AST) 18 U/L (15-37) Alanine Aminotransferase (ALT) 16 U/L (14-59) Alkaline Phosphatase 86 U/L (46-116) Total Protein 7.4 g/dL (6.4-8.2) Albumin 3.0 g/dL (3.4-5.0) L Albumin/Globulin Ratio 0.7 (1.0-1.7) L Current Medications: Meds: Laboratory Tests Test 10/22/20 08:50 White Blood Count 5.6 x10^3/uL Red Blood Count 4.10 x10^6/uL Hemoglobin 12.6 g/dL Hematocrit 38.3 % Mean Corpuscular Volume 94 fL Mean Corpuscular Hemoglobin 31 pg Mean Corpuscular Hemoglobin Concent 33 g/dL Red Cell Distribution Width 14.2 % Platelet Count 285 x10^3/uL Neutrophils (%) (Auto) 53 % Lymphocytes (%) (Auto) 33 % Monocytes (%) (Auto) 9 % Eosinophils (%) (Auto) 5 % Basophils (%) (Auto) 0 % Neutrophils # (Auto) 3.0 x10^3uL Lymphocytes # (Auto) 1.9 x10^3/uL Monocytes # (Auto) 0.5 x10^3/uL Eosinophils # (Auto) 0.3 x10^3/uL Basophils # (Auto) 0.0 x10^3/uL Sodium Level 143 mmol/L Potassium Level 3.5 mmol/L Chloride Level 104 mmol/L Carbon Dioxide Level 29 mmol/L Anion Gap 10 Blood Urea Nitrogen 13 mg/dL Creatinine 0.7 mg/dL Estimated GFR (Cockcroft-Gault) 81.4 BUN/Creatinine Ratio 19 Glucose Level 142 mg/dL Calcium Level 8.7 mg/dL Total Bilirubin 0.5 mg/dL Aspartate Amino Transf (AST/SGOT) 18 U/L Alanine Aminotransferase (ALT/SGPT) 16 U/L Alkaline Phosphatase 86 U/L Total Protein 7.4 g/dL Albumin 3.0 g/dL Albumin/Globulin Ratio 0.7 Current Medications Medications (Trade) Dose Ordered Sig/Tory Route PRN Reason Start Time Stop Time Status Last Admin Dose Admin Acetaminophen (Tylenol) 650 mg PRN Q6HRS PRN PO MILD PAIN / TEMP > 100.3'F 09/25/20 18:15 09/25/20 21:02 Multi-Ingredient Ointment (Analgesic [place]) 1 mariya PRN QID PRN TP MUSCLE PAIN 09/25/20 18:15 Al Hydroxide/Mg Hydroxide (Mylanta Plus Xs) 15 ml PRN AFTMEALHC PRN PO DYSPEPSIA 09/25/20 18:15 Magnesium Hydroxide (Milk Of Magnesia) 2,400 mg PRN QHS PRN PO CONSTIPATION, 2ND CHOICE 09/25/20 18:15 Acetaminophen (Tylenol) 650 mg Q6HRS PRN PO pain or fever 09/25/20 18:45 UNV Amlodipine Besylate (Norvasc) 10 mg DAILY PO 09/26/20 09:00 10/22/20 08:49 Aspirin (Aspirin Chewable) 81 mg DAILY PO 09/26/20 09:00 10/22/20 08:48 Vitamin D (Vitamin D3) 50,000 unit WEEKLY PO 10/01/20 09:00 10/22/20 08:49 Lidocaine (Lidoderm) 1 patch DAILY TP 09/26/20 09:00 10/07/20 17:00 DC 10/06/20 09:01 Polyethylene Glycol (miraLAX) 17 gm DAILY PO 09/26/20 09:00 10/07/20 17:00 DC 10/06/20 09:01 Atorvastatin Calcium (Lipitor) 40 mg QHS PO 09/25/20 21:00 10/22/20 20:40 Calcium Carbonate/ Glycine (Oscal) 500 mg DAILY PO 09/26/20 09:00 10/22/20 08:49 Quetiapine Fumarate (SEROquel) 50 mg TID PO 09/25/20 21:00 09/29/20 21:02 DC 09/29/20 13:43 Quetiapine Fumarate (SEROquel) 100 mg QHS PO 09/25/20 21:00 09/29/20 21:02 DC 09/28/20 19:48 Trazodone HCl (Desyrel) 25 mg BID PO 09/25/20 21:00 09/27/20 21:30 DC 09/27/20 21:18 Trazodone HCl (Desyrel) 50 mg QHS PO 09/25/20 21:00 10/22/20 20:40 Melatonin (Melatonin) 3 mg QHS PO 09/25/20 21:00 10/22/20 20:40 Miscellaneous (Lidoderm Patch Removal) 1 ea QHS MC 09/25/20 21:00 10/11/20 20:49 DC 10/10/20 20:15 Levofloxacin (Levaquin) 250 mg DAILY PO 09/27/20 13:00 10/02/20 21:01 DC 10/02/20 08:39 Lactobacillus Rhamnosus (Culturelle) 1 cap BID PO 09/27/20 21:00 10/22/20 20:40 Trazodone HCl (Desyrel) 50 mg PRN QHS PRN PO INSOMNIA 09/27/20 21:30 Risperidone (RisperDAL) 1 mg HS PO 09/30/20 21:00 09/29/20 21:04 DC Risperidone (RisperDAL) 1 mg HS PO 09/29/20 21:15 10/01/20 17:44 DC 09/30/20 20:24 Risperidone (RisperDAL) 1.25 mg HS PO 10/01/20 21:00 10/22/20 20:40 Polyethylene Glycol (miraLAX) 17 gm PRN DAILY PRN PO CONSTIPATION, 1ST CHOICE 10/07/20 17:00 10/22/20 20:57 I have reviewed the current psychotropics carefully including drug interactions. Risk benefit ratio favors no change other than as noted in my dictated progress note. Diagnosis: Problems: (1) Mild cognitive impairment (2) Anxiety disorder, unspecified (3) Major depressive disorder with psychotic features DYANA DEVINE MD Oct 22, 2020 21:06
--- NOTE | 2020-10-22 21:28 | PDOC ---
Exam Note: Carlos A Note: This note is a late entry for 10/20/2020 covers elements not covered in my initial note. Subjective: The patient was seen face to face in the evening of 10/20/2020 with Kamila MACARIO, discussed and reviewed the chart. The patient slept 8-1/4 hours previous night. I met with the patient in her room at length again in the evening. She continued to read the book about the [facility] and the family who lived there. When I questioned her to relate the story she was able to describe that. She talked about how her grandfather and his father were in [place]. She spent some time there but then her moved to this [facility] where she settled and raised her family. She is quite insightful. Review of Systems: No CV, , pulmonary, eye, ENT system symptoms on review. Mental Status Exam: The patient is oriented to herself and situation. Speech is coherent. Abstraction is fair. Computation impaired. Language function is intact. Mood and affect somewhat withdrawn. Laboratory Data: Reviewed. Impression: Major depressive disorder with psychotic features. Mild cognitive impairment. Anxiety disorder unspecified. Plan: No change from initial note. Assessment: Vital Signs/I&O: Vital Signs Date Time Temp Pulse Resp B/P (MAP) Pulse Ox O2 Delivery O2 Flow Rate FiO2 10/22/20 16:00 97.8 70 18 135/82 (99) 96 Room Air I & O 10/21/20 10/21/20 10/22/20 14:59 22:59 06:59 Intake Total 480 ml 720 ml Balance 480 ml 720 ml Labs: Laboratory Tests Test 10/22/20 08:50 White Blood Count 5.6 x10^3/uL (4.0-11.0) Red Blood Count 4.10 x10^6/uL (3.50-5.40) Hemoglobin 12.6 g/dL (12.0-15.5) Hematocrit 38.3 % (36.0-47.0) Mean Corpuscular Volume 94 fL (79-100) Mean Corpuscular Hemoglobin 31 pg (25-35) Mean Corpuscular Hemoglobin Concent 33 g/dL (31-37) Red Cell Distribution Width 14.2 % (11.5-14.5) Platelet Count 285 x10^3/uL (140-400) Neutrophils (%) (Auto) 53 % (31-73) Lymphocytes (%) (Auto) 33 % (24-48) Monocytes (%) (Auto) 9 % (0-9) Eosinophils (%) (Auto) 5 % (0-3) H Basophils (%) (Auto) 0 % (0-3) Neutrophils # (Auto) 3.0 x10^3uL (1.8-7.7) Lymphocytes # (Auto) 1.9 x10^3/uL (1.0-4.8) Monocytes # (Auto) 0.5 x10^3/uL (0.0-1.1) Eosinophils # (Auto) 0.3 x10^3/uL (0.0-0.7) Basophils # (Auto) 0.0 x10^3/uL (0.0-0.2) Sodium Level 143 mmol/L (136-145) Potassium Level 3.5 mmol/L (3.5-5.1) Chloride Level 104 mmol/L (98-107) Carbon Dioxide Level 29 mmol/L (21-32) Anion Gap 10 (6-14) Blood Urea Nitrogen 13 mg/dL (7-20) Creatinine 0.7 mg/dL (0.6-1.0) Estimated GFR (Cockcroft-Gault) 81.4 BUN/Creatinine Ratio 19 (6-20) Glucose Level 142 mg/dL (70-99) H Calcium Level 8.7 mg/dL (8.5-10.1) Total Bilirubin 0.5 mg/dL (0.2-1.0) Aspartate Amino Transferase (AST) 18 U/L (15-37) Alanine Aminotransferase (ALT) 16 U/L (14-59) Alkaline Phosphatase 86 U/L (46-116) Total Protein 7.4 g/dL (6.4-8.2) Albumin 3.0 g/dL (3.4-5.0) L Albumin/Globulin Ratio 0.7 (1.0-1.7) L Current Medications: Meds: Laboratory Tests Test 10/22/20 08:50 White Blood Count 5.6 x10^3/uL Red Blood Count 4.10 x10^6/uL Hemoglobin 12.6 g/dL Hematocrit 38.3 % Mean Corpuscular Volume 94 fL Mean Corpuscular Hemoglobin 31 pg Mean Corpuscular Hemoglobin Concent 33 g/dL Red Cell Distribution Width 14.2 % Platelet Count 285 x10^3/uL Neutrophils (%) (Auto) 53 % Lymphocytes (%) (Auto) 33 % Monocytes (%) (Auto) 9 % Eosinophils (%) (Auto) 5 % Basophils (%) (Auto) 0 % Neutrophils # (Auto) 3.0 x10^3uL Lymphocytes # (Auto) 1.9 x10^3/uL Monocytes # (Auto) 0.5 x10^3/uL Eosinophils # (Auto) 0.3 x10^3/uL Basophils # (Auto) 0.0 x10^3/uL Sodium Level 143 mmol/L Potassium Level 3.5 mmol/L Chloride Level 104 mmol/L Carbon Dioxide Level 29 mmol/L Anion Gap 10 Blood Urea Nitrogen 13 mg/dL Creatinine 0.7 mg/dL Estimated GFR (Cockcroft-Gault) 81.4 BUN/Creatinine Ratio 19 Glucose Level 142 mg/dL Calcium Level 8.7 mg/dL Total Bilirubin 0.5 mg/dL Aspartate Amino Transf (AST/SGOT) 18 U/L Alanine Aminotransferase (ALT/SGPT) 16 U/L Alkaline Phosphatase 86 U/L Total Protein 7.4 g/dL Albumin 3.0 g/dL Albumin/Globulin Ratio 0.7 Current Medications Medications (Trade) Dose Ordered Sig/Tory Route PRN Reason Start Time Stop Time Status Last Admin Dose Admin Acetaminophen (Tylenol) 650 mg PRN Q6HRS PRN PO MILD PAIN / TEMP > 100.3'F 09/25/20 18:15 09/25/20 21:02 Multi-Ingredient Ointment (Analgesic [place]) 1 mariya PRN QID PRN TP MUSCLE PAIN 09/25/20 18:15 Al Hydroxide/Mg Hydroxide (Mylanta Plus Xs) 15 ml PRN AFTMEALHC PRN PO DYSPEPSIA 09/25/20 18:15 Magnesium Hydroxide (Milk Of Magnesia) 2,400 mg PRN QHS PRN PO CONSTIPATION, 2ND CHOICE 09/25/20 18:15 Acetaminophen (Tylenol) 650 mg Q6HRS PRN PO pain or fever 09/25/20 18:45 UNV Amlodipine Besylate (Norvasc) 10 mg DAILY PO 09/26/20 09:00 10/22/20 08:49 Aspirin (Aspirin Chewable) 81 mg DAILY PO 09/26/20 09:00 10/22/20 08:48 Vitamin D (Vitamin D3) 50,000 unit WEEKLY PO 10/01/20 09:00 10/22/20 08:49 Lidocaine (Lidoderm) 1 patch DAILY TP 09/26/20 09:00 10/07/20 17:00 DC 10/06/20 09:01 Polyethylene Glycol (miraLAX) 17 gm DAILY PO 09/26/20 09:00 10/07/20 17:00 DC 10/06/20 09:01 Atorvastatin Calcium (Lipitor) 40 mg QHS PO 09/25/20 21:00 10/22/20 20:40 Calcium Carbonate/ Glycine (Oscal) 500 mg DAILY PO 09/26/20 09:00 10/22/20 08:49 Quetiapine Fumarate (SEROquel) 50 mg TID PO 09/25/20 21:00 09/29/20 21:02 DC 09/29/20 13:43 Quetiapine Fumarate (SEROquel) 100 mg QHS PO 09/25/20 21:00 09/29/20 21:02 DC 09/28/20 19:48 Trazodone HCl (Desyrel) 25 mg BID PO 09/25/20 21:00 09/27/20 21:30 DC 09/27/20 21:18 Trazodone HCl (Desyrel) 50 mg QHS PO 09/25/20 21:00 10/22/20 20:40 Melatonin (Melatonin) 3 mg QHS PO 09/25/20 21:00 10/22/20 20:40 Miscellaneous (Lidoderm Patch Removal) 1 ea QHS MC 09/25/20 21:00 10/11/20 20:49 DC 10/10/20 20:15 Levofloxacin (Levaquin) 250 mg DAILY PO 09/27/20 13:00 10/02/20 21:01 DC 10/02/20 08:39 Lactobacillus Rhamnosus (Culturelle) 1 cap BID PO 09/27/20 21:00 10/22/20 20:40 Trazodone HCl (Desyrel) 50 mg PRN QHS PRN PO INSOMNIA 09/27/20 21:30 Risperidone (RisperDAL) 1 mg HS PO 09/30/20 21:00 09/29/20 21:04 DC Risperidone (RisperDAL) 1 mg HS PO 09/29/20 21:15 10/01/20 17:44 DC 09/30/20 20:24 Risperidone (RisperDAL) 1.25 mg HS PO 10/01/20 21:00 10/22/20 20:40 Polyethylene Glycol (miraLAX) 17 gm PRN DAILY PRN PO CONSTIPATION, 1ST CHOICE 10/07/20 17:00 10/22/20 20:57 I have reviewed the current psychotropics carefully including drug interactions. Risk benefit ratio favors no change other than as noted in my dictated progress note. Diagnosis: Problems: (1) Major depressive disorder with psychotic features (2) UTI (urinary tract infection) (3) Anxiety disorder, unspecified (4) Mild cognitive impairment DYANA DEVINE MD Oct 22, 2020 21:28
--- NOTE | 2020-10-22 23:39 | NUR ---
Nursing Note The patient was located in her room for her assessment and medication. The patient was pleasant during interactions with this nurse and requested polyethylene glycol with her HS medications stating "i haven't had a bowel movement in two days and that isn't normal for me." The patient denies any pain or discomfort. The patient took her medication whole.
[2020-10-23] MEDS: amLODIPine BESYLATE 10 MG TABLET PO SCH (05:56)
[2020-10-23] MEDS: ASPIRIN CHEWABLE 81 MG TABLET. PO SCH (05:57)
[2020-10-23] MEDS: LACTOBACILLUS RHAMNOSUS GG 1 CAPSULE. PO SCH ×2 (05:57→21:29)
[2020-10-23] MEDS: CALCIUM CARBONATE 500 MG TABLET PO SCH (05:57)
[2020-10-23 06:02] VITALS: BP 125/80
--- NOTE | 2020-10-23 11:01 | NUR ---
She is compliant with her medication and assessment. Pt is calm, cooperative, and compliant. No agitation, no aggression, no hallucinations or delusions noted.
[2020-10-23 16:04] VITALS: BP 162/79
--- NOTE | 2020-10-23 16:30 | NUR ---
BI returned call to Patito, pt dtr/DPOA, who reports that they spoke to Liz at [facility] and pt was denied as pt has some aggressive behaviors from her UTI episodes. Pt family talked about everything and decided that pt would go to live at home with Patito. "I'm partially retired and the work I do complete is from home". BI and Patito discussed care options (e.g. mental health services, HH, etc). BI was asked to get pt set up through [facility] for services (e.g. mental health and PCP), as pt refuses to go back to [facility]. Pt dtr will hope to get pt by Friday so they can get her bed and belongings moved over by this weekend. BI did notify pt dtr that it would leave pt with 8 Medicare days and pt dtr verbalized understanding. Pt medications are to be called into [facility] pharmacy of [address] BI will follow up with Patito on finalizing discharge plans for pt.
--- NOTE | 2020-10-23 21:09 | PDOC ---
Exam Note: Carlos A Note: This note is a late entry for 10/21/2020 covers elements not covered in my initial note. Subjective: The patient was seen face to face in the evening of 10/21/2020 with Heather MACARIO, discussed and reviewed the chart. The patient slept 7-1/4 hours previous night. I met with her in her room. She was reading another book and able to describe to me the story that she was reading. She is verbal, interactive. Review of Systems: No CV, , pulmonary, eye, ENT system symptoms on review. Mental Status Exam: The patient is oriented to herself and situation. She is verbal, interactive. Speech is coherent. Abstraction is fair. Computation impaired. Language function is intact. Mood and affect somewhat withdrawn. Laboratory Data: Reviewed. Impression: Major depressive disorder with psychotic features. Mild cognitive impairment. Anxiety disorder unspecified. Plan: No change from initial note. Assessment: Vital Signs/I&O: Vital Signs Date Time Temp Pulse Resp B/P (MAP) Pulse Ox O2 Delivery O2 Flow Rate FiO2 10/23/20 16:04 98.0 78 20 162/79 (106) 96 10/22/20 16:00 Room Air I & O 10/22/20 10/22/20 10/23/20 15:00 23:00 07:00 Intake Total 240 ml 1080 ml Balance 240 ml 1080 ml Current Medications: I have reviewed the current psychotropics carefully including drug interactions. Risk benefit ratio favors no change other than as noted in my dictated progress note. Diagnosis: Problems: (1) Major depressive disorder with psychotic features (2) Anxiety disorder, unspecified (3) Mild cognitive impairment DYANA DEVINE MD Oct 23, 2020 21:09
[2020-10-23] MEDS: MELATONIN 3 MG TABLET PO SCH (21:29)
[2020-10-23] MEDS: risperiDONE 1 MG TABLET. PO SCH (21:29)
[2020-10-23] MEDS: traZODone 50 MG TABLET. PO SCH (21:29)
[2020-10-23] MEDS: ATORVASTATIN CALCIUM 20 MG TABLET PO SCH (21:30)
--- NOTE | 2020-10-23 21:33 | PDOC ---
Exam Note: Carlos A Note: This note is a late entry for 10/22/2020 covers elements not covered in my initial note. Subjective: The patient was seen face to face in the evening of 10/22/2020 with Heather MACARIO, discussed and reviewed the chart. The patient slept 7-3/4 hours previous night. She was quite animated, verbal, appropriate as I met with her in her room again this evening. She was towards the end of the novel, seems to be an avid reader. The novel was about Leo and about specific family. She was able to discuss that she visited [facility] in [place], which is an [facility] and able to relate the various places there since I had also visited there in the past. She was also able to relate to the [facility] in [place] and since I visited there myself as she had she was able to describe quite accurately some of those remembrances. Review of Systems: No CV, , pulmonary, eye, ENT system symptoms on review. Mental Status Exam: The patient is oriented to herself and situation. Speech is coherent. Abstraction is fair. Computation impaired. Language function is intact. Mood and affect somewhat withdrawn. Laboratory Data: Reviewed. Impression: Major depressive disorder with psychotic features. Mild cognitive impairment. Anxiety disorder unspecified. Plan: No change from initial note. Assessment: Vital Signs/I&O: Vital Signs Date Time Temp Pulse Resp B/P (MAP) Pulse Ox O2 Delivery O2 Flow Rate FiO2 10/23/20 16:04 98.0 78 20 162/79 (106) 96 10/22/20 16:00 Room Air I & O 10/22/20 10/22/20 10/23/20 15:00 23:00 07:00 Intake Total 240 ml 1080 ml Balance 240 ml 1080 ml Current Medications: Meds: Current Medications Medications (Trade) Dose Ordered Sig/Tory Route PRN Reason Start Time Stop Time Status Last Admin Dose Admin Acetaminophen (Tylenol) 650 mg PRN Q6HRS PRN PO MILD PAIN / TEMP > 100.3'F 09/25/20 18:15 09/25/20 21:02 Multi-Ingredient Ointment (Analgesic [place]) 1 mariya PRN QID PRN TP MUSCLE PAIN 09/25/20 18:15 Al Hydroxide/Mg Hydroxide (Mylanta Plus Xs) 15 ml PRN AFTMEALHC PRN PO DYSPEPSIA 09/25/20 18:15 Magnesium Hydroxide (Milk Of Magnesia) 2,400 mg PRN QHS PRN PO CONSTIPATION, 2ND CHOICE 09/25/20 18:15 Acetaminophen (Tylenol) 650 mg Q6HRS PRN PO pain or fever 09/25/20 18:45 UNV Amlodipine Besylate (Norvasc) 10 mg DAILY PO 09/26/20 09:00 10/23/20 05:56 Aspirin (Aspirin Chewable) 81 mg DAILY PO 09/26/20 09:00 10/23/20 05:57 Vitamin D (Vitamin D3) 50,000 unit WEEKLY PO 10/01/20 09:00 10/22/20 08:49 Lidocaine (Lidoderm) 1 patch DAILY TP 09/26/20 09:00 10/07/20 17:00 DC 10/06/20 09:01 Polyethylene Glycol (miraLAX) 17 gm DAILY PO 09/26/20 09:00 10/07/20 17:00 DC 10/06/20 09:01 Atorvastatin Calcium (Lipitor) 40 mg QHS PO 09/25/20 21:00 10/23/20 21:30 Calcium Carbonate/ Glycine (Oscal) 500 mg DAILY PO 09/26/20 09:00 10/23/20 05:57 Quetiapine Fumarate (SEROquel) 50 mg TID PO 09/25/20 21:00 09/29/20 21:02 DC 09/29/20 13:43 Quetiapine Fumarate (SEROquel) 100 mg QHS PO 09/25/20 21:00 09/29/20 21:02 DC 09/28/20 19:48 Trazodone HCl (Desyrel) 25 mg BID PO 09/25/20 21:00 09/27/20 21:30 DC 09/27/20 21:18 Trazodone HCl (Desyrel) 50 mg QHS PO 09/25/20 21:00 10/23/20 21:29 Melatonin (Melatonin) 3 mg QHS PO 09/25/20 21:00 10/23/20 21:29 Miscellaneous (Lidoderm Patch Removal) 1 ea QHS MC 09/25/20 21:00 10/11/20 20:49 DC 10/10/20 20:15 Levofloxacin (Levaquin) 250 mg DAILY PO 09/27/20 13:00 10/02/20 21:01 DC 10/02/20 08:39 Lactobacillus Rhamnosus (Culturelle) 1 cap BID PO 09/27/20 21:00 10/23/20 21:29 Trazodone HCl (Desyrel) 50 mg PRN QHS PRN PO INSOMNIA 09/27/20 21:30 Risperidone (RisperDAL) 1 mg HS PO 09/30/20 21:00 09/29/20 21:04 DC Risperidone (RisperDAL) 1 mg HS PO 09/29/20 21:15 10/01/20 17:44 DC 09/30/20 20:24 Risperidone (RisperDAL) 1.25 mg HS PO 10/01/20 21:00 10/23/20 21:29 Polyethylene Glycol (miraLAX) 17 gm PRN DAILY PRN PO CONSTIPATION, 1ST CHOICE 10/07/20 17:00 10/22/20 20:57 I have reviewed the current psychotropics carefully including drug interactions. Risk benefit ratio favors no change other than as noted in my dictated progress note. Diagnosis: Problems: (1) Major depressive disorder with psychotic features (2) Anxiety disorder, unspecified (3) Mild cognitive impairment DYANA DEVINE MD Oct 23, 2020 21:33
[2020-10-23] MEDS: MAGNESIUM HYDROXIDE 2,400 MG/30 ML ORAL.SUSP. PO PRN (21:44)
--- NOTE | 2020-10-23 21:56 | PDOC ---
Exam Note: Carlos A Note: Please also refer to the separate dictated note~for this date of service dictated separately.~Patient seen individually. Discussed the patient with Nursing staff reviewed the chart.~Reviewed interim history and current functioning. Reviewed vital signs,~Labs/ Radiology~and current medications noted below. Continue current treatment with the changes noted in the dictated addendum note Assessment: Vital Signs/I&O: Vital Signs Date Time Temp Pulse Resp B/P (MAP) Pulse Ox O2 Delivery O2 Flow Rate FiO2 10/23/20 16:04 98.0 78 20 162/79 (106) 96 10/22/20 16:00 Room Air I & O 10/22/20 10/22/20 10/23/20 15:00 23:00 07:00 Intake Total 240 ml 1080 ml Balance 240 ml 1080 ml Current Medications: Meds: Current Medications Medications (Trade) Dose Ordered Sig/Tory Route PRN Reason Start Time Stop Time Status Last Admin Dose Admin Acetaminophen (Tylenol) 650 mg PRN Q6HRS PRN PO MILD PAIN / TEMP > 100.3'F 09/25/20 18:15 09/25/20 21:02 Multi-Ingredient Ointment (Analgesic [place]) 1 mariya PRN QID PRN TP MUSCLE PAIN 09/25/20 18:15 Al Hydroxide/Mg Hydroxide (Mylanta Plus Xs) 15 ml PRN AFTMEALHC PRN PO DYSPEPSIA 09/25/20 18:15 Magnesium Hydroxide (Milk Of Magnesia) 2,400 mg PRN QHS PRN PO CONSTIPATION, 2ND CHOICE 09/25/20 18:15 10/23/20 21:44 Acetaminophen (Tylenol) 650 mg Q6HRS PRN PO pain or fever 09/25/20 18:45 UNV Amlodipine Besylate (Norvasc) 10 mg DAILY PO 09/26/20 09:00 10/23/20 05:56 Aspirin (Aspirin Chewable) 81 mg DAILY PO 09/26/20 09:00 10/23/20 05:57 Vitamin D (Vitamin D3) 50,000 unit WEEKLY PO 10/01/20 09:00 10/22/20 08:49 Lidocaine (Lidoderm) 1 patch DAILY TP 09/26/20 09:00 10/07/20 17:00 DC 10/06/20 09:01 Polyethylene Glycol (miraLAX) 17 gm DAILY PO 09/26/20 09:00 10/07/20 17:00 DC 10/06/20 09:01 Atorvastatin Calcium (Lipitor) 40 mg QHS PO 09/25/20 21:00 10/23/20 21:30 Calcium Carbonate/ Glycine (Oscal) 500 mg DAILY PO 09/26/20 09:00 10/23/20 05:57 Quetiapine Fumarate (SEROquel) 50 mg TID PO 09/25/20 21:00 09/29/20 21:02 DC 09/29/20 13:43 Quetiapine Fumarate (SEROquel) 100 mg QHS PO 09/25/20 21:00 09/29/20 21:02 DC 09/28/20 19:48 Trazodone HCl (Desyrel) 25 mg BID PO 09/25/20 21:00 09/27/20 21:30 DC 09/27/20 21:18 Trazodone HCl (Desyrel) 50 mg QHS PO 09/25/20 21:00 10/23/20 21:29 Melatonin (Melatonin) 3 mg QHS PO 09/25/20 21:00 10/23/20 21:29 Miscellaneous (Lidoderm Patch Removal) 1 ea QHS MC 09/25/20 21:00 10/11/20 20:49 DC 10/10/20 20:15 Levofloxacin (Levaquin) 250 mg DAILY PO 09/27/20 13:00 10/02/20 21:01 DC 10/02/20 08:39 Lactobacillus Rhamnosus (Culturelle) 1 cap BID PO 09/27/20 21:00 10/23/20 21:29 Trazodone HCl (Desyrel) 50 mg PRN QHS PRN PO INSOMNIA 09/27/20 21:30 Risperidone (RisperDAL) 1 mg HS PO 09/30/20 21:00 09/29/20 21:04 DC Risperidone (RisperDAL) 1 mg HS PO 09/29/20 21:15 10/01/20 17:44 DC 09/30/20 20:24 Risperidone (RisperDAL) 1.25 mg HS PO 10/01/20 21:00 10/23/20 21:29 Polyethylene Glycol (miraLAX) 17 gm PRN DAILY PRN PO CONSTIPATION, 1ST CHOICE 10/07/20 17:00 10/22/20 20:57 I have reviewed the current psychotropics carefully including drug interactions. Risk benefit ratio favors no change other than as noted in my dictated progress note. Diagnosis: Problems: (1) Major depressive disorder with psychotic features (2) Anxiety disorder, unspecified (3) Mild cognitive impairment DYANA DEVINE MD Oct 23, 2020 21:56
[2020-10-24 06:05] VITALS: BP 136/76
[2020-10-24] MEDS: CALCIUM CARBONATE 500 MG TABLET PO SCH (07:46)
[2020-10-24] MEDS: LACTOBACILLUS RHAMNOSUS GG 1 CAPSULE. PO SCH ×2 (07:46→21:28)
[2020-10-24] MEDS: ASPIRIN CHEWABLE 81 MG TABLET. PO SCH (07:46)
[2020-10-24] MEDS: amLODIPine BESYLATE 10 MG TABLET PO SCH (07:46)
--- NOTE | 2020-10-24 14:03 | NUR ---
Patient in room at time of assessment. Patient is cooperative and calm with no complaints. Patient is currently waiting for placement and is doing well with adjusting to fact of going to assisted living. Patient takes medications whole with no problems. No further concerns at this time.
[2020-10-24 16:03] VITALS: BP 150/83
--- NOTE | 2020-10-24 21:04 | PDOC ---
Exam Note: Carlos A Note: Please also refer to the separate dictated note~for this date of service dictated separately.~Patient seen individually. Discussed the patient with Nursing staff reviewed the chart.~Reviewed interim history and current functioning. Reviewed vital signs,~Labs/ Radiology~and current medications noted below. Continue current treatment with the changes noted in the dictated addendum note Assessment: Vital Signs/I&O: Vital Signs Date Time Temp Pulse Resp B/P (MAP) Pulse Ox O2 Delivery O2 Flow Rate FiO2 10/24/20 16:03 98.4 79 18 150/83 (105) 97 10/22/20 16:00 Room Air I & O 10/23/20 10/23/20 10/24/20 15:00 23:00 07:00 Intake Total 960 ml 600 ml Balance 960 ml 600 ml Current Medications: Meds: Current Medications Medications (Trade) Dose Ordered Sig/Tory Route PRN Reason Start Time Stop Time Status Last Admin Dose Admin Acetaminophen (Tylenol) 650 mg PRN Q6HRS PRN PO MILD PAIN / TEMP > 100.3'F 09/25/20 18:15 09/25/20 21:02 Multi-Ingredient Ointment (Analgesic [place]) 1 mariya PRN QID PRN TP MUSCLE PAIN 09/25/20 18:15 Al Hydroxide/Mg Hydroxide (Mylanta Plus Xs) 15 ml PRN AFTMEALHC PRN PO DYSPEPSIA 09/25/20 18:15 Magnesium Hydroxide (Milk Of Magnesia) 2,400 mg PRN QHS PRN PO CONSTIPATION, 2ND CHOICE 09/25/20 18:15 10/23/20 21:44 Acetaminophen (Tylenol) 650 mg Q6HRS PRN PO pain or fever 09/25/20 18:45 UNV Amlodipine Besylate (Norvasc) 10 mg DAILY PO 09/26/20 09:00 10/24/20 07:46 Aspirin (Aspirin Chewable) 81 mg DAILY PO 09/26/20 09:00 10/24/20 07:46 Vitamin D (Vitamin D3) 50,000 unit WEEKLY PO 10/01/20 09:00 10/22/20 08:49 Lidocaine (Lidoderm) 1 patch DAILY TP 09/26/20 09:00 10/07/20 17:00 DC 10/06/20 09:01 Polyethylene Glycol (miraLAX) 17 gm DAILY PO 09/26/20 09:00 10/07/20 17:00 DC 10/06/20 09:01 Atorvastatin Calcium (Lipitor) 40 mg QHS PO 09/25/20 21:00 10/23/20 21:30 Calcium Carbonate/ Glycine (Oscal) 500 mg DAILY PO 09/26/20 09:00 10/24/20 07:46 Quetiapine Fumarate (SEROquel) 50 mg TID PO 09/25/20 21:00 09/29/20 21:02 DC 09/29/20 13:43 Quetiapine Fumarate (SEROquel) 100 mg QHS PO 09/25/20 21:00 09/29/20 21:02 DC 09/28/20 19:48 Trazodone HCl (Desyrel) 25 mg BID PO 09/25/20 21:00 09/27/20 21:30 DC 09/27/20 21:18 Trazodone HCl (Desyrel) 50 mg QHS PO 09/25/20 21:00 10/23/20 21:29 Melatonin (Melatonin) 3 mg QHS PO 09/25/20 21:00 10/23/20 21:29 Miscellaneous (Lidoderm Patch Removal) 1 ea QHS MC 09/25/20 21:00 10/11/20 20:49 DC 10/10/20 20:15 Levofloxacin (Levaquin) 250 mg DAILY PO 09/27/20 13:00 10/02/20 21:01 DC 10/02/20 08:39 Lactobacillus Rhamnosus (Culturelle) 1 cap BID PO 09/27/20 21:00 10/24/20 07:46 Trazodone HCl (Desyrel) 50 mg PRN QHS PRN PO INSOMNIA 09/27/20 21:30 Risperidone (RisperDAL) 1 mg HS PO 09/30/20 21:00 09/29/20 21:04 DC Risperidone (RisperDAL) 1 mg HS PO 09/29/20 21:15 10/01/20 17:44 DC 09/30/20 20:24 Risperidone (RisperDAL) 1.25 mg HS PO 10/01/20 21:00 10/23/20 21:29 Polyethylene Glycol (miraLAX) 17 gm PRN DAILY PRN PO CONSTIPATION, 1ST CHOICE 10/07/20 17:00 10/22/20 20:57 I have reviewed the current psychotropics carefully including drug interactions. Risk benefit ratio favors no change other than as noted in my dictated progress note. Diagnosis: Problems: (1) Major depressive disorder with psychotic features (2) Anxiety disorder, unspecified (3) Mild cognitive impairment DYANA DEVINE MD Oct 24, 2020 21:04
[2020-10-24] MEDS: MAGNESIUM HYDROXIDE 2,400 MG/30 ML ORAL.SUSP. PO PRN ×2 (21:24→21:27)
[2020-10-24] MEDS: risperiDONE 1 MG TABLET. PO SCH (21:25)
[2020-10-24] MEDS: ATORVASTATIN CALCIUM 20 MG TABLET PO SCH (21:27)
[2020-10-24] MEDS: MELATONIN 3 MG TABLET PO SCH (21:27)
[2020-10-24] MEDS: traZODone 50 MG TABLET. PO SCH (21:30)
--- NOTE | 2020-10-25 05:03 | NUR ---
Nursing Note The patient was pleasant and appropriate during interactions with this nurse. The patient took her medication whole. The patient requested PRN Milk of Magnesia/prune juice for constipation. The patient states she hasn't had a bowel movement for several days. The patient states that she does not have abdominal pain.
[2020-10-25 06:09] VITALS: BP 135/78
[2020-10-25] MEDS: ASPIRIN CHEWABLE 81 MG TABLET. PO SCH (08:04)
[2020-10-25] MEDS: CALCIUM CARBONATE 500 MG TABLET PO SCH (08:04)
[2020-10-25] MEDS: LACTOBACILLUS RHAMNOSUS GG 1 CAPSULE. PO SCH ×2 (08:04→19:59)
[2020-10-25] MEDS: amLODIPine BESYLATE 10 MG TABLET PO SCH (08:05)
--- NOTE | 2020-10-25 10:01 | PDOC ---
Exam Note: Carlos A Note: This note is a late entry for 10/23/2020 covers elements not covered in my initial note. Subjective: The patient was seen face to face in the evening of 10/23/2020 with Heather MACARIO, discussed and reviewed the chart. The patient slept 7 hours previous night. When I met with her in her room she was still reading a book and was again able to tell me the concept of the story. I discussed assisted living placement and she is quite accepting of this. Review of Systems: No CV, , pulmonary, eye, ENT system symptoms on review. Mental Status Exam: The patient is oriented to herself and situation. Speech is coherent. Abstraction is fair. Computation impaired. Language function is intact. Mood and affect somewhat withdrawn. Laboratory Data: Reviewed. Impression: Major depressive disorder with psychotic features. Mild cognitive impairment. Anxiety disorder unspecified. Plan: No change from initial note. Assessment: Vital Signs/I&O: Vital Signs Date Time Temp Pulse Resp B/P (MAP) Pulse Ox O2 Delivery O2 Flow Rate FiO2 10/25/20 08:05 90 135/78 10/25/20 06:09 97.6 16 94 10/22/20 16:00 Room Air I & O 10/24/20 10/24/20 10/25/20 15:00 23:00 07:00 Intake Total 1020 ml 120 ml Balance 1020 ml 120 ml Current Medications: Meds: Current Medications Medications (Trade) Dose Ordered Sig/Tory Route PRN Reason Start Time Stop Time Status Last Admin Dose Admin Acetaminophen (Tylenol) 650 mg PRN Q6HRS PRN PO MILD PAIN / TEMP > 100.3'F 09/25/20 18:15 09/25/20 21:02 Multi-Ingredient Ointment (Analgesic [place]) 1 mariya PRN QID PRN TP MUSCLE PAIN 09/25/20 18:15 Al Hydroxide/Mg Hydroxide (Mylanta Plus Xs) 15 ml PRN AFTMEALHC PRN PO DYSPEPSIA 09/25/20 18:15 10/25/20 08:46 Magnesium Hydroxide (Milk Of Magnesia) 2,400 mg PRN QHS PRN PO CONSTIPATION, 2ND CHOICE 09/25/20 18:15 10/24/20 21:27 Acetaminophen (Tylenol) 650 mg Q6HRS PRN PO pain or fever 09/25/20 18:45 UNV Amlodipine Besylate (Norvasc) 10 mg DAILY PO 09/26/20 09:00 10/25/20 08:05 Aspirin (Aspirin Chewable) 81 mg DAILY PO 09/26/20 09:00 10/25/20 08:04 Vitamin D (Vitamin D3) 50,000 unit WEEKLY PO 10/01/20 09:00 10/22/20 08:49 Lidocaine (Lidoderm) 1 patch DAILY TP 09/26/20 09:00 10/07/20 17:00 DC 10/06/20 09:01 Polyethylene Glycol (miraLAX) 17 gm DAILY PO 09/26/20 09:00 10/07/20 17:00 DC 10/06/20 09:01 Atorvastatin Calcium (Lipitor) 40 mg QHS PO 09/25/20 21:00 10/24/20 21:27 Calcium Carbonate/ Glycine (Oscal) 500 mg DAILY PO 09/26/20 09:00 10/25/20 08:04 Quetiapine Fumarate (SEROquel) 50 mg TID PO 09/25/20 21:00 09/29/20 21:02 DC 09/29/20 13:43 Quetiapine Fumarate (SEROquel) 100 mg QHS PO 09/25/20 21:00 09/29/20 21:02 DC 09/28/20 19:48 Trazodone HCl (Desyrel) 25 mg BID PO 09/25/20 21:00 09/27/20 21:30 DC 09/27/20 21:18 Trazodone HCl (Desyrel) 50 mg QHS PO 09/25/20 21:00 10/24/20 21:30 Melatonin (Melatonin) 3 mg QHS PO 09/25/20 21:00 10/24/20 21:27 Miscellaneous (Lidoderm Patch Removal) 1 ea QHS 09/25/20 21:00 10/11/20 20:49 DC 10/10/20 20:15 Levofloxacin (Levaquin) 250 mg DAILY PO 09/27/20 13:00 10/02/20 21:01 DC 10/02/20 08:39 Lactobacillus Rhamnosus (Culturelle) 1 cap BID PO 09/27/20 21:00 10/25/20 08:04 Trazodone HCl (Desyrel) 50 mg PRN QHS PRN PO INSOMNIA 09/27/20 21:30 Risperidone (RisperDAL) 1 mg HS PO 09/30/20 21:00 09/29/20 21:04 DC Risperidone (RisperDAL) 1 mg HS PO 09/29/20 21:15 10/01/20 17:44 DC 09/30/20 20:24 Risperidone (RisperDAL) 1.25 mg HS PO 10/01/20 21:00 10/24/20 21:25 Polyethylene Glycol (miraLAX) 17 gm PRN DAILY PRN PO CONSTIPATION, 1ST CHOICE 10/07/20 17:00 10/22/20 20:57 I have reviewed the current psychotropics carefully including drug interactions. Risk benefit ratio favors no change other than as noted in my dictated progress note. Diagnosis: Problems: (1) Major depressive disorder with psychotic features (2) Anxiety disorder, unspecified (3) Mild cognitive impairment DYANA DEVINE MD Oct 25, 2020 10:01
--- NOTE | 2020-10-25 10:27 | PDOC ---
Exam Note: Carlos A Note: This note is a late entry for 10/24/2020 covers elements not covered in my initial note. Subjective: The patient was seen face to face in the evening of 10/24/2020 with Kamila MACARIO, discussed and reviewed the chart. The patient slept 6-1/2 hours previous night. I met with her in her room again at some length in the evening. Other demented male patients walk into her room but she handles them well, distracts them and has to leave the room. Review of Systems: No CV, , pulmonary, eye, ENT system symptoms on review. Mental Status Exam: The patient is oriented to herself and situation. Speech is coherent. Abstraction is fair. Computation impaired. Language function is intact. Mood and affect somewhat withdrawn. Laboratory Data: Reviewed. Impression: Major depressive disorder with psychotic features. Mild cognitive impairment. Anxiety disorder unspecified. Plan: No change from initial note. Assessment: Vital Signs/I&O: Vital Signs Date Time Temp Pulse Resp B/P (MAP) Pulse Ox O2 Delivery O2 Flow Rate FiO2 10/25/20 08:05 90 135/78 10/25/20 06:09 97.6 16 94 10/22/20 16:00 Room Air I & O 10/24/20 10/24/20 10/25/20 15:00 23:00 07:00 Intake Total 1020 ml 120 ml Balance 1020 ml 120 ml Current Medications: Meds: Current Medications Medications (Trade) Dose Ordered Sig/Tory Route PRN Reason Start Time Stop Time Status Last Admin Dose Admin Acetaminophen (Tylenol) 650 mg PRN Q6HRS PRN PO MILD PAIN / TEMP > 100.3'F 09/25/20 18:15 09/25/20 21:02 Multi-Ingredient Ointment (Analgesic [place]) 1 mariya PRN QID PRN TP MUSCLE PAIN 09/25/20 18:15 Al Hydroxide/Mg Hydroxide (Mylanta Plus Xs) 15 ml PRN AFTMEALHC PRN PO DYSPEPSIA 09/25/20 18:15 10/25/20 08:46 Magnesium Hydroxide (Milk Of Magnesia) 2,400 mg PRN QHS PRN PO CONSTIPATION, 2ND CHOICE 09/25/20 18:15 10/24/20 21:27 Acetaminophen (Tylenol) 650 mg Q6HRS PRN PO pain or fever 09/25/20 18:45 UNV Amlodipine Besylate (Norvasc) 10 mg DAILY PO 09/26/20 09:00 10/25/20 08:05 Aspirin (Aspirin Chewable) 81 mg DAILY PO 09/26/20 09:00 10/25/20 08:04 Vitamin D (Vitamin D3) 50,000 unit WEEKLY PO 10/01/20 09:00 10/22/20 08:49 Lidocaine (Lidoderm) 1 patch DAILY TP 09/26/20 09:00 10/07/20 17:00 DC 10/06/20 09:01 Polyethylene Glycol (miraLAX) 17 gm DAILY PO 09/26/20 09:00 10/07/20 17:00 DC 10/06/20 09:01 Atorvastatin Calcium (Lipitor) 40 mg QHS PO 09/25/20 21:00 10/24/20 21:27 Calcium Carbonate/ Glycine (Oscal) 500 mg DAILY PO 09/26/20 09:00 10/25/20 08:04 Quetiapine Fumarate (SEROquel) 50 mg TID PO 09/25/20 21:00 09/29/20 21:02 DC 09/29/20 13:43 Quetiapine Fumarate (SEROquel) 100 mg QHS PO 09/25/20 21:00 09/29/20 21:02 DC 09/28/20 19:48 Trazodone HCl (Desyrel) 25 mg BID PO 09/25/20 21:00 09/27/20 21:30 DC 09/27/20 21:18 Trazodone HCl (Desyrel) 50 mg QHS PO 09/25/20 21:00 10/24/20 21:30 Melatonin (Melatonin) 3 mg QHS PO 09/25/20 21:00 10/24/20 21:27 Miscellaneous (Lidoderm Patch Removal) 1 ea QHS MC 09/25/20 21:00 10/11/20 20:49 DC 10/10/20 20:15 Levofloxacin (Levaquin) 250 mg DAILY PO 09/27/20 13:00 10/02/20 21:01 DC 10/02/20 08:39 Lactobacillus Rhamnosus (Culturelle) 1 cap BID PO 09/27/20 21:00 10/25/20 08:04 Trazodone HCl (Desyrel) 50 mg PRN QHS PRN PO INSOMNIA 09/27/20 21:30 Risperidone (RisperDAL) 1 mg HS PO 09/30/20 21:00 09/29/20 21:04 DC Risperidone (RisperDAL) 1 mg HS PO 09/29/20 21:15 10/01/20 17:44 DC 09/30/20 20:24 Risperidone (RisperDAL) 1.25 mg HS PO 10/01/20 21:00 10/24/20 21:25 Polyethylene Glycol (miraLAX) 17 gm PRN DAILY PRN PO CONSTIPATION, 1ST CHOICE 10/07/20 17:00 10/22/20 20:57 I have reviewed the current psychotropics carefully including drug interactions. Risk benefit ratio favors no change other than as noted in my dictated progress note. Diagnosis: Problems: (1) Major depressive disorder with psychotic features (2) Anxiety disorder, unspecified (3) Mild cognitive impairment DYANA DEVINE MD Oct 25, 2020 10:27
[2020-10-25 15:34] VITALS: BP 139/90
[2020-10-25] MEDS ORDERED: MAGNESIUM CITRATE 296 ML SOLUTION. PO ONE (17:00)
--- NOTE | 2020-10-25 18:29 | NUR ---
Patient has been calm, cooperative and pleasant throughout this shift, she has generally remained withdrawn to her room. Patient has had complaints of constipation with new abdominal pain. PRN medications provided per eMAR, will continue to monitor and report to oncoming shift.
[2020-10-25] MEDS: traZODone 50 MG TABLET. PO SCH (20:00)
[2020-10-25] MEDS: MELATONIN 3 MG TABLET PO SCH (20:00)
[2020-10-25] MEDS: risperiDONE 1 MG TABLET. PO SCH (20:00)
[2020-10-25] MEDS: ATORVASTATIN CALCIUM 20 MG TABLET PO SCH (20:00)
--- NOTE | 2020-10-25 21:07 | PDOC ---
Exam Note: Carlos A Note: Please also refer to the separate dictated note~for this date of service dictated separately.~Patient seen individually. Discussed the patient with Nursing staff reviewed the chart.~Reviewed interim history and current functioning. Reviewed vital signs,~Labs/ Radiology~and current medications noted below. Continue current treatment with the changes noted in the dictated addendum note Assessment: Vital Signs/I&O: Vital Signs Date Time Temp Pulse Resp B/P (MAP) Pulse Ox O2 Delivery O2 Flow Rate FiO2 10/25/20 15:34 96.4 86 22 139/90 (106) 97 10/22/20 16:00 Room Air I & O 10/24/20 10/24/20 10/25/20 15:00 23:00 07:00 Intake Total 1020 ml 120 ml Balance 1020 ml 120 ml Current Medications: Meds: Current Medications Medications (Trade) Dose Ordered Sig/Tory Route PRN Reason Start Time Stop Time Status Last Admin Dose Admin Magnesium Citrate (Citroma) 296 ml 1X ONCE PO 10/25/20 17:00 10/25/20 17:01 DC 10/25/20 17:03 I have reviewed the current psychotropics carefully including drug interactions. Risk benefit ratio favors no change other than as noted in my dictated progress note. Diagnosis: Problems: (1) Anxiety disorder, unspecified (2) Major depressive disorder with psychotic features (3) Mild cognitive impairment DYANA DEVINE MD Oct 25, 2020 21:07
--- NOTE | 2020-10-25 22:06 | NUR ---
Patient is pleasant, calm and medication compliant. When asked, patient stated she had a "small bowel movement" but still felt she needed to go more. She also stated she has hemorrhoids, but did not want to have any medicating cream ordered for them. Patient reading book in room and preforms all of her own ADLs.
[2020-10-26 05:54] VITALS: BP 119/73
--- NOTE | 2020-10-26 07:40 | PDOC ---
Exam Note: Carlos A Note: This note is a late entry for 10/25/2020 covers elements not covered in my initial note. Subjective: The patient was seen face to face in the evening of 10/25/2020 with Mehdi MACARIO, discussed and reviewed the chart. The patient slept 7 hours previous night. Overall she is doing reasonably well. She was somewhat constipated and is going to receive magnesium citrate hopefully with success. She was awaiting for her shower as I visited with her in her room. Review of Systems: No CV, , pulmonary, eye, ENT system symptoms on review. Mental Status Exam: The patient is oriented to herself and situation. Speech is coherent. Abstraction is fair. Computation impaired. Language function is intact. Mood and affect improved. Laboratory Data: Reviewed. Impression: Major depressive disorder with psychotic features. Mild cognitive impairment. Anxiety disorder unspecified. Plan: No change from initial note. Assessment: Vital Signs/I&O: Vital Signs Date Time Temp Pulse Resp B/P (MAP) Pulse Ox O2 Delivery O2 Flow Rate FiO2 10/26/20 05:54 99.1 82 16 119/73 (88) 92 10/22/20 16:00 Room Air I & O 10/25/20 10/25/20 10/26/20 15:00 23:00 07:00 Intake Total 540 ml 600 ml Balance 540 ml 600 ml Current Medications: Meds: Current Medications Medications (Trade) Dose Ordered Sig/Tory Route PRN Reason Start Time Stop Time Status Last Admin Dose Admin Acetaminophen (Tylenol) 650 mg PRN Q6HRS PRN PO MILD PAIN / TEMP > 100.3'F 09/25/20 18:15 09/25/20 21:02 Multi-Ingredient Ointment (Analgesic [place]) 1 mariya PRN QID PRN TP MUSCLE PAIN 09/25/20 18:15 Al Hydroxide/Mg Hydroxide (Mylanta Plus Xs) 15 ml PRN AFTMEALHC PRN PO DYSPEPSIA 09/25/20 18:15 10/25/20 08:46 Magnesium Hydroxide (Milk Of Magnesia) 2,400 mg PRN QHS PRN PO CONSTIPATION, 2ND CHOICE 09/25/20 18:15 10/24/20 21:27 Acetaminophen (Tylenol) 650 mg Q6HRS PRN PO pain or fever 09/25/20 18:45 UNV Amlodipine Besylate (Norvasc) 10 mg DAILY PO 09/26/20 09:00 10/25/20 08:05 Aspirin (Aspirin Chewable) 81 mg DAILY PO 09/26/20 09:00 10/25/20 08:04 Vitamin D (Vitamin D3) 50,000 unit WEEKLY PO 10/01/20 09:00 10/22/20 08:49 Lidocaine (Lidoderm) 1 patch DAILY TP 09/26/20 09:00 10/07/20 17:00 DC 10/06/20 09:01 Polyethylene Glycol (miraLAX) 17 gm DAILY PO 09/26/20 09:00 10/07/20 17:00 DC 10/06/20 09:01 Atorvastatin Calcium (Lipitor) 40 mg QHS PO 09/25/20 21:00 10/25/20 20:00 Calcium Carbonate/ Glycine (Oscal) 500 mg DAILY PO 09/26/20 09:00 10/25/20 08:04 Quetiapine Fumarate (SEROquel) 50 mg TID PO 09/25/20 21:00 09/29/20 21:02 DC 09/29/20 13:43 Quetiapine Fumarate (SEROquel) 100 mg QHS PO 09/25/20 21:00 09/29/20 21:02 DC 09/28/20 19:48 Trazodone HCl (Desyrel) 25 mg BID PO 09/25/20 21:00 09/27/20 21:30 DC 09/27/20 21:18 Trazodone HCl (Desyrel) 50 mg QHS PO 09/25/20 21:00 10/25/20 20:00 Melatonin (Melatonin) 3 mg QHS PO 09/25/20 21:00 10/25/20 20:00 Miscellaneous (Lidoderm Patch Removal) 1 ea QHS 09/25/20 21:00 10/11/20 20:49 DC 10/10/20 20:15 Levofloxacin (Levaquin) 250 mg DAILY PO 09/27/20 13:00 10/02/20 21:01 DC 10/02/20 08:39 Lactobacillus Rhamnosus (Culturelle) 1 cap BID PO 09/27/20 21:00 10/25/20 19:59 Trazodone HCl (Desyrel) 50 mg PRN QHS PRN PO INSOMNIA 09/27/20 21:30 Risperidone (RisperDAL) 1 mg HS PO 09/30/20 21:00 09/29/20 21:04 DC Risperidone (RisperDAL) 1 mg HS PO 09/29/20 21:15 10/01/20 17:44 DC 09/30/20 20:24 Risperidone (RisperDAL) 1.25 mg HS PO 10/01/20 21:00 10/25/20 20:00 Polyethylene Glycol (miraLAX) 17 gm PRN DAILY PRN PO CONSTIPATION, 1ST CHOICE 10/07/20 17:00 10/22/20 20:57 Magnesium Citrate (Citroma) 296 ml 1X ONCE PO 10/25/20 17:00 10/25/20 17:01 DC 10/25/20 17:03 Current Medications Medications (Trade) Dose Ordered Sig/Tory Route PRN Reason Start Time Stop Time Status Last Admin Dose Admin Magnesium Citrate (Citroma) 296 ml 1X ONCE PO 10/25/20 17:00 10/25/20 17:01 DC 10/25/20 17:03 I have reviewed the current psychotropics carefully including drug interactions. Risk benefit ratio favors no change other than as noted in my dictated progress note. Diagnosis: Problems: (1) Major depressive disorder with psychotic features (2) Anxiety disorder, unspecified (3) Mild cognitive impairment DYANA DEVINE MD Oct 26, 2020 07:40
[2020-10-26] MEDS: LACTOBACILLUS RHAMNOSUS GG 1 CAPSULE. PO SCH ×2 (09:00→20:36)
[2020-10-26] MEDS: CALCIUM CARBONATE 500 MG TABLET PO SCH (09:00)
[2020-10-26] MEDS: ASPIRIN CHEWABLE 81 MG TABLET. PO SCH (09:00)
[2020-10-26] MEDS: amLODIPine BESYLATE 10 MG TABLET PO SCH (09:00)
--- NOTE | 2020-10-26 12:11 | NUR ---
WEEKLY ACTIVITY THERAPY NOTE Date of Admission: 09/25/20 Date of AT Assessment:09/27/20 Precipitating behaviors that initiated intake and admission: Delusional Called EMS that she was in labor and stated that she was and having a baby, then proceeded to tell them when they arrived that someone took the baby and planted it into someone else. Goal aimed:increase stress management and socialization skills Initial Goal: Pt will participate in at least three individual or group Activity Therapy sessions per week. Weekly progress towards goal: did not achieve, 1/3 Group participation level: 1 mod Weekly highlights: watched dr. villegas videos Behaviors observed: secluded to room often self guided leisure, pleasant, distracted by peers during group Plan: no change to goal Beneficial adaptations: reading material available, enjoys talking about gardening
--- NOTE | 2020-10-26 17:07 | TX PLAN ---
Interdisciplinary Tx Plan Admission Information Sep 25, 2020 at 17:30 Legal Status (on Admission): Voluntary DPOA/Guardian Name: Patito Sunshine Contact Other Contact Name: Priyanka Worthy Other Contact Verified Code Status: Full Code Allergies: Coded Allergies: Sulfa (Sulfonamide Antibiotics) (Verified Allergy, Intermediate, 06/15/20) iodine (Verified Allergy, Intermediate, 06/15/20) shellfish derived (Verified Allergy, Intermediate, 06/15/20) Diagnoses Primary Diagnosis: Psychosis, unspecified Reasons for Admission: Aggressive, Poor impulse control Problem in Patient's Words: She did fine for a while but then started having an increase in agitation with behaviors Additional Admission Comments: According to the intake pt is agitated, aggressive, biting, spitting Problems Active Problems: Withdrawn to room Inactive Problems: Medication compliant Pt Strengths/Limitations Ability for [place]: Poor Cognitive Functioning/Ability: Fair Communication Skills/Ability: Fair Financial Resources: Fair Insight/Judgement: Poor Intellectual Ability: Fair Physical Health: Poor Social Skills: Fair Stability in Family: Good Stability in School/Work: Poor Verbal Skills: Fair Discharge Criteria Discharge Criteria: No need for close observ., Adequate arrangements @DC, Improved behavior, Improved mood/thought Preliminary Discharge Plan Preliminary DC Plan: Placement Needed Special Precautions Fall Risk: Low Initial D/C Plan Potential plans for referrals to placement (AL versus LTC) Identified Discharge Needs: Potential referrals sent to placement for pt. Currently Utilized Resources Currently Utilized Resources/P: Primary Care Physician Referrals Community Resources: [facility] versus LTC Identified Problems/Hx/Goals Objectives/Short-Term Goals Short Term Goals: Dec. Aggression, Dec. Outbursts, Medication Stabilization, Promote Coping Skill Short Term Goals in Patient's: N/A Interventions/Frequency Staff Interventions/Frequency&: Psychiatrist to assess pt at least 3x per week for medication management Social Work to assess pt at least 2x per week for identification to barriers to care and discharge planning. Nursing to assess behaviors, medication mgmt and completion of 15 minute checks daily. Encourage group participation in activities (if applicable) or 1:1 engagement based of activity dept goals. 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 Education: Pt was able to graduate high school (12th) grade Community Follow-up Need for PCP follow-up Community Provider/Family Inpu: Family feels that placement will be needed and needs aid in getting this set up along with Medicaid for payment. Treatment Plan Explained Patient/Glass Sander Belt had this treatment plan explained to him/her as indicated by the signature below and has been given the opportunity to ask questions and make suggestions: Date: Patient/Glass Sander Belt Signature: Status Update Update Pt is eating roughly 75% of meals and sleeping on average 7 hours per night. Pt continues to be calm, pleasant and compliant with medications and staff direction. Pt is withdrawn to her room, mostly reading. Pt will discharge to live at home with her dtr and receive services in the community and through [facility]. SW will continue to work with pt and her family on making those arrangements. GLADIS GUERRA Oct 26, 2020 17:07
[2020-10-26 17:44] VITALS: BP 125/69
--- NOTE | 2020-10-26 18:30 | NUR ---
Patient has been calm, cooperative and pleasant throughout this shift, she has generally remained withdrawn to her room. Patient has had complaints of diarrhea with no abdominal pain; denied interventions. Will continue to monitor and report to oncoming shift.
[2020-10-26] MEDS: risperiDONE 1 MG TABLET. PO SCH (20:36)
[2020-10-26] MEDS: MELATONIN 3 MG TABLET PO SCH (20:36)
[2020-10-26] MEDS: traZODone 50 MG TABLET. PO SCH (20:36)
[2020-10-26] MEDS: ATORVASTATIN CALCIUM 20 MG TABLET PO SCH (20:36)
--- NOTE | 2020-10-26 21:05 | PDOC ---
Exam Note: Carlos A Note: Please also refer to the separate dictated note~for this date of service dictated separately.~Patient seen individually. Discussed the patient with Nursing staff reviewed the chart.~Reviewed interim history and current functioning. Reviewed vital signs,~Labs/ Radiology~and current medications noted below. Continue current treatment with the changes noted in the dictated addendum note Assessment: Vital Signs/I&O: Vital Signs Date Time Temp Pulse Resp B/P (MAP) Pulse Ox O2 Delivery O2 Flow Rate FiO2 10/26/20 17:44 97.1 82 16 125/69 (87) 97 10/22/20 16:00 Room Air I & O 10/25/20 10/25/20 10/26/20 15:00 23:00 07:00 Intake Total 540 ml 600 ml Balance 540 ml 600 ml Current Medications: Meds: Current Medications Medications (Trade) Dose Ordered Sig/Tory Route PRN Reason Start Time Stop Time Status Last Admin Dose Admin Acetaminophen (Tylenol) 650 mg PRN Q6HRS PRN PO MILD PAIN / TEMP > 100.3'F 09/25/20 18:15 09/25/20 21:02 Multi-Ingredient Ointment (Analgesic [place]) 1 mariya PRN QID PRN TP MUSCLE PAIN 09/25/20 18:15 Al Hydroxide/Mg Hydroxide (Mylanta Plus Xs) 15 ml PRN AFTMEALHC PRN PO DYSPEPSIA 09/25/20 18:15 10/25/20 08:46 Magnesium Hydroxide (Milk Of Magnesia) 2,400 mg PRN QHS PRN PO CONSTIPATION, 2ND CHOICE 09/25/20 18:15 10/24/20 21:27 Acetaminophen (Tylenol) 650 mg Q6HRS PRN PO pain or fever 09/25/20 18:45 UNV Amlodipine Besylate (Norvasc) 10 mg DAILY PO 09/26/20 09:00 10/26/20 09:00 Aspirin (Aspirin Chewable) 81 mg DAILY PO 09/26/20 09:00 10/26/20 09:00 Vitamin D (Vitamin D3) 50,000 unit WEEKLY PO 10/01/20 09:00 10/22/20 08:49 Lidocaine (Lidoderm) 1 patch DAILY TP 09/26/20 09:00 10/07/20 17:00 DC 10/06/20 09:01 Polyethylene Glycol (miraLAX) 17 gm DAILY PO 09/26/20 09:00 10/07/20 17:00 DC 10/06/20 09:01 Atorvastatin Calcium (Lipitor) 40 mg QHS PO 09/25/20 21:00 10/26/20 20:36 Calcium Carbonate/ Glycine (Oscal) 500 mg DAILY PO 09/26/20 09:00 10/26/20 09:00 Quetiapine Fumarate (SEROquel) 50 mg TID PO 09/25/20 21:00 09/29/20 21:02 DC 09/29/20 13:43 Quetiapine Fumarate (SEROquel) 100 mg QHS PO 09/25/20 21:00 09/29/20 21:02 DC 09/28/20 19:48 Trazodone HCl (Desyrel) 25 mg BID PO 09/25/20 21:00 09/27/20 21:30 DC 09/27/20 21:18 Trazodone HCl (Desyrel) 50 mg QHS PO 09/25/20 21:00 10/26/20 20:36 Melatonin (Melatonin) 3 mg QHS PO 09/25/20 21:00 10/26/20 20:36 Miscellaneous (Lidoderm Patch Removal) 1 ea QHS MC 09/25/20 21:00 10/11/20 20:49 DC 10/10/20 20:15 Levofloxacin (Levaquin) 250 mg DAILY PO 09/27/20 13:00 10/02/20 21:01 DC 10/02/20 08:39 Lactobacillus Rhamnosus (Culturelle) 1 cap BID PO 09/27/20 21:00 10/26/20 20:36 Trazodone HCl (Desyrel) 50 mg PRN QHS PRN PO INSOMNIA 09/27/20 21:30 Risperidone (RisperDAL) 1 mg HS PO 09/30/20 21:00 09/29/20 21:04 DC Risperidone (RisperDAL) 1 mg HS PO 09/29/20 21:15 10/01/20 17:44 DC 09/30/20 20:24 Risperidone (RisperDAL) 1.25 mg HS PO 10/01/20 21:00 10/26/20 20:36 Polyethylene Glycol (miraLAX) 17 gm PRN DAILY PRN PO CONSTIPATION, 1ST CHOICE 10/07/20 17:00 10/22/20 20:57 Magnesium Citrate (Citroma) 296 ml 1X ONCE PO 10/25/20 17:00 10/25/20 17:01 DC 10/25/20 17:03 I have reviewed the current psychotropics carefully including drug interactions. Risk benefit ratio favors no change other than as noted in my dictated progress note. Diagnosis: Problems: (1) Anxiety disorder, unspecified (2) Major depressive disorder with psychotic features (3) Mild cognitive impairment DYANA DEVINE MD Oct 26, 2020 21:05
--- NOTE | 2020-10-26 23:12 | NUR ---
Patient was in bed when nurse entered room to give HS medications. Patient med compliant and cooperative with nurse. Nurse filled patients cups with water and ice per patient request. Patient stated she was glad to be leaving on Friday during conversation with nurse. Patient did not express any delusions or hallucinations during conversation with nurse.
[2020-10-27] MEDS ORDERED: CALC500T31 PO (00:31)
[2020-10-27] MEDS ORDERED: LACT1CAP21 PO (00:32)
[2020-10-27] MEDS ORDERED: MAGN24003 PO (00:33)
[2020-10-27] MEDS ORDERED: MAG-115 PO (00:35)
[2020-10-27] MEDS ORDERED: METH28OI2 TP (00:35)
[2020-10-27] MEDS ORDERED: RISP1TAB88 PO (00:36)
[2020-10-27 05:59] VITALS: BP 124/77
--- NOTE | 2020-10-27 08:03 | PDOC ---
Exam Note: Carlos A Note: This note is a late entry for 10/26/2020 covers elements not covered in my initial note. Subjective: The patient was reviewed in the morning of 10/26/2020 for a treatment team meeting with Constanza Quinones, Yuni Tim and Diann (social psychologist), Morelia Garcia and Katt, activity therapy and Mehdi MACARIO, discussed and reviewed the chart. The patient slept 6-3/4 hours previous night. She has had some constipation. Received MiraLax and magnesium citrate, now has some diarrhea. The patient was also seen individually in the evening. Yuni social psychologist discussed that family is planning to have the patient home and the patients daughter will be with her at home at all times. Outpatient follow up psychiatry will be David Baer. Review of Systems: No CV, , pulmonary, eye, ENT system symptoms on review. Mental Status Exam: The patient is reasonably oriented. Speech is coherent. Abstraction is fair. Computation impaired. Language function is intact. Mood and affect somewhat withdrawn. Laboratory Data: Reviewed. Impression: Major depressive disorder with psychotic features. Mild cognitive impairment. Anxiety disorder unspecified. Plan: No change from initial note. I had lengthy discussion about outpatient follow up post discharge as I met with her in the evening. Assessment: Vital Signs/I&O: Vital Signs Date Time Temp Pulse Resp B/P (MAP) Pulse Ox O2 Delivery O2 Flow Rate FiO2 10/27/20 05:59 98.2 79 16 124/77 (93) 94 10/22/20 16:00 Room Air I & O 0 10/26/20 10/26/20 10/27/20 15:00 23:00 07:00 Intake Total 200 ml 440 ml Balance 200 ml 440 ml Current Medications: Meds: Current Medications Medications (Trade) Dose Ordered Sig/Tory Route PRN Reason Start Time Stop Time Status Last Admin Dose Admin Acetaminophen (Tylenol) 650 mg PRN Q6HRS PRN PO MILD PAIN / TEMP > 100.3'F 09/25/20 18:15 09/25/20 21:02 Multi-Ingredient Ointment (Analgesic [place]) 1 mariya PRN QID PRN TP MUSCLE PAIN 09/25/20 18:15 Al Hydroxide/Mg Hydroxide (Mylanta Plus Xs) 15 ml PRN AFTMEALHC PRN PO DYSPEPSIA 09/25/20 18:15 10/25/20 08:46 Magnesium Hydroxide (Milk Of Magnesia) 2,400 mg PRN QHS PRN PO CONSTIPATION, 2ND CHOICE 09/25/20 18:15 10/24/20 21:27 Acetaminophen (Tylenol) 650 mg Q6HRS PRN PO pain or fever 09/25/20 18:45 UNV Amlodipine Besylate (Norvasc) 10 mg DAILY PO 09/26/20 09:00 10/26/20 09:00 Aspirin (Aspirin Chewable) 81 mg DAILY PO 09/26/20 09:00 10/26/20 09:00 Vitamin D (Vitamin D3) 50,000 unit WEEKLY PO 10/01/20 09:00 10/22/20 08:49 Lidocaine (Lidoderm) 1 patch DAILY TP 09/26/20 09:00 10/07/20 17:00 DC 10/06/20 09:01 Polyethylene Glycol (miraLAX) 17 gm DAILY PO 09/26/20 09:00 10/07/20 17:00 DC 10/06/20 09:01 Atorvastatin Calcium (Lipitor) 40 mg QHS PO 09/25/20 21:00 10/26/20 20:36 Calcium Carbonate/ Glycine (Oscal) 500 mg DAILY PO 09/26/20 09:00 10/26/20 09:00 Quetiapine Fumarate (SEROquel) 50 mg TID PO 09/25/20 21:00 09/29/20 21:02 DC 09/29/20 13:43 Quetiapine Fumarate (SEROquel) 100 mg QHS PO 09/25/20 21:00 09/29/20 21:02 DC 09/28/20 19:48 Trazodone HCl (Desyrel) 25 mg BID PO 09/25/20 21:00 09/27/20 21:30 DC 09/27/20 21:18 Trazodone HCl (Desyrel) 50 mg QHS PO 09/25/20 21:00 10/26/20 20:36 Melatonin (Melatonin) 3 mg QHS PO 09/25/20 21:00 10/26/20 20:36 Miscellaneous (Lidoderm Patch Removal) 1 ea QHS MC 09/25/20 21:00 10/11/20 20:49 DC 10/10/20 20:15 Levofloxacin (Levaquin) 250 mg DAILY PO 09/27/20 13:00 10/02/20 21:01 DC 10/02/20 08:39 Lactobacillus Rhamnosus (Culturelle) 1 cap BID PO 09/27/20 21:00 10/26/20 20:36 Trazodone HCl (Desyrel) 50 mg PRN QHS PRN PO INSOMNIA 09/27/20 21:30 Risperidone (RisperDAL) 1 mg HS PO 09/30/20 21:00 09/29/20 21:04 DC Risperidone (RisperDAL) 1 mg HS PO 09/29/20 21:15 10/01/20 17:44 DC 09/30/20 20:24 Risperidone (RisperDAL) 1.25 mg HS PO 10/01/20 21:00 10/26/20 20:36 Polyethylene Glycol (miraLAX) 17 gm PRN DAILY PRN PO CONSTIPATION, 1ST CHOICE 10/07/20 17:00 10/22/20 20:57 Magnesium Citrate (Citroma) 296 ml 1X ONCE PO 10/25/20 17:00 10/25/20 17:01 DC 10/25/20 17:03 I have reviewed the current psychotropics carefully including drug interactions. Risk benefit ratio favors no change other than as noted in my dictated progress note. Diagnosis: Problems: (1) Major depressive disorder with psychotic features (2) Anxiety disorder, unspecified (3) Mild cognitive impairment DYANA DEVINE MD Oct 27, 2020 08:03
[2020-10-27] MEDS: CALCIUM CARBONATE 500 MG TABLET PO SCH (08:22)
[2020-10-27] MEDS: ASPIRIN CHEWABLE 81 MG TABLET. PO SCH (08:22)
[2020-10-27] MEDS: LACTOBACILLUS RHAMNOSUS GG 1 CAPSULE. PO SCH ×2 (08:22→19:44)
[2020-10-27] MEDS: amLODIPine BESYLATE 10 MG TABLET PO SCH (08:22)
--- NOTE | 2020-10-27 10:20 | NUR ---
BI contacted Patito to confirm that they for sure want to pick pt up on Friday. Patito reports that she initially told nursing between 1030 and 11 but reports it may be a bit later. BI informed her that she would just need to call for sure before they leave to give nursing a heads up. Patito and BI went over pharmacy for meds and discussed pt appointments. As it stands pt will have to either call and make her own behavioral health appointment OR do the walk in clinic as they would not make an appointment with social work. Pt would be able to get a 30 day supply with one refill which will be sufficient to get them to see the PCP. Patito reports that her friends who work in healthcare volunteered to come see pt and help them around the house as needed. At this point, Patito feels more comfortable with pt being in her home and is thankful for the staff on [facility] for helping pt.
--- NOTE | 2020-10-27 10:44 | NUR ---
[facility] Social Work Discharge Planning Form Patient Name BESSY WALLACE Admit Date: 25 September 2020 DISCHARGE PLAN Discharge Destination: Home with dtr Patito Care Assessment: N/A Level II Assessment: N/A Transportation: Pt dtr aPtito is to pick pt up late morning; will call before leaving [place], [place]. Special Instructions/Notes: Please fax discharge orders, medication list and discharge summary to the following fax numbers listed below. DISCHARGE TO HOME: Address: [address] [place] [address]; [place] [address] Responsible Alliance Party: Patito Sunshine Pharmacy: [facility] Contact Information: [address] [place] [id number] Psychiatrist/Mental Health Follow Up: must do the walk-in clinic Fri through between [phone] or call to make appointment Contact Information: [facility] (outpatient) [address] [place] [address]; [place] [address] Primary Care Follow Up: Dr. Rubia Flores Contact Information: [facility] [address] [place] [address]; [place], [place] Appointment: Friday, December 18, 2020 @ 0900
--- NOTE | 2020-10-27 16:09 | NUR ---
Patient has been calm, cooperative and pleasant throughout this shift, she has generally remained withdrawn to her room. Patient denies abdominal issues today. She has been social with peers that visited in her room. Will continue to monitor and report to oncoming shift.
[2020-10-27 16:16] VITALS: BP 120/79
[2020-10-27] MEDS: MELATONIN 3 MG TABLET PO SCH (19:44)
[2020-10-27] MEDS: traZODone 50 MG TABLET. PO SCH (19:44)
[2020-10-27] MEDS: risperiDONE 1 MG TABLET. PO SCH (19:45)
[2020-10-27] MEDS: ATORVASTATIN CALCIUM 20 MG TABLET PO SCH (19:46)
--- NOTE | 2020-10-27 20:54 | PDOC ---
Exam Note: Carlos A Note: Please also refer to the separate dictated note~for this date of service dictated separately.~Patient seen individually. Discussed the patient with Nursing staff reviewed the chart.~Reviewed interim history and current functioning. Reviewed vital signs,~Labs/ Radiology~and current medications noted below. Continue current treatment with the changes noted in the dictated addendum note Assessment: Vital Signs/I&O: Vital Signs Date Time Temp Pulse Resp B/P (MAP) Pulse Ox O2 Delivery O2 Flow Rate FiO2 10/27/20 16:16 97.0 72 16 120/79 (93) 97 Room Air I & O 10/26/20 10/26/20 10/27/20 15:00 23:00 07:00 Intake Total 200 ml 440 ml Balance 200 ml 440 ml Current Medications: Meds: Current Medications Medications (Trade) Dose Ordered Sig/Tory Route PRN Reason Start Time Stop Time Status Last Admin Dose Admin Acetaminophen (Tylenol) 650 mg PRN Q6HRS PRN PO MILD PAIN / TEMP > 100.3'F 09/25/20 18:15 09/25/20 21:02 Multi-Ingredient Ointment (Analgesic [place]) 1 mariya PRN QID PRN TP MUSCLE PAIN 09/25/20 18:15 Al Hydroxide/Mg Hydroxide (Mylanta Plus Xs) 15 ml PRN AFTMEALHC PRN PO DYSPEPSIA 09/25/20 18:15 10/25/20 08:46 Magnesium Hydroxide (Milk Of Magnesia) 2,400 mg PRN QHS PRN PO CONSTIPATION, 2ND CHOICE 09/25/20 18:15 10/24/20 21:27 Acetaminophen (Tylenol) 650 mg Q6HRS PRN PO pain or fever 09/25/20 18:45 UNV Amlodipine Besylate (Norvasc) 10 mg DAILY PO 09/26/20 09:00 10/27/20 08:22 Aspirin (Aspirin Chewable) 81 mg DAILY PO 09/26/20 09:00 10/27/20 08:22 Vitamin D (Vitamin D3) 50,000 unit WEEKLY PO 10/01/20 09:00 10/22/20 08:49 Lidocaine (Lidoderm) 1 patch DAILY TP 09/26/20 09:00 10/07/20 17:00 DC 10/06/20 09:01 Polyethylene Glycol (miraLAX) 17 gm DAILY PO 09/26/20 09:00 10/07/20 17:00 DC 10/06/20 09:01 Atorvastatin Calcium (Lipitor) 40 mg QHS PO 09/25/20 21:00 10/27/20 19:46 Calcium Carbonate/ Glycine (Oscal) 500 mg DAILY PO 09/26/20 09:00 10/27/20 08:22 Quetiapine Fumarate (SEROquel) 50 mg TID PO 09/25/20 21:00 09/29/20 21:02 DC 09/29/20 13:43 Quetiapine Fumarate (SEROquel) 100 mg QHS PO 09/25/20 21:00 09/29/20 21:02 DC 09/28/20 19:48 Trazodone HCl (Desyrel) 25 mg BID PO 09/25/20 21:00 09/27/20 21:30 DC 09/27/20 21:18 Trazodone HCl (Desyrel) 50 mg QHS PO 09/25/20 21:00 10/27/20 19:44 Melatonin (Melatonin) 3 mg QHS PO 09/25/20 21:00 10/27/20 19:44 Miscellaneous (Lidoderm Patch Removal) 1 ea QHS MC 09/25/20 21:00 10/11/20 20:49 DC 10/10/20 20:15 Levofloxacin (Levaquin) 250 mg DAILY PO 09/27/20 13:00 10/02/20 21:01 DC 10/02/20 08:39 Lactobacillus Rhamnosus (Culturelle) 1 cap BID PO 09/27/20 21:00 10/27/20 19:44 Trazodone HCl (Desyrel) 50 mg PRN QHS PRN PO INSOMNIA 09/27/20 21:30 Risperidone (RisperDAL) 1 mg HS PO 09/30/20 21:00 09/29/20 21:04 DC Risperidone (RisperDAL) 1 mg HS PO 09/29/20 21:15 10/01/20 17:44 DC 09/30/20 20:24 Risperidone (RisperDAL) 1.25 mg HS PO 10/01/20 21:00 10/27/20 19:45 Polyethylene Glycol (miraLAX) 17 gm PRN DAILY PRN PO CONSTIPATION, 1ST CHOICE 10/07/20 17:00 10/22/20 20:57 Magnesium Citrate (Citroma) 296 ml 1X ONCE PO 10/25/20 17:00 10/25/20 17:01 DC 10/25/20 17:03 I have reviewed the current psychotropics carefully including drug interactions. Risk benefit ratio favors no change other than as noted in my dictated progress note. Diagnosis: Problems: (1) Anxiety disorder, unspecified (2) Major depressive disorder with psychotic features (3) Mild cognitive impairment DYANA DEVINE MD Oct 27, 2020 20:54
--- NOTE | 2020-10-27 23:55 | NUR ---
Pt had just laid down in bed when nurse brought HS medications in. Patient compliant with medications taken whole and stated that she is happy to be discharging tomorrow. No adverse behaviors or delusional thinking at this time. Patient spoke to daughter on the phone before she went to sleep.
[2020-10-28 06:29] VITALS: BP 119/71
[2020-10-28] MEDS: ASPIRIN CHEWABLE 81 MG TABLET. PO SCH (08:44)
[2020-10-28] MEDS: LACTOBACILLUS RHAMNOSUS GG 1 CAPSULE. PO SCH (08:44)
[2020-10-28 08:45] VITALS: BP 119/71
[2020-10-28] MEDS: CALCIUM CARBONATE 500 MG TABLET PO SCH (08:45)
[2020-10-28] MEDS: amLODIPine BESYLATE 10 MG TABLET PO SCH (08:45)
--- NOTE | 2020-10-28 10:39 | NUR ---
She is compliant with her medication and assessment. Pt is calm, cooperative, and compliant. No agitation, no aggression, no hallucinations or delusions noted.
--- NOTE | 2020-10-28 10:40 | NUR ---
medications called into [facility]. Spoke to Raymundo.
--- NOTE | 2020-10-28 12:17 | NUR ---
Transition Record was faxed to follow-up provider with the following elements: Reason for admission, procedures, tests, principal diagnosis, pending studies, patient instructions, 17/03 contact information for unit, phone number to obtain pending test results, plan for follow-up care, physician follow-up, advanced directive information, and medication list with dose, duration and instructions. This information was included in the following documents: History and physical, lab results, study results, progress notes, social work planning form, DC instruction form, patient visit summary, and medication reconciliation form. Date & time record faxed: 10/28/2020 1035 Record faxed to: [facility] and Dr. Rubia Flores Record discussed with/ report given to: LAURA, Daughter Patito
--- NOTE | 2020-10-28 21:40 | PDOC ---
Exam Note: Carlos A Note: Please also refer to the separate dictated note~for this date of service dictated separately.~Patient seen individually. Discussed the patient with Nursing staff reviewed the chart.~Reviewed interim history and current functioning. Reviewed vital signs,~Labs/ Radiology~and current medications noted below. Continue current treatment with the changes noted in the dictated addendum note Assessment: Vital Signs/I&O: Vital Signs Date Time Temp Pulse Resp B/P (MAP) Pulse Ox O2 Delivery O2 Flow Rate FiO2 10/28/20 08:45 72 119/71 10/28/20 06:29 98.1 17 96 Room Air I & O 10/27/20 10/27/20 10/28/20 15:00 23:00 07:00 Intake Total 600 ml 600 ml Balance 600 ml 600 ml Current Medications: Meds: Current Medications Medications (Trade) Dose Ordered Sig/Tory Route PRN Reason Start Time Stop Time Status Last Admin Dose Admin Acetaminophen (Tylenol) 650 mg PRN Q6HRS PRN PO MILD PAIN / TEMP > 100.3'F 09/25/20 18:15 10/28/20 12:21 DC 09/25/20 21:02 Multi-Ingredient Ointment (Analgesic [place]) 1 mariya PRN QID PRN TP MUSCLE PAIN 09/25/20 18:15 10/28/20 12:21 DC Al Hydroxide/Mg Hydroxide (Mylanta Plus Xs) 15 ml PRN AFTMEALHC PRN PO DYSPEPSIA 09/25/20 18:15 10/28/20 12:21 DC 10/25/20 08:46 Magnesium Hydroxide (Milk Of Magnesia) 2,400 mg PRN QHS PRN PO CONSTIPATION, 2ND CHOICE 09/25/20 18:15 10/28/20 12:21 DC 10/24/20 21:27 Acetaminophen (Tylenol) 650 mg Q6HRS PRN PO pain or fever 09/25/20 18:45 UNV Amlodipine Besylate (Norvasc) 10 mg DAILY PO 09/26/20 09:00 10/28/20 12:21 DC 10/28/20 08:45 Aspirin (Aspirin Chewable) 81 mg DAILY PO 09/26/20 09:00 10/28/20 12:21 DC 10/28/20 08:44 Vitamin D (Vitamin D3) 50,000 unit WEEKLY PO 10/01/20 09:00 10/28/20 12:21 DC 10/22/20 08:49 Lidocaine (Lidoderm) 1 patch DAILY TP 09/26/20 09:00 10/07/20 17:00 DC 10/06/20 09:01 Polyethylene Glycol (miraLAX) 17 gm DAILY PO 09/26/20 09:00 10/07/20 17:00 DC 10/06/20 09:01 Atorvastatin Calcium (Lipitor) 40 mg QHS PO 09/25/20 21:00 10/28/20 12:21 DC 10/27/20 19:46 Calcium Carbonate/ Glycine (Oscal) 500 mg DAILY PO 09/26/20 09:00 10/28/20 12:21 DC 10/28/20 08:45 Quetiapine Fumarate (SEROquel) 50 mg TID PO 09/25/20 21:00 09/29/20 21:02 DC 09/29/20 13:43 Quetiapine Fumarate (SEROquel) 100 mg QHS PO 09/25/20 21:00 09/29/20 21:02 DC 09/28/20 19:48 Trazodone HCl (Desyrel) 25 mg BID PO 09/25/20 21:00 09/27/20 21:30 DC 09/27/20 21:18 Trazodone HCl (Desyrel) 50 mg QHS PO 09/25/20 21:00 10/28/20 12:21 DC 10/27/20 19:44 Melatonin (Melatonin) 3 mg QHS PO 09/25/20 21:00 10/28/20 12:21 DC 10/27/20 19:44 Miscellaneous (Lidoderm Patch Removal) 1 ea QHS MC 09/25/20 21:00 10/11/20 20:49 DC 10/10/20 20:15 Levofloxacin (Levaquin) 250 mg DAILY PO 09/27/20 13:00 10/02/20 21:01 DC 10/02/20 08:39 Lactobacillus Rhamnosus (Culturelle) 1 cap BID PO 09/27/20 21:00 10/28/20 12:21 DC 10/28/20 08:44 Trazodone HCl (Desyrel) 50 mg PRN QHS PRN PO INSOMNIA 09/27/20 21:30 10/28/20 12:21 DC Risperidone (RisperDAL) 1 mg HS PO 09/30/20 21:00 09/29/20 21:04 DC Risperidone (RisperDAL) 1 mg HS PO 09/29/20 21:15 10/01/20 17:44 DC 09/30/20 20:24 Risperidone (RisperDAL) 1.25 mg HS PO 10/01/20 21:00 10/28/20 12:21 DC 10/27/20 19:45 Polyethylene Glycol (miraLAX) 17 gm PRN DAILY PRN PO CONSTIPATION, 1ST CHOICE 10/07/20 17:00 10/28/20 12:21 DC 10/22/20 20:57 Magnesium Citrate (Citroma) 296 ml 1X ONCE PO 10/25/20 17:00 10/25/20 17:01 DC 10/25/20 17:03 I have reviewed the current psychotropics carefully including drug interactions. Risk benefit ratio favors no change other than as noted in my dictated progress note. Diagnosis: Problems: (1) Anxiety disorder, unspecified (2) Mild cognitive impairment (3) Major depressive disorder with psychotic features DYANA DEVINE MD Oct 28, 2020 21:40
--- NOTE | 2020-10-29 07:44 | PDOC ---
Exam Note: Carlos A Note: This note is a late entry for 10/27/2020 covers elements not covered in my initial note. Subjective: The patient was seen individually in the evening of 10/27/2020 with Mehdi MACARIO, discussed and reviewed the chart. The patient slept 8-3/4 hours previous night. She has been quite interactive with some of the other patients, appropriate, pleasant, verbal. Review of Systems: No CV, , pulmonary, eye, ENT system symptoms on review. Mental Status Exam: The patient is reasonably oriented. Speech is coherent, has some latency. Abstraction is fair. Computation impaired. Language function is intact. Mood and affect withdrawn. Laboratory Data: Reviewed. Impression: Major depressive disorder with psychotic features. Mild cognitive impairment. Anxiety disorder unspecified. Plan: No change from initial note. Discharge to outpatient treatment on 10/28. Assessment: Vital Signs/I&O: Vital Signs Date Time Temp Pulse Resp B/P (MAP) Pulse Ox O2 Delivery O2 Flow Rate FiO2 10/28/20 08:45 72 119/71 10/28/20 06:29 98.1 17 96 Room Air I & O 10/28/20 10/28/20 10/29/20 15:00 23:00 07:00 Intake Total 480 ml Balance 480 ml Current Medications: Meds: Current Medications Medications (Trade) Dose Ordered Sig/Tory Route PRN Reason Start Time Stop Time Status Last Admin Dose Admin Acetaminophen (Tylenol) 650 mg PRN Q6HRS PRN PO MILD PAIN / TEMP > 100.3'F 09/25/20 18:15 10/28/20 12:21 DC 09/25/20 21:02 Multi-Ingredient Ointment (Analgesic [place]) 1 mariya PRN QID PRN TP MUSCLE PAIN 09/25/20 18:15 10/28/20 12:21 DC Al Hydroxide/Mg Hydroxide (Mylanta Plus Xs) 15 ml PRN AFTMEALHC PRN PO DYSPEPSIA 09/25/20 18:15 10/28/20 12:21 DC 10/25/20 08:46 Magnesium Hydroxide (Milk Of Magnesia) 2,400 mg PRN QHS PRN PO CONSTIPATION, 2ND CHOICE 09/25/20 18:15 10/28/20 12:21 DC 10/24/20 21:27 Acetaminophen (Tylenol) 650 mg Q6HRS PRN PO pain or fever 09/25/20 18:45 UNV Amlodipine Besylate (Norvasc) 10 mg DAILY PO 09/26/20 09:00 10/28/20 12:21 DC 10/28/20 08:45 Aspirin (Aspirin Chewable) 81 mg DAILY PO 09/26/20 09:00 10/28/20 12:21 DC 10/28/20 08:44 Vitamin D (Vitamin D3) 50,000 unit WEEKLY PO 10/01/20 09:00 10/28/20 12:21 DC 10/22/20 08:49 Lidocaine (Lidoderm) 1 patch DAILY TP 09/26/20 09:00 10/07/20 17:00 DC 10/06/20 09:01 Polyethylene Glycol (miraLAX) 17 gm DAILY PO 09/26/20 09:00 10/07/20 17:00 DC 10/06/20 09:01 Atorvastatin Calcium (Lipitor) 40 mg QHS PO 09/25/20 21:00 10/28/20 12:21 DC 10/27/20 19:46 Calcium Carbonate/ Glycine (Oscal) 500 mg DAILY PO 09/26/20 09:00 10/28/20 12:21 DC 10/28/20 08:45 Quetiapine Fumarate (SEROquel) 50 mg TID PO 09/25/20 21:00 09/29/20 21:02 DC 09/29/20 13:43 Quetiapine Fumarate (SEROquel) 100 mg QHS PO 09/25/20 21:00 09/29/20 21:02 DC 09/28/20 19:48 Trazodone HCl (Desyrel) 25 mg BID PO 09/25/20 21:00 09/27/20 21:30 DC 09/27/20 21:18 Trazodone HCl (Desyrel) 50 mg QHS PO 09/25/20 21:00 10/28/20 12:21 DC 10/27/20 19:44 Melatonin (Melatonin) 3 mg QHS PO 09/25/20 21:00 10/28/20 12:21 DC 10/27/20 19:44 Miscellaneous (Lidoderm Patch Removal) 1 ea QHS 09/25/20 21:00 10/11/20 20:49 DC 10/10/20 20:15 Levofloxacin (Levaquin) 250 mg DAILY PO 09/27/20 13:00 10/02/20 21:01 DC 10/02/20 08:39 Lactobacillus Rhamnosus (Culturelle) 1 cap BID PO 09/27/20 21:00 10/28/20 12:21 DC 10/28/20 08:44 Trazodone HCl (Desyrel) 50 mg PRN QHS PRN PO INSOMNIA 09/27/20 21:30 10/28/20 12:21 DC Risperidone (RisperDAL) 1 mg HS PO 09/30/20 21:00 09/29/20 21:04 DC Risperidone (RisperDAL) 1 mg HS PO 09/29/20 21:15 10/01/20 17:44 DC 09/30/20 20:24 Risperidone (RisperDAL) 1.25 mg HS PO 10/01/20 21:00 10/28/20 12:21 DC 10/27/20 19:45 Polyethylene Glycol (miraLAX) 17 gm PRN DAILY PRN PO CONSTIPATION, 1ST CHOICE 10/07/20 17:00 10/28/20 12:21 DC 10/22/20 20:57 Magnesium Citrate (Citroma) 296 ml 1X ONCE PO 10/25/20 17:00 10/25/20 17:01 DC 10/25/20 17:03 I have reviewed the current psychotropics carefully including drug interactions. Risk benefit ratio favors no change other than as noted in my dictated progress note. Diagnosis: Problems: (1) Mild cognitive impairment (2) Anxiety disorder, unspecified (3) Major depressive disorder with psychotic features DYANA DEVINE MD Oct 29, 2020 07:44
--- NOTE | 2020-10-29 22:59 | DS ---
DATE OF DISCHARGE: 10/28/2020 DISCHARGE SUMMARY/PSYCHIATRIC PROGRESS NOTE This late entry date of service 10/28/2020 covers elements not covered in my initial note. REASON FOR ADMISSION: Please refer to the admission history for details. Briefly, the patient is a 74-year-old -[place] female referred to us from the [facility] because of marked psychosis, agitation, aggression, disruptive behavior, failure of interventions outside Psychiatry Inpatient Unit. The patient was living at home. She had called EMS that she was in labor and and then stated she was and someone took the baby and implanted into someone else who was a surrogate. While at , she was agitated, aggressive, biting, spitting was in 4-point restraints as well. Behaviors deemed dangerous and unmanageable. The patient's psychotic, has failed a prior psychiatric interventions resulting in this referral. SIGNIFICANT FINDINGS AND CLINICAL COURSE: Following admission, the patient was seen daily individually by myself from a psychiatric standpoint, medical followup with Dr. Monteiro/Dr. Ron. The patient was noted to be depressed, minimized ___ rationalized most of the circumstances prompting admission, demanding to go home. Adjustments were made in her psychotropics. She did have a UTI, treated on Levaquin. She finally seemed to respond to a combination of Risperdal 1.25 mg at bedtime and was also on melatonin 3 mg at bedtime, trazodone 50 mg at bedtime, may repeat x 2 for insomnia. Plan was to discharge to her facility, but then the family made arrangements for her to return home, living with them. REVIEW OF SYSTEMS: Prior to discharge, no CV, , pulmonary, eye system symptoms on review. MENTAL STATUS EXAM: Reasonably oriented. Speech is coherent, abstraction fair, computation impaired, language function intact. Mood and affect withdrawn. LABORATORY DATA: Reviewed. FINAL DIAGNOSES: PSYCHIATRIC: Major depressive disorder with psychotic features; psychotic disorder, unspecified; mild cognitive impairment, status post urinary tract infection. Rest unchanged. DISCHARGE MEDICATIONS: Please refer to the MRAD. DISCHARGE INSTRUCTIONS: Outpatient psychiatric and medical followup as arranged prior to discharge. Time for discharge day management greater than 30 minutes. DYANA DEVINE MD DR: SUJATHA/[email or web address] JOB#: [id number] / [id number]
== END 2020-10-28 12:21 | disposition home health service (06) | DRG 885 ==
LOC: GEROPSY 17:30
PROVIDERS: ADMIT Psychiatry & Neurology Psychiatry; ATTEND Psychiatry & Neurology Psychiatry
DX: F32.3 Major depressive disorder, single episode, severe with psychotic features (principal); F01.51 Vascular dementia, unspecified severity, with behavioral disturbance; E44.1 Mild protein-calorie malnutrition; F02.81 Dementia in other diseases classified elsewhere, unspecified severity, with behavioral disturbance; N39.0 Urinary tract infection, site not specified; D64.9 Anemia, unspecified; E78.5 Hyperlipidemia, unspecified; F41.9 Anxiety disorder, unspecified; G30.9 Alzheimer's disease, unspecified; G47.00 Insomnia, unspecified; I10 Essential (primary) hypertension; M15.9 Polyosteoarthritis, unspecified; Z20.822 Contact with and (suspected) exposure to COVID-19; Z79.899 Other long term (current) drug therapy; Z82.49 Family history of ischemic heart disease and other diseases of the circulatory system; K59.09 Other constipation; Z91.19 Patient's noncompliance with other medical treatment and regimen; Z96.641 Presence of right artificial hip joint; Z68.33 Body mass index [BMI] 33.0-33.9, adult
CPT/HCPCS: 36415; 80053; 85025; 93005; U0003